=== PATIENT | female | born 1945 | race Caucasian/White ===

== ENCOUNTER 2025-01-31 08:46 | Outpatient (AMB) | payer MEDICARE, BC, SELFPAY ==
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
--- OUTSIDE RECORDS SUMMARY | 2025-01-31 09:07 | XMS_ITS | Clinical Summary ---
Author Organization [address] Address [address] [place] [address] Phone Care Team Providers Care Childhood Teacher Name Role Phone Preeti Brothers MD Primary Care Provider [phone] Allergies Active Allergy Reactions Criticality Noted Date Comments Carbamazepine 08/18/2005 hepatitis Medications cyanocobalamin, vitamin B-12, 1,000 mcg capsule Take 1,000 mcg by mouth. Active levETIRAcetam (KEPPRA) 250 mg tablet Take 1 tablet (250 mg total) by mouth 2 (two) times a day. 025 Active cabergoline (DOSTINEX) 0.5 mg tabletIndications:B enign neoplasm of pituitary gland and craniopharyngeal duct (CMS/HCC V24, CMS/HCC V28) TAKE 1/2 TABLET BY MOUTH EVERY 7 DAYS 6 tablet 1 025 Active pravastatin (PRAVACHOL) 80 mg tablet Take 1 tablet (80 mg total) by mouth at bedtime. 90 tablet 1 025 Active lisinopriL (PRINIVIL,ZESTRIL) 5 mg tablet Take 1 tablet (5 mg total) by mouth at bedtime. 90 tablet 1 025 Active amLODIPine (NORVASC) 10 mg tablet Take 1 tablet (10 mg total) by mouth at bedtime. 90 tablet 1 06/26/2 025 Active alendronate (FOSAMAX) 70 mg tablet Take 1 tablet (70 mg total) by mouth every 7 (seven) days. Take in the morning with a full glass of water, on an empty stomach, and do not take anything else by mouth or lie down for the next 30 min. 13 each 3 025 2025 Active zoledronic acid (RECLAST) 5 mg/100 mL piggybackIndication s:Osteoporosis without current pathological fracture, unspecified osteoporosis type Infuse 100 mL (5 mg total) into a venous catheter 1 (one) time for 1 dose. 100 mL 024 2024 Discontinued pravastatin (PRAVACHOL) 80 mg tablet Take 1 tablet (80 mg total) by mouth at bedtime. 90 tablet 1 025 2024 Discontinued(R eorder) lisinopriL (PRINIVIL,ZESTRIL) 5 mg tablet Take 1 tablet (5 mg total) by mouth at bedtime. 90 tablet 025 2024 Discontinued(R eorder) amLODIPine (NORVASC) 10 mg tablet Take 1 tablet (10 mg total) by mouth at bedtime. 30 tablet 025 2024 Discontinued(R eorder) Active Problems Problem Noted Date Diagnosed Date Hypertension 04/22/2022 Assessment & Plan (01/04/2025 9:03 AM EDT): DJD (degenerative joint disease), lumbar 018 Overview (06/22/2024): Severe djd Obesity (BMI 30.0-34.9) 11/24/2017 Osteoporosis 09/25/2009 Overview (06/16/2024): T-3.0 hip -3.2 spine 08/22 T score spine -1.8 hip -1.7 FRAX score 15% 10 year fracture risk 09/21 T score spine -1.8 hip -2.9 FRAX 06/26 T score spine -1.8 hip -2.9 01/27 T score spine -0.9 hip -3.5 09/03 T score spine -0.7 hip -3.2 Assessment & Plan (01/04/2025 9:03 AM EDT): Hypercholesteremia 11/05/2007 Assessment & Plan (01/04/2025 9:03 AM EDT): Kidney stone 06/02/2006 Convulsions ([facility] V24, [facility] V28) 6 Assessment & Plan (01/04/2025 9:03 AM EDT): Central nervous system viral infection 6 Overview (06/16/2024): age 10 Hepatitis A virus infection 08/18/2005 Overview (12/26/2024): Gout 08/18/2005 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[facility] V24, [facility]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 06 Assessment & Plan (01/04/2025 9:03 AM EDT): Resolved Problems Problem Noted Date Diagnosed Date Resolved Date Current every day smoker 05/17/2023 Encounters Date Type Department Care Team Description 01/04/2025 9:00 AM EDT Office Visit Adult Medicine [address] [address] Preeti Brothers MD Encounter for annual wellness visit (AWV) in Medicare patient (Primary Dx); Primary hypertension; Hypercholesteremia; Convulsions, unspecified convulsion type ([facility] V24, [facility] V28); Osteoporosis without current pathological fracture, unspecified osteoporosis type; 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[facility] V24, [facility] V28) from Last 3 Months Immunizations Name Administration Dates Next Due Influenza trivalent, 0.5mL ( Fluad) 65yo and older 04/22/2022,04/09/2021,03/01/2020 Pneumococcal conjugate 13 va lent (Prevnar 13, PCV13) 2mo and older 05/27/2016 Pneumococcal polysaccharide 23 valent (Pneumovax 23) 2yo and older 08/23/2008 Td Tetanus diptheria (Tdvax) 7yo and older 05/14,05/23/2004 Zoster Live 05/14/2014 Surgical History Surgery Date Site/Laterality Comments OTHER SURGICAL HISTORY 07/22 PROCEDURE: MAMMOGRAM Medical History Medical History Date Comments Gout, unspecified 08/18/2005 Historical Medical DX 08/18/2005 Encephalit is, myelitis, and encephalomyelitis in viral diseases classified elsewhere; COMMENT: age 10 Viral hepatitis A without me ntion of hepatic coma 08/18/2005 Calculus of kidney 06/02/2006 Hypercholesteremia 11/05/2007 Osteoporosis 09/25/2009 Amblyopia, unspecified OS-since childhood DJD (degenerative joint dise ase), lumbar 12/01/2017 : Severe djd Hypertension 04/22/2022 Kidney stone 06/02/2006 Convulsions ([facility] V24, [facility] V28) 6 Central nervous system viral infection 6 age 10 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[facility] V24, [facility] [place]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 Family History Medical History Relation Name Comments CABG Brother Heart attack Father CABG Mother after bypa ss; Valve replacement Glaucoma Sister Hypertension Son 1 hypercholestero lemia Hyperlipidemia Son 2 Breast cancer Neg Hx Relation Name Status Comments Brother Father Mother Sister Son 1 Son 2 Social History Tobacco Use Types Packs/Day Years Used Date Smoking Tobacco: Every Day Cigarettes Smokeless Tobacco: Never Tobacco Cessation:Ready to Q uit: Not Asked; Counseling Given: Not Answered Alcohol Use Standard Drinks/Week Comments No 0 (1 standard drink = 0.6 oz pur e alcohol) Housing Instability Answer Date Recorde d Are you worried that in the next 2 months you may not have stable housing? No 01/04/2025 Food Access & Nutrition Answer Date Rec orded Do you have access to a vari ety of food including fruits and vegetables? Yes 01/04/2025 Access to Healthcare Answer Date Record ed Within the last 3 months, christie up many times did you visit the emergency department for your medical care? 0 01/04/2025 Health Literacy Answer Date Recorded How often do you need to hav e someone help you when you read instructions, pamphlets, or other written material from your doctor or pharmacy? Never 01/04/2025 Caregiver: How often do you need to have someone help you when you read instructions, pamphlets, or other written material from your doctor or pharmacy? Not on file 01/04/2025 Financial Risk Answer Date Recorded How hard is it for you to pa y for the very basics like food, housing, medical care, and air conditioning / heating? Not very hard 01/04/2025 Transportation Answer Date Recorded Has the lack of transportati on kept you from meetings, work, or from getting things needed for daily living? No 01/04/2025 Has the lack of transportati on kept you from medical appointments or from getting medications? Not on file 01/04/2025 Social Isolation Answer Date Recorded How often do you feel lonely or isolated from th ose around you? Never 01/04/2025 Food Risk Answer Date Recorded Within the past 12 months we worried whether our food would run out before we got money to buy more. Never true 01/04/2025 Within the past 12 months th e food we bought just didn't last and we didn't have money to get more. Never true 01/04/2025 Dependent Care Answer Date Recorded Do you need help finding or paying for care for your loved ones. For example, childcare aide or elderly care for an older adult? No 01/04/2025 Education Answer Date Recorded Do you think completing more education or training, like finishing a GED, going to college, or learning a trade, would be helpful for you? No 01/04/2025 Employment and Income Answer Date Recor ded During the last four weeks, have you been actively looking for work? No 01/04/2025 Living Situation Answer Date Recorded What is your living situation? 0 01/04/2025 Comments Unknown Sex and Gender Information Value Date Recorded Sex Assigned at Not on file Legal Sex Female 11:46 AM EST Gender Identity Not on file Sexual Orientation Not on file Obstetrics History Last Filed Vital Signs Vital Sign Reading Time Taken Comments Blood Pressure 132/64 01/04/2025 8:44 AM EDT Pulse 64 01/04/2025 8:44 AM EDT Temperature 36.3 C (97.3 F) 01/04/2025 8:44 AM EDT Respiratory Rate 16 01/04/2025 8:44 AM EDT Oxygen Saturation 95% 01/04/2025 8:44 AM EDT Inhaled Oxygen Concentration - - Weight 78.4 kg (172 lb 14.4 oz) 01/04/2025 8:44 AM EDT Height 152.4 cm (5') 01/04/2025 8:44 AM EDT Body Mass Index 33.77 01/04/2025 8:44 AM EDT Plan of Treatment Upcoming Encounters Date Type Department Care Team (Late st Contact Info) Description 07/09/2025 8:45 AM EST Office Visit Adult Medicine [facility] [address] [place] [address] Preeti Brothers MD [address] [place] [address] Health Maintenance Due Date Last Done Comments Zoster Vaccines (2 of 3) 07/09/2014 05/14/2014 RSV Immunization Adult Patients (1 - 1-dose 75+ series) 2018 COVID-19 Vaccine ( season) 2024 05/17/2023, 04/09/2021, 09/15/2020, Additional history exists DTaP,Tdap,and Td Vaccines (3 - Td or Tdap) 05/14/2024 05/14/2014, 05/23/2004 Influenza Vaccine (#1) 2025 , 04/09/2021, 03/01/2020 Falls Risk Assessment 01/04/2026 01/04/2025 Hypertension/CHF/CAD Annual BMP Blood Test 01/04/2026 01/04/2025 Medicare Annual Wellness Visit 01/04/2026 01/04/2025 Social Influencers of Health Screening 01/04/2026 01/04/2025 Cholesterol Screening (Lipid Panel) 01/04/2030 01/04/2025, 12/16/2023 Osteoporosis Screening (Bone Density Screening) 08/25/2032 08/25/2022, 01/11/2019 Pneumococcal Vaccine: 50+ Years Completed 05/27/2016, 08/23/2008 Depression Screening Completed 01/04/2025 HIB Vaccines Aged Out No longer eligi ble based on patient's age to complete this topic HPV Vaccines Aged Out No longer eligi ble based on patient's age to complete this topic Hepatitis A Vaccines Aged Out No long er eligible based on patient's age to complete this topic Hepatitis B Vaccines Aged Out No long er eligible based on patient's age to complete this topic IPV Vaccines Aged Out No longer eligi ble based on patient's age to complete this topic MMR Vaccines Aged Out No longer eligi ble based on patient's age to complete this topic Meningococcal ACWY Vaccine Aged Out N o longer eligible based on patient's age to complete this topic Meningococcal B Vaccine Aged Out No l onger eligible based on patient's age to complete this topic RSV Immunization Patients Under 20 months Aged Out No longer eligible based on patient's age to complete this topic Varicella Vaccines Aged Out No longer eligible based on patient's age to complete this topic Procedures Procedure Name Priority Date/Time Associated Diagnosis Comments LIPID PANEL WITH REFLEX TO DIRECT LDL Routine 01/04/2025 9:22 AM EDT Hypercholesteremia COMPLETE BLOOD COUNT Routine 01/04/2025 9:22 AM EDT Osteoporosis without current pathological fracture, unspecified osteoporosis type Hypercholesteremia Primary hypertension VITAMIN D 25 HYDROXY Routine 01/04/2025 9:22 AM EDT Osteoporosis without current pathological fracture, unspecified osteoporosis type Hypercholesteremia Primary hypertension BASIC METABOLIC PANEL Routine 01/04/2025 9:22 AM EDT Osteoporosis without current pathological fracture, unspecified osteoporosis type Hypercholesteremia Primary hypertension DXA BONE DENSITY STUDY 1+ SITS AXIAL SKEL Routine 08/25/2022 2:37 PM EST Age-related osteoporosis without current pathological fracture from Last 3 Months or Most Recently Relevant to Health Maintenance Results * Lipid panel with reflex to direct LDL (01/04/2025 9:22 AM EDT) Cholesterol 189 0 - 200 mg/dL LAB CHEMISTRY METHOD 01/04/2025 1:36 PM EDT [facility] Triglycerides 142 0 - 150 mg/dL LAB CHEMISTRY METHOD 01/04/2025 1:36 PM EDT [facility] HDL 67 >=40 mg/dL LAB CHEMISTRY METHOD 01/04/2025 1:36 PM EDT [facility] LDL Calculated 94 0 - 100 mg/dL LAB CHEMISTRY METHOD 01/04/2025 1:36 PM EDT [facility] VLDL Cholesterol Anuj 28.4 mg/dL LAB CHEMISTRY METHOD 01/04/2025 1:36 PM EDT [facility] Non HDL Chol. (LDL+VLDL) 122 <145 mg/dL LAB CHEMISTRY METHOD 01/04/2025 1:36 PM EDT [facility] Chol/HDL Ratio 2.8 0.0 - 4.4 LAB CHEMISTRY METHOD 01/04/2025 1:36 PM EDT [facility] Blood Venous blood specimen / Unknown Venipuncture / Unknown 01/04/2025 9:22 AM EDT 01/04/2025 9:22 AM EDT us Josee GUNN LAB BLOOD ORDERABLES Final Re sult Performing Organization Address [facility]/ZIP Co de Phone Number [facility] [address] [place] [address], [place] [phone] * Vitamin D 25 hydroxy (01/04/2025 9:22 AM EDT) Vit D, 25-Hydroxy 30.0 30.0 - 80.0 ng/mL LAB CHEMISTRY METHOD 01/04/2025 2:06 PM EDT [facility] Blood Venous blood specimen / Unknown Venipuncture / Unknown 01/04/2025 9:22 AM EDT 01/04/2025 9:22 AM EDT us Josee GUNN LAB BLOOD ORDERABLES Final Re sult Performing Organization Address City/[facility]/ZIP Co de Phone Number [facility] [address] [place] [address], [place] [phone] * (ABNORMAL) Complete blood count (01/04/2025 9:22 AM EDT) [facility] WBC 5.1 4.8 - 10.8 K/mcL LAB HEMETOLOGY METHOD 01/04/2025 10:27 AM [facility] RBC 4.80 3.80 - 4.80 M/mcL LAB HEMETOLOGY METHOD 01/04/2025 10:27 AM [facility] Hemoglobin 14.1 11.5 - 16.0 g/dL LAB HEMETOLOGY METHOD 01/04/2025 10:27 AM [facility] Hematocrit 46.0 35.0 - 47.0 % LAB HEMETOLOGY METHOD 01/04/2025 10:27 AM [facility] MCV 95.6 79.0 - 98.0 FL LAB HEMETOLOGY METHOD 01/04/2025 10:27 AM [facility] MCH 29.3 27.0 - 32.0 pcg LAB HEMETOLOGY METHOD 01/04/2025 10:27 AM [facility] MCHC 30.7(L) 32.0 - 37.0 g/dL LAB HEMETOLOGY METHOD 01/04/2025 10:27 AM [facility] RDW 13.2 11.0 - 15.0 % LAB HEMETOLOGY METHOD 01/04/2025 10:27 AM [facility] Platelets 243 130 - 400 K/mcL LAB HEMETOLOGY METHOD 01/04/2025 10:27 AM [facility] MPV 9.5 7.0 - 11.0 FL LAB HEMETOLOGY METHOD 01/04/2025 10:27 AM [facility] NRBC 0.0 <1.0 % LAB HEMETOLOGY METHOD 01/04/2025 10:27 AM [facility] NRBC Absolute 0.00 <0.10 K/mcL LAB HEMETOLOGY METHOD 01/04/2025 10:27 AM T [facility] Blood Venous blood specimen / Unknown Venipuncture / Unknown 01/04/2025 9:22 AM EDT 01/04/2025 9:22 AM EDT us Josee GUNN LAB BLOOD ORDERABLES Final Re sult [facility] [address] [place] [address], [place] [phone] * (ABNORMAL) Basic metabolic panel (01/04/2025 9:22 AM EDT) Sodium 136 133 - 145 mmol/L LAB CHEMISTRY METHOD 01/04/2025 1:29 PM [facility] Potassium 5.0 3.5 - 5.5 mmol/L LAB CHEMISTRY METHOD 01/04/2025 1:29 PM [facility] Chloride 103 96 - 110 mmol/L LAB CHEMISTRY METHOD 01/04/2025 1:29 PM [facility] CO2 26 21 - 32 mmol/L LAB CHEMISTRY METHOD 01/04/2025 1:29 PM [facility] Anion Gap 7 3 - 11 LAB CHEMISTRY METHOD 01/04/2025 1:29 PM [facility] Glucose 100 70 - 100 mg/dL LAB CHEMISTRY METHOD 01/04/2025 1:29 PM [facility] BUN 26(H) 5 - 25 mg/dL LAB CHEMISTRY METHOD 01/04/2025 1:29 PM [facility] Creatinine 1.15(H) 0.50 - 1.10 mg/dL LAB CHEMISTRY METHOD 01/04/2025 1:29 PM [facility] eGFR 48(L) >=60 mL/min/1. 73m2 LAB CHEMISTRY METHOD 01/04/2025 1:29 PM [facility] Comment:Calculation based on the Chronic Kidney Disease Epidemiology Collaboration (CKD-EPI) equation refit without adjustment for race. BUN/Creatinine Ratio 22.6 LAB CHEMISTRY METHOD 01/04/2025 1:29 PM EDT [facility] Calcium 9.3 8.5 - 10.5 mg/dL LAB CHEMISTRY METHOD 01/04/2025 1:29 PM EDT [facility] Blood Venous blood specimen / Unknown Venipuncture / Unknown 01/04/2025 9:22 AM EDT 01/04/2025 9:22 AM EDT us Josee GUNN LAB BLOOD ORDERABLES Final Re sult [facility] [address] [place] [address], [place] [phone] * DXA BONE DENSITY STUDY 1+ SITS AXIAL SKEL (08/25/2022 2:37 PM EST) Anatomical Region Laterality Modality Bone Densitometr y 04/22/2022 8:37 AM EDT Narrative 08/25/2022 7:05 PM EST BONE DENSITY SCAN (DEXA): FINDINGS: Lumbar Spine T-score is -0.7. (SD relative to 20-29 y/o adult) Z-score is 1.9. (SD relative to age matched peers) This is considered normal by WHO criteria. Left Hip T-score is -3.2. Z-score is -1.0. This is considered osteoporosis by WHO criteria. Left Forearm T-score is -3.8. Z-score is -0.7. This is considered osteoporosis by WHO criteria. Comparison exam: 01/11/2019. 6.6% loss of left forearm bone mineral density which is statistically significant at the 95% confidence level. No statistically significant change in left hip and lumbar spine bone mineral density. IMPRESSION: IMPRESSION: Osteoporosis by WHO criteria. The [facility] Department of Internal Medicine recommends using National Osteoporosis Foundation (NOF) guidelines in treatment decisions related to osteoporosis. NOF guidelines suggest considering treatment for postmenopausal women and men aged 50 or older presenting with the following: History of hip or vertebral fracture. T-score = -2.5 (DXA) at the femoral neck, total hip, or spine, after appropriate evaluation to exclude secondary causes. Low bone mass (T-score between -1.0 and -2.5 at the femoral neck or spine) AND a 10-year probability of a hip fracture = 3% OR a 10-year probability of a major osteoporosis-related fracture = 20% based on the [place]-adapted WHO algorithm Please note that all treatment decisions require clinical judgment and consideration of individual patient factors, including patient preferences, co-morbidities, previous drug use, risk factors not captured in the FRAX model (e.g., frailty, falls, vitamin D deficiency, increased bone turnover, interval significant decline in bone density) and possible under- or over-estimation of fracture risk by FRAX. Optional alternative screening schedule based on moise Castro., [facility] July 30, 2011 for patients with osteopenia (based on hip BMD T-score) is as follows: * advanced osteopenia (T scores -2.00 to -2.49), BMD testing every year * moderate osteopenia (T scores -1.50 to -1.99), BMD testing every 5 years mild osteopenia or normal BMD (T scores -1.50 and higher), BMD testing every 15 years Procedure Note Sharmila Forte MD - 08/16/2023 BONE DENSITY SCAN (DEXA): FINDINGS: Lumbar Spine T-score is -0.7. (SD relative to 20-29 y/o adult) Z-score is 1.9. (SD relative to age matched peers) This is considered normal by WHO criteria. Left Hip T-score is -3.2. Z-score is -1.0. This is considered osteoporosis by WHO criteria. Left Forearm T-score is -3.8. Z-score is -0.7. This is considered osteoporosis by WHO criteria. Comparison exam: 01/11/2019. 6.6% loss of left forearm bone mineraldensity which is statistically significant at the 95% confidence level. No statisticallysignificant change in left hip and lumbar spine bone mineral density. IMPRESSION: IMPRESSION: Osteoporosis by WHO criteria. The [facility] Department of Internal Medicine recommendsusing National Osteoporosis Foundation (NOF) guidelines in treatment decisions related toosteoporosis. NOF guidelines suggest considering treatment for postmenopausal women and menaged 50 or older presenting with the following: History of hip or vertebral fracture. T-score = -2.5 (DXA) at the femoral neck, total hip, or spine, afterappropriate evaluation to exclude secondary causes. Low bone mass (T-score between -1.0 and -2.5 at the femoral neck or spine)AND a 10-year probability of a hip fracture = 3% OR a 10-year probability of a majorosteoporosis-related fracture = 20% based on the [place]-adapted WHO algorithm Please note that all treatment decisions require clinical judgment andconsideration of individual patient factors, including patient preferences, co- morbidities,previous drug use, risk factors not captured in the FRAX model (e.g., frailty, falls, vitaminD deficiency, increased bone turnover, interval significant decline in bone density) andpossible under- or over-estimation of fracture risk by FRAX. Optional alternative screening schedule based on moise Castro., [facility] for patients with osteopenia (based on hip BMD T-score) is as follows: * advanced osteopenia (T scores -2.00 to -2.49), BMD testing every year * moderate osteopenia (T scores -1.50 to -1.99), BMD testing every 5years mild osteopenia or normal BMD (T scores -1.50 and higher), BMD testingevery 15 years Preeti Brothers MD [facility] DXA PROCEDURES Final Result from Last 3 Months or Most Recently Relevant to Health Maintenance Insurance [facility] MEDICARE Care Teams Childhood Teacher Relationship Specialty Start Date End Date Preeti Brothers MD [address] [place] [address] PCP - General 07/20/1992
== END 2025-01-31 09:22 | disposition home or self-care (01) ==
LOC: HO.HSM 08:47
PROVIDERS: Visit Provider Psychiatry & Neurology Neurology
DX: G40.209 Localization-related (focal) (partial) symptomatic epilepsy and epileptic syndromes with complex partial seizures, not intractable, without status epilepticus (principal)
CPT/HCPCS: 99214

== ENCOUNTER → 2025-01-31 08:46 | Outpatient (BNVA) | payer MEDICARE, BC, SELFPAY | PROVIDERS: Visit Provider Psychiatry & Neurology Neurology | DX: G40.209 Localization-related (focal) (partial) symptomatic epilepsy and epileptic syndromes with complex partial seizures, not intractable, without status epilepticus (principal) | CPT/HCPCS: 99212 ==

== ENCOUNTER 2025-03-07 13:05 | Outpatient (AMB) | payer MEDICARE, BC, SELFPAY ==
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
--- OUTSIDE RECORDS SUMMARY | 2025-03-07 13:35 | XMS_ITS | Clinical Summary ---
Author Organization [address] Address [address] [place] [address] Phone Care Team Providers Care Welfare Worker Name Role Phone Preeti Brothers MD Primary Care Provider [phone] Allergies Active Allergy Reactions Criticality Noted Date Comments Carbamazepine 08/18/2005 hepatitis Medications cyanocobalamin, vitamin B-12, 1,000 mcg capsule Take 1,000 mcg by mouth. Active levETIRAcetam (KEPPRA) 250 mg tablet Take 1 tablet (250 mg total) by mouth 2 (two) times a day. 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 90 tablet 1 5 Active lisinopriL (PRINIVIL,ZESTRIL) 5 mg tablet Take 1 tablet (5 mg total) by mouth at bedtime. 90 tablet 1 5 Active amLODIPine (NORVASC) 10 mg tablet Take 1 tablet (10 mg total) by mouth at bedtime. 90 tablet 1 5 Active alendronate (FOSAMAX) 70 mg tablet Take 1 tablet (70 mg total) by mouth every 7 (seven) days. Take in the morning with a full glass of water, on an empty stomach, and do not take anything else by mouth or lie down for the next 30 min. 13 each 3 5 026 Active Active Problems Problem Noted Date Diagnosed Date [...] 9:03 AM EDT): Kidney stone 06/02/2006 Convulsions ([facility] V24, [facility] V28) 6 Assessment & Plan (01/04/2025 9:03 AM EDT): Central nervous system viral infection 6 Overview (06/16/2024): age 10 Hepatitis A virus infection 08/18/2005 Overview (12/26/2024): Gout 08/18/2005 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[facility] V24, [facility]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 06 Assessment & Plan (01/04/2025 9:03 AM EDT): Resolved Problems Problem Noted Date Diagnosed Date Resolved Date Current every day smoker 05/17/2023 Encounters Date Type Department Care Team Description 01/04/2025 9:00 AM EDT Office Visit Adult Medicine [address] [phone] Preeti Brothers MD Encounter for annual wellness visit (AWV) in Medicare patient (Primary Dx); Primary hypertension; Hypercholesteremia; Convulsions, unspecified convulsion type ([facility] V24, [facility] V28); Osteoporosis without current pathological fracture, unspecified osteoporosis type; 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[facility] V24, [facility] V28) from Last 3 Months Immunizations Name [...] djd Hypertension 04/22/2022 Kidney stone 06/02/2006 Convulsions ([facility] V24, [facility] V28) 6 Central nervous system viral infection 6 age 10 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[facility] V24, C MS/HCC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 Family History Medical History Relation [...] Record ed Within the last 3 months, ho w many times did you visit the emergency [...] care for your loved ones. For example, maternal child nurse or elderly care for an older adult? [...] 8:45 AM EST Office Visit Adult Medicine [facility] [address] [place] [phone] Preeti Brothers MD [address] [place] [address] Health Maintenance Due Date Last Done Comments Zoster Vaccines (2 of 3) 07/09/2014 05/14/2014 RSV Immunization Adult Patients (1 - 1-dose 75+ series) 2018 COVID-19 Vaccine ( - season) 2024 05/17/2023, 04/09/2021, 09/15/2020, Additional history [...] mg/dL LAB CHEMISTRY METHOD 01/04/2025 1:36 PM [facility] Triglycerides 142 0 - 150 mg/dL LAB CHEMISTRY METHOD 01/04/2025 1:36 PM [facility] HDL 67 >=40 mg/dL LAB CHEMISTRY METHOD 01/04/2025 1:36 PM [facility] LDL Calculated 94 0 - 100 mg/dL LAB CHEMISTRY METHOD 01/04/2025 1:36 PM [facility] VLDL Cholesterol Anuj 28.4 mg/dL LAB CHEMISTRY METHOD 01/04/2025 1:36 PM [facility] Non HDL Chol. (LDL+VLDL) 122 <145 mg/dL LAB CHEMISTRY METHOD 01/04/2025 1:36 PM [facility] Chol/HDL Ratio 2.8 0.0 - 4.4 LAB CHEMISTRY METHOD 01/04/2025 1:36 PM [facility] Blood Venous blood specimen / Unknown Venipuncture / Unknown 01/04/2025 9:22 AM EDT 01/04/2025 9:22 AM EDT us Josee GUNN LAB BLOOD ORDERABLES Final Re sult Performing Organization Address [facility]/ZIP Co de Phone Number [facility] [address] [place] [address], [place] [phone] * Vitamin D 25 hydroxy (01/04/2025 9:22 AM EDT) [facility] Vit D, 25-Hydroxy 30.0 30.0 - 80.0 ng/mL LAB CHEMISTRY METHOD 01/04/2025 2:06 PM EDT [facility] Blood Venous blood specimen / Unknown Venipuncture / Unknown 01/04/2025 9:22 AM EDT 01/04/2025 9:22 AM EDT us Josee GUNN LAB BLOOD ORDERABLES Final Re sult Performing Organization Address [facility]/ZIP Co de Phone Number [facility] [address] [place] [address], [place] [phone] * (ABNORMAL) Complete blood count (01/04/2025 9:22 AM EDT) [facility] WBC 5.1 4.8 - 10.8 K/[facility] LAB HEMETOLOGY METHOD 01/04/2025 10:27 AM EDT [facility] RBC 4.80 3.80 - 4.80 M/[facility] LAB HEMETOLOGY METHOD 01/04/2025 10:27 AM EDT [facility] Hemoglobin 14.1 11.5 - 16.0 g/dL LAB HEMETOLOGY METHOD 01/04/2025 10:27 AM EDT [facility] Hematocrit 46.0 35.0 - 47.0 % LAB HEMETOLOGY METHOD 01/04/2025 10:27 AM EDT [facility] MCV 95.6 79.0 - 98.0 FL LAB HEMETOLOGY METHOD 01/04/2025 10:27 AM EDT [facility] MCH 29.3 27.0 - 32.0 pcg LAB HEMETOLOGY METHOD 01/04/2025 10:27 AM EDT [facility] MCHC 30.7(L) 32.0 - 37.0 g/dL LAB HEMETOLOGY METHOD 01/04/2025 10:27 AM EDT [facility] RDW 13.2 11.0 - 15.0 % LAB HEMETOLOGY METHOD 01/04/2025 10:27 AM EDT [facility] Platelets 243 130 - 400 K/mcL LAB HEMETOLOGY [facility] MPV 9.5 7.0 - 11.0 FL LAB HEMETOLOGY METHOD 01/04/2025 10:27 AM EDT [facility] NRBC 0.0 <1.0 % LAB HEMETOLOGY METHOD 01/04/2025 10:27 AM T [facility] NRBC Absolute 0.00 <0.10 K/mcL LAB HEMETOLOGY METHOD 01/04/2025 10:27 AM [facility] Blood Venous blood specimen / Unknown Venipuncture / Unknown 01/04/2025 9:22 AM EDT 01/04/2025 9:22 AM EDT us Josee GUNN LAB BLOOD ORDERABLES Final Re sult [facility] [address] [place] [address], * (ABNORMAL) Basic metabolic panel (01/04/2025 9:22 AM EDT) [facility] Signature Sodium 136 133 - 145 mmol/L LAB CHEMISTRY METHOD 01/04/2025 1:29 PM EDT [facility] Potassium 5.0 3.5 - 5.5 mmol/L LAB CHEMISTRY METHOD 01/04/2025 1:29 PM [facility] Chloride 103 96 - 110 mmol/L LAB CHEMISTRY METHOD 01/04/2025 1:29 PM [facility] CO2 26 21 - 32 mmol/L LAB CHEMISTRY METHOD 01/04/2025 1:29 PM [facility] Anion Gap 7 3 - 11 LAB CHEMISTRY METHOD 01/04/2025 1:29 PM [facility] Glucose 100 70 - 100 mg/dL LAB CHEMISTRY METHOD 01/04/2025 1:29 PM [facility] BUN 26(H) 5 - 25 mg/dL LAB CHEMISTRY METHOD 01/04/2025 1:29 PM [facility] Creatinine 1.15(H) 0.50 - 1.10 mg/dL LAB CHEMISTRY METHOD 01/04/2025 1:29 PM [facility] eGFR 48(L) >=60 mL/min/1. 73m2 LAB CHEMISTRY METHOD 01/04/2025 1:29 PM [facility] Comment:Calculation based on the Chronic Kidney Disease Epidemiology Collaboration (CKD-EPI) equation refit without adjustment for race. BUN/Creatinine Ratio 22.6 LAB CHEMISTRY METHOD 01/04/2025 1:29 PM [facility] Calcium 9.3 8.5 - 10.5 mg/dL LAB CHEMISTRY METHOD 01/04/2025 1:29 PM [facility] Blood Venous blood specimen / Unknown Venipuncture / Unknown 01/04/2025 9:22 AM EDT 01/04/2025 9:22 AM EDT us Josee GUNN LAB BLOOD ORDERABLES Final Re sult [facility] [address] [place] [address], * DXA BONE DENSITY STUDY 1+ SITS [...] IMPRESSION: IMPRESSION: Osteoporosis by WHO criteria. The [facility] Department of Internal Medicine recommends using National [...] alternative screening schedule based on moise Castro., [facility] July 30, 2011 for patients with osteopenia [...] IMPRESSION: IMPRESSION: Osteoporosis by WHO criteria. The [facility] Department of Internal Medicine recommendsusing National Osteoporosis [...] FRAX. Optional alternative screening schedule based on janey Castro al., NEJMJanuary 2011 for patients with osteopenia (based on hip BMD T-score) is as follows: * advanced osteopenia (T scores -2.00 to -2.49), BMD testing every year * moderate osteopenia (T scores -1.50 to -1.99), BMD testing every 5years mild osteopenia or normal BMD (T scores -1.50 and higher), BMD testingevery 15 years Preeti Brothers MD IMG DXA PROCEDURES Final Result from Last 3 Months or Most Recently Relevant to Health Maintenance Insurance [facility] MEDICARE Care Teams Welfare Worker Relationship Specialty Start Date End Date Preeti Brothers MD [address] [place] [address] PCP - General 07/20/1994
== END 2025-03-07 13:55 | disposition home or self-care (01) ==
LOC: HO.HSM 13:06
PROVIDERS: Visit Provider Psychiatry & Neurology Neurology
DX: G40.209 Localization-related (focal) (partial) symptomatic epilepsy and epileptic syndromes with complex partial seizures, not intractable, without status epilepticus (principal); I67.89 Other cerebrovascular disease; D35.2 Benign neoplasm of pituitary gland; R26.9 Unspecified abnormalities of gait and mobility
CPT/HCPCS: 99214

== ENCOUNTER → 2025-03-07 13:05 | Outpatient (BNVA) | payer MEDICARE, BC, SELFPAY | PROVIDERS: Visit Provider Psychiatry & Neurology Neurology | DX: G40.209 Localization-related (focal) (partial) symptomatic epilepsy and epileptic syndromes with complex partial seizures, not intractable, without status epilepticus (principal); D35.2 Benign neoplasm of pituitary gland; R26.9 Unspecified abnormalities of gait and mobility; I67.89 Other cerebrovascular disease | CPT/HCPCS: 99212 ==

== ENCOUNTER 2025-03-08 11:10 | Inpatient (IN) | payer MEDICARE, BC, SELFPAY ==
[2025-03-08] VITALS (11 sets, daily range): BP systolic 142–191; BP diastolic 56–88; PULSE 81–95; RESP 14–20; TEMP 36.5–36.7; O2SAT 88–99; BMI 30.8; BMI 31.7
--- NOTE | ~2025-03-08 | CT_ITS ---
EXAMINATION: CT CERVICAL SPINE WITHOUT CONTRAST CLINICAL INFORMATION: Status post fall. COMPARISON: None available. TECHNIQUE: Contiguous axial images through the cervical spine using 3 mm collimation with bone and soft tissue algorithm. Sagittal and coronal reformatted images. DLP: 505.[address] examination was performed using dose optimization techniques as appropriate, variously including the following: *Automated exposure control *Adjustment of mA and/or kV according to patient size (this includes techniques or standardized protocols for targeted exams where dose is matched to indication/reason for exam; i.e. extremities or head) *Use of iterative reconstruction technique FINDINGS: Patient's motion artifact. Craniocervical junction is intact with normal alignment between the occipital condyles and the lateral masses of C1. Degenerative changes in the periodontal C1 region. Marginal osteophyte formation and endplate sclerosis subchondral cyst formation and decreased intervertebral disc height from C3 to C7 pronounced at C5-6. Osteopenia versus osteoporosis. Bilateral facet joint hypertrophy C3-4 to C6-7 pronounced at C5-6. C1 is intact. C2 is intact. C3 is intact. C4 is intact. C5 is intact. C6 is intact. C7 is intact. No prevertebral compartment hematoma. Calcified plaques in the thoracic aortic arch and its main branches as well as the carotid arteries and the V4 segment right vertebral artery Centrilobular emphysematous changes in the included lungs. Tympanic cavities and mastoid cells are aerated. Calcified plaques in the cavernous supracavernous segments both ICAs. Tortuosity of the right carotid artery resulting in extrinsic compression deformity upon the right lateral wall of the esophagus. CT/CT cervical spine wo IV con IMPRESSION: Multilevel cervical spondylosis without acute fracture or trauma-related listhesis. Atherosclerosis disease. Centrilobular emphysematous type changes. Fleischner guidelines were followed. Electronically signed by: Jonathan Banda MD 03/08/2025 03:04 PM EDT
--- NOTE | ~2025-03-08 | XR_ITS ---
CLINICAL HISTORY: post reduction splint 2 view left wrist Comparison: CR/SR - XR WRIST 3 OR MORE VIEWS LEFT - 03/08/25 13:41 EDT Findings: Interval placement of plaster cast resulting in artifact overlying osseous structures. Intra-articular distal radial fracture again demonstrated with no significant interval change in alignment. No dislocation. IMPRESSION: 1. No significant interval change in alignment distal radial fracture. No dislocation. This document has been electronically signed by: Tennille Greco MD on 03/08/2025 17:43:02
--- NOTE | ~2025-03-08 | XR_ITS ---
EXAMINATION: XR WRIST 3 OR MORE VIEWS LEFT, XR HAND 3 OR MORE VIEWS LEFT HISTORY: pain, injury COMPARISON: There are no prior studies available for comparison. FINDINGS: Seven views of the left hand and wrist, including a scaphoid view are submitted. The bones are osteopenic. There is a comminuted intra-articular fracture of the distal radius with mild dorsal angulation of the distal fracture fragment. No additional fracture is seen. There is no dislocation. There is mild osteoarthritis of the DIP joints. There is diffuse soft tissue swelling. XR/XR hand LT min 3V IMPRESSION: Comminuted intra-articular fracture of the distal radius as described. Electronically signed by: Bryson Moya MD 03/08/2025 01:55 PM EDT
--- NOTE | ~2025-03-08 | CT_ITS ---
EXAMINATION: CT ABDOMEN AND PELVIS WITHOUT CONTRAST CLINICAL INFORMATION: Abdominal distention. COMPARISON: None available. TECHNIQUE: Multidetector volumetric imaging was performed from the superior aspect of the liver through the pubic symphysis. Sagittal and coronal reformatted images were obtained on the technologist's workstation. This CT examination was performed using dose optimization techniques as appropriate, variously including the following: *Automated exposure control *Adjustment of mA and/or kV according to patient size (this includes techniques or standardized protocols for targeted exams where dose is matched to indication/reason for exam; i.e. extremities or head) *Use of iterative reconstruction technique DLP: 962 mGycentimeter. FINDINGS: LUNG BASES: Elevated left hemidiaphragm. Subsegmental atelectasis versus scarring, lung bases lingula right middle lung lobe. LIVER, GALLBLADDER, AND BILIARY TREE: Liver measures 13 cm. No enhancing lesion. Punctate calcification in the periphery of the right hepatic lobe. Main portal veins and hepatic veins and intrahepatic portion of the IVC are grossly patent. Gallbladder is contracted. No pericholecystic fluid collection or gallbladder wall thickening. No intrahepatic or extrahepatic biliary ductal dilatation. PANCREAS: No focal mass. No peripancreatic fluid collection. No main pancreatic ductal dilatation. SPLEEN: 8 cm. No focal mass. ADRENAL GLANDS: No nodular lesions. KIDNEYS AND URETERS: Right kidney: Atrophic. Nonobstructing nephrolithiasis. No hydronephrosis. No focal renal lesion/mass. Left kidney: Multiple cysts. Nonobstructing nephrolithiasis. No hydronephrosis. Renal cortical thinning. No enhancing renal mass. BLADDER: Fluid-filled. GASTROINTESTINAL TRACT: Abundant stool throughout the large intestine. Gas and fluid-filled nondilated small bowel loops. Appendix is normal. No pneumatosis intestinalis. Hiatal hernia, moderate size. No pneumoperitoneum. No ascites. No peripheral enhancing fluid collections in the peritoneal cavity ABDOMINAL WALL: Small fat-containing umbilical hernia. LYMPH NODES: No lymphadenopathy, mesenteric or retroperitoneal. VASCULAR: Irregular shaped calcified plaques resulting in high degree stenosis at the infrarenal and distal abdominal aorta. Calcified plaques in the origin of the main renal arteries mesenteric arteries and the iliac arteries and the coronary arteries and descending thoracic aorta. No aneurysm or dissection abdominal aorta. PELVIC VISCERA: Small uterus. 16 mm cystic lesion, right ovary. OSSEOUS STRUCTURES: A S-shaped curvature of the thoracolumbar spine with a levoconvex rotoscoliosis apex at L3-4 and dextroconvex scoliosis at T12-L1. Osteopenia versus osteoporosis. Incomplete ankylosis of the lower thoracic spine no fully included in the [id number]. Multilevel superior endplate compression deformities likely old. No acute fracture or dislocation in either hip. Degenerative changes in the symphysis pubis and sacroiliac joints. CT/CT abdomen pelvis w IV con IMPRESSION: Abundant stool without intestinal obstruction pattern. Atrophic right kidney. Likely vascular etiology. High degree stenosis secondary to calcified plaques, infrarenal and distal abdominal aorta. Bilateral nonobstructing nephrolithiasis. Cystic lesions, left kidney. Fleischner guidelines were followed. Electronically signed by: Jonathan Banda MD 03/08/2025 03:40 PM EDT
--- NOTE | ~2025-03-08 | CT_ITS ---
EXAMINATION: CT ANGIOGRAM CHEST CLINICAL INFORMATION: Near syncope, dyspnea COMPARISON: No prior chest CT. CT abdomen and pelvis performed concurrently with this examination. TECHNIQUE: Multiple axial images were obtained through the chest after the administration of 85 mL of Omnipaque 350 intravenous contrast. Extensive vascular post-processing including two-dimensional and three-dimensional reformatted images were created and reviewed on an independent workstation. This CT examination was performed using dose optimization techniques as appropriate, variously including the following: *Automated exposure control *Adjustment of mA and/or kV according to patient size (this includes techniques or standardized protocols for targeted exams where dose is matched to indication/reason for exam; i.e. extremities or head) *Use of iterative reconstruction technique FINDINGS: VASCULAR: Enhancement of the pulmonary arterial system is diagnostic. There is no evidence of pulmonary embolus. There is prominence of the main pulmonary artery suggesting pulmonary arterial hypertension. The aorta is atheromatous and somewhat uncoiled although there is no aneurysm. Great vessels branch normally. They are heavily calcified at their origins. There is mild to moderate cardiac enlargement. There is no pericardial effusion. There are moderate to heavy coronary calcifications. There is calcification of the aortic annulus. No right heart strain. No reflux of contrast into the hepatic IVC. LUNGS: Elevated left hemidiaphragm. There is moderate centrilobular emphysema with upper lobe predominance. There is linear type atelectasis in the lingula. There is small airway thickening in the lower lungs associated bronchiectasis. There are foci of mucus plugging in the left lower lobe. There are no effusions. There is no pneumothorax. There is dependent atelectasis in the lower lobes bilaterally. There is no suspicious pulmonary nodule. MEDIASTINUM: Partially imaged thyroid is unremarkable. No adenopathy or mass within the mediastinum. There is dilatation of the esophagus diffusely, a large paraesophageal hiatus hernia present. This contains the majority of the fundus of the stomach. Central airways are patent. AXILLA/CHEST WALL: No mass or abnormal lymph nodes. UPPER ABDOMEN: Refer to the dedicated CT abdomen and pelvis performed concurrently. OSSEOUS STRUCTURES: No suspicious lytic or blastic bone lesion. Moderate to advanced degenerative changes of the spine. Mild scoliosis. There is a minimal compression deformity of T4, chronic appearance. There are healed left rib fractures. Old fracture deformity right proximal humerus. CT/CT angio chest PE protocol IMPRESSION: 1. There is no evidence of pulmonary embolus or acute aortic syndrome. There is no aortic aneurysm. 2. There is moderate centrilobular emphysema with upper lobe predominance. 3. There is moderate cardiomegaly. There is dilatation of the main pulmonary artery suggesting pulmonary arterial hypertension. 4. There is bilateral lower lobe small airway thickening with foci of endobronchial mucous plugging in the left lower lobe. There is bibasilar atelectatic change. 5. There is a moderate to large sized paraesophageal hiatus hernia. There is diffuse dilatation of the esophagus. 6. There are additional ancillary findings as discussed in the body of the report Electronically signed by: Gilbert Snyder MD 03/08/2025 03:15 PM EDT
--- NOTE | ~2025-03-08 | US_ITS ---
CLINICAL HISTORY: lower leg edema, pain, concern for DVT Venous duplex ultrasound bilateral lower extremity Comparison: None provided Findings: The visualized deep veins are fully compressible with normal Doppler color flow and spectral tracings. No popliteal cyst. IMPRESSION: 1. Negative for bilateral lower extremity deep vein thrombosis. This document has been electronically signed by: Tennille Greco MD on 03/08/2025 18:32:46
--- NOTE | ~2025-03-08 | XR_ITS ---
EXAMINATION: XR WRIST 3 OR MORE VIEWS LEFT, XR HAND 3 OR MORE VIEWS LEFT HISTORY: pain, injury COMPARISON: There are no prior studies available for comparison. FINDINGS: Seven views of the left hand and wrist, including a scaphoid view are submitted. The bones are osteopenic. There is a comminuted intra-articular fracture of the distal radius with mild dorsal angulation of the distal fracture fragment. No additional fracture is seen. There is no dislocation. There is mild osteoarthritis of the DIP joints. There is diffuse soft tissue swelling. XR/XR wrist LT min 3V IMPRESSION: Comminuted intra-articular fracture of the distal radius as described. Electronically signed by: Bryson Moya MD 03/08/2025 01:55 PM EDT
--- NOTE | ~2025-03-08 | CT_ITS ---
EXAMINATION: CT HEAD WITHOUT IV CONTRAST HISTORY: fall headstrike. TECHNIQUE: Unenhanced helical CT of the head was performed per standard departmental protocol. Coronal and sagittal reformats of the head were also evaluated. One or more of the following techniques was used for dose reduction: Automated exposure control, adjustment of the mA and/or kV according to patient size, use of iterative reconstruction technique. DLP: 694 mGy-cm COMPARISON: There are no prior studies available for comparison. FINDINGS: BRAIN: There is diffuse prominence of the ventricular system and cortical sulci, consistent with atrophy. Periventricular and subcortical white matter hypodensities are noted which are nonspecific, but often seen in the setting of small vessel ischemic disease. There is no mass effect or midline shift. No intra- or extra-axial fluid collections are identified. SINUSES: The visualized paranasal sinuses are clear. The mastoid air cells and middle ear cavities are well pneumatized. ORBITS: The visualized orbits are unremarkable. BONES/SOFT TISSUES: The extracranial soft tissues are unremarkable. The calvarium is intact. No suspicious lytic or sclerotic lesions. CT/CT head/brain wo IV con IMPRESSION: No acute intracranial abnormality. Electronically signed by: Bryson Moya MD 03/08/2025 03:04 PM EDT
--- NOTE | 2025-03-08 11:40 | ED_ITS ---
HPI - SOB/Dyspnea General Chief Complaint: Dyspnea Stated Complaint: SOB 1 week, off balance Time Seen by Provider: 03/08/25 13:14 Source: patient and family (patient's niece) Mode of arrival: ambulatory Limitations: no limitations History of Present Illness HPI Narrative: Patient is an 80 year-old assigned at female with a history of cerebral microvascular disease, pituitary adenoma, tobacco use, and epilepsy presenting to the emergency department with concerns of progressively worsening shortness of breath with decreased activity tolerance, lightheadedness, and multiple mechanical falls with left forearm/wrist pain and left rib pain. She reports that she has fallen multiple times in the past 2 weeks after tripping, but did not lose consciousness, and did not strike her head. She reports the worst fall was on 02/27/2025 where she landed on her left wrist/forearm and struck her ribs. She also reports chronic cough and shortness of breath that has been worsening over the past few months, but her niece reports that she has noticed the patient's shortness of breath has gotten worse in the past few week around the time the patient began falling frequently. The patient reports she has been unable to walk short distances of 5 to 10 feet in her home without shortness of breath and lightheadedness. She reports that she has been unable to lie down flat due to feeling like she cannot breath and has noticed that she feels like she is gasping for air at times. She has a significant smoking history and reports that she has smoked an average of a half of a pack per day daily since she was 7 years old. She denies chest pain, headache, vision changes, abdominal pain, nausea, or vomiting. Onset (ago): week(s) (2) Exacerbating factors: lying flat and movement Related Data Home Medications ?Medication ?Instructions ?Recorded ?Confirmed alendronate 70 mg tablet 70 mg PO TU 01/29/25 5 amlodipine 10 mg tablet 10 mg PO BEDTIME 01/29/25 cabergoline 0.5 mg tablet 0.25 mg PO WE 01/29/2503/08 lisinopril 5 mg tablet 5 mg PO BEDTIME 01/29/25 pravastatin 80 mg tablet 80 mg PO BEDTIME 01/29/25 lamotrigine 25 mg tablet 50 mg PO BID 03/08/25 Allergies Allergy/AdvReac Type Severity Reaction Status Date / Time carbamazepine (From Tegretol) Allergy Unknown Verified 03/08/25 11:43 Review of Systems 2 Constitutional: Constitutional: Reports as per HPI, Denies chills, Denies fever(s) and Denies weight loss Eyes: Eyes: Reports as per HPI and Denies change in vision ENT: Reports as per HPI Cardiovascular: Cardiovascular: Reports as per HPI, Denies chest pain, Reports lightheadedness, Reports dyspnea and Reports orthopnea Respiratory: Respiratory: Reports as per HPI, Reports cough and Reports dyspnea Gastrointestinal: Gastrointestinal: Reports as per HPI, Denies abdominal pain, Denies nausea and Denies vomiting Genitourinary: Genitourinary: Reports as per HPI Musculoskeletal: Musculoskeletal: Reports as per HPI Integumentary/Breasts: Skin/Breast: Reports as per HPI Neurologic: Reports as per HPI Psychiatric: Psychiatric: Reports as per HPI Endocrine: Endocrine: Reports as per HPI Hematologic/Lymphatic: Hematologic/Lymphatic: Reports as per HPI Allergic/Immunologic: Allergic/Immunologic: Reports as per HPI [facility] Past Medical History Attestation statement: The following information was validated with the patient. (all information validated with the patient's niece) Source: old records reviewed, obtained from family (patient's niece provided additional history and confirmed the history provided by the patient. ) and nursing notes reviewed Medical History High cholesterol Epilepsy Seizure disorder Pituitary adenoma Social History Social History Household Members: Children Housing: House Do you presently have visiting nurse or other home services: No Alcohol intake: current Patient Tobacco Use Status: Current everyday Tobacco user Tobacco use type: Cigarette Cigarette Packs Per Day: 0.5 Cigarettes Per Day: 10.0 e-Cigarette/Vaping Use: Never Used Second Hand Smoke Exposure: No service: No Physical Exam 2 Vital Signs: Vital Signs: Last Vital Signs Temp 98 F 03/11/25 06:49 Pulse 77 03/11/25 06:49 Resp 17 03/11/25 06:49 BP 170/81 H 03/11/25 07:29 Pulse Ox 90 L 03/11/25 06:49 O2 Del Method Room Air 03/11/25 06:49 O2 Flow Rate 1 03/09/25 12:09 BMI result Body Mass Index 30.8 Const: Other: unable to lie flat due to concerns of difficulty breathing General: cooperative, no acute distress, alert and awake Nutritional Appearance: well nourished Orientation/consciousness: patient oriented x3 HEENT: Head: Yes normal to inspection and Yes atraumatic Ears: hearing grossly normal bilaterally and external ears normal General nose exam: Normal external nose present, no nasal discharge noted and no epistaxis Face and sinus: Yes normal facial exam, No abrasion and No laceration Mouth: Normal oral and palatal mucosa present, no drooling and no muffled voice Eyes: General: appearance normal, both eyes and all related structures P eriorbital: periorbital findings normal Eyelids: Yes eyelids normal C onjunctivae: conjunctivae normal Pupils: Equal, round and reactive pupils present EOM: EOMs intact bilaterally Neck: Neck: Yes normal visual inspection and Yes full ROM Resp: Other: significant orthopnea Effort & Inspection: able to speak in complete sentences, Actively coughing and labored Auscultation: diminished lung sounds diffuse Cardio: Rate: regular rate Rhythm: regular rhythm GI: Inspection: Yes distended Palpation (GI): Soft to palpation, not firm, nontender and no guarding Neuro: General: patient oriented x3, moves all extremities and CN's II-XI intact bilaterally Cranial nerves: Yes Equal, round and reactive pupils present Cognition (Neuro): normal cognition Extrem: Other: bruising present to the left forearm pain with palpation of the left dorsal wrist General: Yes full ROM and Yes capillary refill normal Psych: Appearance: grossly normal Mental Status: mental status grossly normal Affect: normal affect Attitude: cooperative Thought process: N ormal thought process present Thought content: Normal thought content present Insight: Good insight present (Psych) Course Course Course Narrative: 80 yo female with PMH of amlodipine, seizures, HTN, HLD, not on blood thinners, has had several mini strokes she notes she has been having balance issues for a week and then falls - no head strike or LOC but she has pain in the ribs. No fevers, no vomiting, no confusion. She feels short of breath she is a smoker since age 7. She is very congested. No chest pain. Will obtain basic labs, CT head, Cspine, CT chest. this is a RAPID medical screening exam the rest of the history and physical exam is to be done by the main provider. GILBERTO 03/08/25 1141am. Medications Administered Generic Name Dose Route Start Last Admin Trade Name Evy PRN Reason Stop Dose Admin Amlodipine Besylate 10 mg 03/08/25 21:00 03/10/25 20:42 Amlodipine Besylate 10 Mg Tablet PO 10 mg BEDTIME BARON Administration Protocol Aspirin 81 mg 03/09/25 09:00 03/11/25 07:30 Aspirin Enteric Coated 81 Mg Tablet.Dr PO 81 mg DAILY BARON Administration Azithromycin 500 mg 03/09/25 09:00 03/11/25 07:29 Azithromycin 500 Mg Tablet PO 500 mg Q24H BARON Administration Enoxaparin Sodium 40 mg 03/09/25 09:30 03/10/25 08:57 Enoxaparin Sodium 40 Mg/0.4 Ml Syringe SUBCUT 40 mg Q24H BARON Administration Isosorbide Mononitrate 30 mg 03/10/25 09:00 03/11/25 07:29 Isosorbide Mononitrate 30 Mg Tab.Er.24h PO 30 mg DAILY BARON Administration Protocol Lamotrigine 50 mg 03/08/25 21:00 03/11/25 07:30 Lamotrigine 25 Mg Tablet PO 50 mg BID BARON Administration Lisinopril 5 mg 03/08/25 21:00 03/10/25 20:41 Lisinopril 5 Mg Tablet PO 5 mg BEDTIME BARON Administration Protocol Melatonin 6 mg 03/08/25 17:22 03/10/25 20:42 Melatonin 3 Mg Tablet PO 6 mg BEDTIME PRN Administration Insomnia Pravastatin Sodium 80 mg 03/08/25 21:00 03/10/25 20:42 Pravastatin Sodium 80 Mg Tablet PO 80 mg BEDTIME BARON Administration Prednisone 40 mg 03/09/25 09:00 03/11/25 07:29 Prednisone 20 Mg Tablet PO 40 mg DAILY BARON Administration Sodium Chloride 3 ml 03/09/25 00:00 03/11/25 07:30 0.9 % Sodium Chloride Flush 3 Ml Syringe IVFLUSH 3 ml QSHIFT BARON Administration Discontinued Medications Generic Name Dose Route Start Last Admin Trade Name Evy PRN Reason Stop Dose Admin Azithromycin 500 mg 03/08/25 16:04 03/08/25 16:36 Azithromycin 500 Mg Tablet PO 08/28/25 16:05 500 mg ONCE ONE Administration Ceftriaxone Sodium 1 gm 03/08/25 16:04 03/08/25 16:36 Ceftriaxone Sodium 1 Gm Vial IVPUSH 03/08/25 16:05 1 gm ONCE ONE Administration Diazepam 2.5 mg 03/08/25 13:41 03/08/25 14:03 Diazepam 10 Mg/2 Ml Cartridge IVPUSH 03/08/25 13:42 2.5 mg STAT STA Administration Furosemide 40 mg 03/08/25 17:22 03/08/25 18:04 Furosemide 40 Mg/4 Ml Vial IVPUSH 03/08/25 17:23 40 mg ONCE ONE Administration Protocol Furosemide 40 mg 03/10/25 08:45 03/10/25 08:57 Furosemide 40 Mg/4 Ml Vial IVPUSH 03/10/25 08:46 40 mg ONCE ONE Administration Protocol Lisinopril 5 mg 03/11/25 04:08 03/11/25 04:41 Lisinopril 5 Mg Tablet PO 03/11/25 04:09 5 mg ONCE ONE Administration Protocol Methylprednisolone Sodium Succinate 60 mg 03/08/25 16:04 03/08/25 16:36 Methylprednisolone Sod Succ 125 Mg/2 Ml Vial IVPUSH 03/08/25 16:05 60 mg ONCE ONE Administration Medical Decision Making Medical Decision Making MDM Narrative: Patient is an 80 year-old assigned at female with a history of cerebral microvascular disease, pituitary adenoma, tobacco use, and epilepsy presenting to the emergency department with concerns of progressively worsening shortness of breath with decreased activity tolerance, lightheadedness, and multiple mechanical falls with left forearm/wrist pain and left rib pain. Patient's physical exam was as noted in the physical exam portion of this note. Patient was hypoxic while in the department, as low as 88% on room air. Patient was placed on 2 liters of oxygen via nasal cannula. Patient's blood work was unremarkable. Patient's EKG was unremarkable. Patient's left hand/wrist x-ray showed: A comminuted intra-articular fracture of the distal radius. Patient's CT abd/pelvis showed: Stool without obstruction, atrophi right kidney - probable secondary to vascular etiology, high degree stenosis secondary to calcified plaques (infrarenal and distal abdominal aorta), and left kidney cystic lesions. Patient's CT c-spine showed: Centrilobular emphysematous type changes. Patient's CTA of the chest showed: Moderate centrilobular emphysema with upper lobe predominance, moderate cardiomegaly with dilation of the main pulmonary artery suggesting pulmonary arterial hypertension, bilateral lower lobe small airway thickening with foci of the endobronchial mucous plugging in the left lower lobe, moderate to large sized paraesophageal hiatus hernia with diffuse dilation of the esophagus. Patient's head CT and bilateral venous US were negative. Patient's clinical presentation is most consistent with a left wrist fracture and hypoxia secondary to a COPD exacerbation and NOT with sepsis (@1655). Patient was given IV ceftriaxone and PO Azithromycin. Patient's left wrist was placed in a sugar tong splint, without incident. Patient's PMS of the left upper extremity was present and intact prior to and after splint placement. Given the patient's hypoxia and new COPD diagnosis - I spoke with the hospitalist team who agreed to admission. I explained my physical exam findings as well as all test results to the patient and the patient's niece. I answered all questions asked by the patient and the patient's niece. Patient and the patient's niece verbalized agreement and understanding with this treatment plan and [discharge/transfer/admission]. Differential Diagnosis Differential Diagnoses: The differential diagnosis associated with the presentation includes COPD exacerbation Hypoxia PE Wrist fracture Wrist sprain Wrist strain Frequent falls Admission/Observation Consideration of admission/observation: Escalation of care including admission/observation considered Patient admitted as noted in the MDM Rationale portion of this note. Consult Healthcare Provider Management of the patient was discussed with: Hospitalist (agreed to admission as noted in the MDM Rationale portion of this note. ) Lab Data [facility] Lab Attestation statement: I reviewed the patient's lab results. My interpretation of these results are in the MDM Rationale portion of this note. 03/11/25 05:45 03/11/25 05:45 Labs: Lab Results 03/08/25 03/08/25 03/08/25 Range/Units 12:08 14:46 15:59 WBC 7.0 (4.8-10.8) X10*3/uL RBC 4.43 (4.20-5.50) X10*6/uL Hgb 13.2 (12.0-16.0) g/dl Hct 40.8 (37.0-47.0) % MCV 92.1 (80.0-98.0) fL MCH 29.8 (27.0-33.0) pg MCHC 32.4 (31.0-35.0) g/dl RDW 13.2 (11.0-16.0) % Plt Count 278 (160-400) X10*3/uL MPV 8.6 L (9.4-12.3) fL Immature Gran % (Auto) 0.3 (0.0-0.4) % Neut % (Auto) 69.2 (45-73) % Lymph % (Auto) 17.3 L (20-40) % [place] % (Auto) 8.6 (2-11) % Eos % (Auto) 2.9 (0-4) % Baso % (Auto) 1.7 (0-2) % Lymph # (Auto) 1.2 (1.2-4.9) X10*3/uL [place] # (Auto) 0.6 (0.1-1.2) X10*3/uL Eos # (Auto) 0.2 (0.0-0.4) X10*3/uL Baso # (Auto) 0.1 (0.0-0.2) X10*3/uL Abs Immat Gran (auto) 0.02 (0.00-0.03) X10*3/uL Absolute Neuts (auto) 4.8 (2.0-8.3) x10*3/uL Absolute Nucleated RBC 0.000 (0.0-0.012) X10*3/uL Nucleated RBC % (auto) 0.0 (0.0-0.2) /100WBC VBG pH 7.33 (7.32-7.43) VBG pCO2 49 mmHg VBG pO2 71 mmHg VBG HCO3 26 (22-26) mmol/L VBG O2 Saturation 93.0 % VBG Base Excess -0.3 mmol/L Sodium 138 (135-145) mmol/L Potassium 4.5 (3.3-5.1) mmol/L Chloride 106 (96-108) mmol/L Carbon Dioxide 25 (22-29) mmol/L Anion Gap 12 (12-20) BUN 26 H (9-16) mg/dL Creatinine 1.31 (0.5-1.4) mg/dL Estim Creat Clear Calc 32.9 Estimated GFR 39 Random Glucose 89 (60-115) mg/dL Calcium 9.0 (8.4-10.2) mg/dL Magnesium 2.1 (1.6-2.6) mg/dL Total Bilirubin 0.3 (0.0-1.0) mg/dL Direct Bilirubin 0.1 (0.0-0.5) mg/dL AST 20 (5-31) U/L ALT 13 (0-31) U/L Alkaline Phosphatase 80 (39-117) U/L Total Creatine Kinase 50 (26-140) U/L Troponin I High Sens 8.0 6.4 (<3.5-17.0) ng/L B-Natriuretic Peptide 62 (<100) pg/mL Total Protein 6.6 (6.5-8.0) g/dL Albumin 3.8 (3.5-5.0) g/dL Lipase 36 (8-78) U/L COVID-19 (NURYS) (Negative) COVID-19 Clin Com Influenza Type A (PUNEET) (Negative) Influenza Type B (PUNEET) (Negative) Influenza A & B Note 03/08/25 Range/Units 16:00 WBC (4.8-10.8) X10*3/uL RBC (4.20-5.50) X10*6/uL Hgb (12.0-16.0) g/dl Hct (37.0-47.0) % MCV (80.0-98.0) fL MCH (27.0-33.0) pg MCHC (31.0-35.0) g/dl RDW (11.0-16.0) % Plt Count (160-400) X10*3/uL MPV (9.4-12.3) fL Immature Gran % (Auto) (0.0-0.4) % Neut % (Auto) (45-73) % Lymph % (Auto) (20-40) % [place] % (Auto) (2-11) % Eos % (Auto) (0-4) % Baso % (Auto) (0-2) % Lymph # (Auto) (1.2-4.9) X10*3/uL [place] # (Auto) (0.1-1.2) X10*3/uL Eos # (Auto) (0.0-0.4) X10*3/uL Baso # (Auto) (0.0-0.2) X10*3/uL Abs Immat Gran (auto) (0.00-0.03) X10*3/uL Absolute Neuts (auto) (2.0-8.3) x10*3/uL Absolute Nucleated RBC (0.0-0.012) X10*3/uL Nucleated RBC % (auto) (0.0-0.2) /100WBC VBG pH (7.32-7.43) VBG pCO2 mmHg VBG pO2 mmHg VBG HCO3 (22-26) mmol/L VBG O2 Saturation % VBG Base Excess mmol/L Sodium (135-145) mmol/L Potassium (3.3-5.1) mmol/L Chloride (96-108) mmol/L Carbon Dioxide (22-29) mmol/L Anion Gap (12-20) BUN (9-16) mg/dL Creatinine (0.5-1.4) mg/dL Estim Creat Clear Calc Estimated GFR Random Glucose (60-115) mg/dL Calcium (8.4-10.2) mg/dL Magnesium (1.6-2.6) mg/dL Total Bilirubin (0.0-1.0) mg/dL Direct Bilirubin (0.0-0.5) mg/dL AST (5-31) U/L ALT (0-31) U/L Alkaline Phosphatase (39-117) U/L Total Creatine Kinase (26-140) U/L Troponin I High Sens (<3.5-17.0) ng/L B-Natriuretic Peptide (<100) pg/mL Total Protein (6.5-8.0) g/dL Albumin (3.5-5.0) g/dL Lipase (8-78) U/L COVID-19 (NURYS) Negative (Negative) COVID-19 Clin Com See Note Influenza Type A (PUNEET) Negative (Negative) Influenza Type B (PUNEET) Negative (Negative) Influenza A & B Note See Note Independent Interpretation I performed an independent interpretation of an: EKG, Plain X-Ray, Ultrasound and CT Scan Interpretation: My interpretation is in agreement with the radiologist's impression of these imaging studies. L Report Number: [id number]: Total DLP = 962.00 mGy-cm EXAMINATION: CT ABDOMEN AND PELVIS WITHOUT CONTRAST CLINICAL INFORMATION: Abdominal distention. COMPARISON: None available. TECHNIQUE: Multidetector volumetric imaging was performed from the superior aspect of the liver through the pubic symphysis. Sagittal and coronal reformatted images were obtained on the technologist's workstation. This CT examination was performed using dose optimization techniques as appropriate, variously including the following: *Automated exposure control *Adjustment of mA and/or kV according to patient size (this includes techniques or standardized protocols for targeted exams where dose is matched to indication/reason for exam; i.e. extremities or head) *Use of iterative reconstruction technique DLP: 962 mGycentimeter. FINDINGS: LUNG BASES: Elevated left hemidiaphragm. Subsegmental atelectasis versus scarring, lung bases lingula right middle lung lobe. LIVER, GALLBLADDER, AND BILIARY TREE: Liver measures 13 cm. No enhancing lesion. Punctate calcification in the periphery of the right hepatic lobe. Main portal veins and hepatic veins and intrahepatic portion of the IVC are grossly patent. Gallbladder is contracted. No pericholecystic fluid collection or gallbladder wall thickening. No intrahepatic or extrahepatic biliary ductal dilatation. PANCREAS: No focal mass. No peripancreatic fluid collection. No main pancreatic ductal dilatation. SPLEEN: 8 cm. No focal mass. ADRENAL GLANDS: No nodular lesions. KIDNEYS AND URETERS: Right kidney: Atrophic. Nonobstructing nephrolithiasis. No hydronephrosis. No focal renal lesion/mass. Left kidney: Multiple cysts. Nonobstructing nephrolithiasis. No hydronephrosis. Renal cortical thinning. No enhancing renal mass. BLADDER: Fluid-filled. GASTROINTESTINAL TRACT: Abundant stool throughout the large intestine. Gas and fluid-filled nondilated small bowel loops. Appendix is normal. No pneumatosis intestinalis. Hiatal hernia, moderate size. No pneumoperitoneum. No ascites. No peripheral enhancing fluid collections in the peritoneal cavity ABDOMINAL WALL: Small fat-containing umbilical hernia. LYMPH NODES: No lymphadenopathy, mesenteric or retroperitoneal. VASCULAR: Irregular shaped calcified plaques resulting in high degree stenosis at the infrarenal and distal abdominal aorta. Calcified plaques in the origin of the main renal arteries mesenteric arteries and the iliac arteries and the coronary arteries and descending thoracic aorta. No aneurysm or dissection abdominal aorta. PELVIC VISCERA: Small uterus. 16 mm cystic lesion, right ovary. OSSEOUS STRUCTURES: A S-shaped curvature of the thoracolumbar spine with a levoconvex rotoscoliosis apex at L3-4 and dextroconvex scoliosis at T12-L1. Osteopenia versus osteoporosis. Incomplete ankylosis of the lower thoracic spine no fully included in the [id number]. Multilevel superior endplate compression deformities likely old. No acute fracture or dislocation in either hip. Degenerative changes in the symphysis pubis and sacroiliac joints. CT/CT abdomen pelvis w IV con IMPRESSION: Abundant stool without intestinal obstruction pattern. Atrophic right kidney. Likely vascular etiology. High degree stenosis secondary to calcified plaques, infrarenal and distal abdominal aorta. Bilateral nonobstructing nephrolithiasis. Cystic lesions, left kidney. Fleischner guidelines were followed. Electronically signed by: Jonathan Banda MD 03/08/2025 03:40 PM EDT RP Dictated By: Jonathan Reardon MD Signed By: Electronically signed by Jonathan Shannon MD 03/08/25 1540 Report Number: [id number]: Total DLP = 413.00 mGy-cm EXAMINATION: CT CERVICAL SPINE WITHOUT CONTRAST CLINICAL INFORMATION: Status post fall. COMPARISON: None available. TECHNIQUE: Contiguous axial images through the cervical spine using 3 mm collimation with bone and soft tissue algorithm. Sagittal and coronal reformatted images. DLP: 505.[address] examination was performed using dose optimization techniques as appropriate, variously including the following: *Automated exposure control *Adjustment of mA and/or kV according to patient size (this includes techniques or standardized protocols for targeted exams where dose is matched to indication/reason for exam; i.e. extremities or head) *Use of iterative reconstruction technique FINDINGS: Patient's motion artifact. Craniocervical junction is intact with normal alignment between the occipital condyles and the lateral masses of C1. Degenerative changes in the periodontal C1 region. Marginal osteophyte formation and endplate sclerosis subchondral cyst formation and decreased intervertebral disc height from C3 to C7 pronounced at C5-6. Osteopenia versus osteoporosis. Bilateral facet joint hypertrophy C3-4 to C6-7 pronounced at C5-6. C1 is intact. C2 is intact. C3 is intact. C4 is intact. C5 is intact. C6 is intact. C7 is intact. No prevertebral compartment hematoma. Calcified plaques in the thoracic aortic arch and its main branches as well as the carotid arteries and the V4 segment right vertebral artery Centrilobular emphysematous changes in the included lungs. Tympanic cavities and mastoid cells are aerated. Calcified plaques in the cavernous supracavernous segments both ICAs. Tortuosity of the right carotid artery resulting in extrinsic compression deformity upon the right lateral wall of the esophagus. CT/CT cervical spine wo IV con IMPRESSION: Multilevel cervical spondylosis without acute fracture or trauma-related listhesis. Atherosclerosis disease. Centrilobular emphysematous type changes. Fleischner guidelines were followed. Electronically signed by: Jonathan Banda MD 03/08/2025 03:04 PM EDT RP Dictated By: Jonathan Reardon MD Signed By: Electronically signed by Jonathan Shannon MD 03/08/25 1504 Report Number: [id number]: Total DLP = 365.00 mGy-cm EXAMINATION: CT ANGIOGRAM CHEST CLINICAL INFORMATION: Near syncope, dyspnea COMPARISON: No prior chest CT. CT abdomen and pelvis performed concurrently with this examination. TECHNIQUE: Multiple axial images were obtained through the chest after the administration of 85 mL of Omnipaque 350 intravenous contrast. Extensive vascular post-processing including two-dimensional and three- dimensional reformatted images were created and reviewed on an independent workstation. This CT examination was performed using dose optimization techniques as appropriate, variously including the following: *Automated exposure control *Adjustment of mA and/or kV according to patient size (this includes techniques or standardized protocols for targeted exams where dose is matched to indication/reason for exam; i.e. extremities or head) *Use of iterative reconstruction technique FINDINGS: VASCULAR: Enhancement of the pulmonary arterial system is diagnostic. There is no evidence of pulmonary embolus. There is prominence of the main pulmonary artery suggesting pulmonary arterial hypertension. The aorta is atheromatous and somewhat uncoiled although there is no aneurysm. Great vessels branch normally. They are heavily calcified at their origins. There is mild to moderate cardiac enlargement. There is no pericardial effusion. There are moderate to heavy coronary calcifications. There is calcification of the aortic annulus. No right heart strain. No reflux of contrast into the hepatic IVC. LUNGS: Elevated left hemidiaphragm. There is moderate centrilobular emphysema with upper lobe predominance. There is linear type atelectasis in the lingula. There is small airway thickening in the lower lungs associated bronchiectasis. There are foci of mucus plugging in the left lower lobe. There are no effusions. There is no pneumothorax. There is dependent atelectasis in the lower lobes bilaterally. There is no suspicious pulmonary nodule. MEDIASTINUM: Partially imaged thyroid is unremarkable. No adenopathy or mass within the mediastinum. There is dilatation of the esophagus diffusely, a large paraesophageal hiatus hernia present. This contains the majority of the fundus of the stomach. Central airways are patent. AXILLA/CHEST WALL: No mass or abnormal lymph nodes. UPPER ABDOMEN: Refer to the dedicated CT abdomen and pelvis performed concurrently. OSSEOUS STRUCTURES: No suspicious lytic or blastic bone lesion. Moderate to advanced degenerative changes of the spine. Mild scoliosis. There is a minimal compression deformity of T4, chronic appearance. There are healed left rib fractures. Old fracture deformity right proximal humerus. CT/CT angio chest PE protocol IMPRESSION: 1. There is no evidence of pulmonary embolus or acute aortic syndrome. There is no aortic aneurysm. 2. There is moderate centrilobular emphysema with upper lobe predominance. 3. There is moderate cardiomegaly. There is dilatation of the main pulmonary artery suggesting pulmonary arterial hypertension. 4. There is bilateral lower lobe small airway thickening with foci of endobronchial mucous plugging in the left lower lobe. There is bibasilar atelectatic change. 5. There is a moderate to large sized paraesophageal hiatus hernia. There is diffuse dilatation of the esophagus. 6. There are additional ancillary findings as discussed in the body of the report Electronically signed by: Gilbert Snyder MD 03/08/2025 03:15 PM EDT Dictated By: Gilbert Snyder MD Signed By: Electronically signed by Gilbert Snyder MD 03/08/25 1515 Report Number: [id number]: Total DLP = 694.00 mGy-cm EXAMINATION: CT HEAD WITHOUT IV CONTRAST HISTORY: fall headstrike. TECHNIQUE: Unenhanced helical CT of the head was performed per standard departmental protocol. Coronal and sagittal reformats of the head were also evaluated. One or more of the following techniques was used for dose reduction: Automated exposure control, adjustment of the mA and/or kV according to patient size, use of iterative reconstruction technique. DLP: 694 mGy-cm COMPARISON: There are no prior studies available for comparison. FINDINGS: BRAIN: There is diffuse prominence of the ventricular system and cortical sulci, consistent with atrophy. Periventricular and subcortical white matter hypodensities are noted which are nonspecific, but often seen in the setting of small vessel ischemic disease. There is no mass effect or midline shift. No intra- or extra-axial fluid collections are identified. SINUSES: The visualized paranasal sinuses are clear. The mastoid air cells and middle ear cavities are well pneumatized. ORBITS: The visualized orbits are unremarkable. BONES/SOFT TISSUES: The extracranial soft tissues are unremarkable. The calvarium is intact. No suspicious lytic or sclerotic lesions. CT/CT head/brain wo IV con IMPRESSION: No acute intracranial abnormality. Electronically signed by: Bryson Moya MD 03/08/2025 03:04 PM EDT RP Dictated By: Bryson Moya MD Signed By: Electronically signed by Bryson Moya MD 03/08/25 1504 CLINICAL HISTORY: post reduction splint 2 view left wrist Comparison: CR/SR - XR WRIST 3 OR MORE VIEWS LEFT - 03/08/25 13:41 EDT Findings: Interval placement of plaster cast resulting in artifact overlying osseous structures. Intra-articular distal radial fracture again demonstrated with no significant interval change in alignment. No dislocation. IMPRESSION: 1. No significant interval change in alignment distal radial fracture. No dislocation. This document has been electronically signed by: Tennille Greco MD on 03/08/2025 17:43:02 Dictated By: Tennille Greco MD Signed By: Electronically signed by Tennille Greco MD 03/08/25 1743 CLINICAL HISTORY: lower leg edema, pain, concern for DVT Venous duplex ultrasound bilateral lower extremity Comparison: None provided Findings: The visualized deep veins are fully compressible with normal Doppler color flow and spectral tracings. No popliteal cyst. IMPRESSION: 1. Negative for bilateral lower extremity deep vein thrombosis. This document has been electronically signed by: Tennille Greco MD on 03/08/2025 18:32:46 Dictated By: Tennille Greco MD Signed By: Electronically signed by Tennille Greco MD 03/08/25 1833 I independently interpreted this EKG and am in agreement with the below findings: Vent. Rate: 83 BPM Atrial Rate: 83 BPM P-R Int: 152 ms QRS Dur: 88 ms QT Int: 356 ms P-R-T Axes: 41 -39 16 degrees QTcB Int: 418 ms Normal sinus rhythm Left axis deviation Anterior infarct, age undetermined No previous ECGs available Referred By: Ashley Thurman Electronically Signed By: TEDDY ROBB Dictated By: Teddy Robb MD Signed By: Electronically signed by Teddy Robb MD 03/08/25 7110 Radiology Impression Discussion of test interpretation with radiology: I have reviewed the radiologist's reading. Independent Historian Clinical information obtained from an independent historian. History obtained from or confirmed by: Other (Patient's niece provided additional history and confirmed the history provided by the patient. ) Procedures Orthopedic Splinting/Casting Injury #1: Side: right Upper Extremity Injury Location: wrist Upper Extremity Immobilizer: sugar tong splint Critical Care Time Critical Care Time Critical Care Time: Yes Total Critical Care Time: 49 Attestation: I spent 49 minutes of Critical Care Time with this patient. This does not include time spent on separately reported billable procedures. Discharge Plan Discharge Clinical Impression: Abnormal gait Patient Disposition: Admitted As Inpatient Interventions: Admission Worksheet (ED) Last Done: 03/08/25 19:42 Discharge Date/Time: 03/08/25 20:41
--- NOTE | 2025-03-08 11:43 | ECG_ITS ---
Test Reason : SOB Blood Pressure : */* mmHG Vent. Rate : 83 BPM Atrial Rate : 83 BPM P-R Int : 152 ms QRS Dur : 88 ms QT Int : 356 ms P-R-T Axes : 41 -39 16 degrees QTcB Int : 418 ms Normal sinus rhythm Left axis deviation Anterior infarct , age undetermined Abnormal ECG No previous ECGs available Referred By: Ashley Thurman Electronically Signed By: QUINN ROBB
[2025-03-08 12:15] LABS: MANUAL DIFF FLAG NO
[2025-03-08 12:22] LABS: Hematocrit 40.8 % (37.0-47.0); Hemoglobin 13.2 g/dl (12.0-16.0); Imm Gran Abs Auto 0.02 X10*3/uL (0.00-0.03); Imm Gran Pct Auto 0.3 % (0.0-0.4); Lymphocytes Absolute Auto 1.2 X10*3/uL (1.2-4.9); Mean Corpuscular HGB Conc 32.4 g/dl (31.0-35.0); Mean Corpuscular Hemoglobin 29.8 pg (27.0-33.0); Mean Corpuscular Volume 92.1 fL (80.0-98.0); NRBC Abs Auto 0.000 X10*3/uL (0.0-0.012); NRBC Pct Auto 0.0 /100WBC (0.0-0.2); Platelet Count 278 X10*3/uL (160-400); Red Blood Count 4.43 X10*6/uL (4.20-5.50); White Blood Count 7.0 X10*3/uL (4.8-10.8)
[2025-03-08 12:31] LABS: Alanine Aminotransferase 13 U/L (0-31); Albumin Level 3.8 g/dL (3.5-5.0); Alkaline Phosphatase 80 U/L (39-117); Anion Gap 12 (12-20); Aspartate Amino Transferase 20 U/L (5-31); Blood Urea Nitrogen 26 mg/dL (9-16); Calcium 9.0 mg/dL (8.4-10.2); Carbon Dioxide 25 mmol/L (22-29); Chloride 106 mmol/L (96-108); Creatinine Clr Calc Pharmacy 32.9; Estimated Glomerular Filt Rate 39; Lipase 36 U/L (8-78); Magnesium 2.1 mg/dL (1.6-2.6); Potassium 4.5 mmol/L (3.3-5.1); Sodium 138 mmol/L (135-145); Total Protein 6.6 g/dL (6.5-8.0)
[2025-03-08 12:36] LABS: B Type Natriuretic Peptide 62 pg/mL (<100)
[2025-03-08 12:38] LABS: Troponin-I High Sensitivity 8.0 ng/L (<3.5-17.0)
[2025-03-08] MEDS: diazePAM 10 MG/2 ML CARTRIDGE 2.5 MG IVPUSH (14:03)
--- NOTE | 2025-03-08 14:33 | PC.NURSE ---
80 F presents to ED with SOB, L wrist injury from fall, multiple falls recently. Pt sts she doesn't use a cane or walker. A+Ox4. Calm, cooperative. Pt noted to have an unproductive cough RR even and unlabored after 2L NC, pt sat did drop to 88% on RA so was placed on 2L NC. Some crackles in Left lung noted.
[2025-03-08 14:49] LABS: Venous Blood Gas Refer to POC result
[2025-03-08 14:51] LABS: VBG HCO3 26 mmol/L (22-26); VBG O2 % Saturation 93.0 %
--- OUTSIDE RECORDS SUMMARY | 2025-03-08 15:09 | XMS_ITS | Clinical Summary ---
Author Organization [address] Address [address] [place] [address] Phone Care Team Providers Care Winder Helper Name Role Phone Preeti Brothers MD Primary Care Provider Allergies Active Allergy Reactions Criticality Noted Date [...] 9:03 AM EDT): Kidney stone 06/02/2006 Convulsions ([facility] V24, [facility] V28) 6 Assessment & Plan (01/04/2025 9:03 AM EDT): Central nervous system viral infection 6 Overview (06/16/2024): age 10 Hepatitis A virus infection 08/18/2005 Overview (12/26/2024): Gout 08/18/2005 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, [facility]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 06 Assessment & Plan (01/04/2025 9:03 AM EDT): Resolved Problems Problem Noted Date Diagnosed Date Resolved Date Current every day smoker 05/17/2023 Encounters Date Type Department Care Team Description 03/08/2025 Telephone Adult Medicine [address] [phone] Preeti Brothers MD 01/04/2025 9:00 AM EDT Office Visit Adult [address] [phone] Preeti Brothers MD Encounter for annual wellness visit (AWV) in Medicare patient (Primary Dx); Primary hypertension; Hypercholesteremia; Convulsions, unspecified convulsion type ([facility] V24, [facility] V28); Osteoporosis without current pathological fracture, unspecified osteoporosis type; 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 For example, exceptional children teacher or elderly care for an older adult? [...] 8:45 AM EST Office Visit Adult Medicine [facility] [address] [place] [address] Preeti Brothers MD [address] [place] [address] Health Maintenance Due Date Last Done Comments Zoster Vaccines (2 of 3) 07/09/2014 05/14/2014 RSV Immunization Adult Patients (1 - 1-dose 75+ series) 2018 COVID-19 Vaccine (5 - season) 2024 05/17/2023, 04/09/2021, 09/15/2020, Additional [...] LAB CHEMISTRY METHOD 01/04/2025 1:36 PM EDT [facility] Triglycerides 142 0 - 150 mg/dL LAB CHEMISTRY METHOD 01/04/2025 1:36 PM EDT [facility] HDL 67 >=40 mg/dL LAB CHEMISTRY METHOD 01/04/2025 1:36 PM EDT [facility] LDL Calculated 94 0 - 100 mg/dL LAB CHEMISTRY METHOD 01/04/2025 1:36 PM EDT [facility] VLDL Cholesterol Anuj 28.4 mg/dL LAB CHEMISTRY METHOD 01/04/2025 1:36 PM EDT [facility] Non HDL Chol. (LDL+VLDL) 122 <145 mg/dL LAB CHEMISTRY METHOD 01/04/2025 1:36 PM EDT [facility] Chol/HDL Ratio 2.8 0.0 - 4.4 LAB CHEMISTRY METHOD 01/04/2025 1:36 PM EDT [facility] Blood Venous blood specimen / Unknown Venipuncture / Unknown 01/04/2025 9:22 AM EDT 01/04/2025 9:22 AM EDT us Josee GUNN LAB BLOOD ORDERABLES Final Re sult Performing Organization Address City/[facility]/ZIP Co de Phone Number [facility] [address] [place] [address], [place] [phone] * Vitamin D 25 hydroxy (01/04/2025 9:22 AM EDT) [facility] Vit D, 25-Hydroxy 30.0 30.0 - 80.0 ng/mL LAB CHEMISTRY METHOD 01/04/2025 2:06 PM EDT [facility] Blood Venous blood specimen / Unknown Venipuncture / Unknown 01/04/2025 9:22 AM EDT 01/04/2025 9:22 AM EDT us Josee GUNN LAB BLOOD ORDERABLES Final Re sult Performing Organization Address City/[facility]/ZIP Co de Phone Number [facility] [address] [place] [address], [place] [phone] * (ABNORMAL) Complete blood count (01/04/2025 9:22 AM EDT) [facility] WBC 5.1 4.8 - 10.8 K/mcL LAB HEMETOLOGY METHOD 01/04/2025 10:27 AM EDT [facility] RBC 4.80 3.80 - 4.80 M/[facility] LAB HEMETOLOGY METHOD 01/04/2025 10:27 AM EDT [facility] Hemoglobin 14.1 11.5 - 16.0 g/dL LAB HEMETOLOGY METHOD 01/04/2025 10:27 AM EDT [facility] Hematocrit 46.0 35.0 - 47.0 % LAB HEMETOLOGY METHOD 01/04/2025 10:27 AM [facility] MCV 95.6 79.0 - 98.0 FL LAB HEMETOLOGY METHOD 01/04/2025 10:27 AM [facility] MCH 29.3 27.0 - 32.0 pcg LAB HEMETOLOGY METHOD 01/04/2025 10:27 AM [facility] MCHC 30.7(L) 32.0 - 37.0 g/dL LAB HEMETOLOGY METHOD 01/04/2025 10:27 AM [facility] RDW 13.2 11.0 - 15.0 % LAB HEMETOLOGY METHOD 01/04/2025 10:27 AM [facility] Platelets 243 130 - 400 K/mcL LAB HEMETOLOGY METHOD 01/04/2025 10:27 AM [facility] MPV 9.5 7.0 - 11.0 FL LAB HEMETOLOGY METHOD 01/04/2025 10:27 AM [facility] NRBC 0.0 <1.0 % LAB HEMETOLOGY METHOD 01/04/2025 10:27 AM [facility] NRBC Absolute 0.00 <0.10 K/mcL LAB HEMETOLOGY METHOD 01/04/2025 10:27 AM [facility] Blood Venous blood specimen / Unknown Venipuncture / Unknown 01/04/2025 9:22 AM EDT 01/04/2025 9:22 AM EDT us Josee GUNN LAB BLOOD ORDERABLES Final Re sult [facility] [address] [place] [address], * (ABNORMAL) Basic metabolic panel (01/04/2025 9:22 AM EDT) Sodium 136 133 - 145 mmol/L LAB CHEMISTRY METHOD 01/04/2025 1:29 PM [facility] Potassium 5.0 3.5 - 5.5 mmol/L LAB CHEMISTRY METHOD 01/04/2025 1:29 PM [facility] Chloride 103 96 - 110 mmol/L LAB CHEMISTRY METHOD 01/04/2025 1:29 PM [facility] CO2 26 21 - 32 mmol/L LAB CHEMISTRY METHOD 01/04/2025 1:29 PM [facility] Anion Gap 7 3 - 11 LAB CHEMISTRY METHOD 01/04/2025 1:29 PM [facility] Glucose 100 70 - 100 mg/dL LAB CHEMISTRY METHOD 01/04/2025 1:29 PM [facility] BUN 26(H) 5 - 25 mg/dL LAB CHEMISTRY METHOD 01/04/2025 1:29 PM [facility] Creatinine 1.15(H) 0.50 - 1.10 mg/dL LAB CHEMISTRY METHOD 01/04/2025 1:29 PM [facility] eGFR 48(L) >=60 mL/min/1. 73m2 LAB CHEMISTRY METHOD 01/04/2025 1:29 PM [facility] Comment:Calculation based on the Chronic Kidney Disease Epidemiology Collaboration (CKD-EPI) equation refit without adjustment for race. BUN/Creatinine Ratio 22.6 LAB CHEMISTRY METHOD 01/04/2025 1:29 PM [facility] Calcium 9.3 8.5 - 10.5 mg/dL LAB CHEMISTRY METHOD 01/04/2025 1:29 PM [facility] Blood Venous blood specimen / Unknown Venipuncture / Unknown 01/04/2025 9:22 AM EDT 01/04/2025 9:22 AM EDT us Josee GUNN LAB BLOOD ORDERABLES Final Re sult [facility] [address] [place] [address], * DXA BONE DENSITY STUDY 1+ SITS [...] IMPRESSION: IMPRESSION: Osteoporosis by WHO criteria. [facility] Department of Internal Medicine recommends using National [...] alternative screening schedule based on moise Castro., [facility] July 30, 2011 for patients with osteopenia [...] IMPRESSION: IMPRESSION: Osteoporosis by WHO criteria. [facility] Department of Internal Medicine recommendsusing National Osteoporosis [...] alternative screening schedule based on moise Castro., NEJMJanuary 2011 for patients with osteopenia (based [...] Most Recently Relevant to Health Maintenance Insurance [facility] MEDICARE Care Teams Winder Helper Relationship Specialty Start Date End Date Preeti Brothers MD [address] [place] [address] [facility] - General 07/20/1992
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
[2025-03-08 16:21] LABS: COVID-19 Test Negative (Negative); IDNOW Serial# 55D5AD1C; IDNOW Serial# 58CA691E; Influenza B2 Negative (Negative)
[2025-03-08 16:28] LABS: Troponin-I High Sensitivity 6.4 ng/L (<3.5-17.0)
--- NOTE | 2025-03-08 17:24 | PM.IMHP ---
History of Present Illness Date of Service: 03/08/25 Chief Complaint: falls, sob 80F PMH COPD, pituitary adenoma, petite mal seizures, CKD 3, hypertension, atherosclerotic vascular disease, osteoporosis, nicotine dependence presented with falls and shortness of breath. Patient reports the last 2 weeks has been having increased imbalance and falls, noted to have left wrist pain after 1 of the falls but did not seek medical care at that time. Denies any head trauma, loss of consciousness, focal weakness or pain. Also complaining of worsening shortness of breath, orthopnea, worse on exertion. In ED, noted to be hypoxic to high 80s on room air, x-ray of left wrist revealed distal radial fracture. CT abdomen with significant atherosclerotic disease. Review of Systems Review of Systems: Yes all other systems are reviewed and are negative [facility] Medical History High cholesterol Epilepsy Seizure disorder Pituitary adenoma Social History Alcohol intake: current Smoked in Last 30 Days: No Use of substances other than those prescribed or required for medical reasons: No Advance Directives: No Advance Directives Information Provided: No Meds Allergies Allergy/AdvReac Type Severity Reaction Status Date / Time carbamazepine (From Tegretol) Allergy Unknown Verified 03/08/25 11:43 Home Medications ?Medication ?Instructions ?Recorded ?Confirmed ?Last Taken ?Type alendronate 70 mg tablet 70 mg PO QWEEK 01/29/25 01/31/25 Unknown History amlodipine 10 mg tablet 10 mg PO BEDTIME 01/29/25 01/31/25 Unknown History cabergoline 0.5 mg tablet 0.25 mg PO QWEEK 01/29/25 01/31/25 Unknown History levetiracetam 250 mg tablet 250 mg PO BID 01/29/25 01/31/25 Unknown History lisinopril 5 mg tablet 5 mg PO BEDTIME 01/29/25 01/31/25 Unknown History pravastatin 80 mg tablet 80 mg PO BEDTIME 01/29/25 01/31/25 Unknown History lamotrigine 25 mg tablet 25 mg PO BID 03/08/25 Unknown History Physical Exam Vital Signs and Narrative: Vital Signs: Last Vital Signs Temp 97.8 F 03/08/25 11:41 Pulse 81 03/08/25 15:38 Resp 16 03/08/25 15:38 BP 159/78 H 03/08/25 15:38 Pulse Ox 95 03/08/25 15:38 O2 Del Method Nasal Cannula 03/08/25 15:38 O2 Flow Rate 2 03/08/25 15:38 BMI result Body Mass Index 30.8 General: AO X 3, no acute distress Resp: dimisnished bilateral, no accessory muscles used CVS: S1,S2,RRR, murmur, trace edema GI: soft, non tender, non distended Neuro: motor grossly intact, alert Psych: appropriate affect, appropriate insight Results Labs 03/08/25 12:08 03/08/25 12:08 Labs: Laboratory Results - last 24 hr 03/08/25 03/08/25 03/08/25 12:08 14:46 16:00 MCV 92.1 MCH 29.8 MCHC 32.4 RDW 13.2 Plt Count 278 MPV 8.6 L Immature Gran % (Auto) 0.3 Neut % (Auto) 69.2 Lymph % (Auto) 17.3 L Stephenson % (Auto) 8.6 Eos % (Auto) 2.9 Baso % (Auto) 1.7 Lymph # (Auto) 1.2 Stephenson # (Auto) 0.6 Eos # (Auto) 0.2 Baso # (Auto) 0.1 Abs Immat Gran (auto) 0.02 Absolute Neuts (auto) 4.8 Absolute Nucleated RBC 0.000 Nucleated RBC % (auto) 0.0 VBG pH 7.33 VBG pCO2 49 VBG pO2 71 VBG HCO3 26 VBG O2 Saturation 93.0 VBG Base Excess -0.3 Anion Gap 12 Estim Creat Clear Calc 32.9 Estimated GFR 39 Random Glucose 89 Calcium 9.0 Magnesium 2.1 Total Bilirubin 0.3 Direct Bilirubin 0.1 AST 20 ALT 13 Alkaline Phosphatase 80 Total Creatine Kinase 50 B-Natriuretic Peptide 62 Total Protein 6.6 Albumin 3.8 Lipase 36 COVID-19 (NURYS) Negative COVID-19 Clin Com See Note Influenza Type A (PUNEET) Negative Influenza Type B (PUNEET) Negative Influenza A & B Note See Note Imaging Radiologist's Impressions: Impressions Hand X-Ray 03/08/25 12:39 IMPRESSION: Comminuted intra-articular fracture of the distal radius as described. Electronically signed by: Bryson Moya MD 03/08/2025 01:55 PM EDT RP Wrist X-Ray 03/08/25 12:41 IMPRESSION: Comminuted intra-articular fracture of the distal radius as described. Electronically signed by: Bryson Moya MD 03/08/2025 01:55 PM EDT RP Abdomen/Pelvis CT 03/08/25 14:13 IMPRESSION: Abundant stool without intestinal obstruction pattern. Atrophic right kidney. Likely vascular etiology. High degree stenosis secondary to calcified plaques, infrarenal and distal abdominal aorta. Bilateral nonobstructing nephrolithiasis. Cystic lesions, left kidney. Fleischner guidelines were followed. Electronically signed by: Jonathan Banda MD 03/08/2025 03:40 PM EDT RP Cervical Spine CT 03/08/25 14:13 IMPRESSION: Multilevel cervical spondylosis without acute fracture or trauma-related listhesis. Atherosclerosis disease. Centrilobular emphysematous type changes. Fleischner guidelines were followed. Electronically signed by: Jonathan Banda MD 03/08/2025 03:04 PM EDT RP Chest CTA 03/08/25 14:13 IMPRESSION: 1. There is no evidence of pulmonary embolus or acute aortic syndrome. There is no aortic aneurysm. 2. There is moderate centrilobular emphysema with upper lobe predominance. 3. There is moderate cardiomegaly. There is dilatation of the main pulmonary artery suggesting pulmonary arterial hypertension. 4. There is bilateral lower lobe small airway thickening with foci of endobronchial mucous plugging in the left lower lobe. There is bibasilar atelectatic change. 5. There is a moderate to large sized paraesophageal hiatus hernia. There is diffuse dilatation of the esophagus. 6. There are additional ancillary findings as discussed in the body of the report Electronically signed by: Gilbert Snyder MD 03/08/2025 03:15 PM EDT RP Head CT 03/08/25 14:13 IMPRESSION: No acute intracranial abnormality. Electronically signed by: Bryson Moya MD 03/08/2025 03:04 PM EDT RP Assessment and Plan (1) Cerebral microvascular disease: Status: Acute Plan 80F PMH COPD, pituitary adenoma, petite mal seizures, hypertension, CKD 3, atherosclerotic vascular disease, osteoporosis, nicotine dependence presented with falls and shortness of breath Acute hypoxic respiratory failure Multifactorial - COPD with acute decompensation Steroids, nebs, azithromycin Acute unspecified CHF will give 1 dose of IV Lasix and follow up echo Frequent falls Likely related to cerebral microvascular disease PT Left radial fracture Placed in splint in the ED, OT eval Atherosclerotic vascular disease Aspirin, statin Smoking cessation Osteoporosis Bisphosphonate weekly on hold while inpatient Petite mal seizures Continue Lamictal Hypertension Amlodipine, lisinopril CKD 3 Stable DVT prophylaxis with Lovenox DNR/DNI Quality Stroke Does the patient have a stroke diagnosis?: No VTE Prior VTE?: No VTE Risk Level:: Medical - moderate - high VTE Device Contraindication: Treatment Not Indicated VTE Drug Contraindication: N/A - Med Ordered
[2025-03-08] MEDS: Furosemide 40 MG/4 ML VIAL IVPUSH (18:04)
--- NOTE | 2025-03-08 18:07 | PHA.MEDREC ---
Addendum entered by Sunny Gregg PharmD 03/08/25 18:12: reviewed Original Note: Pharmacy Consult ? Medication Reconciliation Pharmacy has completed the medication reconciliation. Spoke with pt and pt daughter at bedside, who had pt Rx bottles on hand. PT confirmed her Cabergoline is taken on Wednesdays and Alendronate is taken on Tuesdays and they were both taken this past week and pt states she is no longer taking Levetiracetam and is now taking Lamotrigine 25mg tabs; pt confirmed she was taking the Lamotrigine 1 tab (25mg) daily for one week then (pt was suppose to increase to 25mg BID) pt states she increased to 2 tabs (50mg) BID and took 2 tabs this morning.
[2025-03-08] MEDS: 0.9 % Sodium Chloride Flush 3 ML SYRINGE IVFLUSH (21:06)
[2025-03-09] VITALS (10 sets, daily range): BP systolic 143–184; BP diastolic 63–91; PULSE 70–87; RESP 16–20; TEMP 36.3–37.2; O2SAT 88–97
[2025-03-09 06:53] LABS: Anion Gap 12 (12-20); Blood Urea Nitrogen 28 mg/dL (9-16); Calcium 8.5 mg/dL (8.4-10.2); Carbon Dioxide 26 mmol/L (22-29); Chloride 107 mmol/L (96-108); Creatinine Clr Calc Pharmacy 31.7; Estimated Glomerular Filt Rate 37; Magnesium 2.1 mg/dL (1.6-2.6); Potassium 4.6 mmol/L (3.3-5.1); Sodium 140 mmol/L (135-145)
--- NOTE | 2025-03-09 07:00 | CA_ITS ---
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 The calculated ejection fraction is 64% by biplane method. - No obvious valvular pathology seen on this study. Findings Left Ventricle Normal left ventricular cavity size. There is moderately increased left ventricular wall thickness. The left ventricular systolic function is normal. The calculated ejection fraction is 64% by biplane method. Evidence suggests grade I (mild) diastolic dysfunction. Right Ventricle Normal right ventricular cavity size and systolic function. Atria The left atrium is mildly dilated. The right atrium is normal in size. Aortic Valve The aortic valve was not well visualized. There is no aortic valve stenosis. There is no aortic valve regurgitation. Mitral Valve The mitral valve appears normal. There is no mitral valve regurgitation. There is no mitral valve stenosis. Pulmonic Valve The pulmonic valve is likely normal. Tricuspid Valve There is trace tricuspid valve regurgitation. There is no evidence of pulmonary hypertension. Great Vessels The asc aorta is normal in size. Venous The inferior vena cava is normal in size and collapses greater than 50% with inspiration. Pericardium/Pleural There is no evidence of pericardial effusion. Prior Study Comparison No prior study available for comparison. Recommendations, Care & Conclusions No obvious valvular pathology seen on this study. Measurements 2D Linear Measurements IVSd: 1.34 0.6-0.9/0.6-1.0 cm LVIDd: 4.48 3.9-5.3/4.2-5.9 cm LVIDd Index: 2.43 2.4-3.2/2.2-3.1 cm/m2 LVIDs: 2.58 2.0-3.6 cm LVPWd: 1.31 0.7-1.1 cm LA Diam: 3.80 2.7-3.8/3.0-4.0 cm LAIDs Index: 2.07 1.5-2.3 cm/m2 LV Mass: 283.45 67-162/88-224 g LV Mass Index: 154.05 43-95/49-115 g/m2 LVOT Diam: 2.10 3.0+(-)1.3 cm 2D Systolic Function EF 4C: 71.60 >55% EF 2C: 50.30 >55% EF BiP: 63.50 >55% Mitral Valve MV Pk E: 1.02 MV PK A: 1.25 MV Decel Time: 183.00 E/A: 0.80 E'Lateral: 5.55 E'Medial: 5.87 E/E' Med: 17.40 E/E' Lat: 18.40 PHT: 54.00 MVA PHT: 4.07 Decel Price: 5.57 Aortic Valve AoV Pk Pratik: 1.94 AoV Mn Pratik: 1.27 AoV VTI: 0.44 AoV Pk Grad: 15.00 Aov Mn Grad: 8.00 SOFI Cont.VTI: 2.21 LVOT LVOT Pk Pratik: 1.20 LVOT Mn Pratik: 0.74 LVOT VTI: 0.28 LVOT Pk Grad: 6.00 LVOT Mn Grad: 2.00 LVOT Diam: 2.10 LVOT Area: 3.46 Diastolic Function MV Pk E: 1.02 MV Pk A: 1.25 E/A: 0.80 E'Medial: 5.87 E/E' Med: 17.40 E' Laterial: 5.55 E/E' Lat: 18.40 Right Ventricle TAPSE (mm): 29.50 TVS' Pratik: 15.60 Tricuspid Valve TR Pk Pratik: 2.32 TR Pk Grad: 22.00 Great Vessels Aorta Sinus of Valsalva: 2.40 2.0-3.5 cm Ao Asc: 2.90 2.1-3.4 cm Pulmonary Valve PV Pk Pratik: 1.05 Peak PV Grad: 4.00 Updated in Other Vendor System with Status of Final Teddy Boyd MD electronically signed on 03/09/2025 3:41:22 PM with status of Final
[2025-03-09 07:04] LABS: Hematocrit 38.3 % (37.0-47.0); Hemoglobin 12.3 g/dl (12.0-16.0); Mean Corpuscular HGB Conc 32.1 g/dl (31.0-35.0); Mean Corpuscular Hemoglobin 29.9 pg (27.0-33.0); Mean Corpuscular Volume 93.2 fL (80.0-98.0); NRBC Abs Auto 0.000 X10*3/uL (0.0-0.012); NRBC Pct Auto 0.0 /100WBC (0.0-0.2); Platelet Count 282 X10*3/uL (160-400); Red Blood Count 4.11 X10*6/uL (4.20-5.50); White Blood Count 6.2 X10*3/uL (4.8-10.8)
--- NOTE | 2025-03-09 08:28 | HO.PM.IMPN ---
Subjective Subjective Date of Service: 03/09/25 Interval History: sob improving Physical Exam Exam: Exam: General: AO X 3, no acute distress Resp: diminished bilateral, no accessory muscles used CVS: S1,S2,RRR, edema resolved GI: soft, non tender, non distended Neuro: motor grossly intact, alert Psych: appropriate affect, appropriate insight left wrist in splint Vital Signs: Vital Signs: Last Vital Signs Temp 98.3 F 03/09/25 07:37 Pulse 83 03/09/25 07:37 Resp 20 03/09/25 07:37 BP 144/91 H 03/09/25 07:37 Pulse Ox 92 03/09/25 07:37 O2 Del Method Nasal Cannula 03/09/25 07:37 O2 Flow Rate 2 03/09/25 07:37 BMI result Body Mass Index 31.7 Objective Data Active Medications Acetaminophen (Acetaminophen 325 Mg Tablet) 650 mg PO Q6H PRN PRN Reason: Pain, Mild 1-3,fever,headache Albuterol/Ipratropium (Albuterol/Iprat 2.5/0.5mg 3 Ml Ampul.Neb) 3 ml INHALE RQ4H WHILE AWAKE PRN PRN Reason: sob Amlodipine Besylate (Amlodipine Besylate 10 Mg Tablet) 10 mg PO BEDTIME [facility]; Protocol Last Admin: 03/08/25 21:01 Dose: 10 mg Documented By: MICHELLE Aspirin (Aspirin Enteric Coated 81 Mg Tablet.Dr) 81 mg PO DAILY [facility] Azithromycin (Azithromycin 500 Mg Tablet) 500 mg PO Q24H [facility] Calcium Carbonate (Calcium Carbonate 750 Mg Tab.Chew) 750 mg PO Q4H PRN PRN Reason: Heartburn Enoxaparin Sodium (Enoxaparin Sodium 40 Mg/0.4 Ml Syringe) 40 mg SUBCUT Q24H [facility] Lamotrigine (Lamotrigine 25 Mg Tablet) 50 mg PO BID [facility] Last Admin: 03/08/25 21:01 Dose: 50 mg Documented By: MICHELLE Lisinopril (Lisinopril 5 Mg Tablet) 5 mg PO BEDTIME [facility]; Protocol Last Admin: 03/08/25 21:02 Dose: 5 mg Documented By: MICHELLE Magnesium Hydroxide (Milk Of Magnesia 30 Ml Oral.Susp) 30 ml PO DAILY PRN PRN Reason: Constipation Melatonin (Melatonin 3 Mg Tablet) 6 mg PO BEDTIME PRN PRN Reason: Insomnia Pravastatin Sodium (Pravastatin Sodium 80 Mg Tablet) 80 mg PO BEDTIME [facility] Last Admin: 03/08/25 21:02 Dose: 80 mg Documented By: MICHELLE Prednisone (Prednisone 20 Mg Tablet) 40 mg PO DAILY [facility] Sodium Chloride (0.9 % Sodium Chloride Flush 3 Ml Syringe) 3 ml IVFLUSH QSHIFT [facility] Last Admin: 03/08/25 21:06 Dose: 3 ml Documented By: MICHELLE Labs 03/09/25 06:02 03/09/25 06:02 Labs: Laboratory Results - last 24 hr 03/08/25 03/08/25 03/08/25 12:08 14:46 16:00 MCV 92.1 MCH 29.8 MCHC 32.4 RDW 13.2 Plt Count 278 MPV 8.6 L Immature Gran % (Auto) 0.3 Neut % (Auto) 69.2 Lymph % (Auto) 17.3 L [place] % (Auto) 8.6 Eos % (Auto) 2.9 Baso % (Auto) 1.7 Lymph # (Auto) 1.2 [place] # (Auto) 0.6 Eos # (Auto) 0.2 Baso # (Auto) 0.1 Abs Immat Gran (auto) 0.02 Absolute Neuts (auto) 4.8 Absolute Nucleated RBC 0.000 Nucleated RBC % (auto) 0.0 VBG pH 7.33 VBG pCO2 49 VBG pO2 71 VBG HCO3 26 VBG O2 Saturation 93.0 VBG Base Excess -0.3 Anion Gap 12 Estim Creat Clear Calc 32.9 Estimated GFR 39 Random Glucose 89 Calcium 9.0 Magnesium 2.1 Total Bilirubin 0.3 Direct Bilirubin 0.1 AST 20 ALT 13 Alkaline Phosphatase 80 Total Creatine Kinase 50 B-Natriuretic Peptide 62 Total Protein 6.6 Albumin 3.8 Lipase 36 COVID-19 (NURYS) Negative COVID-19 Clin Com See Note Influenza Type A (PUNEET) Negative Influenza Type B (PUNEET) Negative Influenza A & B Note See Note 03/09/25 06:02 MCV 93.2 MCH 29.9 MCHC 32.1 RDW 13.2 Plt Count 282 MPV 8.8 L Immature Gran % (Auto) Neut % (Auto) Lymph % (Auto) [place] % (Auto) Eos % (Auto) Baso % (Auto) Lymph # (Auto) [place] # (Auto) Eos # (Auto) Baso # (Auto) Abs Immat Gran (auto) Absolute Neuts (auto) Absolute Nucleated RBC 0.000 Nucleated RBC % (auto) 0.0 VBG pH VBG pCO2 VBG pO2 VBG HCO3 VBG O2 Saturation VBG Base Excess Anion Gap 12 Estim Creat Clear Calc 31.7 Estimated GFR 37 Random Glucose 178 H Calcium 8.5 Magnesium 2.1 Total Bilirubin Direct Bilirubin AST ALT Alkaline Phosphatase Total Creatine Kinase B-Natriuretic Peptide Total Protein Albumin Lipase COVID-19 (NURYS) COVID-19 Clin Com Influenza Type A (PUNEET) Influenza Type B (PUNEET) Influenza A & B Note Assessment and Plan (1) Pituitary adenoma: Status: Acute Plan 80F PMH COPD, pituitary adenoma, petite mal seizures, hypertension, CKD 3, atherosclerotic vascular disease, osteoporosis, nicotine dependence presented with falls and shortness of breath Acute hypoxic respiratory failure Multifactorial - COPD with acute decompensation Steroids, nebs, azithromycin Acute unspecified CHF given 1 dose of IV Lasix with improvement in sob and edema, follow up echo wean o2 Frequent falls Likely related to cerebral microvascular disease PT Left radial fracture Placed in splint in the ED, OT eval ortho eval NWB LUE Atherosclerotic vascular disease Aspirin, statin Smoking cessation Osteoporosis Bisphosphonate weekly on hold while inpatient Petite mal seizures Continue Lamictal Hypertension Amlodipine, lisinopril CKD 3 Stable DVT prophylaxis with Lovenox DNR/DNI reason for continued hospitalization:hypoxia Quality Stroke Does the patient have a stroke diagnosis?: No VTE Prior VTE?: No VTE Risk Level:: Medical - moderate - high VTE Device Contraindication: Treatment Not Indicated VTE Drug Contraindication: N/A - Med Ordered
--- NOTE | 2025-03-09 08:41 | PM.EVENT ---
Event Note Date of Service: 03/09/25 Event Note: 80-year-old female admitted to the hospital after a fall X-rays taken in the ED reveal distal radius fracture of the left wrist No acute orthopedic intervention indicated for this injury Patient should remain in splint at all times, keep splint clean, dry, intact Nonweightbearing on left upper extremity Follow-up outpatient for a further treatment upon discharge Time Spent With Patient Time: Total time managing care of this patient today ____ minutes.
[2025-03-09] MEDS: Aspirin Enteric Coated 81 MG TABLET.DR PO (09:17)
[2025-03-09] MEDS: 0.9 % Sodium Chloride Flush 3 ML SYRINGE IVFLUSH ×3 (09:18→21:11)
--- NOTE | 2025-03-09 14:19 | MHC.CM.PN ---
IMM 03/09/25 DX L wrist FX S/P fall She lives with her son and x spouse. She was independent with all functional mobility but has has many recent falls A new HCP has been documented PT+ OT recommend Home with services. A referral was sent to patients preference [facility] DP home with [facility] and family transport.
[2025-03-10] VITALS (7 sets, daily range): BP systolic 140–169; BP diastolic 65–83; PULSE 73–89; RESP 16–18; TEMP 36.2–36.9; O2SAT 89–92
[2025-03-10 07:08] LABS: Hematocrit 42.0 % (37.0-47.0); Hemoglobin 13.3 g/dl (12.0-16.0); Mean Corpuscular HGB Conc 31.7 g/dl (31.0-35.0); Mean Corpuscular Hemoglobin 29.2 pg (27.0-33.0); Mean Corpuscular Volume 92.1 fL (80.0-98.0); NRBC Abs Auto 0.000 X10*3/uL (0.0-0.012); NRBC Pct Auto 0.0 /100WBC (0.0-0.2); Platelet Count 291 X10*3/uL (160-400); Red Blood Count 4.56 X10*6/uL (4.20-5.50); White Blood Count 10.4 X10*3/uL (4.8-10.8)
[2025-03-10 07:24] LABS: Anion Gap 14 (12-20); Blood Urea Nitrogen 33 mg/dL (9-16); Calcium 8.7 mg/dL (8.4-10.2); Carbon Dioxide 25 mmol/L (22-29); Chloride 105 mmol/L (96-108); Creatinine Clr Calc Pharmacy 33.9; Estimated Glomerular Filt Rate 40; Potassium 4.3 mmol/L (3.3-5.1); Sodium 140 mmol/L (135-145)
--- NOTE | 2025-03-10 08:56 | HO.PM.IMPN ---
Subjective Subjective Date of Service: 03/10/25 Interval History: sob improving Physical Exam Exam: Exam: General: AO X 3, no acute distress Resp: diminished bilateral, no accessory muscles used CVS: S1,S2,RRR, edema resolved GI: soft, non tender, non distended Neuro: motor grossly intact, alert Psych: appropriate affect, appropriate insight left wrist in splint Vital Signs: Vital Signs: Last Vital Signs Temp 97.5 F 03/10/25 07:46 Pulse 77 03/10/25 07:46 Resp 18 03/10/25 07:46 BP 168/73 H 03/10/25 07:46 Pulse Ox 89 L 03/10/25 07:46 O2 Del Method Room Air 03/10/25 07:46 O2 Flow Rate 1 03/09/25 12:09 BMI result Body Mass Index 31.7 Objective Data Active Medications Acetaminophen (Acetaminophen 325 Mg Tablet) 650 mg PO Q6H PRN PRN Reason: Pain, Mild 1-3,fever,headache Albuterol/Ipratropium (Albuterol/Iprat 2.5/0.5mg 3 Ml Ampul.Neb) 3 ml INHALE RQ4H WHILE AWAKE PRN PRN Reason: sob Amlodipine Besylate (Amlodipine Besylate 10 Mg Tablet) 10 mg PO BEDTIME ON [facility] OF [facility]; Protocol Last Admin: 03/09/25 21:08 Dose: 10 mg Documented By: JUDY Aspirin (Aspirin Enteric Coated 81 Mg Tablet.Dr) 81 mg PO DAILY [facility] OF [facility] Last Admin: 03/09/25 09:17 Dose: 81 mg Documented By: ALEX Azithromycin (Azithromycin 500 Mg Tablet) 500 mg PO Q24H [facility] OF [facility] Last Admin: 03/09/25 09:18 Dose: 500 mg Documented By: ALEX Calcium Carbonate (Calcium Carbonate 750 Mg Tab.Chew) 750 mg PO Q4H PRN PRN Reason: Heartburn Enoxaparin Sodium (Enoxaparin Sodium 40 Mg/0.4 Ml Syringe) 40 mg SUBCUT Q24H ON [facility] OF [facility] Last Admin: 03/09/25 09:17 Dose: 40 mg Documented By: ALEX Isosorbide Mononitrate (Isosorbide Mononitrate 30 Mg Tab.Er.24h) 30 mg PO DAILY [facility] OF [facility]; Protocol Lamotrigine (Lamotrigine 25 Mg Tablet) 50 mg PO BID [facility] OF [facility] Last Admin: 03/09/25 21:08 Dose: 50 mg Documented By: JUDY Lisinopril (Lisinopril 5 Mg Tablet) 5 mg PO BEDTIME [facility]; Protocol Last Admin: 03/09/25 21:09 Dose: 5 mg Documented By: JUDY Magnesium Hydroxide (Milk Of Magnesia 30 Ml Oral.Susp) 30 ml PO DAILY PRN PRN Reason: Constipation Melatonin (Melatonin 3 Mg Tablet) 6 mg PO BEDTIME PRN PRN Reason: Insomnia Last Admin: 03/09/25 21:09 Dose: 6 mg Documented By: JUDY Pravastatin Sodium (Pravastatin Sodium 80 Mg Tablet) 80 mg PO BEDTIME [facility] Last Admin: 03/09/25 21:09 Dose: 80 mg Documented By: JUDY Prednisone (Prednisone 20 Mg Tablet) 40 mg PO DAILY [facility] Last Admin: 03/09/25 09:17 Dose: 40 mg Documented By: BURSujatha Sodium Chloride (0.9 % Sodium Chloride Flush 3 Ml Syringe) 3 ml IVFLUSH QSHIFT ON [facility] OF [facility] Last Admin: 03/09/25 21:11 Dose: 3 ml Documented By: JUDY Labs 03/10/25 06:40 03/10/25 06:40 Labs: Laboratory Results - last 24 hr 03/09/25 03/10/25 06:02 06:40 MCV 92.1 MCH 29.2 MCHC 31.7 RDW 13.1 Plt Count 291 MPV 8.6 L Absolute Nucleated RBC 0.000 Nucleated RBC % (auto) 0.0 Anion Gap 14 Estim Creat Clear Calc 33.9 Estimated GFR 40 Random Glucose 89 Calcium 8.7 Carcinoembryonic Ag Cancelled Assessment and Plan (1) Pituitary adenoma: Status: Acute Plan 80F PMH COPD, pituitary adenoma, petite mal seizures, hypertension, CKD 3, atherosclerotic vascular disease, osteoporosis, nicotine dependence presented with falls and shortness of breath Acute hypoxic respiratory failure Multifactorial - COPD with acute decompensation Steroids, nebs, azithromycin Acute on chronic diastolic CHF will give another dose of lasix wean o2 Frequent falls Likely related to cerebral microvascular disease PT - rec home with services Left radial fracture Placed in splint in the ED ortho appreciated - outpatient follow up NWB LUE Atherosclerotic vascular disease Aspirin, statin Smoking cessation Osteoporosis Bisphosphonate weekly on hold while inpatient Petite mal seizures Continue Lamictal Hypertension uncontrolled Amlodipine, lisinopril, add imdur CKD 3 Stable DVT prophylaxis with Lovenox DNR/DNI reason for continued hospitalization:hypoxia Quality Stroke Does the patient have a stroke diagnosis?: No VTE Prior VTE?: No VTE Risk Level:: Medical - moderate - high VTE Device Contraindication: Treatment Not Indicated VTE Drug Contraindication: N/A - Med Ordered
[2025-03-10] MEDS: Furosemide 40 MG/4 ML VIAL IVPUSH (08:57)
[2025-03-10] MEDS: 0.9 % Sodium Chloride Flush 3 ML SYRINGE IVFLUSH ×3 (08:57→20:45)
[2025-03-10] MEDS: Aspirin Enteric Coated 81 MG TABLET.DR PO (08:58)
[2025-03-11] VITALS (8 sets, daily range): BP systolic 140–180; BP diastolic 60–81; PULSE 68–83; RESP 16–18; TEMP 36.1–36.9; O2SAT 89–97
--- NOTE | 2025-03-11 04:09 | PC.NURSE ---
Patient remains asymptomatic. Blood pressure 180/72. notified at 04:07; awaiting further orders. Will continue to monitor.
[2025-03-11 07:03] LABS: Hematocrit 38.1 % (37.0-47.0); Hemoglobin 12.1 g/dl (12.0-16.0); Mean Corpuscular HGB Conc 31.8 g/dl (31.0-35.0); Mean Corpuscular Hemoglobin 29.4 pg (27.0-33.0); Mean Corpuscular Volume 92.5 fL (80.0-98.0); NRBC Abs Auto 0.000 X10*3/uL (0.0-0.012); NRBC Pct Auto 0.0 /100WBC (0.0-0.2); Platelet Count 301 X10*3/uL (160-400); Red Blood Count 4.12 X10*6/uL (4.20-5.50); White Blood Count 10.2 X10*3/uL (4.8-10.8)
[2025-03-11 07:13] LABS: Anion Gap 15 (12-20); Blood Urea Nitrogen 47 mg/dL (9-16); Calcium 8.3 mg/dL (8.4-10.2); Carbon Dioxide 25 mmol/L (22-29); Chloride 104 mmol/L (96-108); Creatinine Clr Calc Pharmacy 26.6; Estimated Glomerular Filt Rate 30; Magnesium 2.3 mg/dL (1.6-2.6); Potassium 4.8 mmol/L (3.3-5.1); Sodium 139 mmol/L (135-145)
[2025-03-11] MEDS: Aspirin Enteric Coated 81 MG TABLET.DR PO (07:30)
[2025-03-11] MEDS: 0.9 % Sodium Chloride Flush 3 ML SYRINGE IVFLUSH (07:30)
--- NOTE | 2025-03-11 08:12 | HO.PM.IMPN ---
Subjective Subjective Date of Service: 03/11/25 Interval History: sob improving Physical Exam Exam: Exam: General: AO X 3, no acute distress Resp: diminished bilateral, no accessory muscles used CVS: S1,S2,RRR, edema resolved GI: soft, non tender, non distended Neuro: motor grossly intact, alert Psych: appropriate affect, appropriate insight left wrist in splint Vital Signs: Vital Signs: Last Vital Signs Temp 98 F 03/11/25 06:49 Pulse 77 03/11/25 06:49 Resp 17 03/11/25 06:49 BP 170/81 H 03/11/25 07:29 Pulse Ox 90 L 03/11/25 06:49 O2 Del Method Room Air 03/11/25 06:49 O2 Flow Rate 1 03/09/25 12:09 BMI result Body Mass Index 31.7 Objective Data Active Medications Acetaminophen (Acetaminophen 325 Mg Tablet) 650 mg PO Q6H PRN PRN Reason: Pain, Mild 1-3,fever,headache Albuterol/Ipratropium (Albuterol/Iprat 2.5/0.5mg 3 Ml Ampul.Neb) 3 ml INHALE RQ4H WHILE AWAKE PRN PRN Reason: sob Amlodipine Besylate (Amlodipine Besylate 10 Mg Tablet) 10 mg PO BEDTIME [facility]; Protocol Last Admin: 03/10/25 20:42 Dose: 10 mg Documented By: JUDY Aspirin (Aspirin Enteric Coated 81 Mg Tablet.Dr) 81 mg PO DAILY [facility] Last Admin: 03/11/25 07:30 Dose: 81 mg Documented By: RAVINDER Azithromycin (Azithromycin 500 Mg Tablet) 500 mg PO Q24H [facility] Last Admin: 03/11/25 07:29 Dose: 500 mg Documented By: RAVINDER Calcium Carbonate (Calcium Carbonate 750 Mg Tab.Chew) 750 mg PO Q4H PRN PRN Reason: Heartburn Enoxaparin Sodium (Enoxaparin Sodium 40 Mg/0.4 Ml Syringe) 40 mg SUBCUT Q24H [facility] Last Admin: 03/10/25 08:57 Dose: 40 mg Documented By: RAVINDER Sodium Chloride (Ns) 1,000 mls @ 75 mls/hr IVCONT .[id number] [facility] Stop: 03/11/25 21:34 Isosorbide Mononitrate (Isosorbide Mononitrate 30 Mg Tab.Er.24h) 30 mg PO DAILY [facility]; Protocol Last Admin: 03/11/25 07:29 Dose: 30 mg Documented By: RAVINDER Lamotrigine (Lamotrigine 25 Mg Tablet) 50 mg PO BID [facility] Last Admin: 03/11/25 07:30 Dose: 50 mg Documented By: RAVINDER Lisinopril (Lisinopril 5 Mg Tablet) 5 mg PO BEDTIME [facility]; Protocol Last Admin: 03/10/25 20:41 Dose: 5 mg Documented By: JUDY Magnesium Hydroxide (Milk Of Magnesia 30 Ml Oral.Susp) 30 ml PO DAILY PRN PRN Reason: Constipation Melatonin (Melatonin 3 Mg Tablet) 6 mg PO BEDTIME PRN PRN Reason: Insomnia Last Admin: 03/10/25 20:42 Dose: 6 mg Documented By: JUDY Pravastatin Sodium (Pravastatin Sodium 80 Mg Tablet) 80 mg PO BEDTIME [facility] Last Admin: 03/10/25 20:42 Dose: 80 mg Documented By: JUDY Prednisone (Prednisone 20 Mg Tablet) 40 mg PO DAILY [facility] Last Admin: 03/11/25 07:29 Dose: 40 mg Documented By: RAVINDER Sodium Chloride (0.9 % Sodium Chloride Flush 3 Ml Syringe) 3 ml IVFLUSH QSHIFT [facility] Last Admin: 03/11/25 07:30 Dose: 3 ml Documented By: RAVINDER Labs 03/11/25 05:45 03/11/25 05:45 Labs: Laboratory Results - last 24 hr 03/11/25 05:45 MCV 92.5 MCH 29.4 MCHC 31.8 RDW 13.3 Plt Count 301 MPV 9.1 L Absolute Nucleated RBC 0.000 Nucleated RBC % (auto) 0.0 Anion Gap 15 Estim Creat Clear Calc 26.6 Estimated GFR 30 Random Glucose 88 Calcium 8.3 L Magnesium 2.3 Assessment and Plan (1) Pituitary adenoma: Status: Acute Plan 80F PMH COPD, pituitary adenoma, petite mal seizures, hypertension, CKD 3, atherosclerotic vascular disease, osteoporosis, nicotine dependence presented with falls and shortness of breath Acute hypoxic respiratory failure Multifactorial - COPD with acute decompensation Steroids, nebs, azithromycin Acute on chronic diastolic CHF diuresed with iv lasix, now with some MANJULA on CKD III, will hold lasix, give 1L NS and repeat bmp now on room air Frequent falls Likely related to cerebral microvascular disease PT - rec home with services Left radial fracture Placed in splint in the ED ortho appreciated - outpatient follow up [facility]B BREE Atherosclerotic vascular disease Aspirin, statin Smoking cessation Osteoporosis Bisphosphonate weekly on hold while inpatient Petite mal seizures Continue Lamictal Hypertension uncontrolled Amlodipine, lisinopril, added imdur MANJULA on CKD 3 1L NS, monitor DVT prophylaxis with Lovenox DNR/DNI reason for continued hospitalization:MANJULA Quality Stroke Does the patient have a stroke diagnosis?: No VTE Prior VTE?: No VTE Risk Level:: Medical - moderate - high VTE Device Contraindication: Treatment Not Indicated VTE Drug Contraindication: N/A - Med Ordered
[2025-03-12 03:59] VITALS: BP 144/43; PULSE 73; RESP 18; TEMP 36.1; O2SAT 93
[2025-03-12 06:51] VITALS: BP 119/58; PULSE 68; RESP 16; TEMP 36.6; O2SAT 92
[2025-03-12 07:08] LABS: Hematocrit 36.3 % (37.0-47.0); Hemoglobin 11.8 g/dl (12.0-16.0); Mean Corpuscular HGB Conc 32.5 g/dl (31.0-35.0); Mean Corpuscular Hemoglobin 29.9 pg (27.0-33.0); Mean Corpuscular Volume 92.1 fL (80.0-98.0); NRBC Abs Auto 0.000 X10*3/uL (0.0-0.012); NRBC Pct Auto 0.0 /100WBC (0.0-0.2); Platelet Count 272 X10*3/uL (160-400); Red Blood Count 3.94 X10*6/uL (4.20-5.50); White Blood Count 9.6 X10*3/uL (4.8-10.8)
[2025-03-12 07:35] LABS: Anion Gap 13 (12-20); Blood Urea Nitrogen 57 mg/dL (9-16); Calcium 7.7 mg/dL (8.4-10.2); Carbon Dioxide 22 mmol/L (22-29); Chloride 107 mmol/L (96-108); Creatinine Clr Calc Pharmacy 29.3; Estimated Glomerular Filt Rate 34; Potassium 4.3 mmol/L (3.3-5.1); Sodium 138 mmol/L (135-145)
--- NOTE | 2025-03-12 08:30 | PM.DS ---
DS: Providers Provider Date of Service: 03/12/25 Date of admission: 03/08/25 17:03 Date of discharge: 03/12/25 Primary care physician: Preeti Brothers MD Consults: 03/09/25 08:32 Consult to Orthopedics Routine Consulting Provider: [facility] [place] [facility] Reason for consultation: left wrist fracture DS: Diagnosis Discharge Diagnosis (1) Pituitary adenoma: Status: Acute DS: Summary Hospital Course Hospital Course: from initial hpi: 80F PMH COPD, pituitary adenoma, petite mal seizures, CKD 3, hypertension, atherosclerotic vascular disease, osteoporosis, nicotine dependence presented with falls and shortness of breath. Patient reports the last 2 weeks has been having increased imbalance and falls, noted to have left wrist pain after 1 of the falls but did not seek medical care at that time. Denies any head trauma, loss of consciousness, focal weakness or pain. Also complaining of worsening shortness of breath, orthopnea, worse on exertion. In ED, noted to be hypoxic to high 80s on room air, x-ray of left wrist revealed distal radial fracture. CT abdomen with significant atherosclerotic disease. hospital course: She was admitted for acute hypoxic respiratory failure secondary to COPD with acute decompensation and acute on chronic diastolic CHF. Was treated with steroids, DuoNebs, azithromycin as well as IV Lasix. Shortness breath improved and patient was weaned off oxygen. Course was complicated by acute kidney injury on CKD 3. Lasix was held and was given back a little bit of fluid and creatinine improved. On discharge we will continue 3 more days of prednisone azithromycin and maintenance Lasix 20 mg every other day. For frequent falls likely related to cerebral microvascular disease was seen by physical therapy who recommended home with services. For left radial fracture splint was placed in the ER. Was seen by orthopedics recommended nonweightbearing of left upper extremity and outpatient follow up. For atherosclerotic vascular disease was started on aspirin and continued on statin. Smoking cessation is strongly encouraged. For osteoporosis bisphosphonate we will be held this week can restart next week. For history of petite mal seizures was continued on Lamictal. For uncontrolled hypertension was continued on amlodipine and lisinopril and Imdur was added with better control. Patient is feeling better will be discharged home. Time Attestation Discharge Coordination Time (in mins): 37 Quality: Safe Use of Opioids Does Pt have an Active Cancer Diagnosis on the Problem List?: No Quality: Stroke Does the patient have a stroke diagnosis?: No Physical Exam Exam: Exam: General: AO X 3, no acute distress Resp: CTA bilateral, no accessory muscles used CVS: S1,S2,RRR GI: soft, non tender, non distended Neuro: motor grossly intact, alert Psych: appropriate affect, appropriate insight Vital Signs: Vital Signs: Last Vital Signs Temp 98 F 03/12/25 06:51 Pulse 68 03/12/25 06:51 Resp 16 03/12/25 06:51 BP 119/58 L 03/12/25 06:51 Pulse Ox 92 03/12/25 06:51 O2 Del Method Room Air 03/12/25 06:51 O2 Flow Rate 1 03/09/25 12:09 BMI result Body Mass Index 31.7 DS: Data Data Completed and Pending Labs on day of discharge: Laboratory Results - last 24 hr 03/12/25 06:50 WBC 9.6 RBC 3.94 L Hgb 11.8 L Hct 36.3 L MCV 92.1 MCH 29.9 MCHC 32.5 RDW 13.3 Plt Count 272 MPV 8.7 L Absolute Nucleated RBC 0.000 Nucleated RBC % (auto) 0.0 Sodium 138 Potassium 4.3 Chloride 107 Carbon Dioxide 22 Anion Gap 13 BUN 57 H Creatinine 1.49 H Estim Creat Clear Calc 29.3 Estimated GFR 34 Random Glucose 84 Calcium 7.7 L D Discharge Plan Discharge Anticipated Discharge Date/Time: 03/12/25 08:25 Patient Disposition: Home Health Service Discharge Diagnosis: chd, copd, hayes Referrals: Ysabel Elena PA-C [Physician Associate Professor Of English, Orthopedics] - 1 Week Preeti Brothers MD [Primary Care Provider, Internal Medicine] - 1 Week Discharge Medications: New prednisone 20 mg Tablet 40 mg PO DAILY Qty: 6 0RF isosorbide mononitrate 30 mg Tablet Extended Release 24 Hr 30 mg PO DAILY Qty: 90 0RF Protocol: Hold for SBP< HOLD for SBP < : 90 aspirin 81 mg Tablet,Delayed Release (Dr/Ec) 81 mg PO DAILY Qty: 90 0RF azithromycin 500 mg Tablet 500 mg PO Q24H Qty: 6 0RF furosemide [Lasix] 20 mg tablet 20 mg PO Q OTHER DAY Qty: 45 0RF Continued lamotrigine 25 mg tablet 50 mg PO BID Rx Instructions: 25 mg orally one a day for a week, then twice a day; pravastatin 80 mg tablet 80 mg PO BEDTIME amlodipine 10 mg tablet 10 mg PO BEDTIME cabergoline 0.5 mg tablet 0.25 mg PO WE lisinopril 5 mg tablet 5 mg PO BEDTIME Hel[facility] alendronate 70 mg tablet 70 mg PO TU Hold Instructions: Resume on 03/20/25. Discharge Orders: Discharge Order (Routine); Ordered 03/12/25 Ordered By: Kendall Vargas Diet: Advance to usual diet Activity on Discharge: steve GIRON Stand Alone Forms: Patient Portal Discharge page Print Language: [place] Care Plan Goals: recovery Health Concerns: copd, chf, hayes Plan of Treatment: lasix 20mg every other day 3 more days prednsione and danisha added imdur for blood pressure follow up with ortho Assessment: see above
--- NOTE | 2025-03-12 08:32 | P.F2F_ITS ---
Service Date Service Date: 03/12/25 Encounter Date of encounter: 03/12/25 Reasons for Services Signs and symptoms assessed: lue pain from wrist fracture Reason for physical therapy: home safety and mobility and therapeutic exercises Reason for occupational therapy: home safety and mobility, therapeutic exercises and restore joint function Homebound: Leaving the home is medically contraindicated at this time without the asist of a device and/or another person due th the listed conditions above and below. Reason homebound: unsteady gait / fall risk Certification: Based on the above findings, I certify that this patient is confined to the home and needs intermittent retirement care, physical therapy and/or speech therapy, or continues to need occupational therapy. The patient is under my care, and I have initiated the establishment of the plan of care. The patient will be followed by a physician who will periodically review the plan of care. Time Spent With Patient Time: Total time managing care of this patient today ____ minutes.
[2025-03-12] MEDS: Aspirin Enteric Coated 81 MG TABLET.DR PO (09:14)
[2025-03-12 09:17] VITALS: BP 151/66
[2025-03-12] MEDS: 0.9 % Sodium Chloride Flush 3 ML SYRINGE IVFLUSH (09:19)
--- NOTE | 2025-03-12 09:30 | MHC.CM.PN ---
Patient cleared for dc home w/ [facility]. ACP referral to assess for service needs. [facility] will assist at home as well. [facility] to provide transport at 11am. RN aware. IMM delivered.
[2025-03-12 11:16] VITALS: BP 154/69; PULSE 73; RESP 16; TEMP 36.4
== END 2025-03-12 12:54 | disposition home health service (06) | DRG 190 ==
LOC: HO.ED 14:26 → HO.EDOVER 17:10 → HO.S3 19:19
PROVIDERS: Emergency Medicine; Physician Assistant Medical; Admitting Provider Internal Medicine; Emergency Provider Emergency Medicine; PCP Internal Medicine; Visit Provider Internal Medicine
DX: J44.1 Chronic obstructive pulmonary disease with (acute) exacerbation (principal); I50.33 Acute on chronic diastolic (congestive) heart failure; J96.01 Acute respiratory failure with hypoxia; S52.572A Other intraarticular fracture of lower end of left radius, initial encounter for closed fracture; I13.0 Hypertensive heart and chronic kidney disease with heart failure and stage 1 through stage 4 chronic kidney disease, or unspecified chronic kidney disease; F17.210 Nicotine dependence, cigarettes, uncomplicated; W19.XXXA Unspecified fall, initial encounter; M81.0 Age-related osteoporosis without current pathological fracture; Z66 Do not resuscitate; G40.909 Epilepsy, unspecified, not intractable, without status epilepticus; I67.9 Cerebrovascular disease, unspecified; N18.30 Chronic kidney disease, stage 3 unspecified; Z71.6 Tobacco abuse counseling; R29.6 Repeated falls; Z91.81 History of falling; Z20.822 Contact with and (suspected) exposure to COVID-19; Z79.82 Long term (current) use of aspirin; Z79.83 Long term (current) use of bisphosphonates; Z79.899 Other long term (current) drug therapy
CPT/HCPCS: 36415; 70450; 71275; 72125; 73100; 73110; 73130; 74176; 74177; 80048; 80076; 82550; 82803; 83690; 83735; 83880; 84484; 85025; 85027; 87502; 87635; 93005; 93306; 93970; 97110; 97161; 97166; 99285; J0696; J1650; J1938; J2919; J3360; Q9957

== ENCOUNTER → 2025-03-08 11:43 | Outpatient (BNV) | payer MEDICARE, BC, SELFPAY | PROVIDERS: PCP Internal Medicine; Visit Provider Internal Medicine | DX: R94.31 Abnormal electrocardiogram [ECG] [EKG] (principal); R06.02 Shortness of breath | CPT/HCPCS: 93010 ==

== ENCOUNTER → 2025-03-08 13:16 | Outpatient (BNV) | payer MEDICARE, BC, SELFPAY | PROVIDERS: PCP Internal Medicine; Visit Provider Radiology Diagnostic Radiology | DX: N20.0 Calculus of kidney (principal); N28.1 Cyst of kidney, acquired; I71.43 Infrarenal abdominal aortic aneurysm, without rupture; N26.1 Atrophy of kidney (terminal); J43.2 Centrilobular emphysema; I51.7 Cardiomegaly; J98.8 Other specified respiratory disorders; M47.812 Spondylosis without myelopathy or radiculopathy, cervical region; S09.90XA Unspecified injury of head, initial encounter; W19.XXXA Unspecified fall, initial encounter; M79.661 Pain in right lower leg; M79.662 Pain in left lower leg; R60.0 Localized edema; S52.572A Other intraarticular fracture of lower end of left radius, initial encounter for closed fracture | CPT/HCPCS: 70450; 71275; 73110; 73130 ==

== ENCOUNTER 2025-03-08 17:03 | Outpatient (BNV) | payer MEDICARE, BC, SELFPAY | END 2025-03-09 07:00 | PROVIDERS: Admitting Provider Internal Medicine; Emergency Provider Emergency Medicine; PCP Internal Medicine; Visit Provider Internal Medicine | DX: I50.9 Heart failure, unspecified (principal) | CPT/HCPCS: 93306 ==

== ENCOUNTER → 2025-03-08 17:03 | Outpatient (BNV) | payer MEDICARE, BC, SELFPAY | PROVIDERS: Admitting Provider Internal Medicine; PCP Internal Medicine; Visit Provider Internal Medicine | DX: D35.2 Benign neoplasm of pituitary gland (principal) | CPT/HCPCS: 99223; 99233; 99239; G0180 ==

== ENCOUNTER 2025-03-13 13:41 | Emergency (ER) | payer MEDICARE, BC, SELFPAY ==
[2025-03-13] VITALS (7 sets, daily range): BP systolic 163–198; BP diastolic 43–56; PULSE 77–86; RESP 16–18; TEMP 36.6–36.7; O2SAT 90–93; BMI 32.8
--- NOTE | 2025-03-13 13:55 | ECG_ITS ---
Test Reason : HTN Blood Pressure : */* mmHG Vent. Rate : 78 BPM Atrial Rate : 78 BPM P-R Int : 142 ms QRS Dur : 92 ms QT Int : 356 ms P-R-T Axes : 66 -32 36 degrees QTcB Int : 405 ms Normal sinus rhythm Left axis deviation Abnormal ECG When compared with ECG of 08-Mar-2025 12:03, Criteria for Anterior infarct are no longer Present Referred By: Ashley Thurman Electronically Signed By: Garry Aguayo
--- NOTE | 2025-03-13 14:24 | PC.NURSE ---
Pt to ED 12, BIBA from home after [facility] noted pt to be hypertensive with systolic in 200's. Pt is A/O x 3 and asymptomatic. Reports being d/c yesterday after falling and fracturing LUE. Pt states she was unable to take anti-htn medications since being d/c. EKG and labs pending. Meds admin per SEP.
--- NOTE | 2025-03-13 14:27 | ED.GENADULT ---
HPI - General Adult General Chief complaint: General Medical Stated complaint: HYPERTENSION PER EMS Time Seen by Provider: 03/13/25 13:45 Source: patient, EMS and old records reviewed Mode of arrival: EMS Limitations: no limitations History of Present Illness ED Provider: GILBERTO DELUCA narrative: 80 yo female with PMH of seizures, HTN, HLD who has been having issues with falling and was admitted. Her BP has run high. She had [facility] come to the house today and then she was told her BP was 220 over 210. She denies CP/headaches, numbness or weakness. She states she didn't take her night medications last night as she got home too late. complaint: HTN Onset (ago): week(s) Radiation: non-radiation Severity: mild Relieving factors: none Exacerbating factors: none Associated symptoms: denies other symptoms Treatments prior to arrival: none Related Data Home Medications ?Medication ?Instructions ?Recorded ?Confirmed alendronate 70 mg tablet 70 mg PO TU 01/29/25 03/08/25 Held on 03/12/25. Instructions: Resume on 03/20/25. amlodipine 10 mg tablet 10 mg PO BEDTIME 01/29/25 03/08/25 cabergoline 0.5 mg tablet 0.25 mg PO WE 01/29/25 03/08/25 lisinopril 5 mg tablet 5 mg PO BEDTIME 01/29/25 03/08/25 pravastatin 80 mg tablet 80 mg PO BEDTIME 01/29/25 03/08/25 lamotrigine 25 mg tablet 50 mg PO BID 03/08/25 03/08/25 Previous Rx's ?Medication ?Instructions ?Recorded aspirin 81 mg tablet,delayed 81 mg PO DAILY #90 tabs 03/12/25 release azithromycin 500 mg tablet 500 mg PO Q24H #6 tabs 03/12/25 furosemide 20 mg tablet (Lasix) 20 mg PO Q OTHER DAY #45 tabs 03/12/25 isosorbide mononitrate 30 mg 30 mg PO DAILY #90 tabs 03/12/25 tablet,extended release 24 hr prednisone 20 mg tablet 40 mg (2 x 20 mg) PO DAILY #6 tabs 03/12/25 albuterol sulfate 90 mcg/actuation 1 inh inhalation Q4-6H PRN 03/13/25 breath activated powder inhaler shortness of breath #1 ea Allergies Allergy/AdvReac Type Severity Reaction Status Date / Time carbamazepine (From Tegretol) Allergy Unknown Verified 03/13/25 13:53 Review of Systems Review of Systems: Constitutional : No Fever, No Chills, No Fatigue ENT/Mouth : No sore throat, No Rhinorrhea Eyes: No Eye Pain, No Swelling, No Redness Cardiovascular : No Chest Pain, No SOB, No Dyspnea on Exertion Respiratory : No Cough, No Sputum Gastrointestinal : No Nausea, No Vomiting, No Diarrhea, No abdominal Pain Genitourinary : No Dysuria, No Urinary Frequency, No Hematuria, Musculoskeletal : No joint pain, No Myalgias, No Joint Swelling Skin : No Skin Lesions, No rash Neuro : No Weakness, No Numbness, No Dizziness, positive Headache All other systems reviewed and are negative [facility] Past Medical History Attestation statement: The following information was validated with the patient. Source: old records reviewed Medical History High cholesterol Epilepsy Seizure disorder Pituitary adenoma Social History Social History Household Members: Children Housing: House Do you presently have visiting nurse or other home services: No Alcohol intake: current Patient Tobacco Use Status: Current everyday Tobacco user Tobacco use type: Cigarette Cigarette Packs Per Day: 0.5 Cigarettes Per Day: 10.0 e-Cigarette/Vaping Use: Never Used Second Hand Smoke Exposure: No Advance Directives: Yes Advance Directives Information Provided: Yes Advance Directives on File: No service: No Physical Exam ED Vital Signs: Vital Signs - 24 hr 03/13/25 13:51 03/13/25 13:54 03/13/25 14:06 Temperature 98.0 F Pulse Rate 77 78 Respiratory Rate 16 Blood Pressure 198/56 H 198/56 H 198/56 H Pulse Oximetry 90 L Oxygen Delivery Method Room Air 03/13/25 14:06 03/13/25 14:58 03/13/25 15:43 Temperature 97.8 F Pulse Rate 86 83 Respiratory Rate 16 18 Blood Pressure 198/56 H 178/52 H Pulse Oximetry 91 L Oxygen Delivery Method Room Air BMI result Body Mass Index 32.8 Appearance: Alert. Oriented X3. No acute distress. Eyes: Pupils equal, round and reactive to light. ENT: Pharynx normal. Neck: Normal inspection. Neck supple. CVS: Normal heart rate and rhythm. Pulses normal. Respiratory: No respiratory distress. Breath sounds normal. Abdomen: Soft and nontender. Skin: Skin warm and dry. Normal skin color. Extremities: No lower extremity edema. L arm in splint NV intact Neuro: Oriented X 3. No motor deficit. No sensory deficit. CN2-12 intact Course Course Course Narrative: will give rescue inhaler has chronic low O2 sat from recent admit Medications Administered Discontinued Medications Generic Name Dose Route Start Last Admin Trade Name Evy PRN Reason Stop Dose Admin Albuterol/Ipratropium 3 ml 03/13/25 15:03 03/13/25 15:41 Albuterol/Iprat 2.5/0.5mg 3 Ml Ampul.Neb INHALE 03/13/25 15:04 3 ml ONCE ONE Administration Amlodipine Besylate 5 mg 03/13/25 13:58 03/13/25 14:06 Amlodipine Besylate 5 Mg Tablet PO 03/13/25 13:59 5 mg ONCE ONE Administration Protocol Lisinopril 5 mg 03/13/25 13:58 03/13/25 14:06 Lisinopril 5 Mg Tablet PO 03/13/25 13:59 5 mg ONCE ONE Administration Protocol Medical Decision Making Medical Decision Making [facility] Narrative: 80 yo female with PMH of seizures, HTN, HLD here with c/o elevated HTN but no symptoms and no signs of end organ damage I am going to give her half her night dose of amlodipine and her lisinopril. Will obtain EKG and kidney function. Suspect non compliance x 1 as issue. Anticipate negative work up will DC home Differential Diagnosis Differential Diagnoses: The differential diagnosis associated with the presentation includes uncontrolled HTN, MANJULA, anxiety Admission/Observation Consideration of admission/observation: Escalation of care including admission/observation considered good response to her BP meds stable for DC her O2 has been 91% but she has no CP/SOB will give duoneb at she has COPD on admission and visit she has had lower O2 sats this is not new she didn't start her inhaler yet Lab Data [facility] Lab Attestation statement: I reviewed the patient's lab results. 03/13/25 14:29 03/13/25 14:29 Labs: Lab Results 03/13/25 Range/Units 14:29 WBC 11.8 H (4.8-10.8) X10*3/uL RBC 3.82 L (4.20-5.50) X10*6/uL Hgb 11.4 L (12.0-16.0) g/dl Hct 35.6 L (37.0-47.0) % MCV 93.2 (80.0-98.0) fL MCH 29.8 (27.0-33.0) pg MCHC 32.0 (31.0-35.0) g/dl RDW 13.5 (11.0-16.0) % Plt Count 339 (160-400) X10*3/uL MPV 8.6 L (9.4-12.3) fL Immature Gran % (Auto) 0.7 H (0.0-0.4) % Neut % (Auto) 85.4 H (45-73) % Lymph % (Auto) 9.1 L (20-40) % Sierra % (Auto) 3.7 (2-11) % Eos % (Auto) 0.8 (0-4) % Baso % (Auto) 0.3 (0-2) % Lymph # (Auto) 1.1 L (1.2-4.9) X10*3/uL Sierra # (Auto) 0.4 (0.1-1.2) X10*3/uL Eos # (Auto) 0.1 (0.0-0.4) X10*3/uL Baso # (Auto) 0.0 (0.0-0.2) X10*3/uL Abs Immat Gran (auto) 0.08 H (0.00-0.03) X10*3/uL Absolute Neuts (auto) 10.1 H (2.0-8.3) x10*3/uL Absolute Nucleated RBC 0.000 (0.0-0.012) X10*3/uL Nucleated RBC % (auto) 0.0 (0.0-0.2) /100WBC Sodium 139 (135-145) mmol/L Potassium 4.9 (3.3-5.1) mmol/L Chloride 108 (96-108) mmol/L Carbon Dioxide 24 (22-29) mmol/L Anion Gap 12 (12-20) BUN 51 H (9-16) mg/dL Creatinine 1.35 (0.5-1.4) mg/dL Estim Creat Clear Calc 33.0 Estimated GFR 38 Random Glucose 105 (60-115) mg/dL Calcium 8.8 D (8.4-10.2) mg/dL Troponin I High Sens 8.7 (<3.5-17.0) ng/L Independent Interpretation I performed an independent interpretation of an: EKG Interpretation: Rate: 78 Rhythm: NSR [place]: left Normal P waves. Normal UMAIR. Normal QRS complex. ST T wave : normal no SANJIV qTC: 405 prior studies: no acute ischemia The study has been interpreted contemporaneously by me. . External Record Review External record reviewed: Outpatient record Prescription Management I considered prescription management with: Other Discharge Plan Discharge Clinical Impression: Chronic hypertension Patient Disposition: Home, Self-Care Instructions: Chronic Hypertension (ED) Additional Instructions: OKAY TO TAKE YOUR AMLODIPINE 5MG TONIGHT WE GAVE YOU HALF A DOSE OF IT WHILE IN ED DO NOT TAKE YOUR LISINOPRIL TONIGHT WE DOSED YOU IN THE ED RETURN FOR ANY WORSENING SYMPTOMS OR CONCERNS FOLLOW UP WITH YOUR DOCTOR Prescriptions: New albuterol sulfate 90 mcg/actuation aerosol powdr breath activated 1 inh inhalation Q4-6H PRN (Reason: shortness of breath) Qty: 1 0RF No Action lamotrigine 25 mg tablet 50 mg PO BID Rx Instructions: 25 mg orally one a day for a week, then twice a day; prednisone 20 mg Tablet 40 mg PO DAILY Qty: 6 0RF isosorbide mononitrate 30 mg Tablet Extended Release 24 Hr 30 mg PO DAILY Qty: 90 0RF Protocol: Hold for SBP< HOLD for SBP < : 90 aspirin 81 mg Tablet,Delayed Release (Dr/Ec) 81 mg PO DAILY Qty: 90 0RF azithromycin 500 mg Tablet 500 mg PO Q24H Qty: 6 0RF furosemide [Lasix] 20 mg tablet 20 mg PO Q OTHER DAY Qty: 45 0RF alendronate 70 mg tablet 70 mg PO TU pravastatin 80 mg tablet 80 mg PO BEDTIME amlodipine 10 mg tablet 10 mg PO BEDTIME cabergoline 0.5 mg tablet 0.25 mg PO WE lisinopril 5 mg tablet 5 mg PO BEDTIME Print Language: Divehi
[2025-03-13 14:34] LABS: MANUAL DIFF FLAG NO
[2025-03-13 14:36] LABS: Hematocrit 35.6 % (37.0-47.0); Hemoglobin 11.4 g/dl (12.0-16.0); Imm Gran Abs Auto 0.08 X10*3/uL (0.00-0.03); Imm Gran Pct Auto 0.7 % (0.0-0.4); Lymphocytes Absolute Auto 1.1 X10*3/uL (1.2-4.9); Mean Corpuscular HGB Conc 32.0 g/dl (31.0-35.0); Mean Corpuscular Hemoglobin 29.8 pg (27.0-33.0); Mean Corpuscular Volume 93.2 fL (80.0-98.0); NRBC Abs Auto 0.000 X10*3/uL (0.0-0.012); NRBC Pct Auto 0.0 /100WBC (0.0-0.2); Platelet Count 339 X10*3/uL (160-400); Red Blood Count 3.82 X10*6/uL (4.20-5.50); White Blood Count 11.8 X10*3/uL (4.8-10.8)
[2025-03-13 14:53] LABS: Anion Gap 12 (12-20); Blood Urea Nitrogen 51 mg/dL (9-16); Calcium 8.8 mg/dL (8.4-10.2); Carbon Dioxide 24 mmol/L (22-29); Chloride 108 mmol/L (96-108); Creatinine Clr Calc Pharmacy 33.0; Estimated Glomerular Filt Rate 38; Potassium 4.9 mmol/L (3.3-5.1); Sodium 139 mmol/L (135-145)
[2025-03-13 14:55] LABS: Troponin-I High Sensitivity 8.7 ng/L (<3.5-17.0)
[2025-03-13] MEDS: Albuterol/Iprat 2.5/0.5MG 3 ML AMPUL.NEB INHALE (15:41)
--- OUTSIDE RECORDS SUMMARY | 2025-03-13 15:51 | XMS_ITS | Clinical Summary ---
Author Organization [address] Address [address] [place] [address] Phone Care Team Providers Care Hotel Director Name Role Phone Preeti Brothers MD Primary Care Provider [phone] Allergies Active Allergy Reactions Criticality Noted Date [...] 9:03 AM EDT): Kidney stone 06/02/2006 Convulsions ([facility] V24, [facility] V28) 6 Assessment & Plan (01/04/2025 9:03 AM EDT): Central nervous system viral infection 6 Overview (06/16/2024): age 10 Hepatitis A virus infection 08/18/2005 Overview (12/26/2024): Gout 08/18/2005 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, [facility]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 06 Assessment & Plan (01/04/2025 9:03 AM EDT): Resolved Problems Problem Noted Date Diagnosed Date Resolved Date Current every day smoker 05/17/2023 Encounters Date Type Department Care Team Description 03/08/2025 Telephone Adult Medicine [address] [phone] Preeti Brothers MD 01/04/2025 9:00 AM EDT Office Visit Adult [address] [phone] Preeti Brothers MD Encounter for annual wellness visit (AWV) in Medicare patient (Primary Dx); Primary hypertension; Hypercholesteremia; Convulsions, unspecified convulsion type ([facility] V24, [facility] V28); Osteoporosis without current pathological fracture, unspecified osteoporosis type; 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 For example, children teacher or elderly care for an [...] Medicine [facility] [address] [place], [place] [phone] Preeti Brothers MD [address] [place], [place] Health Maintenance Due Date Last Done Comments [...] LAB CHEMISTRY METHOD 01/04/2025 1:36 PM EDT [facility] Triglycerides 142 0 - 150 mg/dL LAB CHEMISTRY METHOD 01/04/2025 1:36 PM EDT [facility] HDL 67 >=40 mg/dL LAB CHEMISTRY METHOD 01/04/2025 1:36 PM EDT [facility] LDL Calculated 94 0 - 100 mg/dL LAB CHEMISTRY METHOD 01/04/2025 1:36 PM EDT [facility] VLDL Cholesterol Anuj 28.4 mg/dL LAB CHEMISTRY METHOD 01/04/2025 1:36 PM EDT [facility] Non HDL Chol. (LDL+VLDL) 122 <145 mg/dL LAB CHEMISTRY METHOD 01/04/2025 1:36 PM EDT [facility] Chol/HDL Ratio 2.8 0.0 - 4.4 LAB CHEMISTRY METHOD 01/04/2025 1:36 PM EDT [facility] Blood Venous blood specimen / Unknown Venipuncture / Unknown 01/04/2025 9:22 AM EDT 01/04/2025 9:22 AM EDT us Josee GUNN LAB BLOOD ORDERABLES Final Re sult Performing Organization Address City/[facility]/ZIP Co de Phone Number [facility] [address] [place] [address], [place] [phone] * Vitamin D 25 hydroxy (01/04/2025 9:22 AM EDT) [facility] Vit D, 25-Hydroxy 30.0 30.0 - 80.0 ng/mL LAB CHEMISTRY METHOD 01/04/2025 2:06 PM EDT [facility] Blood Venous blood specimen / Unknown Venipuncture / Unknown 01/04/2025 9:22 AM EDT 01/04/2025 9:22 AM EDT us Josee GUNN LAB BLOOD ORDERABLES Final Re sult Performing Organization Address [facility] de Phone Number [facility] [address] [place] [address], [place] [phone] * (ABNORMAL) Complete blood count (01/04/2025 9:22 AM EDT) [facility] WBC 5.1 4.8 - 10.8 K/[facility] LAB HEMETOLOGY METHOD 01/04/2025 10:27 AM EDT [facility] RBC 4.80 3.80 - 4.80 M/[facility] LAB HEMETOLOGY METHOD 01/04/2025 10:27 AM EDT [facility] Hemoglobin 14.1 11.5 - 16.0 g/dL LAB HEMETOLOGY METHOD 01/04/2025 10:27 AM EDT [facility] Hematocrit 46.0 35.0 - 47.0 % LAB HEMETOLOGY METHOD 01/04/2025 10:27 AM [facility] MCV 95.6 79.0 - 98.0 FL LAB HEMETOLOGY METHOD 01/04/2025 10:27 AM [facility] MCH 29.3 27.0 - 32.0 pcg LAB HEMETOLOGY METHOD 01/04/2025 10:27 AM [facility] MCHC 30.7(L) 32.0 - 37.0 g/dL LAB HEMETOLOGY METHOD 01/04/2025 10:27 AM [facility] RDW 13.2 11.0 - 15.0 % LAB HEMETOLOGY METHOD 01/04/2025 10:27 AM [facility] Platelets 243 130 - 400 K/mcL LAB HEMETOLOGY METHOD 01/04/2025 10:27 AM [facility] MPV 9.5 7.0 - 11.0 FL LAB HEMETOLOGY METHOD 01/04/2025 10:27 AM [facility] NRBC 0.0 <1.0 % LAB HEMETOLOGY METHOD 01/04/2025 10:27 AM [facility] NRBC Absolute 0.00 <0.10 K/mcL LAB HEMETOLOGY METHOD 01/04/2025 10:27 AM [facility] Blood Venous blood specimen / Unknown Venipuncture / Unknown 01/04/2025 9:22 AM EDT 01/04/2025 9:22 AM EDT us Josee GUNN LAB BLOOD ORDERABLES Final Re sult [facility] [address] [place] [address], * (ABNORMAL) Basic metabolic panel (01/04/2025 9:22 AM EDT) Sodium 136 133 - 145 mmol/L LAB CHEMISTRY METHOD 01/04/2025 1:29 PM [facility] Potassium 5.0 3.5 - 5.5 mmol/L LAB CHEMISTRY METHOD 01/04/2025 1:29 PM [facility] Chloride 103 96 - 110 mmol/L LAB CHEMISTRY METHOD 01/04/2025 1:29 PM [facility] CO2 26 21 - 32 mmol/L LAB CHEMISTRY METHOD 01/04/2025 1:29 PM [facility] Anion Gap 7 3 - 11 LAB CHEMISTRY METHOD 01/04/2025 1:29 PM [facility] Glucose 100 70 - 100 mg/dL LAB CHEMISTRY METHOD 01/04/2025 1:29 PM [facility] BUN 26(H) 5 - 25 mg/dL LAB CHEMISTRY METHOD 01/04/2025 1:29 PM [facility] Creatinine 1.15(H) 0.50 - 1.10 mg/dL LAB CHEMISTRY METHOD 01/04/2025 1:29 PM [facility] eGFR 48(L) >=60 mL/min/1. 73m2 LAB CHEMISTRY METHOD 01/04/2025 1:29 PM [facility] Comment:Calculation based on the Chronic Kidney Disease Epidemiology Collaboration (CKD-EPI) equation refit without adjustment for race. BUN/Creatinine Ratio 22.6 LAB CHEMISTRY METHOD 01/04/2025 1:29 PM [facility] Calcium 9.3 8.5 - 10.5 mg/dL LAB CHEMISTRY METHOD 01/04/2025 1:29 PM [facility] Blood Venous blood specimen / Unknown Venipuncture / Unknown 01/04/2025 9:22 AM EDT 01/04/2025 9:22 AM EDT Josee GUNN LAB BLOOD ORDERABLES Final Re sult [facility] [address] [place] [address], * DXA BONE DENSITY STUDY 1+ SITS [...] IMPRESSION: IMPRESSION: Osteoporosis by WHO criteria. [facility] Department of Internal Medicine recommends using National [...] alternative screening schedule based on moise Castro., [facility] July 30, 2011 for patients [...] IMPRESSION: IMPRESSION: Osteoporosis by WHO criteria. [facility] Department of Internal Medicine recommendsusing National Osteoporosis [...] Most Recently Relevant to Health Maintenance Insurance [facility] MEDICARE Care Teams Hotel Director Relationship Specialty Start Date End Date Preeti Brothers MD [address] [place] [phone] PCP - General 07/20/1992
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
== END 2025-03-13 16:30 | disposition home or self-care (01) ==
PROVIDERS: Emergency Provider Emergency Medicine; PCP Internal Medicine
DX: I10 Essential (primary) hypertension (principal); E78.5 Hyperlipidemia, unspecified; G40.909 Epilepsy, unspecified, not intractable, without status epilepticus; Z79.899 Other long term (current) drug therapy
CPT/HCPCS: 36415; 80048; 84484; 85025; 93005; 99284; 99285

== ENCOUNTER → 2025-03-13 13:55 | Outpatient (BNV) | payer MEDICARE, BC, SELFPAY | PROVIDERS: Emergency Provider Emergency Medicine; PCP Internal Medicine; Visit Provider Internal Medicine Cardiovascular Disease | DX: R94.31 Abnormal electrocardiogram [ECG] [EKG] (principal); I10 Essential (primary) hypertension | CPT/HCPCS: 93010 ==

== ENCOUNTER 2025-03-16 07:22 | Outpatient (REF) | payer MEDICARE, BC, SELFPAY ==
--- NOTE | ~2025-03-16 | XR_ITS ---
EXAMINATION: XR WRIST 3 OR MORE VIEWS LEFT HISTORY: M25.532 - Pain in left wrist COMPARISON: Comparison is made with the prior examination dated 02/28/2025. FINDINGS: Three casted views of the left wrist are submitted. A fiberglass cast obscures fine bony detail. Again seen is a comminuted intra-articular fracture of the distal radius. Position and alignment of the fracture fragments is similar to the prior study given differences in technique and patient positioning. Again seen is a fracture of the ulnar styloid. There is diffuse soft tissue swelling. XR/XR wrist LT min 3V IMPRESSION: Linear intra-articular fracture of the distal radius with an associated ulnar styloid fracture without change. Electronically signed by: Bryson Moya MD 03/16/2025 09:06 AM EDT
--- OUTSIDE RECORDS SUMMARY | 2025-03-16 07:26 | XMS_ITS | Clinical Summary ---
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, [facility]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 06 Assessment & Plan (01/04/2025 9:03 AM EDT): Resolved Problems Problem Noted Date Diagnosed Date Resolved Date Current every day smoker 05/17/2023 Encounters Date Type Department Care Team Description 03/15/2025 Telephone Adult Medicine [address] [phone] Preeti Brothers MD 03/08/2025 Telephone Adult Medicine [address] [phone] Preeti Brothers MD 01/04/2025 9:00 AM EDT Office Visit Adult Medicine [address] [phone] Preeti Brothers MD Encounter for annual wellness visit (AWV) in Medicare patient (Primary Dx); Primary hypertension; Hypercholesteremia; Convulsions, unspecified convulsion type ([facility] V24, [facility] V28); Osteoporosis without current pathological fracture, unspecified osteoporosis type; 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 For example, childcare worker or elderly care for an older [...] Care Team (Late st Contact Info) Description 03/19/2025 10:30 AM EDT Office Visit Adult Medicine [address] [phone] Preeti Brothers MD [address] [place] [address] 07/09/2025 8:45 AM EST Office Visit Adult Medicine [id number] [place] [address] Preeti Brothers MD [address] [place] [address] Health Maintenance Due Date Last Done Comments Zoster Vaccines (2 of 3) 07/09/2014 05/14/2014 RSV Immunization Adult Patients (1 - 1-dose 75+ series) 2018 DTaP,Tdap,and Td Vaccines (3 - Td or Tdap) 05/14/2024 05/14/2014, 05/23/2004 COVID-19 Vaccine ( season) 2025 05/17/2023, 04/09/2021, 09/15/2020, Additional history exists Influenza Vaccine (#1) 2025 , 04/09/2021, 03/01/2020 [...] LAB CHEMISTRY METHOD 01/04/2025 1:36 PM EDT [facility] Triglycerides 142 0 - 150 mg/dL LAB CHEMISTRY METHOD 01/04/2025 1:36 PM EDT [facility] HDL 67 >=40 mg/dL LAB CHEMISTRY METHOD 01/04/2025 1:36 PM EDT [facility] LDL Calculated 94 0 - 100 mg/dL LAB CHEMISTRY METHOD 01/04/2025 1:36 PM EDT [facility] VLDL Cholesterol Anuj 28.4 mg/dL LAB CHEMISTRY METHOD 01/04/2025 1:36 PM EDT [facility] Non HDL Chol. (LDL+VLDL) 122 <145 mg/dL LAB CHEMISTRY METHOD 01/04/2025 1:36 PM EDT [facility] Chol/HDL Ratio 2.8 0.0 - 4.4 LAB CHEMISTRY METHOD 01/04/2025 1:36 PM EDT [facility] Blood Venous blood specimen / Unknown Venipuncture / Unknown 01/04/2025 9:22 AM EDT 01/04/2025 9:22 AM EDT us Josee GUNN LAB BLOOD ORDERABLES Final Re sult Performing Organization Address City/[facility]/ZIP Co de Phone Number [facility] [address] [place] [address], [place] [phone] * Vitamin D 25 hydroxy (01/04/2025 9:22 AM EDT) Pathologist [facility] Vit D, 25-Hydroxy 30.0 30.0 - 80.0 ng/mL LAB CHEMISTRY METHOD 01/04/2025 2:06 PM EDT [facility] Blood Venous blood specimen / Unknown Venipuncture / Unknown 01/04/2025 9:22 AM EDT 01/04/2025 9:22 AM EDT us Josee GUNN LAB BLOOD ORDERABLES Final Re sult [facility] [address] [place] [address], [place] [phone] * (ABNORMAL) Complete blood count (01/04/2025 9:22 AM EDT) [facility] WBC 5.1 4.8 - 10.8 K/mcL LAB HEMETOLOGY METHOD 01/04/2025 10:[address] [facility] RBC 4.80 3.80 - 4.80 M/mcL LAB HEMETOLOGY METHOD 01/04/2025 10:[address] [facility] Hemoglobin 14.1 11.5 - 16.0 g/dL LAB HEMETOLOGY METHOD 01/04/2025 10:[address] [facility] Hematocrit 46.0 35.0 - 47.0 % LAB HEMETOLOGY METHOD 01/04/2025 10:[address] [facility] MCV 95.6 79.0 - 98.0 FL LAB HEMETOLOGY METHOD 01/04/2025 10:[address] [facility] MCH 29.3 27.0 - 32.0 pcg LAB HEMETOLOGY METHOD 01/04/2025 10:[address] [facility] MCHC 30.7(L) 32.0 - 37.0 g/dL LAB HEMETOLOGY METHOD 01/04/2025 10:[address] [facility] RDW 13.2 11.0 - 15.0 % LAB HEMETOLOGY METHOD 01/04/2025 10:[address] [facility] Platelets 243 130 - 400 K/mcL LAB HEMETOLOGY METHOD 01/04/2025 10:[address] [facility] MPV 9.5 7.0 - 11.0 FL LAB HEMETOLOGY METHOD 01/04/2025 10:[address] [facility] NRBC 0.0 <1.0 % LAB HEMETOLOGY METHOD 01/04/2025 10:[address] [facility] NRBC Absolute 0.00 <0.10 K/mcL LAB HEMETOLOGY METHOD 01/04/2025 10:[address] [facility] Blood Venous blood specimen / Unknown Venipuncture / Unknown 01/04/2025 9:22 AM EDT 01/04/2025 9:22 AM EDT us Josee GUNN LAB BLOOD ORDERABLES Final Re sult [facility] [address] [place] [address], * (ABNORMAL) Basic metabolic panel (01/04/2025 9:22 AM EDT) Sodium 136 133 - 145 mmol/L LAB CHEMISTRY METHOD 01/04/2025 1:[address] [facility] Potassium 5.0 3.5 - 5.5 mmol/L LAB CHEMISTRY METHOD 01/04/2025 1:[address] [facility] Chloride 103 96 - 110 mmol/L LAB CHEMISTRY METHOD 01/04/2025 1:[address] [facility] CO2 26 21 - 32 mmol/L LAB CHEMISTRY METHOD 01/04/2025 1:[address] [facility] Anion Gap 7 3 - 11 LAB CHEMISTRY METHOD 01/04/2025 1:[address] [facility] Glucose 100 70 - 100 mg/dL LAB CHEMISTRY METHOD 01/04/2025 1:[address] [facility] BUN 26(H) 5 - 25 mg/dL LAB CHEMISTRY METHOD 01/04/2025 1:[address] [facility] Creatinine 1.15(H) 0.50 - 1.10 mg/dL LAB CHEMISTRY METHOD 01/04/2025 1:[address] [facility] eGFR 48(L) >=60 mL/min/1. 73m2 LAB CHEMISTRY METHOD 01/04/2025 1:[address] [facility] Comment:Calculation based on the Chronic Kidney Disease Epidemiology Collaboration (CKD-EPI) equation refit without adjustment for race. BUN/Creatinine Ratio 22.6 LAB CHEMISTRY METHOD 01/04/2025 1:29 PM EDT [facility] Calcium 9.3 8.5 - 10.5 mg/dL LAB CHEMISTRY METHOD 01/04/2025 1:29 PM EDT [facility] Blood Venous blood specimen / Unknown Venipuncture / Unknown 01/04/2025 9:22 AM EDT 01/04/2025 9:22 AM EDT us Josee GUNN LAB BLOOD ORDERABLES Final Re sult [facility] [address] [place] [address], * DXA BONE DENSITY STUDY 1+ SITS [...] Osteoporosis by WHO criteria. The [facility] Department of Internal Medicine recommends using National [...] alternative screening schedule based on moise Castro., [facility] July 30, 2011 for patients with [...] Osteoporosis by WHO criteria. The [facility] Department of Internal Medicine recommendsusing National Osteoporosis [...] Most Recently Relevant to Health Maintenance Insurance [facility] MEDICARE Care Teams Outbound Sales Advisor Relationship Specialty Start Date End Date Preeti Brothers MD [address] [place] [address] PCP - General 07/20/1994
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
--- OUTSIDE RECORDS SUMMARY | 2025-03-16 07:26 | XMS_ITS | Encounter Summary ---
Author Organization [facility] Address [address] [place] [address] Care Team Providers Care Social Group Worker Name Role Phone Preeti Brothers MD Primary Care Provider [phone] Reason for Visit * Reason Onset Date Comments Hospital Follow-up 03/15/2025 Encounter Details Date Type Department Care Team (Late st Contact Info) Description 03/15/2025 Telephone Adult Medicine [facility] [address] [place], [place] [phone] Preeti Brothers MD [address] [place] [phone] Social History Tobacco Use Types Packs/Day Years [...] for your loved ones. For example, child study team director or elderly care for an older adult? [...] as of this encounter Progress Notes * Monika Pierce RN - 03/15/2025 1:44 PM EDT Called kathy chapman for 03/19 soon with pcp * Tabitha Cervantes - 03/15/2025 1:27 PM EDT Hospital/ER follow up appointment needed Kathy patient's niece, health care proxy states patient was at the hospital 2x this week. She was admitted last week and discharged 03/12 and then back to [facility] on 03/13 for just ER visit and told to follow up in 3 days Hospital patient was treated at: [facility] Was this only an ER visit or was the patient admitted to the hospital? Admitted to the hospital/kept overnight Date of visit if ER visit only: 03/13 - this was an ER visit only If patient was admitted what was the date of discharge? 03/12 discharged from [facility] Reason/diagnosis for visit or stay: sob, disoriented, loss of balance When was the patient told to follow up? 3 days Was visit or stay related to an injury? If yes, what was the date of injury (DOI)? No If yes, was the injury due to: Not 3rd libertarian related documented in this encounter Plan of Treatment Upcoming Encounters Date Type Department Care Team (Late st Contact Info) Description 03/19/2025 10:30 AM EDT Office Visit [address] [phone] Preeti Brothers MD [address] [place] [address] 07/09/2025 8:45 AM EST Office Visit [address] [phone] Preeti Brothers MD [address] [place] [address] documented as of this encounter Visit Diagnoses Not on filedocumented in this encounter Additional Health Concerns Assessment Noted Time PHQ-9 Depression Total Score: 0 01/05/20 8:53 AM EDT A fall risk assessment has been complete d for the patient 01/04/2025 8:50 AM EDT documented as of this encounter Care Teams Social Group Worker Relationship Specialty Start Date End Date Preeti Brothers MD [address] [place] [phone] PCP - General 07/20/1994 documented as of this encounter
== END 2025-03-16 07:23 | disposition home or self-care (01) ==
LOC: HO.HOSX 07:22
DX: S52.502A Unspecified fracture of the lower end of left radius, initial encounter for closed fracture (principal); W19.XXXA Unspecified fall, initial encounter; Y93.01 Activity, walking, marching and hiking; Y92.512 Supermarket, store or market as the place of occurrence of the external cause
CPT/HCPCS: 25600; 73110; 99202

== ENCOUNTER 2025-03-16 08:48 | Outpatient (AMB) | payer MEDICARE, BC, SELFPAY ==
--- NOTE | 2025-03-16 09:09 | A.OFFVIS_ITS ---
Vital Signs 03/16/25 09:10 Height 5 ft 3 in Weight 185 lb BMI 32.8 Intake Visit Reasons: FC- LT Wrist Distal Radius FX, DOI: ~02/27/25 Intake Note: Yahir is an 80 year old right hand dominant female, new patient, who presents today for a Fracture Care visit status post Left Wrist Distal Radius Fracture, DOI: 02/27/25. Patient states she has had multiple falls, worst one on 02/27/25 that occurred while she was walking into a store, falling on to her left arm. She was seen at [facility] on 03/08/25 where she was reduced and placed on a dorsal splint. Patient denies any pain, numbness, tingling, today. Denies previous surgeries to the left hand/wrist. Accompanied by: Niece Allergies carbamazepine (From Tegretol) Allergy (Verified 03/16/25 09:17) Unknown HPI HPI FC- LT Wrist Distal Radius FX, DOI: ~02/27/25: Details: Yahir is an 80 year old right hand dominant female, new patient, who presents today for a Fracture Care visit status post Left Wrist Distal Radius Fracture, DOI: 02/27/25. Patient states she has had multiple falls, worst one on 02/27/25 that occurred while she was walking into a store, falling on to her left arm. She was seen at [facility] on 03/08/25 where she was reduced and placed In a sugar-tong splint. Patient denies any pain, numbness, tingling, today. Denies previous surgeries to the left hand/wrist. [facility] Medical History High cholesterol Epilepsy Seizure disorder Pituitary adenoma Social History (Updated 03/16/25 @ 09:17 by BARBARA Ewing) Household Members: Children Housing: House Do you presently have visiting nurse or other home services: No Alcohol intake: current Patient Tobacco Use Status: Former Tobacco user Tobacco use type: Cigarette Cigarette Packs Per Day: 0.5 Cigarettes Per Day: 10.0 e-Cigarette/Vaping Use: Never Used Second Hand Smoke Exposure: No service: No Review of Systems Const All systems reviewed & are unremarkable except as noted in HPI and below Physical Exam Vital Signs: BMI result Body Mass Index 32.8 Extrem Other: Patient is alert, oriented, and in no acute distress. Neuro: Normal sensation of the tips of all digits of the left hand at this time Vascular: Cap refill brisk Pain: Mild tenderness to palpation about left distal radius Some discomfort with range of motion of the left hand ROM: Patient is able to make a closed fist with encouragement, can extend all digits of the left hand fully and without difficulty Skin: No lacerations or abrasions. General: There is a noted deformity of the left wrist consistent with the apex volar angulation of the patient's fracture No ecchymosis, erythema, or evidence of infection. Psych: Appears grossly normal Affect normal Attitude cooperative Office Procedures AMB Fracture Care Fracture Billing Code: Fracture Billing Code Casting/Splints 78716-Kvqm/Wrist Cast Application Procedure code (CPT) selection complete Results Reviewed Results Reviewed: X-rays obtained in the office today and independently reviewed by me, Denys Hines PA-C, demonstrate displaced left distal radius fracture with approximately 20-25 degrees of apex volar angulation. Assessment & Plan Assessment & Plan (1) Fracture of left distal radius: Code(s): S52.502A - Unspecified fracture of the lower end of left radius, initial encounter for closed fracture Category: Medical Plan 1. Left distal radius fracture With approximately 20-25 degrees of apex volar angulation Date of injury approximately 02/27/2025 Patient is educated about this injury Patient is educated about the typical treatment course At this time, patient is informed that the preferred treatment plan for fractures with this degree of angulation is surgical intervention However, patient declines, stating ?I am 80 years old, I do not need anymore surgeries? Therefore, patient is placed into a short-arm cast Patient is educated on proper cast care and precautions Patient will follow-up in 2 weeks with repeat x-rays for reassessment, sooner with any acute concerns Orders: Orders XR wrist LT min 3V 03/16/25 M25.532 - Pain in left wrist Coding Level of Care Code New Pt Level 3 (34105) Diagnoses Fracture of left distal radius S52.502A CPT Codes Fracture Care - Fracture Billing Code: Fracture Billing Code ([id number]) Casting - CPT: 45587-Xgen/Wrist Cast Application ([id number])
[2025-03-16 09:10] VITALS: BMI 32.8
== END 2025-03-16 10:14 | disposition home or self-care (01) ==
LOC: HO.HOS 08:49
PROVIDERS: PCP Internal Medicine
DX: S52.502A Unspecified fracture of the lower end of left radius, initial encounter for closed fracture (principal)
CPT/HCPCS: 25600; 99203

== ENCOUNTER → 2025-03-16 08:52 | Outpatient (BNV) | payer MEDICARE, BC, SELFPAY | PROVIDERS: Visit Provider Radiology Diagnostic Radiology | DX: S52.572G Other intraarticular fracture of lower end of left radius, subsequent encounter for closed fracture with delayed healing (principal) | CPT/HCPCS: 73110 ==

== ENCOUNTER 2025-03-30 09:14 | Outpatient (AMB) | payer MEDICARE, BC, SELFPAY ==
--- OUTSIDE RECORDS SUMMARY | 2025-03-26 14:45 | XMS_ITS | Encounter Summary ---
Author Organization [facility] Address [address] [place] [address] Care Team Providers Care Professional Fee Coder Name Role Phone Preeti Brothers MD Primary Care Provider [phone] Reason for Visit * Reason Comments Hypertension Gout redness Bilateral leg Encounter Details Date Type Department Care Team (Late st Contact Info) Description 03/26/2025 2:45 PM EDT Office Visit Adult Medicine [facility] [address] [place] [address] Preeti Brothers MD [address] [place], [place] Primary hypertension (Primary Dx); Hypercholesteremia; Bilateral lower leg cellulitis Social History Tobacco Use Types Packs/Day Years [...] care for your loved ones. For example, rn child or elderly care for an older adult? [...] on file documented as of this encounter Last Filed Vital Signs Vital Sign Reading Time Taken Comments Blood Pressure 168/69 03/26/2025 3:06 PM EDT Pulse 85 03/26/2025 2:41 PM EDT Temperature 36.3 C (97.3 F) 03/26/2025 2:41 PM EDT Respiratory Rate 16 03/26/2025 2:41 PM EDT Oxygen Saturation 98% 03/26/2025 2:41 PM EDT Inhaled Oxygen Concentration - - Weight 83.4 kg (183 lb 14.4 oz) 03/26/2025 2:41 PM EDT Height 152.4 cm (5') 03/26/2025 2:41 PM EDT Body Mass Index 35.92 03/26/2025 2:41 PM EDT documented in this encounter Ordered Prescriptions Prescription Sig Dispense Quantity Refills Last Filled Start Date End Date lisinopriL (PRINIVIL,ZESTRIL) 20 mg tablet Take 1 tablet (20 mg total) by mouth 1 (one) time each day. 90 each 1 03/26/2025 hydrALAZINE (APRESOLINE) 25 mg tablet Take half tab bid times 3 days then increase to a full tablet bid 180 each 1 03/26/2025 doxycycline (VIBRAMYCIN) 100 mg capsule Take 1 capsule (100 mg total) by mouth 2 (two) times a day for 10 days. Take with at least 8 ounces (large glass) of water, do not lie down for 30 minutes after. Administer 2 hours before or after multivitamins, antacids, or other products containing polyvalent cations (i.e., calcium, iron, magnesium, selenium, zinc). 20 each 03/26/2025 documented in this encounter Progress Notes * Preeti Brothers MD - 03/26/2025 2:45 PM EDT w * Preeti Brothers MD - 03/26/2025 2:45 PM EDT Chief Complaint: Chief Complaint Patient presents with Hypertension Gout redness Bilateral leg IDENTIFIER: Yahir Astorga is a 80 y.o. old female HPI She comes for evaluation accompanied by her niece. She had been seen recently after being hospitalized for hypertensive urgency, was started on Imdur for blood pressure control. She had edema in the hospital, was diuresed and then developed acute kidney injury and was given IV fluids. Since her last visit she had been on Lasix every other day but now every day, did increase her dose of lisinoprilat the last visit now taking 10 mg a day along with chronic amlodipine, pravastatin, Lamictal and B12. She notes in the last 3 days her legs have started turning red. She had tried using compression stockings but stopped after several days, is consistently elevating her legs when sitting. She does n ot note any difference in the edema after increasing the Lasix. Her blood pressure is elevated today even with repeat testing. ROS: General: No malaise, significant weight loss or fever Respiratory: No cough, wheezing Cardiovascular: No chest pain, palpitations, no orthopnea Past Medical History: Patient Active Problem List Diagnosis Date Noted Chronic obstructive pulmonary disease ([facility] V24, [facility] V28) 03/19/2025 Hypertension 04/22/2022 DJD (degenerative joint disease), lumbar 12/01/2017 Obesity (BMI 30.0-34.9) 11/24/2017 Osteoporosis 09/25/2009 Hypercholesteremia 11/05/2007 Kidney stone 06/02/2006 Convulsions ([facility] V24, [facility]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 Central nervous system viral infection 08/18/2005 Hepatitis A virus infection 08/18/2005 Gout 08/18/2005 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, [facility]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 Surgical History: Past Surgical History: Procedure Laterality Date OTHER SURGICAL HISTORY 07/22 PROCEDURE: MAMMOGRAM Family History: Family History Problem Relation Name Age of Onset CABG Mother after bypass; Valve replacement Heart attack Father Glaucoma Sister CABG Brother Hypertension Son hypercholesterolemia Hyperlipidemia Son Breast cancer Neg Hx Social History: Social History Tobacco Use Smoking status: Every Day Current packs/day: 1.00 Types: Cigarettes Smokeless tobacco: Never Substance Use Topics Alcohol use: No Allergies: Carbamazepine Medications: Outpatient Medications Marked as Taking for the 03/26/25 encounter (Office Visit) with Preeti Brothers MD Medication Sig Dispense Refill alendronate (FOSAMAX) 70 mg tablet Take 1 tablet (70 mg total) by mouth every 7 (seven) days. Take in the morning with a full glass of water, on an empty stomach, and do not take anything else by mouth or lie down for the next 30 min. 13 each 3 amLODIPine (NORVASC) 10 mg tablet Take 1 tablet (10 mg total) by mouth at bedtime. 90 tablet 1 aspirin 81 mg EC tablet Take 1 tablet (81 mg total) by mouth 1 (one) time each day. cabergoline (DOSTINEX) 0.5 mg tablet TAKE 1/2 TABLET BY MOUTH EVERY 7 DAYS 6 tablet 1 cyanocobalamin, vitamin B-12, 1,000 mcg capsule Take 1,000 mcg by mouth. furosemide (LASIX) 20 mg tablet Take 1 tablet (20 mg total) by mouth 1 (one) time each day. isosorbide mononitrate (IMDUR) 30 mg 24 hr tablet Take 1 tablet (30 mg total) by mouth 1 (one) timeeach day. Do not crush or chew. 90 tablet 1 lamoTRIgine (LaMICtal) 25 mg chewable tablet Take 2 tablets (50 mg total) by mouth 2 (two) times a day. pravastatin (PRAVACHOL) 80 mg tablet Take 1 tablet (80 mg total) by mouth at bedtime. 90 tablet 1 [DISCONTINUED] lisinopriL (PRINIVIL,ZESTRIL) 5 mg tablet Take 2 tablets (10 mg total) by mouth at bedtime. Medication Discontinued/Reordered: Medications Discontinued During This Encounter Medication Reason lisinopriL (PRINIVIL,ZESTRIL) 5 mg tablet Vitals: Blood pressure (!) 168/69, pulse 85, temperature 36.3 ??C (97.3 ??F), temperature source Temporal, resp. rate 16, height 1.524 m (60 ), weight 83.4 kg (183 lb 14.4 oz), SpO2 98%. Body mass index is 35.92 kg/m??.Plan is deferred because the patient is aged 65 or older and a weight gain/reduction plan would complicate other health conditions Physical Exam: General: patient is in no acute distress. Neck supple without adenopathy, no thyromegaly. Lungs clear with auscultation. Heart: regular S1S2 without murmur, rub or gallop. Extremities without cyanosis, clubbing, bilateral 2+ edema with some anterior erythema. Labs: Lab Results Component Value Date GLUCOSE 100 01/04/2025 CALCIUM 9.3 01/04/2025 NA 136 01/04/2025 K 5.0 01/04/2025 CO2 26 01/04/2025 CL 103 01/04/2025 BUN 26 (H) 01/04/2025 CREATININE 1.15 (H) 01/04/2025 Impression: 1. Primary hypertension 2. Hypercholesteremia 3. Bilateral lower leg cellulitis Assessment and Plan: She appears to have bilateral leg cellulitis and will start on doxycycline. Her blood pressure is still elevated even with repeat testing. She will try increasing the lisinopril to 20 mg daily and also started on hydralazine 25 mg twice daily, to take only half dosage for the first 3 days. She states she has not previously had this edema, there was no change with the increased dose of Lasix, the only real change in her medications is the Imdur and we discussed stopping the Imdur however that could significantly raise her blood pressure and we need to get her pressure better controlled before stopping that medication. She will return in a week, to check her blood pressures at home on a dailybasis and bring her readings with her to her next visit. If the pressure is better controlled we could either stop or reduce the Imdur and see if this helps with her edema. She will be returning to have the cellulitis rechecked as well. Myself and my colleagues have maintained a long-term, longitudinal relationship with this patient, overseeing care of chronic conditions including hypertension, elevated cholesterol. This care relationship has significantly influenced my decision making and treatment plans during today's encounter. documented in this encounter Plan of Treatment Upcoming Encounters Date Type Department Care Team (Late st Contact Info) Description 04/02/2025 2:45 PM EDT Office Visit Adult Medicine [facility] [address] [place], [place] [phone] Josee Santos PA [address], [place] 07/09/2025 8:45 AM EST Office Visit Adult Medicine [facility] [address] [place], [place] [phone] Preeti Brothers MD [address], [place] documented as of this encounter Visit Diagnoses Diagnosis Primary hypertension- Primary Unspecified essential hypertension Hypercholesteremia Pure hypercholesterolemia Bilateral lower leg cellulitis documented in this encounter Discontinued Medications Medication Sig Discontinue Reason Start Date End Da te lisinopriL (PRINIVIL,ZESTRIL) 5 mg tablet Take 2 tablets (10 mg total) by mouth at bedtime. 03/19/2025 03/26/2025 documented as of this encounter Additional Health Concerns Assessment Noted Time PHQ-9 Depression Total Score: 0 03/16/20 25 8:29 PM EDT A fall risk assessment has been complete d for the patient 01/04/2025 8:50 AM EDT documented as of this encounter Care Teams Professional Fee Coder Relationship Specialty Start Date End Date Preeti Brothers MD [address] [place] [address] PCP - General 07/20/1992 documented as of this encounter
--- NOTE | 2025-03-30 09:45 | A.OFFVIS_ITS ---
Vital Signs 03/30/25 09:46 Height 5 ft 3 in Weight 185 lb BMI 32.8 Intake Visit Reasons: OV-LT Wrist Distal Radius FX, DOI:02/27/25-w/xray? Intake Note: Yahir is an 80 year old right hand dominant woman who presents today for a follow up visit for her fracture of left distal radius, DOI: 02/27/25 status post multiple falls. At her last visit patient was placed into a short-arm cast. Today casy was removed, xrays updated in office. Patient reports no pain, just very little discomfort since removal of cast. Allergies carbamazepine (From Tegretol) Allergy (Verified 03/30/25 09:47) Unknown HPI HPI OV-LT Wrist Distal Radius FX, DOI:02/27/25-w/xray?: Details: Yahir is an 80 year old right hand dominant woman who presents today for a follow up visit for her fracture of left distal radius, DOI: 02/27/25 status post multiple falls. At her last visit patient was placed into a short-arm cast. Today cast was removed, xrays updated in office. Patient reports no pain, just very little discomfort since removal of cast. [facility] Medical History High cholesterol Epilepsy Seizure disorder Pituitary adenoma Social History Household Members: Children Housing: House Do you presently have visiting nurse or other home services: No Alcohol intake: current Patient Tobacco Use Status: Former Tobacco user Tobacco use type: Cigarette Cigarette Packs Per Day: 0.5 Cigarettes Per Day: 10.0 e-Cigarette/Vaping Use: Never Used Second Hand Smoke Exposure: No service: No Review of Systems Const All systems reviewed & are unremarkable except as noted in HPI and below Physical Exam Vital Signs: BMI result Body Mass Index 32.8 Extrem Other: Patient is alert, oriented, and in no acute distress. Neuro: Normal sensation of the tips of all digits of the left hand at this time Vascular: Cap refill brisk Pain: Mild tenderness to palpation about left distal radius Some discomfort with range of motion of the left hand ROM: Patient is able to make a closed fist with encouragement, can extend all digits of the left hand fully and without difficulty Skin: No lacerations or abrasions. General: There is a noted deformity of the left wrist consistent with the apex volar angulation of the patient's fracture No ecchymosis, erythema, or evidence of infection. Psych: Appears grossly normal Affect normal Attitude cooperative Office Procedures Casting/Splints 48401-Svey[employer] Cast Application Procedure code (CPT) selection complete Results Reviewed Results Reviewed: X-rays obtained in the office today and independently reviewed by me, Denys Hines PA-C, demonstrate displaced left distal radius fracture with approximately 20-25 degrees of apex volar angulation, largely unchanged from previous x-rays. Assessment & Plan Assessment & Plan (1) Fracture of left distal radius: Code(s): S52.502A - Unspecified fracture of the lower end of left radius, initial encounter for closed fracture Category: Medical Plan 1. Left distal radius fracture With approximately 20-25 degrees of apex volar angulation Date of injury approximately 02/27/2025 Patient is educated about this injury Patient is educated about the typical treatment course There is minimal evidence of healing on x-rays, and the patient is disulfurizer tender around the fracture site Therefore, patient is placed into a short-arm cast Patient is educated on proper cast care and precautions Patient will follow-up in 2 weeks with repeat x-rays for reassessment, sooner with any acute concerns Orders: Orders XR wrist LT min 3V Today M25.532 - Pain in left wrist Coding Level of Care Code Global (95186) Diagnoses Fracture of left distal radius S52.502A CPT Codes Casting - CPT: 86330-Javjdsb Cast Application ([id number])
[2025-03-30 09:46] VITALS: BMI 32.8
--- OUTSIDE RECORDS SUMMARY | 2025-03-30 09:50 | XMS_ITS | Encounter Summary ---
Author Organization [facility] Address [address] [place] [address] Care Team Providers Care Gm Video Name Role Phone Preeti Brothers MD Primary Care Provider [phone] Reason for Visit * Reason Onset Date Comments faxed order 03/20/2025 Jared norton orde r [id number] Encounter Details Date Type Department Care Team (Late st Contact Info) Description 03/20/2025 Telephone Adult Medicine [facility] [address], [place] [phone] Preeti Brothers MD [address] [place] [phone] Social History Tobacco Use Types Packs/Day Years [...] care for your loved ones. For example, children's counselor or elderly care for an older adult? [...] as of this encounter Progress Notes * Kiya Lamas - 03/20/2025 9:26 AM EDT Jared mary ann order [id number] received please sign and fax to [phone] documented in this encounter Plan of Treatment Upcoming Encounters Date Type Department Care Team (Late st Contact Info) Description 04/02/2025 2:45 PM EDT Office Visit [address] [phone] Josee Santos PA [address] [place] [address] 07/09/2025 8:45 AM EST Office Visit [address] [phone] Preeti Brothers MD [address] [place] [address] documented as of this encounter Visit Diagnoses Not on filedocumented in this encounter Additional Health Concerns Assessment Noted Time PHQ-9 Depression Total Score: 0 03/16/20 25 8:29 PM EDT A fall risk assessment has been complete d for the patient 01/04/2025 8:50 AM EDT documented as of this encounter Care Teams Gm Video Relationship Specialty Start Date End Date Preeti Brothers MD [address] [place] [address] PCP - General 07/20/1992 documented as of this encounter
--- OUTSIDE RECORDS SUMMARY | 2025-03-30 09:50 | XMS_ITS | Encounter Summary ---
Author Organization [facility] Address [address] [place] [address] Care Team Providers Care Cherry Picker Operator Name Role Phone Preeti Brotehrs MD Primary Care Provider [phone] Reason for Visit * Reason Onset Date Comments faxed order 03/19/2025 Jared norton orde r [id number] Encounter Details Date Type Department Care Team (Late st Contact Info) Description 03/19/2025 Telephone Adult Medicine [facility] [address] [place], [place] [phone] Preeti Brothers MD [address] [place] [phone] Social History Tobacco Use Types Packs/Day Years [...] your loved ones. For example, child care director or elderly care for an older [...] encounter Progress Notes * Kiya Lamas - 03/19/2025 3:49 PM EDT Jared norton order [id number] Received please sign and fax to [phone] documented in this encounter Plan of Treatment Upcoming Encounters Date Type Department Care Team (Late st Contact Info) Description 04/02/2025 2:45 PM EDT Office Visit [address] [phone] Josee Santos PA [address] [place] [address] 07/09/2025 8:45 AM EST Office Visit [address] [phone] Preeti Brotehrs MD [address] [place] [address] documented as of this encounter Visit Diagnoses Not on filedocumented in this encounter Additional Health Concerns Assessment Noted Time PHQ-9 Depression Total Score: 0 03/16/20 25 8:29 PM EDT A fall risk assessment has been complete d for the patient 01/04/2025 8:50 AM EDT documented as of this encounter Care Teams Cherry Picker Operator Relationship Specialty Start Date End Date Preeti Brothers MD [address] [place] [address] PCP - General 07/20/1992 documented as of this encounter
--- OUTSIDE RECORDS SUMMARY | 2025-03-30 09:50 | XMS_ITS | Encounter Summary ---
Author Organization [facility] Address [address] [place] [address] Care Team Providers Care Foreign Car Mechanic Name Role Phone Preeti Brothers MD Primary Care Provider Reason for Visit * Reason Onset Date Comments faxed order 03/22/2025 Jared norton orde r [id number] Encounter Details Date Type Department Care Team (Late st Contact Info) Description 03/22/2025 Telephone Adult Medicine [facility] [address] [place], [place] [phone] Preeti Brothers MD [address] [place] [phone] Social History Tobacco Use Types Packs/Day Years [...] your loved ones. For example, child care provider or elderly care for an older adult? [...] encounter Progress Notes * Kiya Lamas - 03/22/2025 2:53 PM EDT Jared norton order [id number] received please sign and fax to [phone] documented in this encounter Plan of Treatment Upcoming Encounters Date Type Department Care Team (Late st Contact Info) Description 04/02/2025 2:45 PM EDT Office Visit [address] [phone] Josee Santos PA [address] [place] [address] 07/09/2025 8:45 AM EST Office Visit [address] [phone] Preeti Brothers MD [address] [place] [address] documented as of this encounter Visit Diagnoses Not on filedocumented in this encounter Additional Health Concerns Assessment Noted Time PHQ-9 Depression Total Score: 0 03/16/20 25 8:29 PM EDT A fall risk assessment has been complete d for the patient 01/04/2025 8:50 AM EDT documented as of this encounter Care Teams Foreign Car Mechanic Relationship Specialty Start Date End Date Preeti Brothers MD [address] [place] [address] PCP - General 07/20/1992 documented as of this encounter
--- OUTSIDE RECORDS SUMMARY | 2025-03-30 09:50 | XMS_ITS | Clinical Summary ---
Author Organization [address] Address [address] [place] [address] Phone Care Team Providers Care Environmental Field Office Manager Name Role Phone Preeti Brothers MD Primary Care Provider [phone] Allergies Active Allergy Reactions Criticality Noted Date Comments Carbamazepine 08/18/2005 hepatitis Medications cyanocobalamin, vitamin B-12, 1,000 mcg capsule Take 1,000 mcg by mouth. Active cabergoline (DOSTINEX) 0.5 mg tabletIndications:B enign [...] at bedtime. 90 tablet 1 025 Active alendronate (FOSAMAX) 70 mg tablet Take 1 tablet (70 mg total) by mouth every 7 (seven) days. Take in the morning with a full glass of water, on an empty stomach, and do not take anything else by mouth or lie down for the next 30 min. 13 each 3 025 2025 Active aspirin 81 mg EC tablet Take 1 tablet (81 mg total) by mouth 1 (one) time each day. Active lamoTRIgine (LaMICtal) 25 mg chewable tablet Take 2 tablets (50 mg total) by mouth 2 (two) times a day. Active isosorbide mononitrate (IMDUR) 30 mg 24 hr tablet Take 1 tablet (30 mg total) by mouth 1 (one) time each day. Do not crush or chew. 90 tablet 1 Active furosemide (LASIX) 20 mg tablet Take 1 tablet (20 mg total) by mouth 1 (one) time each day. Active doxycycline (VIBRAMYCIN) 100 mg capsule Take 1 capsule (100 mg total) by mouth 2 (two) times a day for 10 days. Take with at least 8 ounces (large glass) of water, do not lie down for 30 minutes after. Administer 2 hours before or after multivitamins , antacids, or other products containing polyvalent cations (i.e., calcium, iron, magnesium, selenium, zinc). 20 each 025 2024 Active hydrALAZINE (APRESOLINE) 25 mg tablet Take half tab bid times 3 days then increase to a full tablet bid 180 each 1 Active lisinopriL (PRINIVIL,ZESTRIL) 20 mg tablet Take 1 tablet (20 mg total) by mouth 1 (one) time each day. 90 each 1 025 2025 Active levETIRAcetam (KEPPRA) 250 mg tablet Take 1 tablet (250 mg total) by mouth 2 (two) times a day. 025 2024 Discontinued lisinopriL (PRINIVIL,ZESTRIL) 5 mg tablet Take 1 tablet (5 mg total) by mouth at bedtime. 90 tablet 1 025 2024 Discontinued isosorbide mononitrate (IMDUR) 30 mg 24 hr tablet Take 1 tablet (30 mg total) by mouth 1 (one) time each day. Do not crush or chew. 2024 Discontinued(R eorder) furosemide (LASIX) 20 mg tablet Take 1 tablet (20 mg total) by mouth every other day. 2024 Discontinued lisinopriL (PRINIVIL,ZESTRIL) 5 mg tablet Take 2 tablets (10 mg total) by mouth at bedtime. 025 2024 Discontinued Active Problems Problem Noted Date Diagnosed Date Chronic obstructive pulmonar y disease ([facility] V24, [facility] V28) 03/19/2025 Hypertension 04/22/2022 Assessment & Plan (01/04/2025 9:03 [...] 9:03 AM EDT): Kidney stone 06/02/2006 Convulsions ([facility] V24, [facility] V28) 6 Assessment & Plan (01/04/2025 9:03 AM EDT): Central nervous system viral infection 6 Overview (06/16/2024): age 10 Hepatitis A virus infection 08/18/2005 Overview (12/26/2024): Gout 08/18/2005 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, [facility]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 Assessment & Plan (01/04/2025 9:03 AM EDT): Resolved Problems Problem Noted Date Diagnosed Date Resolved Date Current every day smoker 05/17/2023 Encounters Date Type Department Care Team Description 03/26/2025 2:45 PM EDT Office Visit [address] [phone] Preeti Brothers MD Primary hypertension (Primary Dx); Hypercholesteremia; Bilateral lower leg cellulitis 03/22/[address] [phone] Preeti Brothers MD 03/20/[address] [phone] Preeti Brothers MD 03/19/2025 10:30 AM EDT Office Visit [address] [phone] Preeti Brothers MD Primary hypertension (Primary Dx); 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, CMS/HCC V28); Hypercholesteremia; Convulsions, unspecified convulsion type ([facility]/HCC V24, CMS/HCC V28); Chronic obstructive pulmonary disease, unspecified COPD type ([facility]/HCC V24, CMS/HCC V28); Edema, unspecified type 03/19/[address] [phone] Preeti Brothers MD 03/15/[address] [phone] Preeti Brothers MD 03/08/[address] [phone] Preeti Brothers MD 01/04/2025 9:00 AM EDT Office Visit Adult Medicine [address] [phone] Preeti Brothers MD Encounter for annual wellness visit (AWV) in Medicare patient (Primary Dx); Primary hypertension; Hypercholesteremia; Convulsions, unspecified convulsion type ([facility] V24, [facility] V28); Osteoporosis without current pathological fracture, unspecified osteoporosis type; 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, [facility] V28) from Last 3 Months Immunizations Name [...] djd Hypertension 04/22/2022 Kidney stone 06/02/2006 Convulsions ([facility] V24, [facility] V28) 6 Central nervous system viral infection 6 age 10 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, [facility]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 Family History Medical History [...] Mass Index 35.92 03/26/2025 2:41 PM EDT Plan of Treatment Upcoming Encounters Date Type Department Care Team (Late st Contact Info) Description 04/02/2025 2:45 PM EDT Office Visit Adult Medicine [address] [phone] Josee Santos PA [address] [place] [address] 07/09/2025 8:45 AM EST Office Visit Adult Medicine [address] [phone] Preeti Brothers MD [address] [place] [address] Health Maintenance Due Date Last Done Comments Zoster Vaccines (2 of 3) 07/09/2014 05/14/2014 RSV Immunization Adult Patients (1 - 1-dose 75+ series) 2018 DTaP,Tdap,and Td Vaccines (3 - Td or Tdap) 05/14/2024 05/14/2014, 05/23/2004 COVID-19 Vaccine ( season) 2025 03/19/2025, 05/17/2023, 04/09/2021, Additional history exists Falls Risk Assessment 01/04/2026 01/04/2025 Hypertension/CHF/CAD Annual BMP Blood Test 01/04/2026 01/04/2025 Medicare Annual Wellness Visit 01/04/2026 01/04/2025 Social Influencers of Health Screening 01/04/2026 01/04/2025 Cholesterol Screening (Lipid Panel) 01/04/2030 01/04/2025, 12/16/2023 Osteoporosis Screening (Bone Density Screening) 08/25/2032 08/25/2022, 01/11/2019 Pneumococcal Vaccine: 50+ Years Completed 05/27/2016, 08/23/2008 Depression Screening Completed 03/16/2025 Influenza Vaccine Completed 03/19/2025, , 04/09/2021, Additional history exists HIB Vaccines Aged Out No longer eligi [...] mg/dL LAB CHEMISTRY METHOD [facility]/04[facility] Triglycerides 142 0 - 150 mg/dL LAB CHEMISTRY METHOD 01/04/2025 1:36 PM [facility] HDL 67 >=40 mg/dL LAB CHEMISTRY METHOD 01/04/2025 1:36 PM [facility] LDL Calculated 94 0 - 100 mg/dL LAB CHEMISTRY METHOD 01/04/2025 1:36 PM [facility] VLDL Cholesterol Anuj 28.4 mg/dL LAB CHEMISTRY METHOD 01/04/2025 1:36 PM [facility] Non HDL Chol. (LDL+VLDL) 122 <145 mg/dL LAB CHEMISTRY METHOD 01/04/2025 1:36 PM [facility] Chol/HDL Ratio 2.8 0.0 - 4.4 LAB CHEMISTRY METHOD 01/04/2025 1:36 PM [facility] Blood Venous blood specimen / Unknown Venipuncture / Unknown 01/04/2025 9:22 AM EDT 01/04/2025 9:22 AM EDT us Josee GUNN LAB BLOOD ORDERABLES Final Re sult Performing Organization Address [facility]/ZIP Co de Phone Number [facility] [address] [place] [address], [place] [phone] * Vitamin D 25 hydroxy (01/04/2025 9:22 AM EDT) [facility] Vit D, 25-Hydroxy 30.0 30.0 - 80.0 ng/mL LAB CHEMISTRY METHOD 01/04/2025 2:06 PM EDT [facility] Blood Venous blood specimen / Unknown Venipuncture / Unknown 01/04/2025 9:22 AM EDT 01/04/2025 9:22 AM EDT us Josee GUNN LAB BLOOD ORDERABLES Final Re sult Performing Organization Address City/[facility]/ZIP Co de Phone Number [facility] [address] [place] [address], [place] [phone] * (ABNORMAL) Complete blood count (01/04/2025 9:22 AM EDT) [facility] WBC 5.1 4.8 - 10.8 K/mcL LAB HEMETOLOGY METHOD 01/04/2025 10:27 AM EDT [facility] RBC 4.80 3.80 - 4.80 M/[facility] LAB HEMETOLOGY METHOD 01/04/2025 10:27 AM [...] AM T [facility] Platelets 243 130 - 400 K/mcL LAB HEMETOLOGY METHOD 01/04/2025 10:27 AM [facility] MPV 9.5 7.0 - 11.0 FL LAB HEMETOLOGY METHOD 01/04/2025 10:27 AM [facility] NRBC 0.0 <1.0 % LAB HEMETOLOGY METHOD 01/04/2025 10:27 AM [facility] NRBC Absolute 0.00 <0.10 K/mcL LAB HEMETOLOGY METHOD 01/04/2025 10:27 AM [facility] Blood Venous blood specimen / Unknown Venipuncture / Unknown 01/04/2025 9:22 AM EDT 01/04/2025 9:22 AM EDT us Josee GUNN LAB BLOOD ORDERABLES Final Re sult [facility] [address] [place] [address], * (ABNORMAL) Basic metabolic panel (01/04/2025 9:22 AM EDT) [facility] Signature Sodium 136 133 - 145 mmol/L LAB CHEMISTRY METHOD 01/04/2025 1:29 PM EDT [facility] Potassium 5.0 3.5 - 5.5 mmol/L LAB CHEMISTRY METHOD 01/04/2025 1:29 PM [facility] Chloride 103 96 - 110 mmol/L LAB CHEMISTRY METHOD 01/04/2025 1:29 PM [facility] CO2 26 21 - 32 mmol/L LAB CHEMISTRY METHOD 01/04/2025 1:29 PM [facility] Anion Gap 7 3 - 11 LAB CHEMISTRY METHOD 01/04/2025 1:29 PM [facility] Glucose 100 70 - 100 mg/dL LAB CHEMISTRY METHOD 01/04/2025 1:29 PM [facility] BUN 26(H) 5 - 25 mg/dL LAB CHEMISTRY METHOD 01/04/2025 1:29 PM [facility] Creatinine 1.15(H) 0.50 - 1.10 mg/dL LAB CHEMISTRY METHOD 01/04/2025 1:29 PM [facility] eGFR 48(L) >=60 mL/min/1. 73m2 LAB CHEMISTRY METHOD 01/04/2025 1:29 PM [facility] Comment:Calculation based on the Chronic Kidney Disease Epidemiology Collaboration (CKD-EPI) equation refit without adjustment for race. BUN/Creatinine Ratio 22.6 LAB CHEMISTRY METHOD 01/04/2025 1:29 PM [facility] Calcium 9.3 8.5 - 10.5 mg/dL LAB CHEMISTRY METHOD 01/04/2025 1:29 PM [facility] Blood Venous blood specimen / Unknown Venipuncture / Unknown 01/04/2025 9:22 AM EDT 01/04/2025 9:22 AM EDT us Josee GUNN LAB BLOOD ORDERABLES Final Re sult [facility] [address] [place] [address], * DXA BONE DENSITY STUDY 1+ MARILU HERNANDEZ (08/25/2022 2:37 PM EST) Anatomical Region Laterality [...] alternative screening schedule based on moise Castro., [facility] July 30, 2011 for patients [...] Most Recently Relevant to Health Maintenance Insurance [facility] MEDICARE Care Teams Environmental Field Office Manager Relationship Specialty Start Date End Date Preeti Brothers MD [address] [place] [phone] PCP - General 07/20/1992
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
== END 2025-03-30 10:26 | disposition home or self-care (01) ==
LOC: HO.HOS 09:14
DX: S52.502A Unspecified fracture of the lower end of left radius, initial encounter for closed fracture (principal)
CPT/HCPCS: 29075; 99024

== ENCOUNTER 2025-03-30 09:14 | Outpatient (REF) | payer MEDICARE, BC, SELFPAY ==
--- NOTE | ~2025-03-30 | XR_ITS ---
EXAMINATION: XR WRIST 3 OR MORE VIEWS LEFT HISTORY: M25.532 - Pain in left wrist COMPARISON: Comparison is made with the prior examination dated 03/16/2025. FINDINGS: Three views of the left wrist are submitted. The bones are osteopenic. Again seen is a comminuted intra-articular fracture of the distal radius. The fracture lines remain visible. The joint spaces are preserved. The soft tissues are unremarkable. XR/XR wrist LT min 3V IMPRESSION: Comminuted intra-articular fracture of the distal radius without significant change. Electronically signed by: Bryson Moya MD 03/30/2025 09:59 AM EDT
== END 2025-03-30 09:15 | disposition home or self-care (01) ==
LOC: HO.HOSX 09:14
DX: S52.502D Unspecified fracture of the lower end of left radius, subsequent encounter for closed fracture with routine healing (principal); W19.XXXD Unspecified fall, subsequent encounter
CPT/HCPCS: 29075; 73110; 99212

== ENCOUNTER → 2025-03-30 09:31 | Outpatient (BNV) | payer MEDICARE, BC, SELFPAY | PROVIDERS: Visit Provider Radiology Diagnostic Radiology | DX: S52.572A Other intraarticular fracture of lower end of left radius, initial encounter for closed fracture (principal) | CPT/HCPCS: 73110 ==

== ENCOUNTER 2025-04-03 16:32 | Emergency (ER) | payer MEDICARE, BC, SELFPAY ==
--- OUTSIDE RECORDS SUMMARY | 2025-04-02 14:45 | XMS_ITS | Encounter Summary ---
Author Organization [facility] Address [address] [place] [address] Care Team Providers Care Group Worker Name Role Phone Preeti Brothers MD Primary Care Provider [phone] Reason for Referral * Consultation (Routine) - Authorized Specialty Diagnoses / Procedures Referred By Koby mazariegos Referred To Contact Nutrition / Internal Medicine Diagnoses Primary hypertension Josee Santos PA [address] [place] [address] Phone: tel: fax: Clarisse Khoury, RD [address] [place] [address] Phone: tel: fax: Referral ID Status Reason Start Date Expiration Date Visits Requested Visits Authorized [id number] Authorized Specialty Services Required 04/02/2025 04/02/2026 1 1 Reason for Visit * Reason Comments Hypertension Follow-up Encounter Details Date Type Department Care Team (Late st Contact Info) Description 04/02/2025 2:45 PM EDT Office Visit Adult Medicine [address] [phone] Josee Santos PA [address] [place] [address] Primary hypertension (Primary Dx) Social History Tobacco Use Types Packs/Day Years [...] care for your loved ones. For example, special needs child caregiver or elderly care for an older adult? [...] Sign Reading Time Taken Comments Blood Pressure 191/67 04/02/2025 2:[address] rage Pulse 84 04/02/2025 2:46 PM EDT Temperature 35.9 C (96.6 F) 04/02/2025 2:46 PM EDT Respiratory Rate 16 04/02/2025 2:46 PM EDT Oxygen Saturation - - Inhaled Oxygen Concentration - - Weight 83 kg (183 lb) 04/02/2025 2:46 PM EDT Height 152.4 cm (5') 04/02/2025 2:46 PM EDT Body Mass Index 35.74 04/02/2025 2:46 PM EDT documented in this encounter Progress Notes * LUIS A Carrera - 04/02/2025 2:45 PM EDT CHIEF COMPLAINT: Hypertension and Follow-up IDENTIFIER: Yahir Astorga is a 80 y.o. old female. HPI: 80-year-old female presenting to office (with female appeals analyst) for evaluation. Patient was evaluated by PCP on 03/26/25 for hospital follow-up. At that time, blood pressure was noted to be elevated at 168/69 and patient was started on hydralazine 25 mg twice daily and lisinopril was increased from5 to 20 mg daily and she was instructed to continue with amlodipine 10 mg daily and furosemide 20 mg daily. Apparently, while in the hospital, she was started on isosorbide mononitrate 30 mg for blood pressure control. This information is verified on [facility] discharge summary dated 03/08/25. Today, patient brings home blood pressure readings measured multiple times per day which are above goal. Blood pressure in office today is notably elevated at 201/66 with 5-minute average of 191/67. Her female appeals analyst places call to patient's home and it is verified that patient has only been putting hydralazine in her pillbox once daily, not twice daily. Patient states she has been almost exclusively eating out and rarely cooks for herself at baseline. Her female appeals analyst is asking about nutrition referral. She continues to have lower extremity edema with mild redness, not suggestive of cellulitis but rather venous stasis. Reschedule appointment to 04/06/25; advised to bring blood pressure cuff and to check blood pressures once daily, at the same time daily with goal being less than 130/80. Strongly encouraged low-sodium diet with goal being less than 2000 mg daily). ROS: GENERAL: No fever, shaking chills RESPIRATORY: No shortness of breath CARDIOVASCULAR: No chest pain: +leg swelling PAST MEDICAL HISTORY: Patient Active Problem List Diagnosis Date Noted Chronic obstructive pulmonary disease [place] [place] [facility] [place] 03/19/2025 Hypertension 04/22/2022 DJD (degenerative joint disease), lumbar 12/01/2017 Obesity (BMI 30.0-34.9) 11/24/2017 Osteoporosis 09/25/2009 Hypercholesteremia 11/05/2007 Kidney stone 06/02/2006 Convulsions [place] [place] 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 Central nervous system viral infection 08/18/2005 Hepatitis A virus infection 08/18/2005 Gout 08/18/2005 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 Past Surgical History: Procedure Laterality Date OTHER SURGICAL HISTORY 07/22 PROCEDURE: MAMMOGRAM SOCIAL HISTORY: Social History Tobacco Use Smoking status: Every Day Current packs/day: 1.00 Types: Cigarettes Smokeless tobacco: Never Substance Use Topics Alcohol use: No FAMILY HISTORY: Family History Problem Relation Name Age of Onset CABG Mother after bypass; Valve replacement Heart attack Father Glaucoma Sister CABG Brother Hypertension Son hypercholesterolemia Hyperlipidemia Son Breast cancer Neg Hx Family Status Relation Name Status Mother (Not Specified) Father (Not Specified) Sister (Not Specified) Brother (Not Specified) Son (Not Specified) Son (Not Specified) Neg Hx (Not Specified) No partnership data on file MEDICATIONS DISCONTINUED/REORDERED: There are no discontinued medications. ACTIVE MEDICATIONS: Outpatient Medications Marked as Taking for the 04/02/25 encounter (Office Visit) with LUIS A Carrera Medication Sig Dispense Refill alendronate (FOSAMAX) 70 [...] mcg capsule Take 1,000 mcg by mouth. doxycycline (VIBRAMYCIN) 100 mg capsule Take 1 capsule (100 mg total) by mouth 2 (two) times a day for 10 days. Take with at least 8 ounces (large glass) of water, do not lie down for 30 minutes after. Administer 2 hours before or after multivitamins, antacids, or other products containing polyvalent cations (i.e., calcium, iron, magnesium, selenium, zinc). 20 each 0 furosemide (LASIX) 20 mg tablet Take 1 tablet (20 mg total) by mouth 1 (one) time each day. hydrALAZINE (APRESOLINE) 25 mg tablet Take half tab bid times 3 days then increase to a full tabletbid 180 each 1 isosorbide mononitrate (IMDUR) 30 mg 24 hr tablet Take 1 tablet (30 mg total) by mouth 1 (one) timeeach day. Do not crush or chew. 90 tablet 1 lamoTRIgine (LaMICtal) 25 mg chewable tablet Take 2 tablets (50 mg total) by mouth 2 (two) times a day. lisinopriL (PRINIVIL,ZESTRIL) 20 mg tablet Take 1 tablet (20 mg total) by mouth 1 (one) time each day. 90 each 1 pravastatin (PRAVACHOL) 80 mg tablet Take 1 tablet (80 mg total) by mouth at bedtime. 90 tablet 1 ALLERGIES: Allergies Allergen Reactions Carbamazepine hepatitis PHYSICAL EXAM: Visit Vitals BP (!) 191/67 Comment: Average Pulse 84 Temp 35.9 ??C (96.6 ??F) (Temporal) Resp 16 Ht 1.524 m (60 ) Wt 83 kg (183 lb) BMI 35.74 kg/m?? Smoking Status Every Day BSA 1.8 m?? Wt Readings from Last 5 Encounters: 04/02/25 83 kg (183 lb) 03/26/25 83.4 kg (183 lb 14.4 oz) 03/19/25 86.8 kg (191 lb 4.8 oz) 01/04/25 78.4 kg (172 lb 14.4 oz) 06/26/24 74.4 kg (164 lb) BMI is greater than 25.0 (above the normal range) - see Plan APPEARANCE: Alert and in no acute distress EXTREMITIES: Moving bilateral lower extremities independently; no obvious lower extremity deformity; bilateral lower extremities warm with 2+ pitting edema with chronic appearing mild erythema LABS: No orders of the defined types were placed in this encounter. IMAGING: None IMPRESSION: 1. Primary hypertension PLAN: Blood pressure is not at goal; as noted above, patient has only been taking hydralazine QD, not BIDand has been following high sodium diet. We discussed low-sodium diet (goal <2000 mg daily) and she will return to office on 04/09/25 with blood pressure cuff and blood pressure log measured once daily, at the same time daily. She is referred to nutrition to assist with low-sodium diet goals. Medication and lab orders: No orders of the defined types were placed in this encounter. Other orders: None LUIS A Carrera on 04/02/2025 at 5:45 PM EDT G2211 is applicable to this visit as the primary care provider (PCP) office dealing with list the conditions noted/billed above are complex requiring extensive management/work up associated with longitudinal care of this patient. This patient???s serious/complex conditions may also require several consultants needing management/coordination through PCP office. This chart was generated by the [employer] system and [employer]) speech recognition software and may contain inherent errors or omissions not intended by the user. Grammatical errors, random word insertions, deletions, pronoun errors and incomplete sentences are occasional consequences of this technologydue to software limitations. Not all errors are caught or corrected. If there are questions or concerns about the content of this note or information contained within the body of this dictation they should be addressed directly with the author for clarification. documented in this encounter Plan of Treatment Upcoming Encounters Date Type Department Care Team (Late st Contact Info) Description 04/06/2025 11:15 AM EDT Office Visit [address] [phone] Josee Santos PA [address] [place] [address] 07/09/2025 8:45 AM EST Office Visit [address] [phone] Preeti Brothers MD [address] [place] [address] Scheduled Referrals Name Type Priority Associated Diagnoses Orde r Schedule Ambulatory referral to Nutrition Services Outpatient Referral Routine Primary hypertension 1 Occurrences starting 04/02/2025 until 04/02/2026 documented as of this encounter Visit Diagnoses Diagnosis Primary hypertension- Primary Unspecified essential hypertension documented in this encounter Additional Health Concerns Assessment Noted Time PHQ-9 Depression Total Score: 0 03/16/20 25 8:29 PM EDT A fall risk assessment has been complete d for the patient 01/04/2025 8:50 AM EDT documented as of this encounter Care Teams Group Worker Relationship Specialty Start Date End Date Preeti Brothers MD [address] [place] [address] PCP - General 07/20/1992 documented as of this encounter
[2025-04-03 16:44] VITALS: BP 200/100; PULSE 95; O2SAT 96
[2025-04-03 16:46] VITALS: BP 165/66; PULSE 85; RESP 16; TEMP 36.6; O2SAT 95; BMI 35.7
--- NOTE | 2025-04-03 17:40 | ED.GENADULT ---
HPI - General Adult General Chief complaint: General Medical Stated complaint: HTN Time Seen by Provider: 04/03/25 17:20 History of Present Illness ED Provider: Bernard Jaeger MD HPI narrative: [age] female with hypertension. VNA at home took pressure while the patient was asymptomatic 227/100. The patient took lisinopril and came in. She has never and still does not have any symptoms including but not limited to headache double vision numbness tingling weakness vomiting chest pain difficulty breathing Related Data Home Medications ?Medication ?Instructions ?Recorded ?Confirmed alendronate 70 mg tablet 70 mg PO TU 01/29/25 03/08/25 Held on 03/12/25. Instructions: Resume on 03/20/25. amlodipine 10 mg tablet 10 mg PO BEDTIME 01/29/25 03/08/25 cabergoline 0.5 mg tablet 0.25 mg PO WE 01/29/25 03/08/25 lisinopril 5 mg tablet 5 mg PO BEDTIME 01/29/25 03/08/25 pravastatin 80 mg tablet 80 mg PO BEDTIME 01/29/25 03/08/25 Previous Rx's ?Medication ?Instructions ?Recorded aspirin 81 mg tablet,delayed 81 mg PO DAILY #90 tabs 03/12/25 release azithromycin 500 mg tablet 500 mg PO Q24H #6 tabs 03/12/25 furosemide 20 mg tablet (Lasix) 20 mg PO Q OTHER DAY #45 tabs 03/12/25 isosorbide mononitrate 30 mg 30 mg PO DAILY #90 tabs 03/12/25 tablet,extended release 24 hr prednisone 20 mg tablet 40 mg (2 x 20 mg) PO DAILY #6 tabs 03/12/25 albuterol sulfate 90 mcg/actuation 1 inh inhalation Q4-6H PRN 03/13/25 breath activated powder inhaler shortness of breath #1 ea lamotrigine 25 mg tablet 50 mg (2 x 25 mg) PO BID #120 tabs 03/14/25 Allergies Allergy/AdvReac Type Severity Reaction Status Date / Time carbamazepine (From Tegretol) Allergy Unknown Verified 04/03/25 16:57 PMF Past Medical History Medical History High cholesterol Epilepsy Seizure disorder Pituitary adenoma Social History Social History (Reviewed 03/30/25 @ 09:48 by PREM Keyes Household Members: Children Housing: House Do you presently have visiting nurse or other home services: No Alcohol intake: current Patient Tobacco Use Status: Former Tobacco user Tobacco use type: Cigarette Cigarette Packs Per Day: 0.5 Cigarettes Per Day: 10.0 e-Cigarette/Vaping Use: Never Used Second Hand Smoke Exposure: No Advance Directives: No Advance Directives Information Provided: Yes service: No Physical Exam ED Exam Exam: EXAM: Gen: Alert, awake, well appearing, well hydrated. Head: Atraumatic Eyes: Anicteric, Normal conjunctiva. ENT: Moist mucosa, no pallor. ? Neck: Supple. Skin: ?No observable rash or bruising on exposed or examined skin Respiratory: Breathing comfortably, No distress.Clear to auscultation bilaterally, symmetric chest expansion, No wheeze, rales, ronchi. Cardiovascular: Regular rate and rhythm. No murmurs or rub. Well perfused periphery, warm extremities. No edema. ? Abdominal: No focal tenderness. Soft, no objective distension. No palpable masses or obvious organomegaly. ?No guarding, no rebound tenderness or other peritoneal findings. : No flank tenderness. Neuro: Alert. Gross movement of all extremities intact. ? Psych: Calm. Cooperative. MSK: No grossly visible deformity. Vital signs: See flowsheet Vital Signs: Vital Signs - 24 hr 04/03/25 16:46 04/03/25 18:11 Temperature 98 F 98 F Pulse Rate 85 85 Respiratory Rate 16 16 Blood Pressure 165/66 H 165/66 H Pulse Oximetry 95 95 Oxygen Delivery Method Room Air Room Air BMI result Body Mass Index 35.7 Medical Decision Making Medical Decision Making MDM Narrative: Medical Decision Makin-year-old female with hypertension asymptomatic. Improved after home lisinopril. No indication for any additional workup the patient is pleasant comfortable as a normal and reassuring cardiovascular neuro exam Preliminary Favored Differential Diagnosis: asymptomatic hypertension, medical screening exam, chronic hypertension among additional considered etiologies Testing Interpreted Independently: ?See below for details Radiology or Lab testing Results Reviewed: ?See below for details Consults: ?See below for details Independent Historians/External Chart Reviews: ?See below for details Social Determinants of Health Impacting MDM/Planning: ?See below for details Discharge Plan Discharge Clinical Impression: Asymptomatic hypertension Patient Disposition: Home, Self-Care Instructions: Chronic Hypertension (ED) Additional Instructions: You had asymptomatic elevated blood pressure here in the emergency department no additional studies were done as your blood pressure remained only mildly elevated and without symptoms. We had a discussion about this and you were agreeable. Call your primary doctor for follow up to see if any medication changes will be made Prescriptions: No Action lamotrigine 25 mg tablet 50 mg PO BID Qty: 120 0RF Rx Instructions: 25 mg orally one a day for a week, then twice a day; prednisone 20 mg Tablet 40 mg PO DAILY Qty: 6 0RF isosorbide mononitrate 30 mg Tablet Extended Release 24 Hr 30 mg PO DAILY Qty: 90 0RF Protocol: Hold for SBP< HOLD for SBP < : 90 aspirin 81 mg Tablet,Delayed Release (Dr/Ec) 81 mg PO DAILY Qty: 90 0RF azithromycin 500 mg Tablet 500 mg PO Q24H Qty: 6 0RF furosemide [Lasix] 20 mg tablet 20 mg PO Q OTHER DAY Qty: 45 0RF albuterol sulfate 90 mcg/actuation aerosol powdr breath activated 1 inh inhalation Q4-6H PRN (Reason: shortness of breath) Qty: 1 0RF alendronate 70 mg tablet 70 mg PO TU pravastatin 80 mg tablet 80 mg PO BEDTIME amlodipine 10 mg tablet 10 mg PO BEDTIME cabergoline 0.5 mg tablet 0.25 mg PO WE lisinopril 5 mg tablet 5 mg PO BEDTIME Interventions: ED Discharge Assessment Last Done: 04/03/25 18:11 Discharge Date/Time: 04/03/25 18:21 Print Language: Latvian
[2025-04-03 18:11] VITALS: BP 165/66; PULSE 85; RESP 16; TEMP 36.6; O2SAT 95
--- OUTSIDE RECORDS SUMMARY | 2025-04-03 18:51 | XMS_ITS | Encounter Summary ---
Author Organization [facility] Address [address] [place] [address] Care Team Providers Care Lead Developer Name Role Phone Preeti Brothers MD Primary Care Provider [phone] Reason for Visit * Reason Onset Date Comments faxed order 03/22/2025 Jared norton orde r [id number] Encounter Details Date Type Department Care Team (Late st Contact Info) Description 03/22/2025 Telephone Adult Medicine [facility] [address] [place], [place] [phone] Preeti Brothers MD [address] [place] [phone] Social History Tobacco Use Types Packs/Day Years [...] care for your loved ones. For example, director day care center or elderly care for an older adult? [...] 03/22/2025 2:53 PM EDT Jared norton order [id number] received please sign and fax to [phone] documented in this encounter Plan of Treatment Upcoming Encounters Date Type Department Care Team (Late st Contact Info) Description 04/06/2025 11:15 AM EDT Office Visit [address] [phone] Josee Santos PA [address] [place] [address] 07/09/2025 8:45 AM EST Office Visit [address] [phone] Preeti Brothers MD [address] [place] [address] documented as of this encounter Visit Diagnoses Not on filedocumented in this encounter Additional Health Concerns Assessment Noted Time PHQ-9 Depression Total Score: 0 03/16/20 25 8:29 PM EDT A fall risk assessment has been complete d for the patient 01/04/2025 8:50 AM EDT documented as of this encounter Care Teams Lead Developer Relationship Specialty Start Date End Date Preeti Brothers MD [address] [place] [address] PCP - General 07/20/1992 documented as of this encounter
--- OUTSIDE RECORDS SUMMARY | 2025-04-03 18:51 | XMS_ITS | Encounter Summary ---
Author Organization [facility] Address [address] [place] [address] Care Team Providers Care Floor Framer Name Role Phone Preeti Brothers MD Primary Care Provider [phone] Reason for Visit * Reason Onset Date Comments faxed order 03/20/2025 Jared norton orde r [id number] Encounter Details Date Type Department Care Team (Late st Contact Info) Description 03/20/2025 Telephone Adult Medicine [facility] [address] [place], [place] [phone] Preeti Brothers MD [address] [place] [phone] Social History Tobacco Use Types Packs/Day Years [...] care for your loved ones. For example, attendant child activity or elderly care for an older adult? [...] 9:26 AM EDT Jared mary ann order [id number] received please sign and fax to [phone] documented in this encounter Plan of Treatment Upcoming Encounters Date Type Department Care Team (Late st Contact Info) Description 04/06/2025 11:15 AM EDT Office Visit [address] [phone] Josee Santos PA [address] [place] [address] 07/09/2025 8:45 AM EST Office Visit [address] [phone] Preeti Brothers MD [address] [place] [address] documented as of this encounter Visit Diagnoses Not on filedocumented in this encounter Additional Health Concerns Assessment Noted Time PHQ-9 Depression Total Score: 0 03/16/20 25 8:29 PM EDT A fall risk assessment has been complete d for the patient 01/04/2025 8:50 AM EDT documented as of this encounter Care Teams Floor Framer Relationship Specialty Start Date End Date Preeti Brothers MD [address] [place] [address] PCP - General 07/20/1992 documented as of this encounter
--- OUTSIDE RECORDS SUMMARY | 2025-04-03 18:51 | XMS_ITS | Encounter Summary ---
[facility] Address [address] [place] [address] Care Team Providers Care Over Hauler Helper Name Role Phone Preeti Brothers MD Primary Care Provider [phone] Reason for Visit * Reason Onset Date Comments MyChart Booking 03/08/2025 Patient booked t his appointment at 5:00am Encounter Details Date Type Department Care Team (Late st Contact Info) Description 03/08/2025 Telephone Adult Medicine [facility] [address] [place], [place] [phone] Preeti Brothers MD [address] [place] [phone] Social History Tobacco Use Types Packs/Day Years [...] triage for appropriateness: [facility] Please triage for appropriateness. Patient booking [...] Description 04/06/2025 11:15 AM EDT Office Visit Adult Medicine [facility] [address] [place], [place] [phone] Josee Santos PA [address] [place], [place] 07/09/2025 8:45 AM EST Office Visit Adult Medicine [facility] [address] [place], [place] [phone] Preeti Brothers MD [address] [place], [place] documented as of this encounter Visit Diagnoses Not on filedocumented in this encounter Additional Health Concerns Assessment Noted Time PHQ-9 Depression Total Score: 0 01/05/20 8:53 AM EDT A fall risk assessment has been complete d for the patient 01/04/2025 8:50 AM EDT documented as of this encounter Care Teams Over Hauler Helper Relationship Specialty Start Date End Date Preeti Brothers MD [address] [place] [address] PCP - General 07/20/1992 documented as of this encounter
--- OUTSIDE RECORDS SUMMARY | 2025-04-03 18:51 | XMS_ITS | Encounter Summary ---
Author Organization [facility] Address [address] [place] [address] Care Team Providers Care Paper Coater Name Role Phone Preeti Brothers MD Primary Care Provider [phone] Reason for Visit * Reason Onset Date Comments faxed order 03/19/2025 Jared norton orde r [id number] Encounter Details Date Type Department Care Team (Late st Contact Info) Description 03/19/2025 Telephone Adult Medicine [facility] [address] [place], [place] [phone] Preeti Brothers MD [address] [place] [phone] Social History Tobacco Use Types Packs/Day Years [...] for your loved ones. For example, child life assistant or elderly care for an older [...] 03/19/2025 3:49 PM EDT Jared norton order [id number] Received please sign and fax to [phone] documented in this encounter Plan of Treatment Upcoming Encounters Date Type Department Care Team (Late st Contact Info) Description 04/06/2025 11:15 AM EDT Office Visit [address] [phone] Josee Santos PA [address] [place] [address] 07/09/2025 8:45 AM EST Office Visit [address] [phone] Preeti Brothers MD [address] [place] [address] documented as of this encounter Visit Diagnoses Not on filedocumented in this encounter Additional Health Concerns Assessment Noted Time PHQ-9 Depression Total Score: 0 03/16/20 25 8:29 PM EDT A fall risk assessment has been complete d for the patient 01/04/2025 8:50 AM EDT documented as of this encounter Care Teams Paper Coater Relationship Specialty Start Date End Date Preeti Brothers MD [address] [place] [address] PCP - General 07/20/1992 documented as of this encounter
--- OUTSIDE RECORDS SUMMARY | 2025-04-03 18:51 | XMS_ITS | Clinical Summary ---
Author Organization [address] Address [address] [place] [address] Phone Care Team Providers Care Mortgage Loan Processor Name Role Phone Preeti Brothers MD Primary Care Provider [phone] Allergies Active Allergy Reactions Criticality Noted Date [...] Diagnosed Date Chronic obstructive pulmonar y disease ([facility] V24, [facility] V28) 03/19/2025 Hypertension 04/22/2022 Assessment & Plan [...] 9:03 AM EDT): Kidney stone 06/02/2006 Convulsions ([facility] V24, [facility] V28) 6 Assessment & Plan (01/04/2025 9:03 AM EDT): Central nervous system viral infection 6 Overview (06/16/2024): age 10 Hepatitis A virus infection 08/18/2005 Overview (12/26/2024): Gout 08/18/2005 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CMS/HCC V24, 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 Assessment & Plan (01/04/2025 9:03 AM EDT): Resolved Problems Problem Noted Date Diagnosed Date Resolved Date Current every day smoker 05/17/2023 Encounters Date Type Department Care Team Description 04/02/2025 2:45 PM EDT Office Visit Adult [address] [phone] Josee Santos PA Primary hypertension (Primary Dx) 03/26/2025 2:45 PM EDT Office Visit [address] [phone] Preeti Brothers MD Primary hypertension (Primary Dx); Hypercholesteremia; Bilateral lower leg cellulitis 03/22/2025 Telephone Adult [address] [phone] Preeti Brothers MD 03/20/[address] [phone] Preeti Brothers MD 03/19/2025 10:30 AM EDT Office Visit [address] [phone] Preeti Brothers MD Primary hypertension (Primary Dx); 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[facility]/HCC V24, CMS/HCC V28); Hypercholesteremia; Convulsions, unspecified convulsion type (CMS/HCC V24, CMS/HCC V28); Chronic obstructive pulmonary disease, unspecified COPD type (CMS/HCC V24, CMS/HCC V28); Edema, unspecified type 03/19/2025 Telephone Adult [address] [phone] Preeti Brothers MD 03/15/[address] [phone] Preeti Brothers MD 03/08/2025 Telephone Adult Medicine [address] [phone] Preeti Brothers MD 01/04/2025 9:00 AM EDT Office Visit Adult Medicine [address] [phone] Preeti Brothers MD Encounter for annual wellness visit (AWV) in Medicare patient (Primary Dx); Primary hypertension; Hypercholesteremia; Convulsions, unspecified convulsion type ([facility]/HCC V24, [facility]/HCC V28); Osteoporosis without current pathological fracture, unspecified osteoporosis type; 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[facility] V24, [facility] V28) from Last 3 Months Immunizations Name Administration Dates Next Due Influenza trivalent, 0.5mL ( Fluad) 65yo and older 03/19/2025,04/22/2022,04/09/2021,03/01 Pneumococcal conjugate 13 va lent (Prevnar 13, PCV13) 2mo and older 05/27/2016 Pneumococcal polysaccharide 23 valent (Pneumovax 23) 2yo and older 08/23/2008 Td Tetanus diptheria (Tdvax) 7yo and older 05/14/2014,05/23/2004 Zoster Live 05/14/2014 Surgical History Surgery Date [...] djd Hypertension 04/22/2022 Kidney stone 06/02/2006 Convulsions (CMS/HCC V24, CMS/HCC V28) 6 Central nervous system viral infection 6 age 10 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CMS/HCC V24, C [facility]/HCC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 Family History [...] for your loved ones. For example, children's program coordinator or elderly care for an older adult? [...] 16 04/02/2025 2:46 PM EDT Oxygen Saturation 98% 03/26/2025 2:41 PM EDT Inhaled Oxygen Concentration - - Weight 83 kg (183 lb) 04/02/2025 2:46 PM EDT Height 152.4 cm (5') 04/02/2025 2:46 PM EDT Body Mass Index 35.74 04/02/2025 2:46 PM EDT Plan of Treatment Upcoming Encounters Date Type Department Care Team (Late st Contact Info) Description 04/06/2025 11:15 AM EDT Office Visit Adult Medicine [address] [phone] Josee Santos PA [address] [place], [place] 07/09/2025 8:45 AM EST Office Visit Adult [address] [phone] Preeti Brothers MD [address] [place], [place] Health Maintenance Due Date Last Done Comments Zoster Vaccines (2 of 3) 07/09/2014 05/14/2014 RSV Immunization Adult Patients (1 - 1-dose 75+ series) 2018 DTaP,Tdap,and Td Vaccines (3 - Td or Tdap) 05/14/2024 05/14/2014, 05/23/2004 Osteoporosis Screening (Bone Density Screening) 08/25/2024 08/25/2022, 01/11/2019 COVID-19 Vaccine ( season) 2025 03/19/2025, 05/17/2023, 04/09/2021, Additional history exists Falls Risk Assessment 01/04/2026 01/04/2025 Hypertension/CHF/CAD Annual BMP Blood Test 01/04/2026 01/04/2025 Medicare Annual Wellness Visit 01/04/2026 01/04/2025 Social Influencers of Health Screening 01/04/2026 01/04/2025 Cholesterol Screening (Lipid Panel) 01/04/2030 01/04/2025, 12/16/2023 Pneumococcal Vaccine: 50+ Years Completed 05/27/2016, 08/23/2008 [...] mg/dL LAB CHEMISTRY METHOD 01/04/2025 1:36 PM T [facility] Triglycerides 142 0 - 150 mg/dL LAB CHEMISTRY METHOD 01/04/2025 1:36 PM EDT [facility] HDL 67 >=40 mg/dL LAB CHEMISTRY METHOD 01/04/2025 1:36 PM EDT [facility] LDL Calculated 94 0 - 100 mg/dL LAB CHEMISTRY METHOD 01/04/2025 1:36 PM EDT [facility] VLDL Cholesterol Anuj 28.4 mg/dL LAB CHEMISTRY METHOD 01/04/2025 1:36 PM T [facility] Non HDL Chol. (LDL+VLDL) 122 <145 mg/dL LAB CHEMISTRY METHOD 01/04/2025 1:36 PM EDT [facility] Chol/HDL Ratio 2.8 0.0 - 4.4 LAB CHEMISTRY METHOD 01/04/2025 1:36 PM EDT [facility] Blood Venous blood specimen / Unknown Venipuncture / Unknown 01/04/2025 9:22 AM EDT 01/04/2025 9:22 AM EDT us Josee GUNN LAB BLOOD ORDERABLES Final Re sult Performing Organization Address [facility]/ZIP Co de Phone Number [facility] [address] [place] [address], [place] [phone] * Vitamin D 25 hydroxy (01/04/2025 9:22 AM EDT) [facility] Vit D, 25-Hydroxy 30.0 30.0 - 80.0 ng/mL LAB CHEMISTRY METHOD 01/04/2025 2:06 PM EDT [facility] Blood Venous blood specimen / Unknown Venipuncture / Unknown 01/04/2025 9:22 AM EDT 01/04/2025 9:22 AM EDT us Josee GUNN LAB BLOOD ORDERABLES Final Re sult Performing Organization Address [facility] de Phone Number [facility] [address] [place] [address], [place] [phone] * (ABNORMAL) Complete blood count (01/04/2025 9:22 AM EDT) [facility] WBC 5.1 4.8 - 10.8 K/mcL LAB HEMETOLOGY METHOD 01/04/2025 10:27 AM EDT [facility] RBC 4.80 3.80 - 4.80 M/mcL LAB HEMETOLOGY METHOD 01/04/2025 10:27 AM EDT [facility] Hemoglobin 14.1 11.5 - 16.0 g/dL LAB HEMETOLOGY METHOD 01/04/2025 10:27 AM EDT [facility] Hematocrit 46.0 35.0 - 47.0 % LAB HEMETOLOGY METHOD 01/04/2025 10:27 AM T [facility] MCV 95.6 79.0 - 98.0 FL LAB HEMETOLOGY METHOD 01/04/2025 10:27 AM [facility] MCH 29.3 27.0 - 32.0 pcg LAB HEMETOLOGY METHOD 01/04/2025 10:27 AM [facility] MCHC 30.7(L) 32.0 - 37.0 g/dL LAB HEMETOLOGY METHOD 01/04/2025 10:27 AM T [facility] RDW 13.2 11.0 - 15.0 % LAB HEMETOLOGY METHOD 01/04/2025 10:27 AM [facility] Platelets 243 130 - 400 K/mcL LAB HEMETOLOGY METHOD 01/04/2025 10:27 AM T [facility] MPV 9.5 7.0 - 11.0 FL LAB HEMETOLOGY METHOD 01/04/2025 10:27 AM [facility] NRBC 0.0 <1.0 % LAB HEMETOLOGY METHOD 01/04/2025 10:27 AM [facility] NRBC Absolute 0.00 <0.10 K/mcL LAB HEMETOLOGY METHOD 01/04/2025 10:27 AM [facility] Blood Venous blood specimen / Unknown Venipuncture / Unknown 01/04/2025 9:22 AM EDT 01/04/2025 9:22 AM EDT us Josee GUNN LAB BLOOD ORDERABLES Final Re sult [facility] [address] [place] [address], * (ABNORMAL) Basic metabolic panel (01/04/2025 9:22 AM EDT) Sodium 136 133 - 145 mmol/L LAB CHEMISTRY METHOD 01/04/2025 1:29 PM [facility] Potassium 5.0 3.5 - 5.5 mmol/L LAB CHEMISTRY METHOD 01/04/2025 1:29 PM [facility] Chloride 103 96 - 110 mmol/L LAB CHEMISTRY METHOD 01/04/2025 1:29 PM [facility] CO2 26 21 - 32 mmol/L LAB CHEMISTRY METHOD 01/04/2025 1:29 PM [facility] Anion Gap 7 3 - 11 LAB CHEMISTRY METHOD 01/04/2025 1:29 PM [facility] Glucose 100 70 - 100 mg/dL LAB CHEMISTRY METHOD 01/04/2025 1:29 PM [facility] BUN 26(H) 5 - 25 mg/dL LAB CHEMISTRY METHOD 01/04/2025 1:29 PM [facility] Creatinine 1.15(H) 0.50 - 1.10 mg/dL LAB CHEMISTRY METHOD 01/04/2025 1:29 PM [facility] eGFR 48(L) >=60 mL/min/1. 73m2 LAB CHEMISTRY METHOD 01/04/2025 1:29 PM [facility] Comment:Calculation based on the Chronic Kidney Disease Epidemiology Collaboration (CKD-EPI) equation refit without adjustment for race. BUN/Creatinine Ratio 22.6 LAB CHEMISTRY METHOD 01/04/2025 1:29 PM [facility] Calcium 9.3 8.5 - 10.5 mg/dL LAB CHEMISTRY METHOD 01/04/2025 1:29 PM [facility] Blood Venous blood specimen / Unknown Venipuncture / Unknown 01/04/2025 9:22 AM EDT 01/04/2025 9:22 AM EDT us Josee GUNN LAB BLOOD ORDERABLES Final Re sult [facility] [address] [place] [address], * DXA BONE DENSITY STUDY 1+ SITS [...] IMPRESSION: IMPRESSION: Osteoporosis by WHO criteria. [facility] Department of Internal Medicine recommends using National [...] IMPRESSION: IMPRESSION: Osteoporosis by WHO criteria. [facility] Department of Internal Medicine recommendsusing National Osteoporosis [...] BMD testingevery 15 years Preeti Brothers MD IM DXA PROCEDURES Final Result from Last 3 Months or Most Recently Relevant to Health Maintenance Insurance [facility] MEDICARE Care Teams Mortgage Loan Processor Relationship Specialty Start Date End Date Preeti Brothers MD [address] [place] [address] PCP - General 07/20/1994
== END 2025-04-03 18:21 | disposition home or self-care (01) ==
PROVIDERS: Emergency Provider Emergency Medicine; PCP Physician Assistant
DX: I16.9 Hypertensive crisis, unspecified (principal); I10 Essential (primary) hypertension; E78.00 Pure hypercholesterolemia, unspecified; G40.909 Epilepsy, unspecified, not intractable, without status epilepticus; D35.2 Benign neoplasm of pituitary gland; Z87.891 Personal history of nicotine dependence
CPT/HCPCS: 99282

== ENCOUNTER 2025-04-13 09:33 | Outpatient (AMB) | payer MEDICARE, BC, SELFPAY ==
[2025-04-13 09:51] VITALS: BMI 35.7
--- NOTE | 2025-04-13 09:51 | A.OFFVIS_ITS ---
Vital Signs 04/13/25 09:51 Height 5 ft Weight 183 lb BMI 35.7 Intake Visit Reasons: OV-LT Wrist Distal Radius FX, DOI:02/27/25-w/xray? Intake Note: Yahir is an 80 year old right hand dominant woman who presents today for follow up status post Left Distal Radius Fracture, DOI: 02/27/25. She was last seen on 03/30/25 where she was found to have minimal evidence of healing on x- rays with tenderness around the fracture site. She was placed in a short-arm cast. Cast removed in office. Xrays updated in office, states she has no pain just a little discomfort. Allergies carbamazepine (From Tegretol) Allergy (Verified 04/13/25 09:54) Unknown HPI HPI OV-LT Wrist Distal Radius FX, DOI:02/27/25-w/xray?: Details: Yahir is an 80 year old right hand dominant woman who presents today for follow up status post Left Distal Radius Fracture, DOI: 02/27/25. She was last seen on 03/30/25 where she was found to have minimal evidence of healing on x- rays with tenderness around the fracture site. She was placed in a short-arm cast. Cast removed in office. Xrays updated in office, states she has no pain just a little discomfort with range of motion the left wrist since from cast. [facility] Medical History High cholesterol Epilepsy Seizure disorder Pituitary adenoma Social History Household Members: Children Housing: House Do you presently have visiting nurse or other home services: No Alcohol intake: current Patient Tobacco Use Status: Former Tobacco user Tobacco use type: Cigarette Cigarette Packs Per Day: 0.5 Cigarettes Per Day: 10.0 e-Cigarette/Vaping Use: Never Used Second Hand Smoke Exposure: No service: No Review of Systems Const All systems reviewed & are unremarkable except as noted in HPI and below Physical Exam Vital Signs: BMI result Body Mass Index 35.7 Extrem Other: Patient is alert, oriented, and in no acute distress. Neuro: Normal sensation of the tips of all digits of the left hand at this time Vascular: Cap refill brisk Pain: No tenderness to palpation about left distal radius Some discomfort with range of motion of the left hand ROM: Patient is able to make a closed fist with encouragement, can extend all digits of the left hand fully and without difficulty Skin: No lacerations or abrasions. General: There is a noted deformity of the left wrist consistent with the apex volar angulation of the patient's fracture No ecchymosis, erythema, or evidence of infection. Psych: Appears grossly normal Affect normal Attitude cooperative Results Reviewed Results Reviewed: X-rays obtained in the office today and independently reviewed by me, Denys Hines PA-C, demonstrate displaced left distal radius fracture with approximately 20-25 degrees of apex volar angulation, with evidence interval bony healing Assessment & Plan Assessment & Plan (1) Fracture of left distal radius: Code(s): S52.502A - Unspecified fracture of the lower end of left radius, initial encou nter for closed fracture Category: Medical Plan 1. Left distal radius fracture With approximately 20-25 degrees of apex volar angulation Date of injury approximately 02/27/2025 Patient is educated about this injury Patient is educated about the typical treatment course With no further tenderness around the fracture site, and evidence of interval bony healing on x-ray, I feel it is most prudent to place the patient into a Velcro wrist splint to be worn with daytime activities Patient will remove while at rest noted on range of motion of the left wrist OT referral placed for gentle range of motion of the left wrist 2 lb weight limit reinforced Patient will follow-up in 4 weeks with repeat x-rays for reassessment, sooner with any acute concerns Orders: Orders XR wrist LT min 3V Today M25.532 - Pain in left wrist OT Evaluation and Treatment Today S52.502A - Unspecified fracture of the lower end of left radius, initial encounter for closed fracture Coding Level of Care Code Global (92808) Diagnoses Fracture of left distal radius S52.502A
--- OUTSIDE RECORDS SUMMARY | 2025-04-13 10:11 | XMS_ITS | Encounter Summary ---
Author Organization [facility] Address [address] [place] [address] Care Team Providers Care Information Technology Director Name Role Phone Preeti Brothers MD Primary Care Provider [phone] Reason for Visit * Reason Onset Date Comments faxed order 03/20/2025 Jared norton orde r [id number] Encounter Details Date Type Department Care Team (Late st Contact Info) Description 03/20/2025 Telephone Adult Medicine [facility] [address] [place], [place] [phone] Preeti Brothers MD [address] [place] [phone] Social History Tobacco Use Types Packs/Day Years [...] your loved ones. For example, child welfare manager or elderly care for an older adult? [...] Date Recorded What is your living situation? Unrecognized valu e 01/04/2025 Comments Unknown Sex and Gender Information Value Date Recorded Sex Assigned at Not on file Legal Sex Female 11:46 AM EST Gender Identity Not on file Sexual Orientation Not on file documented as of this encounter Progress Notes * Kiya Lamas - 03/20/2025 9:26 AM EDT Jared norton order [id number] received please sign and fax to [phone] documented in this encounter Plan of Treatment Upcoming Encounters Date Type Department Care Team (Late st Contact Info) Description 04/13/2025 2:00 PM EDT Office Visit Adult [address] [phone] Figueroa Chris MD [address] [place] [address] 04/17/2025 10:30 AM EDT Consult Pulmonology - [address] [place] [phone] Leana Jimenez MD [address] [place] [address] 04/24/2025 3:15 PM EDT Office Visit [address] [phone] Josee Santos PA [address] [place] [address] 07/09/2025 8:45 AM EST Office Visit [address] [phone] Preeti Brothers MD [address] [place] [address] documented as of this encounter Visit Diagnoses Not on filedocumented in this encounter Additional Health Concerns Assessment Noted Time PHQ-9 Depression Total Score: 0 03/16/20 8:29 PM EDT A fall risk assessment has been complete d for the patient 01/04/2025 8:50 AM EDT documented as of this encounter Care Teams Information Technology Director Relationship Specialty Start Date End Date Preeti Brothers MD [address] [place] [address] PCP - General 07/20/1994 documented as of this encounter
--- OUTSIDE RECORDS SUMMARY | 2025-04-13 10:11 | XMS_ITS | Clinical Summary ---
Author Organization [address] Address [address] [place] [address] Phone Care Team Providers Care Steel Detailer Name Role Phone Preeti Brothers MD Primary Care Provider [phone] Allergies Active Allergy Reactions Criticality Noted Date [...] crush or chew. 90 tablet 1 Active hydrALAZINE (APRESOLINE) 25 mg tablet Take half tab bid times 3 days then increase to a full tablet bid 180 each 1 Active lisinopriL (PRINIVIL,ZESTRIL) 20 mg tablet Take 1 tablet (20 mg total) by mouth 1 (one) time each day. 90 each 1 025 2025 Active furosemide (Lasix) 20 mg tablet Take 1 tablet (20 mg total) by mouth 1 (one) time each day. 90 each 1 Active levETIRAcetam (KEPPRA) 250 mg tablet Take 1 tablet (250 mg total) by mouth 2 (two) times a day. 2024 Discontinued lisinopriL (PRINIVIL,ZESTRIL) 5 mg tablet Take 1 tablet (5 mg total) by mouth at bedtime. 90 tablet 1 2024 Discontinued isosorbide mononitrate (IMDUR) 30 mg [...] by mouth at bedtime. 025 2024 Discontinued furosemide (LASIX) 20 mg tablet Take 1 tablet (20 mg total) by mouth 1 (one) time each day. 025 2024 Discontinued doxycycline (VIBRAMYCIN) 100 mg capsule Take 1 [...] selenium, zinc). 20 each 025 2024 Active Problems Problem Noted Date Diagnosed Date Stage 3b chronic kidney disease ([facility] [place], [facility] V28) 04/07/2025 Chronic obstructive pulmonar y disease ([facility] [place], [facility] V28) 03/19/2025 Hypertension 04/22/2022 Assessment & Plan [...] 9:03 AM EDT): Kidney stone 06/02/2006 Convulsions ([facility] [place], [facility] V[facility]) 6 Assessment & Plan (01/04/2025 9:03 AM EDT): Central nervous system viral infection 6 Overview (06/16/2024): age 10 Hepatitis A virus infection 08/18/2005 Overview (12/26/2024): Gout 08/18/2005 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[place], [facility]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 06 Assessment & Plan (01/04/2025 9:03 AM EDT): Resolved Problems Problem Noted Date Diagnosed Date Resolved Date Current every day smoker 05/17/2023 Encounters Date Type Department Care Team Description 04/12/2025 Nurse Triage [address] [phone] Preeti Brothers MD 04/06/2025 11:15 AM EDT Office Visit [address] [phone] Josee Santos PA Primary hypertension (Primary Dx); Blood glucose elevated; Stage 3b chronic kidney disease ([facility] V24, [facility] V28) 04/02/2025 2:45 PM EDT Office Visit [address] [phone] Josee Santos PA Primary hypertension (Primary Dx) 03/26/2025 2:45 PM EDT Office Visit [address] [phone] Preeti Brothers MD Primary hypertension (Primary Dx); Hypercholesteremia; Bilateral lower leg cellulitis 03/22/[address] [phone] Preeti Brothers MD 03/20/[address] [phone] Preeti Brothers MD 03/19/2025 10:30 AM EDT Office Visit Adult Medicine [address] [phone] Preeti Brothers MD Primary hypertension (Primary Dx); 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, [facility] V28); Hypercholesteremia; Convulsions, unspecified convulsion type ([facility] V24, [facility] V28); Chronic obstructive pulmonary disease, unspecified COPD type ([facility] V24, [facility] V28); Edema, unspecified type 03/19/2025 Telephone Adult Medicine [address] [phone] Preeti Brothers MD 03/15/2025 Telephone Adult Medicine [address] [phone] Preeti Brothers MD 03/08/2025 Telephone Adult Medicine [address] [phone] Preeti Brothers MD from Last 3 Months Immunizations Immunization Administration Dates Next Due Influenza trivalent, 0.5mL [...] djd Hypertension 04/22/2022 Kidney stone 06/02/2006 Convulsions ([facility] V24, [facility] V28) 6 Central nervous system viral infection 6 age 10 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, [facility]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 Family History Medical [...] Sign Reading Time Taken Comments Blood Pressure 128/48 04/06/2025 11:25 AM EDT Pulse 82 04/06/2025 11:11 AM EDT Temperature 36.2 C (97.1 F) 04/06/2025 11:04 AM EDT Respiratory Rate 20 04/06/2025 11:04 AM EDT Oxygen Saturation 98% 03/26/2025 2:41 PM EDT Inhaled Oxygen Concentration - - Weight 84.4 kg (186 lb) 04/06/2025 11:04 AM EDT Height 152.4 cm (5') 04/06/2025 11:04 AM EDT Body Mass Index 36.33 04/06/2025 11:04 AM EDT Plan of Treatment Upcoming Encounters Date Type Department Care Team (Late st Contact Info) Description 04/13/2025 2:00 PM EDT Office Visit Adult Medicine [address] [phone] Figueroa Chris MD [address] [place] [address] [phone] (Work) 04/17/2025 10:30 AM EDT Consult Pulmonology - [address] [place] [address] Leana Jimenez MD [address] [place] [phone] 04/24/2025 3:15 PM EDT Office Visit Adult Medicine [address] [phone] Josee Santos PA [address] [place] [address] 07/09/2025 8:45 AM EST Office Visit [address] [phone] Preeti Brothers MD [address] [place] [address] Health Maintenance Due Date Last Done Comments Zoster Vaccines (2 of 3) 07/09/2014 05/14/2014 RSV Immunization Adult Patients (1 - 1-dose 75+ series) 2018 DTaP,Tdap,and Td Vaccines (3 - Td or Tdap) 05/14/2024 05/14/2014, 05/23/2004 Osteoporosis Screening (Bone Density Screening) 08/25/2024 08/25/2022, 01/11/2019 COVID-19 Vaccine ( season) 2025 03/19/2025, 05/17/2023, 04/09/2021, Additional history exists Falls Risk Assessment 01/04/2026 01/04/2025 Medicare Annual Wellness Visit 01/04/2026 01/04/2025 Social Influencers of Health Screening 01/04/2026 01/04/2025 Hypertension/CHF/CAD Annual BMP Blood Test 04/06/2026 04/06/2025, 01/04/2025 Cholesterol Screening (Lipid Panel) 01/04/2030 01/04/2025, [...] Procedure Name Priority Date/Time Associated Diagnosis Comments BASIC METABOLIC PANEL Routine 04/06/2025 11:44 AM EDT Primary hypertension HEMOGLOBIN A1C Routine 04/06/2025 11:44 AM EDT Blood glucose elevated LIPID PANEL WITH REFLEX TO DIRECT LDL Routine 01/04/2025 9:22 AM EDT Hypercholesteremia DXA BONE DENSITY STUDY 1+ SITS AXIAL SKEL Routine 08/25/2022 2:37 PM EST Age-related osteoporosis without current pathological fracture from Last 3 Months or Most Recently Relevant to Health Maintenance Results * Hemoglobin A1c (04/06/2025 11:44 AM EDT) Hemoglobin A1C 5.6 <6.5 % LAB CHEMISTRY METHOD 04/06/2025 5:38 PM EDT [facility] Mean Bld Glu Estim. 114 mg/dL LAB CHEMISTRY METHOD 04/06/2025 5:38 PM [facility] Blood Venous blood specimen / Unknown Venipuncture / Unknown 04/06/2025 11:44 AM EDT 04/06/2025 11:44 AM EDT us Josee GUNN LAB BLOOD ORDERABLES Final Re sult [facility] [address] [place] [address], [place] [phone] * (ABNORMAL) Basic metabolic panel (04/06/2025 11:44 AM EDT) Sodium 140 133 - 145 mmol/L LAB CHEMISTRY METHOD 04/06/2025 4:44 PM [facility] Potassium 4.3 3.5 - 5.5 mmol/L LAB CHEMISTRY METHOD 04/06/2025 4:44 PM [facility] Chloride 109 96 - 110 mmol/L LAB CHEMISTRY METHOD 04/06/2025 4:44 PM [facility] CO2 25 21 - 32 mmol/L LAB CHEMISTRY METHOD 04/06/2025 4:44 PM [facility] Anion Gap 6 3 - 11 LAB CHEMISTRY METHOD 04/06/2025 4:44 PM [facility] Glucose 100 70 - 100 mg/dL LAB CHEMISTRY METHOD 04/06/2025 4:44 PM [facility] BUN 39(H) 5 - 25 mg/dL LAB CHEMISTRY METHOD 04/06/2025 4:44 PM [facility] Creatinine 1.59(H) 0.50 - 1.10 mg/dL LAB CHEMISTRY METHOD 04/06/2025 4:44 PM [facility] eGFR 32(L) >=60 mL/min/1. 73m2 LAB CHEMISTRY METHOD 04/06/2025 4:44 PM EDT [facility] Comment:Calculation based on the Chronic Kidney Disease Epidemiology Collaboration (CKD-EPI) equation refit without adjustment for race. BUN/Creatinine Ratio 24.5 LAB CHEMISTRY METHOD 04/06/2025 4:44 PM EDT [facility] Calcium 9.1 8.5 - 10.5 mg/dL LAB CHEMISTRY METHOD 04/06/2025 4:44 PM EDT [facility] Blood Venous blood specimen / Unknown Venipuncture / Unknown 04/06/2025 11:44 AM EDT 04/06/2025 11:44 AM EDT us Josee GUNN LAB BLOOD ORDERABLES Final Re sult [facility] [address] [place] [address], [place] [phone] * Lipid panel with reflex to direct LDL (01/04/2025 9:22 AM EDT) Cholesterol 189 0 - 200 mg/dL LAB CHEMISTRY METHOD 01/04/2025 1:36 PM EDT [facility] Triglycerides 142 0 - 150 mg/dL LAB CHEMISTRY METHOD 01/04/2025 1:36 PM T [facility] HDL 67 >=40 mg/dL LAB CHEMISTRY METHOD 01/04/2025 1:36 PM EDT [facility] LDL Calculated 94 0 - 100 mg/dL LAB CHEMISTRY METHOD 01/04/2025 1:36 PM EDT [facility] VLDL Cholesterol Anuj 28.4 mg/dL LAB CHEMISTRY METHOD 01/04/2025 1:36 PM EDT [facility] Non HDL Chol. (LDL+VLDL) 122 <145 mg/dL LAB CHEMISTRY METHOD 01/04/2025 1:36 PM T [facility] Chol/HDL Ratio 2.8 0.0 - 4.4 LAB CHEMISTRY METHOD 01/04/2025 1:36 PM EDT [facility] Blood Venous blood specimen / Unknown Venipuncture / Unknown 01/04/2025 9:22 AM EDT 01/04/2025 9:22 AM EDT us Josee GUNN LAB BLOOD ORDERABLES Final Re sult [facility] [address] [place] [address], * DXA BONE DENSITY STUDY 1+ SITS [...] IMPRESSION: IMPRESSION: Osteoporosis by WHO criteria. [facility] Department of Internal Medicine recommends using National [...] alternative screening schedule based on moise Castro., [facility] July 30, 2011 for patients with osteopenia [...] IMPRESSION: IMPRESSION: Osteoporosis by WHO criteria. [facility] Department of Internal Medicine recommendsusing National Osteoporosis [...] Most Recently Relevant to Health Maintenance Insurance [facility] MEDIC[facility] Care Teams Steel Detailer Relationship Specialty Start Date End Date Preeti Brothers MD [address] [place] [address] PCP - General 07/20/1992
--- OUTSIDE RECORDS SUMMARY | 2025-04-13 10:11 | XMS_ITS | Encounter Summary ---
Author Organization [facility] Address [address] [place] [address] Care Team Providers Care Development Advisor Name Role Phone Preeti Brothers MD Primary Care Provider [phone] Reason for Visit * Reason Onset Date Comments faxed order 03/22/2025 Jared norton orde r [id number] Encounter Details Date Type Department Care Team (Late st Contact Info) Description 03/22/2025 Telephone Adult Medicine [facility] [address] [place], [place] [phone] Preeti Brothers MD [address] [place] [phone] Social History Tobacco Use Types Packs/Day Years [...] for your loved ones. For example, children's choir director or elderly care for an older [...] Lamas - 03/22/2025 2:53 PM EDT Jared mary ann order [id number] received please sign and fax to [phone] documented in this encounter Plan of Treatment Upcoming Encounters Date Type Department Care Team (Late st Contact Info) Description 04/13/2025 2:00 PM EDT Office Visit [address] [phone] Figueroa Chris MD [address] [place] [address] 04/17/2025 10:30 AM EDT Consult Pulmonology - [address] [place] [phone] Leana Jimenez MD [address] [place] [address] 04/24/2025 3:15 PM EDT Office Visit [address] [phone] Josee Santos PA [address] [place] [address] 07/09/2025 8:45 AM EST Office Visit [address] [phone] Preeti Brothers MD [address] [place] [address] documented as of this encounter Visit Diagnoses Not on filedocumented in this encounter Additional Health Concerns Assessment Noted Time PHQ-9 Depression Total Score: 0 03/16/20 8:29 PM EDT A fall risk assessment has been complete d for the patient 01/04/2025 8:50 AM EDT documented as of this encounter Care Teams Development Advisor Relationship Specialty Start Date End Date Preeti Brothers MD [address] [place] [address] PCP - General 07/20/1992 documented as of this encounter
--- OUTSIDE RECORDS SUMMARY | 2025-04-13 10:11 | XMS_ITS | Encounter Summary ---
Author Organization [employer] Address [address] [place] [address] Care Team Providers Care Nuclear Waste Process Operator Name Role Phone Preeti Brothers MD Primary Care Provider [phone] Reason for Visit * Reason Onset Date Comments vna 04/12/2025 Encounter Details Date Type Department Care Team (Late st Contact Info) Description 04/12/2025 Nurse Triage Adult Medicine [facility] [address] [place] [address] Preeti Brothers MD [address] [place], [place] Social History Tobacco Use Types Packs/Day Years [...] do you feel lonely or isolated from ose around you? Never 01/04/2025 Food Risk [...] for your loved ones. For example, children's librarian or elderly care for an older adult? [...] as of this encounter Progress Notes * Figueroa Chris MD - 04/12/2025 11:34 AM EDT sure * Addie Heck RN - 04/12/2025 11:09 AM EDT Reason for Disposition Systolic BP >= 180 OR Diastolic >= 110 Answer Assessment - Initial Assessment Questions 1. BLOOD PRESSURE: What is your blood pressure? Did you take at least two measurements 5 minutesapart? 178/64 before medications 162/60 after medication. She states she takes her BP 1 hour after taking her Amlodipine in the evening 187, 208/73, 196/73, 178/62, 164/68, 187/70, 208/73, 196/73 2. ONSET: When did you take your blood pressure? Today 3. HOW: How did you take your blood pressure? (e.g., automatic home BP monitor, visiting nurse) Automatic cuff at home at night. By a visiting nurse during the day. 4. HISTORY: Do you have a history of high blood pressure? Yes 5. MEDICINES: Are you taking any medicines for blood pressure? Have you missed any doses recently? No 6. OTHER SYMPTOMS: Do you have any symptoms? (e.g., blurred vision, chest pain, difficulty breathing, headache, weakness) No symptoms 7. : Is there any chance you are ? When was your last menstrual period? No. Pt is 80. Protocols used: Blood Pressure - High-A-AH * Addie Heck RN - 04/12/2025 11:06 AM EDT An appointment was made for her to be seen in the office tomorrow at 2:[address] Chris and she is in agreement with this plan. She was instructed to bring her BP log with her to the appointment. * Ashley Hopper - 04/12/2025 10:53 AM EDT Patient retuning your call please advise. * Addie Heck RN - 04/12/2025 10:30 AM EDT Called and spoke to Savannah. She states pt's BP today prior to taking her medication was 178/64 and after taking her medication it was 162/60. She states at night pt is getting systolic readings in the 200's at night one hour after she takes medication. Pt is asymptomatic. I left pt a message to call the office at . * Zahraa Guadarrama - 04/12/2025 10:13 AM EDT [facility] CALL Which [facility] office is calling? [facility] / Full name of caller: Savannah The caller is A nurse Is the caller at the patients home?: yes Reason for call: BP readings, patient is getting systolic readings up to 208 at night. Taking 4 BP medications. Does caller need an urgent call back? yes Was CONTACT Telephone # obtained above?: yes Fax #: documented in this encounter Plan of Treatment Upcoming Encounters Date Type Department Care Team (Late st Contact Info) Description 04/13/2025 2:00 PM EDT Office Visit Adult Medicine [address] [phone] Figueroa Chris MD [address] [place] [address] 04/17/2025 10:30 AM EDT Consult Pulmonology - [address] [place] [address] Leana Jimenez MD [address] [place] [address] 04/24/2025 3:15 PM EDT Office Visit Adult Medicine [address], [place] [phone] Josee Santos PA [address] [place] [address] 07/09/2025 8:45 AM EST Office Visit Adult Medicine [address] [phone] Preeti Brothers MD [address] [place] [address] documented as of this encounter Visit Diagnoses Not on filedocumented in this encounter Additional Health Concerns Assessment Noted Time PHQ-9 Depression Total Score: 0 03/16/20 25 8:29 PM EDT A fall risk assessment has been complete d for the patient 01/04/2025 8:50 AM EDT documented as of this encounter Care Teams Nuclear Waste Process Operator Relationship Specialty Start Date End Date Preeti Brothers MD [address] [place] [address] PCP - General 07/20/1992 documented as of this encounter
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
--- OUTSIDE RECORDS SUMMARY | 2025-04-13 10:11 | XMS_ITS | Encounter Summary ---
Author Organization [facility] Address [address] [place] [address] Care Team Providers Care Spot Welder Body Assembly Name Role Phone Preeti Brothers MD Primary Care Provider [phone] Reason for Visit * Reason Onset Date Comments faxed order 03/19/2025 Jared norton orde r [id number] Encounter Details Date Type Department Care Team (Late st Contact Info) Description 03/19/2025 Telephone Adult Medicine [facility] [address] [place], [place] [phone] Preeti Brothers MD [address] [place] [phone] Social History Tobacco Use Types Packs/Day Years [...] for your loved ones. For example, child development instructor or elderly care for an older adult? [...] 03/19/2025 3:49 PM EDT Jared norton order [id number] Received please sign and fax to [phone] documented in this encounter Plan of Treatment Upcoming Encounters Date Type Department Care Team (Late st Contact Info) Description 04/13/2025 2:00 PM EDT Office Visit [address] [phone] Figueroa Chris MD [address] [place] [address] 04/17/2025 10:30 AM EDT Consult Pulmonology - [address] [place] [phone] Leana Jimenez MD [address] [place] [address] 04/24/2025 3:15 PM EDT Office Visit [address] [phone] Josee Santos PA [address] [place] [address] 07/09/2025 8:45 AM EST Office Visit [address] [phone] Preeti Brothers MD [address] [place] [address] documented as of this encounter Visit Diagnoses Not on filedocumented in this encounter Additional Health Concerns Assessment Noted Time PHQ-9 Depression Total Score: 0 03/16/20 8:29 PM EDT A fall risk assessment has been complete d for the patient 01/04/2025 8:50 AM EDT documented as of this encounter Care Teams Spot Welder Body Assembly Relationship Specialty Start Date End Date Preeti Brothers MD [address] [place] [address] PCP - General 07/20/1992 documented as of this encounter
== END 2025-04-13 10:18 | disposition home or self-care (01) ==
LOC: HO.HOS 09:34
DX: S52.502A Unspecified fracture of the lower end of left radius, initial encounter for closed fracture (principal)
CPT/HCPCS: 99024

== ENCOUNTER 2025-04-13 09:33 | Outpatient (REF) | payer MEDICARE, BC, SELFPAY ==
--- NOTE | ~2025-04-13 | XR_ITS ---
EXAMINATION: XR WRIST, LEFT CLINICAL INFORMATION: M25.532 - Pain in left wrist COMPARISON: March 30, 2025. TECHNIQUE: PA, lateral, and oblique views of the left wrist. FINDINGS: Poor collimation. Dorsally angulated comminuted likely impacted and possibly intra-articular fracture of the distal epiphysis and metaphysis of the left radius without gross callus formation. Osteopenia versus osteoporosis. No subcutaneous emphysema. Soft tissue calcification adjacent to the styloid process of the ulna. XR/XR wrist LT min 3V IMPRESSION: No gross healing/nonunion dorsally angulated fracture distal radius. Electronically signed by: Jonathan Banda MD 04/13/2025 10:25 AM EDT
== END 2025-04-13 09:34 | disposition home or self-care (01) ==
LOC: HO.HOSX 09:33
DX: S52.502D Unspecified fracture of the lower end of left radius, subsequent encounter for closed fracture with routine healing (principal); X58.XXXD Exposure to other specified factors, subsequent encounter
CPT/HCPCS: 73110; 99212

== ENCOUNTER → 2025-04-13 09:39 | Outpatient (BNV) | payer MEDICARE, BC, SELFPAY | PROVIDERS: Visit Provider Radiology Diagnostic Radiology | DX: M25.532 Pain in left wrist (principal) | CPT/HCPCS: 73110 ==

== ENCOUNTER 2025-04-24 11:15 | Inpatient (IN) | payer MEDICARE, BC, SELFPAY ==
[2025-04-24] VITALS (10 sets, daily range): BP systolic 102–150; BP diastolic 38–83; PULSE 81–95; RESP 15–22; TEMP 36.6–38; O2SAT 74–95; BMI 34.0
--- NOTE | ~2025-04-24 | XR_ITS ---
EXAMINATION: XR CHEST CLINICAL INFORMATION: hypoxia COMPARISON: Correlation made with CTPA 03/08/2025 TECHNIQUE: 2 views of the chest were obtained. FINDINGS: The cardiac, hilar, and mediastinal contours are normal. Aortic mural calcifications. Esophagus appears mildly dilated. Lungs are diffusely hyperaerated with increased fine interstitial markings, suggestive of COPD. Elevated left hemidiaphragm with linear scarring or atelectasis in the left base. Minimal linear scarring in the right base. Lungs otherwise clear. There is no pneumothorax or pleural effusion. There is no focal osseous or soft tissue abnormality. Old fracture deformity of the right proximal humerus. Osteopenia, degenerative changes and kyphoscoliosis of the thoracolumbar spine. XR/XR chest 2V IMPRESSION: COPD with chronic changes as discussed. No definite active disease. Electronically signed by: Gilbert Snyder MD 04/24/2025 12:55 PM EDT
--- NOTE | 2025-04-24 11:21 | ED.GENADULT ---
HPI - General Adult General Chief complaint: General Medical Stated complaint: Swelling both legs 1 month, rash Time Seen by Provider: 04/24/25 11:45 History of Present Illness ED Provider: Allyn DELUCA narrative: The patient is an 80-year-old woman with a history of COPD. She was hospitalized about 6 weeks ago for a COPD exacerbation. There was also concern about possible angina and congestive heart failure. New medications at that time included furosemide and isosorbide mononitrate. She has been maintained on these medications. She had also been discharged on a short course of prednisone and also azithromycin. A week or 2 later she followed up with her PCP for a possible cellulitis in her legs and she was given a course of doxycycline. Her legs improved. A week or 2 after that she followed up again with the regular doctor. She was complaining of leg swelling. Her amlodipine was stopped and she was prescribed hydralazine as a new medication about 12 days ago. The patient says that she has continued to have swelling of her legs. Over the last 24 hours however she has developed a rash on much of her body, primarily on the legs. She says the rash is very itchy. She called her doctor's office and was advised to come to the emergency department because of this rash. She also feels mildly more short of breath than usual. She has mild cough. No fever. Related Data Home Medications ?Medication ?Instructions ?Recorded ?Confirmed alendronate 70 mg tablet 70 mg PO WE 01/29/25 04/24/25 Held on 03/12/25. Instructions: Resume on 03/20/25. cabergoline 0.5 mg tablet 0.25 mg PO WE 01/29/25 04/24/25 pravastatin 80 mg tablet 80 mg PO BEDTIME 01/29/25 04/24/25 furosemide 20 mg tablet (Lasix) 20 mg PO Q48H 04/24/25 04/24/25 hydralazine 25 mg tablet 25 mg PO BID 04/24/25 04/24/25 lisinopril 40 mg tablet 40 mg PO DAILY 04/24/25 04/24/25 Previous Rx's ?Medication ?Instructions ?Recorded aspirin 81 mg tablet,delayed 81 mg PO DAILY #90 tabs 03/12/25 release isosorbide mononitrate 30 mg 30 mg PO DAILY #90 tabs 03/12/25 tablet,extended release 24 hr albuterol sulfate 90 mcg/actuation 1 inh inhalation Q4-6H PRN 03/13/25 breath activated powder inhaler shortness of breath #1 ea lamotrigine 25 mg tablet 50 mg (2 x 25 mg) PO BID #180 tabs 04/13/25 Allergies Allergy/AdvReac Type Severity Reaction Status Date / Time carbamazepine (From Tegretol) Allergy Unknown Verified 04/24/25 11:27 Review of Systems Review of Systems: Yes all other systems are reviewed and are negative [facility] Past Medical History Medical History High cholesterol Epilepsy Seizure disorder Pituitary adenoma Social History Social History Household Members: Children Housing: House Do you presently have visiting nurse or other home services: No Alcohol intake: never Patient Tobacco Use Status: Former Tobacco user Tobacco use type: Cigarette Cigarette Packs Per Day: 0.5 Cigarettes Per Day: 10.0 Smoked in Last 30 Days: No e-Cigarette/Vaping Use: Never Used Second Hand Smoke Exposure: No Use of substances other than those prescribed or required for medical reasons: Yes Advance Directives: No Advance Directives Information Provided: Yes Do you have a plan to hurt others: No Plan service: No Physical Exam ED Vital Signs: Vital Signs - 24 hr 04/24/25 11:20 04/24/25 11:29 04/24/25 11:50 Temperature 98 F 100.4 F Pulse Rate 90 86 Respiratory Rate 20 18 Blood Pressure 150/64 H 104/49 L Pulse Oximetry 78 L 90 L 93 Oxygen Delivery Method Room Air Nasal Cannula Nasal Cannula Oxygen Flow Rate 3 3 04/24/25 12:46 04/24/25 12:46 04/24/25 13:07 Temperature Pulse Rate 81 Respiratory Rate 16 Blood Pressure Pulse Oximetry 74 L 92 Oxygen Delivery Method Room Air Nasal Cannula Oxygen Flow Rate 2 BMI result Body Mass Index 34.0 Const Other: The patient is a chronically ill-appearing 80-year-old woman who was awake and alert with a normal mental status. She does not appear in distress. Orientation/consciousness: patient oriented x3 HENMT Other: The appearance of the face is unremarkable. Mucous membranes are moist. No enanthem. No intraoral swelling Eyes Other: Pupils are round equal, conjunctivae are clear, extraocular movements intact General: appearance normal, both eyes and all related structures Neck Neck: Yes normal visual inspection, Yes full ROM and Yes no JVD Resp Other: The patient has a wheezes bilaterally. No definite crackles. No increased work of breathing. Cardio Rate: regular rate Rhythm: regular rhythm Heart sounds: S1 normal heart sound present and S2 normal heart sound present GI Other: The abdomen is soft and nontender Skin Other: The patient has an impressive rash on much of her body. It is most impressive on the lower portion of the lower legs. It is a hive-like rash which blanches with a pressure. It is a confluent on the lower legs. It is scattered on the trunk and especially on the back. The face is relatively spared. Neuro General: patient oriented x3, tone normal, moves all extremities, no focal motor deficits and CN's II-XI intact bilaterally Extrem Other: The patient has confluence rash on the lower legs. The rash is blanching. She has a mildly edematous lower legs but the edema is not pitting. The feet seem well-perfused. Course Course Course Narrative: This is a rapid medical exam performed by Adrián Mcelroy NP: Additional HPI, ROS, PE not included below will be deferred to primary provider. 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 Recently treated for cellulitis which somewhat improved the erythema, but it returned after completing the abx. Diffuse body rash started last night. Noted to be 87-80% O2 on room air, placed on 2lpm via NC in triage, passenger service representative notified. Plan: EKG, labs Medications Administered Generic Name Dose Route Start Last Admin Trade Name Freq PRN Reason Stop Dose Admin Albuterol/Ipratropium 3 ml 04/24/25 16:00 04/24/25 15:33 Albuterol/Iprat 2.5/0.5mg 3 Ml Ampul.Neb INHALE Not Given RQ4H WHILE AWAKE BARON Heparin Sodium (Porcine) 5,000 unit 04/24/25 14:00 04/24/25 16:20 Heparin Sodium,Porcine 5,000 Unit/Ml Vial SUBCUT 5,000 unit Q12H BARON Administration Hydrocortisone 1 appl 04/24/25 15:10 04/24/25 16:17 Hydrocortisone 1 % Cream 28.35 Gm Tube TOPICAL 1 appl BID BARON Administration Protocol Sodium Chloride 1,000 mls @ 80 mls/hr 04/24/25 15:30 04/24/25 16:31 Ns IVCONT 80 mls/hr .[id number] BARON Administration Sodium Chloride 3 ml 04/24/25 16:00 04/24/25 16:32 0.9 % Sodium Chloride Flush 3 Ml Syringe IVFLUSH 3 ml QSHIFT BARON Administration Discontinued Medications Generic Name Dose Route Start Last Admin Trade Name Freq PRN Reason Stop Dose Admin Albuterol Sulfate 2.5 mg/ 0 mg 04/24/25 13:03 04/24/25 13:07 Albuterol/Ipratropium 3 ml INHALE 04/24/25 13:04 5 dose ONCE ONE Administration Diphenhydramine HCl 12.5 mg 04/24/25 15:07 04/24/25 16:18 Diphenhydramine Hcl 50 Mg/Ml Vial IVPUSH 04/24/25 15:08 12.5 mg ONCE ONE Administration Loratadine 10 mg 04/24/25 13:16 04/24/25 13:23 Loratadine 10 Mg Tablet PO 04/24/25 13:17 10 mg ONCE ONE Administration Methylprednisolone Sodium Succinate 80 mg 04/24/25 12:52 04/24/25 13:23 Methylprednisolone Sod Succ 125 Mg/2 Ml Vial IVPUSH 04/24/25 12:53 80 mg ONCE ONE Administration Medical Decision Making Medical Decision Making [facility] Narrative: The patient is an 80-year-old woman who presents with a significant rash. She also presents with wheezes and low oxygen saturations. My overall impression is that the rashes an allergic rash and that she may have some asthma associated with this. I think an infectious process is unlikely. She had a rectal temperature of 100.4 degrees but she does not seem ill otherwise. Her white blood count is 7.3. She has 76.7 % neutrophils. She has a mildly elevated eosinophil count. The patient was given IV steroids both for what I think is a COPD exacerbation and also for her rash. She was given bronchodilator treatment. She has a clear chest x-ray. She has an oxygen requirement today. When she is not on supplemental oxygen her oxygen saturations were in the low 80s. I therefore think that she needs to be hospitalized. Again I do not think she is septic and have not started antibiotics because she does not seem septic. She does not have an elevated white count or an elevated lactate. Lab Data 04/24/25 11:55 04/24/25 11:55 Labs: Lab Results 04/24/25 04/24/25 04/24/25 Range/Units 11:55 12:13 12:18 WBC 7.3 (4.8-10.8) X10*3/uL RBC 3.68 L (4.20-5.50) X10*6/uL Hgb 10.7 L (12.0-16.0) g/dl Hct 36.7 L (37.0-47.0) % MCV 99.7 H (80.0-98.0) fL MCH 29.1 (27.0-33.0) pg MCHC 29.2 L (31.0-35.0) g/dl RDW 13.8 (11.0-16.0) % Plt Count 243 D (160-400) X10*3/uL MPV 9.0 L (9.4-12.3) fL Immature Gran % (Auto) 0.4 (0.0-0.4) % Neut % (Auto) 76.7 H (45-73) % Lymph % (Auto) 10.5 L (20-40) % [place] % (Auto) 7.0 (2-11) % Eos % (Auto) 4.7 H (0-4) % Baso % (Auto) 0.7 (0-2) % Lymph # (Auto) 0.8 L (1.2-4.9) X10*3/uL [place] # (Auto) 0.5 (0.1-1.2) X10*3/uL Eos # (Auto) 0.3 (0.0-0.4) X10*3/uL Baso # (Auto) 0.1 (0.0-0.2) X10*3/uL Abs Immat Gran (auto) 0.03 (0.00-0.03) X10*3/uL Absolute Neuts (auto) 5.6 (2.0-8.3) x10*3/uL Absolute Nucleated RBC 0.000 (0.0-0.012) X10*3/uL Nucleated RBC % (auto) 0.0 (0.0-0.2) /100WBC PT 11.3 (10.9-12.4) SEC INR 1.0 (0.9-1.1) VBG pH 7.38 (7.32-7.43) VBG pCO2 42 mmHg VBG pO2 49 mmHg VBG HCO3 25 (22-26) mmol/L VBG O2 Saturation 78.0 % VBG Base Excess 0.7 mmol/L Sodium 142 (135-145) mmol/L Potassium 4.8 (3.3-5.1) mmol/L Chloride 108 (96-108) mmol/L Carbon Dioxide 28 (22-29) mmol/L Anion Gap 11 L (12-20) BUN 27 H (9-16) mg/dL Creatinine 1.76 H (0.5-1.4) mg/dL Estim Creat Clear Calc 22.9 Estimated GFR 28 Random Glucose 105 (60-115) mg/dL Lactic Acid (0.5-2.0) mmol/L Calcium 8.5 (8.4-10.2) mg/dL Magnesium 2.1 (1.6-2.6) mg/dL Total Bilirubin 0.4 (0.0-1.0) mg/dL AST 17 (5-31) U/L ALT 16 (0-31) U/L Alkaline Phosphatase 69 (39-117) U/L Troponin I High Sens 26.1 H D (<3.5-17.0) ng/L NT-Pro-B Natriuret Pep 2806.9 H (<300) pg/mL Total Protein 6.3 L (6.5-8.0) g/dL Albumin 3.7 (3.5-5.0) g/dL COVID-19 (NURYS) Negative (Negative) COVID-19 Clin Com See Note Influenza Type A (PUNEET) Negative (Negative) Influenza Type B (PUNEET) Negative (Negative) Influenza A & B Note See Note 04/24/25 Range/Units 13:38 WBC (4.8-10.8) X10*3/uL RBC (4.20-5.50) X10*6/uL Hgb (12.0-16.0) g/dl Hct (37.0-47.0) % MCV (80.0-98.0) fL MCH (27.0-33.0) pg MCHC (31.0-35.0) g/dl RDW (11.0-16.0) % Plt Count (160-400) X10*3/uL MPV (9.4-12.3) fL Immature Gran % (Auto) (0.0-0.4) % Neut % (Auto) (45-73) % Lymph % (Auto) (20-40) % [place] % (Auto) (2-11) % Eos % (Auto) (0-4) % Baso % (Auto) (0-2) % Lymph # (Auto) (1.2-4.9) X10*3/uL [place] # (Auto) (0.1-1.2) X10*3/uL Eos # (Auto) (0.0-0.4) X10*3/uL Baso # (Auto) (0.0-0.2) X10*3/uL Abs Immat Gran (auto) (0.00-0.03) X10*3/uL Absolute Neuts (auto) (2.0-8.3) x10*3/uL Absolute Nucleated RBC (0.0-0.012) X10*3/uL Nucleated RBC % (auto) (0.0-0.2) /100WBC PT (10.9-12.4) SEC INR (0.9-1.1) VBG pH (7.32-7.43) VBG pCO2 mmHg VBG pO2 mmHg VBG HCO3 (22-26) mmol/L VBG O2 Saturation % VBG Base Excess mmol/L Sodium (135-145) mmol/L Potassium (3.3-5.1) mmol/L Chloride (96-108) mmol/L Carbon Dioxide (22-29) mmol/L Anion Gap (12-20) BUN (9-16) mg/dL Creatinine (0.5-1.4) mg/dL Estim Creat Clear Calc Estimated GFR Random Glucose (60-115) mg/dL Lactic Acid 1.0 (0.5-2.0) mmol/L Calcium (8.4-10.2) mg/dL Magnesium (1.6-2.6) mg/dL Total Bilirubin (0.0-1.0) mg/dL AST (5-31) U/L ALT (0-31) U/L Alkaline Phosphatase (39-117) U/L Troponin I High Sens (<3.5-17.0) ng/L NT-Pro-B Natriuret Pep (<300) pg/mL Total Protein (6.5-8.0) g/dL Albumin (3.5-5.0) g/dL COVID-19 (NURYS) (Negative) COVID-19 Clin Com Influenza Type A (PUNEET) (Negative) Influenza Type B (PUNEET) (Negative) Influenza A & B Note Independent Interpretation I performed an independent interpretation of an: EKG Interpretation: EKG at 1149 shows normal sinus rhythm at 86 beats per minute. No definite acute ischemic changes. There is left axis deviation with a pulmonary disease pattern. Overall the EKG is similar to the previous EKG. Discharge Plan Discharge Clinical Impression: Rash due to allergy, Acute exacerbation of chronic obstructive pulmonary disease Patient Disposition: Admitted As Inpatient
--- NOTE | 2025-04-24 11:27 | ECG_ITS ---
Test Reason : builat leg swelling Blood Pressure : */* mmHG Vent. Rate : 86 BPM Atrial Rate : 86 BPM P-R Int : 136 ms QRS Dur : 86 ms QT Int : 358 ms P-R-T Axes : 54 -43 30 degrees QTcB Int : 428 ms Normal sinus rhythm Left axis deviation Pulmonary disease pattern Abnormal ECG When compared with ECG of 13-Mar-2025 14:15, No significant change was found Referred By: Jonna Mcelroy Electronically Signed By: Garry Aguayo
[2025-04-24 12:01] LABS: MANUAL DIFF FLAG NO
[2025-04-24 12:15] LABS: Hematocrit 36.7 % (37.0-47.0); Hemoglobin 10.7 g/dl (12.0-16.0); Imm Gran Abs Auto 0.03 X10*3/uL (0.00-0.03); Imm Gran Pct Auto 0.4 % (0.0-0.4); Lymphocytes Absolute Auto 0.8 X10*3/uL (1.2-4.9); Mean Corpuscular HGB Conc 29.2 g/dl (31.0-35.0); Mean Corpuscular Hemoglobin 29.1 pg (27.0-33.0); Mean Corpuscular Volume 99.7 fL (80.0-98.0); NRBC Abs Auto 0.000 X10*3/uL (0.0-0.012); NRBC Pct Auto 0.0 /100WBC (0.0-0.2); Platelet Count 243 X10*3/uL (160-400); Red Blood Count 3.68 X10*6/uL (4.20-5.50); White Blood Count 7.3 X10*3/uL (4.8-10.8)
[2025-04-24 12:22] LABS: Venous Blood Gas Refer to POC result
[2025-04-24 12:23] LABS: VBG HCO3 25 mmol/L (22-26); VBG O2 % Saturation 78.0 %
[2025-04-24 12:30] LABS: Alanine Aminotransferase 16 U/L (0-31); Albumin Level 3.7 g/dL (3.5-5.0); Alkaline Phosphatase 69 U/L (39-117); Anion Gap 11 (12-20); Aspartate Amino Transferase 17 U/L (5-31); Blood Urea Nitrogen 27 mg/dL (9-16); Calcium 8.5 mg/dL (8.4-10.2); Carbon Dioxide 28 mmol/L (22-29); Chloride 108 mmol/L (96-108); Creatinine Clr Calc Pharmacy 22.9; Estimated Glomerular Filt Rate 28; Magnesium 2.1 mg/dL (1.6-2.6); Potassium 4.8 mmol/L (3.3-5.1); Sodium 142 mmol/L (135-145); Total Protein 6.3 g/dL (6.5-8.0)
[2025-04-24 12:35] LABS: INTERNATIONAL NORM RATIO 1.0 (0.9-1.1); Prothrombin Time 11.3 SEC (10.9-12.4)
[2025-04-24 12:45] LABS: COVID-19 Test Negative (Negative); IDNOW Serial# 55D5AD1C; IDNOW Serial# 58CA691E; Influenza B2 Negative (Negative)
--- NOTE | 2025-04-24 12:47 | PC.NURSE ---
Pt returned from Xray on RA, O2 74%, no distress noted at this time, pt placed on NC 2L and recovered well to mid 90s on O2, MD Bal Solares aware.
--- NOTE | 2025-04-24 12:47 | PC.NURSE ---
Pt uses room air at home, currently on 3L to keep sats >90. Pt was in the 70's on room air after imaging.
[2025-04-24 12:48] LABS: NT Pro B Type Natriuretic Pept 2806.9 pg/mL (<300); Troponin-I High Sensitivity 26.1 ng/L (<3.5-17.0)
[2025-04-24] MEDS: Albuterol Sulfate 2.5 MG, Albuterol/Iprat 2.5/0.5MG 3 ML 3 ML INHALE (13:07)
--- NOTE | 2025-04-24 13:47 | PM.IMHP ---
History of Present Illness Date of Service: 04/24/25 Chief Complaint: rash 80-year-old woman presented to the ER with complaints of diffuse erythematous rash to the body and shortness breath and wheezing. Patient reported that she started to have a diffuse body rash that started last night. She reported pruritus to her lower extremities. She reported hydralazine as a new medication. She denied any fever, chills, nausea, vomiting, diarrhea. She did have some shortness of breath and was noted to be in COPD exacerbation, she was noted to be hypoxic on presentation oxygen saturation in the 80s. She was placed on 2 L of nasal cannula with good effect. Chest x-ray in the ER showed COPD with chronic changes with no definitive consolidation. She was not noted to have leukocytosis or fever. Creatinine noted to be elevated from previous at 1.76. BNP elevated with no acute CHF exacerbation. Patient received a dose of IV Solu-Medrol, albuterol, Claritin, Benadryl. She will be admitted for further management and treatment of acute drug rash and acute hypoxic respiratory failure secondary to COPD exacerbation. Review of Systems Review of Systems: Denies any recent fever chills or decrease in appetite respiratory reported some shortness of breath and wheezing cardiovascular denied chest pain gastrointestinal denies any dysphagia abdominal pain nausea vomiting or diarrhea genitourinary denies any dysuria frequency or hematuria musculoskeletal denies any joint pain or swelling neuropsych denies any weakness or seizures all other systems reviewed are negative Reported skin rash started yesterday [facility] Medical History High cholesterol Epilepsy Seizure disorder Pituitary adenoma Social History Household Members: Children Housing: House Do you presently have visiting nurse or other home services: No Alcohol intake: never Patient Tobacco Use Status: Former Tobacco user Tobacco use type: Cigarette Cigarette Packs Per Day: 0.5 Cigarettes Per Day: 10.0 Smoked in Last 30 Days: No e-Cigarette/Vaping Use: Never Used Second Hand Smoke Exposure: No Use of substances other than those prescribed or required for medical reasons: Yes Advance Directives: No Advance Directives Information Provided: Yes Do you have a plan to hurt others: No Plan service: No Meds Allergies Allergy/AdvReac Type Severity Reaction Status Date / Time carbamazepine (From Tegretol) Allergy Unknown Verified 04/24/25 11:27 Home Medications ?Medication ?Instructions ?Recorded ?Confirmed ?Last Taken ?Type alendronate 70 mg tablet 70 mg PO WE 01/29/25 04/24/25 04/11/25 History Held on 03/12/25. Instructions: Resume on 03/20/25. cabergoline 0.5 mg tablet 0.25 mg PO WE 01/29/25 04/24/25 04/18/25 History pravastatin 80 mg tablet 80 mg PO BEDTIME 01/29/25 04/24/25 04/24/25 History furosemide 20 mg tablet (Lasix) 20 mg PO Q48H 04/24/25 04/24/25 04/19/25 History hydralazine 25 mg tablet 25 mg PO BID 04/24/25 04/24/25 04/24/25 History lisinopril 40 mg tablet 40 mg PO DAILY 04/24/25 04/24/25 04/24/25 History Physical Exam Vital Signs and Narrative: Vital Signs: Last Vital Signs Temp 100.4 F 04/24/25 11:50 Pulse 81 04/24/25 13:07 Resp 16 04/24/25 13:07 BP 104/49 L 04/24/25 11:50 Pulse Ox 92 04/24/25 12:46 O2 Del Method Nasal Cannula 04/24/25 12:46 O2 Flow Rate 2 04/24/25 12:46 BMI result Body Mass Index 34.0 Appearing in no acute distress head is normocephalic atraumatic eyes pupils are PERRLA sclera is anicteric mouth throat mucous membranes are intact and moist neck is supple no lymphadenopathy, no JVD noted lung sounds mild exp wheezing heart regular rate rhythm, clear S1, S2 positive bowel sounds, abdomen is soft, nontender neuro patient is alert x3, no focal deficits Diffuse pruritic erythematous patchy rash from neck, trunk, lower extremity Results Labs 04/24/25 11:55 04/24/25 11:55 Labs: Laboratory Results - last 24 hr 04/24/25 04/24/25 04/24/25 11:55 12:13 12:18 MCV 99.7 H MCH 29.1 MCHC 29.2 L RDW 13.8 Plt Count 243 D MPV 9.0 L Immature Gran % (Auto) 0.4 Neut % (Auto) 76.7 H Lymph % (Auto) 10.5 L [place] % (Auto) 7.0 Eos % (Auto) 4.7 H Baso % (Auto) 0.7 Lymph # (Auto) 0.8 L [place] # (Auto) 0.5 Eos # (Auto) 0.3 Baso # (Auto) 0.1 Abs Immat Gran (auto) 0.03 Absolute Neuts (auto) 5.6 Absolute Nucleated RBC 0.000 Nucleated RBC % (auto) 0.0 PT 11.3 INR 1.0 VBG pH 7.38 VBG pCO2 42 VBG pO2 49 VBG HCO3 25 VBG O2 Saturation 78.0 VBG Base Excess 0.7 Anion Gap 11 L Estim Creat Clear Calc 22.9 Estimated GFR 28 Random Glucose 105 Calcium 8.5 Magnesium 2.1 Total Bilirubin 0.4 AST 17 ALT 16 Alkaline Phosphatase 69 Troponin I High Sens 26.1 H D NT-Pro-B Natriuret Pep 2806.9 H Total Protein 6.3 L Albumin 3.7 COVID-19 (NURYS) Negative COVID-19 Clin Com See Note Influenza Type A (PUNEET) Negative Influenza Type B (PUNEET) Negative Influenza A & B Note See Note Imaging Radiologist's Impressions: Impressions Chest X-Ray 04/24/25 12:35 IMPRESSION: COPD with chronic changes as discussed. No definite active disease. Electronically signed by: Gilbert Snyder MD 04/24/2025 12:55 PM EDT RP Assessment and Plan (1) Rash due to allergy: Status: Acute Plan 80-year-old woman presented to the ER with complaints of shortness breath and wheezing his has diffuse body rash. Drug/allergic rash Suddenly started on hydralazine which could cause this type of pruritic erythematous rash On IV steroids IV Benadryl as needed Topical hydrocortisone for pruritus May use cold compresses to lower extremities to avoid itching Punch biopsy ordered MANJULA Possibly secondary to dehydration, also on lisinopril, we will hold Gentle IV fluid hydration Recheck BMP tomorrow If no improvement consider Nephrology consultation Acute hypoxic respiratory failure secondary to Acute COPD exacerbation IV Solu-Medrol Scheduled DuoNebs Continue supplemental oxygen to keep oxygen saturation greater than 90% Normocytic anemia No signs of acute bleeding Elevated BNP No acute exacerbation noted Continue home dose of Lasix History of seizure disorder Continue lamotrigine Hyperlipidemia Continue statin Obesity class 1. BMI 34.0 Discussed importance of weight management as this may be contributing to worsening of other comorbidities DVT prophylaxis with heparin Full code Patient will require at least 2 day hospitalization for treatment of acute drug rash requiring IV steroids and management of skin to avoid breakdown from scratching. She also has an acute COPD exacerbation requiring IV steroids, scheduled DuoNebs and oxygen supplementation. If the rash is not improved she may require specialty consultation. Quality Stroke Does the patient have a stroke diagnosis?: No VTE Prior VTE?: No VTE Risk Level:: Medical - moderate - high VTE Device Contraindication: Treatment Not Indicated VTE Drug Contraindication: N/A - Med Ordered
--- NOTE | 2025-04-24 14:50 | PHA.MEDREC ---
Pharmacy Consult ? Medication Reconciliation Pharmacy has completed the medication reconciliation. Spoke with pt to confirm medications. Pt had all RX bottles on hand to confirm medications. She takes Alendronate and cabergoline on Wednesday.
[2025-04-24] MEDS: Hydrocortisone 1 % Cream 28.35 GM TUBE 1 APPL TOPICAL ×2 (16:17→22:12)
--- NOTE | 2025-04-24 16:29 | PC.NURSE ---
Hydrocortisone cream to lower legs, as this area itches the most. Taking benedryl at this time.
[2025-04-24] MEDS: 0.9 % Sodium Chloride Flush 3 ML SYRINGE IVFLUSH (16:32)
[2025-04-24 16:52] LABS: Eos%MD 0.4 %; WBCANC 7.0 X10*3/uL
[2025-04-25] VITALS (9 sets, daily range): BP systolic 110–180; BP diastolic 52–80; PULSE 79–90; RESP 14–18; TEMP 36.5–36.7; O2SAT 92–95; BMI 36.5
[2025-04-25 05:27] LABS: Hematocrit 33.9 % (37.0-47.0); Hemoglobin 9.9 g/dl (12.0-16.0); Mean Corpuscular HGB Conc 29.2 g/dl (31.0-35.0); Mean Corpuscular Hemoglobin 29.4 pg (27.0-33.0); Mean Corpuscular Volume 100.6 fL (80.0-98.0); NRBC Abs Auto 0.000 X10*3/uL (0.0-0.012); NRBC Pct Auto 0.0 /100WBC (0.0-0.2); Platelet Count 220 X10*3/uL (160-400); Red Blood Count 3.37 X10*6/uL (4.20-5.50); White Blood Count 5.9 X10*3/uL (4.8-10.8)
[2025-04-25 05:44] LABS: Anion Gap 12 (12-20); Blood Urea Nitrogen 27 mg/dL (9-16); Calcium 8.0 mg/dL (8.4-10.2); Carbon Dioxide 26 mmol/L (22-29); Chloride 110 mmol/L (96-108); Creatinine Clr Calc Pharmacy 24.6; Estimated Glomerular Filt Rate 30; Potassium 5.2 mmol/L (3.3-5.1); Sodium 143 mmol/L (135-145)
--- NOTE | 2025-04-25 07:18 | P.PNIM_ITS ---
Subjective Subjective Date of Service: 04/25/25 Interval History: pt had punch biopsy - awaiting results Reports itching is better She is very spiritied and talkative. Review of Systems Review of Systems: Yes all other systems are reviewed and are negative Physical Exam 2 Exam: Exam: General: AOx3, no acute distress, very talkative and high spirited Resp: CTA bilaterally CVS: S1, S2, RRR GI: +BS, NT, no distention Skin: vasculitic appearing rash, s/p punch biopsy site c/d/i Vital Signs: Vital Signs: Last Vital Signs Temp 98.8 F 04/24/25 23:09 Pulse 79 04/25/25 05:06 Resp 15 04/25/25 05:06 BP 117/67 04/25/25 05:06 Pulse Ox 94 04/25/25 05:06 O2 Del Method Nasal Cannula 04/25/25 05:06 O2 Flow Rate 2 04/25/25 05:06 BMI result Body Mass Index 34.0 Objective Data Active Medications Acetaminophen (Acetaminophen 325 Mg Tablet) 650 mg PO Q6H PRN PRN Reason: Pain, Mild 1-3,fever,headache Albuterol/Ipratropium (Albuterol/Iprat 2.5/0.5mg 3 Ml Ampul.Neb) 3 ml INHALE RQ4H WHILE AWAKE [facility] Last Admin: 04/24/25 21:40 Dose: Not Given Documented By: JEB Non-Admin Reason: See Note Aspirin (Aspirin Enteric Coated 81 Mg Tablet.Dr) 81 mg PO DAILY [facility] Calcium Carbonate (Calcium Carbonate 750 Mg Tab.Chew) 750 mg PO Q4H PRN PRN Reason: Heartburn Diphenhydramine HCl (Diphenhydramine Hcl 50 Mg/Ml Vial) 12.5 mg IVPUSH Q6H PRN PRN Reason: Itching Furosemide (Furosemide 20 Mg Tablet) 20 mg PO Q48H [facility]; Protocol Last Admin: 04/24/25 17:15 Dose: 20 mg Documented By: AYO Heparin Sodium (Porcine) (Heparin Sodium,Porcine 5,000 Unit/Ml Vial) 5,000 unit SUBCUT Q12H [facility] Last Admin: 04/25/25 02:09 Dose: 5,000 unit Documented By: EBER Hydrocortisone (Hydrocortisone 1 % Cream 28.35 Gm Tube) 1 appl TOPICAL BID [facility]; Protocol Last Admin: 04/24/25 22:12 Dose: 1 appl Documented By: EBER Sodium Chloride (Ns) 1,000 mls @ 80 mls/hr IVCONT .[id number] [facility] Last Admin: 04/24/25 16:31 Dose: 80 mls/hr Documented By: AYO Isosorbide Mononitrate (Isosorbide Mononitrate 30 Mg Tab.Er.24h) 30 mg PO DAILY [facility]; Protocol Lamotrigine (Lamotrigine 25 Mg Tablet) 50 mg PO BID [facility] Last Admin: 04/24/25 22:13 Dose: 50 mg Documented By: EBER Magnesium Hydroxide (Milk Of Magnesia 30 Ml Oral.Susp) 30 ml PO DAILY PRN PRN Reason: Constipation Melatonin (Melatonin 3 Mg Tablet) 6 mg PO BEDTIME PRN PRN Reason: Insomnia Methylprednisolone Sodium Succinate (Methylprednisolone Sod Succ 40 Mg/Ml Vial) 40 mg IVPUSH Q12H [facility] Last Admin: 04/25/25 05:09 Dose: 40 mg Documented By: EBER Ondansetron HCl (Ondansetron Hcl 4 Mg/2 Ml Vial) 4 mg IVPUSH Q8H PRN PRN Reason: Nausea and Vomiting Pravastatin Sodium (Pravastatin Sodium 80 Mg Tablet) 80 mg PO BEDTIME [facility] Last Admin: 04/24/25 22:24 Dose: 80 mg Documented By: EBER Sodium Chloride (0.9 % Sodium Chloride Flush 3 Ml Syringe) 3 ml IVFLUSH QSHIFT [facility] Last Admin: 04/25/25 00:40 Dose: Not Given Documented By: EBER Non-Admin Reason: IV Running Labs 04/25/25 05:16 04/25/25 05:16 Labs: Laboratory Results - last 24 hr 04/24/25 04/24/25 04/24/25 11:55 12:13 12:18 MCV 99.7 H MCH 29.1 MCHC 29.2 L RDW 13.8 Plt Count 243 D MPV 9.0 L Immature Gran % (Auto) 0.4 Neut % (Auto) 76.7 H Lymph % (Auto) 10.5 L Smith % (Auto) 7.0 Eos % (Auto) 4.7 H Baso % (Auto) 0.7 Lymph # (Auto) 0.8 L Smith # (Auto) 0.5 Eos # (Auto) 0.3 Baso # (Auto) 0.1 Abs Immat Gran (auto) 0.03 Absolute Neuts (auto) 5.6 Absolute Nucleated RBC 0.000 Nucleated RBC % (auto) 0.0 ESR Hold Purple Top PT 11.3 INR 1.0 VBG pH 7.38 VBG pCO2 42 VBG pO2 49 VBG HCO3 25 VBG O2 Saturation 78.0 VBG Base Excess 0.7 Anion Gap 11 L Estim Creat Clear Calc 22.9 Estimated GFR 28 Random Glucose 105 Lactic Acid Calcium 8.5 Magnesium 2.1 Total Bilirubin 0.4 AST 17 ALT 16 Alkaline Phosphatase 69 Troponin I High Sens 26.1 H D C-React Prot High Sens NT-Pro-B Natriuret Pep 2806.9 H Total Protein 6.3 L Albumin 3.7 COVID-19 (NURYS) Negative COVID-19 Clin Com See Note Influenza Type A (PUNEET) Negative Influenza Type B (PUNEET) Negative Influenza A & B Note See Note 04/24/25 04/24/25 04/25/25 13:38 16:40 05:16 MCV 100.6 H MCH 29.4 MCHC 29.2 L RDW 13.5 Plt Count 220 MPV 9.1 L Immature Gran % (Auto) Neut % (Auto) Lymph % (Auto) Smith % (Auto) Eos % (Auto) Baso % (Auto) Lymph # (Auto) Smith # (Auto) Eos # (Auto) 0.0 Baso # (Auto) Abs Immat Gran (auto) Absolute Neuts (auto) Absolute Nucleated RBC 0.000 Nucleated RBC % (auto) 0.0 ESR 58 H Hold Purple Top SEE NOTE PT INR VBG pH VBG pCO2 VBG pO2 VBG HCO3 VBG O2 Saturation VBG Base Excess Anion Gap 12 Estim Creat Clear Calc 24.6 Estimated GFR 30 Random Glucose 148 H Lactic Acid 1.0 Calcium 8.0 L Magnesium Total Bilirubin AST ALT Alkaline Phosphatase Troponin I High Sens C-React Prot High Sens >20.0 H NT-Pro-B Natriuret Pep Total Protein Albumin COVID-19 (NURYS) COVID-19 Clin Com Influenza Type A (PUNEET) Influenza Type B (PUNEET) Influenza A & B Note Assessment and Plan (1) Exanthema: Status: Acute Plan Pt is an 80F PMH COPD (not officially diagnosed ,states not on home O2), pituitary adenoma, petite mal seizures, CKD 3, hypertension, atherosclerotic vascular disease, osteoporosis, nicotine dependence presented with an acute diffuse maculopaular rash most likely 2/2 Drug reaction (Hydralazine). She underwent punch biopsy and being rx symptomatically with steroids. Exanthematous drug eruptions?2/2 Hydralazine Steroids po and topical audi , benadryl - optimal response Avoid Hydralazine- added to allergy list IgE and possible OP allergy/immunology workup) s/p skin punch biopsy - will await results If pt responding , will monitor for 1-2 days and DC her AECOPD in a current nicotine smoker with recent exacerbation Nicotine dependence - Nicotine replacement Copd modular - IV steroids, prn and audi inhalers and likely home O2 eval Seizures - cont home lamictal MANJULA on CKD3 - likely prerenal and renal , renally dose meds and avoid nephrotoxins DVT - Heparin Pt needs ongoing IV steroids (for COPD and Skin exanthem) and is at risk of DRESS vs SJS and need 1-2 days of ongoing hosp This note is constructed using voice recognition software. While every effort has been made to ensure accuracy, photography editor errors may have been included. Quality Stroke Does the patient have a stroke diagnosis?: No VTE Prior VTE?: No VTE Risk Level:: Medical - moderate - high VTE Device Contraindication: Treatment Not Indicated VTE Drug Contraindication: N/A - Med Ordered
[2025-04-25] MEDS: Albuterol/Iprat 2.5/0.5MG 3 ML AMPUL.NEB INHALE ×2 (07:50→12:09)
--- NOTE | 2025-04-25 08:01 | HO.NURTONUR ---
PER MD: 80-year-old woman presented to the ER with complaints of diffuse erythematous rash to the body and shortness breath and wheezing. Patient reported that she started to have a diffuse body rash that started last night. She reported pruritus to her lower extremities. She reported hydralazine as a new medication. She denied any fever, chills, nausea, vomiting, diarrhea. She did have some shortness of breath and was noted to be in COPD exacerbation, she was noted to be hypoxic on presentation oxygen saturation in the 80s. She was placed on 2 L of nasal cannula with good effect. Chest x-ray in the ER showed COPD with chronic changes with no definitive consolidation. She was not noted to have leukocytosis or fever. Creatinine noted to be elevated from previous at 1.76. BNP elevated with no acute CHF exacerbation. Patient received a dose of IV Solu-Medrol, albuterol, Claritin, Benadryl. She will be admitted for further management and treatment of acute drug rash and acute hypoxic respiratory failure secondary to COPD exacerbation. PER RN: Alert and oriented, ambulatory with minor assistance NC O2 2L IV 20G in right AC NS 80 mL/hr Regular diet Drug rash over body Becomes hypoxic quick without O2 and on exertion No pain Takes meds no issues
--- NOTE | 2025-04-25 08:25 | PM.CNGS ---
History of Present Illness Consult details Consult date: 04/25/25 Narrative: [age] year old female with known COPD, epilepsy, admitted 2 days ago because of shortness of breath and a skin rash. She has had this rash since about 3 days ago. She this is diffuse, mostly in the torso as well as the lower extremities. She denies any fever or chills She was short of breath on admission and was treated for exacerbation of her COPD We have been consulted for biopsy of the skin. Review of Systems Constitutional: Constitutional: Denies chills and Denies fever(s) Cardiovascular: Cardiovascular: Denies chest pain, Reports dyspnea and Reports dyspnea on exertion Respiratory: Respiratory: Reports dyspnea and Reports dyspnea on exertion Gastrointestinal: Gastrointestinal: Denies abdominal pain Genitourinary: Genitourinary: Denies difficulty voiding Musculoskeletal: Musculoskeletal: Reports muscle weakness PMFSH Past Medical History Medical History High cholesterol Epilepsy Seizure disorder Pituitary adenoma Social History Social History Household Members: Children Housing: House Do you presently have visiting nurse or other home services: No Alcohol intake: never Patient Tobacco Use Status: Current someday Tobacco user Tobacco use type: Cigarette Cigarette Packs Per Day: 0.5 Cigarettes Per Day: 10.0 Smoked in Last 30 Days: No e-Cigarette/Vaping Use: Never Used Second Hand Smoke Exposure: No Use of substances other than those prescribed or required for medical reasons: Yes Advance Directives: No Advance Directives Information Provided: Yes Do you have a plan to hurt others: No Plan Nutrition Risks: No Nutritional Risk service: No Meds Allergies Allergy/AdvReac Type Severity Reaction Status Date / Time carbamazepine (From Tegretol) Allergy Unknown Verified 04/24/25 11:27 Active Medications: Current Medications Acetaminophen (Acetaminophen 325 Mg Tablet) 650 mg PO Q6H PRN PRN Reason: Pain, Mild 1-3,fever,headache Albuterol/Ipratropium (Albuterol/Iprat 2.5/0.5mg 3 Ml Ampul.Neb) 3 ml INHALE RQ4H WHILE AWAKE [facility] Last Admin: 04/25/25 07:50 Dose: 3 ml Aspirin (Aspirin Enteric Coated 81 Mg Tablet.) 81 mg PO DAILY [facility] Calcium Carbonate (Calcium Carbonate 750 Mg Tab.Chew) 750 mg PO Q4H PRN PRN Reason: Heartburn Diphenhydramine HCl (Diphenhydramine Hcl 50 Mg/Ml Vial) 12.5 mg IVPUSH Q6H PRN PRN Reason: Itching Furosemide (Furosemide 20 Mg Tablet) 20 mg PO Q48H [facility]; Protocol Last Admin: 04/24/25 17:15 Dose: 20 mg Heparin Sodium (Porcine) (Heparin Sodium,Porcine 5,000 Unit/Ml Vial) 5,000 unit SUBCUT Q12H [facility] Last Admin: 04/25/25 02:09 Dose: 5,000 unit Hydrocortisone (Hydrocortisone 1 % Cream 28.35 Gm Tube) 1 appl TOPICAL BID [facility]; Protocol Last Admin: 04/24/25 22:12 Dose: 1 appl Sodium Chloride (Ns) 1,000 mls @ 80 mls/hr IVCONT .[id number] [facility] Last Admin: 04/25/25 07:28 Dose: 80 mls/hr Isosorbide Mononitrate (Isosorbide Mononitrate 30 Mg Tab.Er.24h) 30 mg PO DAILY [facility]; Protocol Lamotrigine (Lamotrigine 25 Mg Tablet) 50 mg PO BID [facility] Last Admin: 04/24/25 22:13 Dose: 50 mg Magnesium Hydroxide (Milk Of Magnesia 30 Ml Oral.Susp) 30 ml PO DAILY PRN PRN Reason: Constipation Melatonin (Melatonin 3 Mg Tablet) 6 mg PO BEDTIME PRN PRN Reason: Insomnia Methylprednisolone Sodium Succinate (Methylprednisolone Sod Succ 40 Mg/Ml Vial) 40 mg IVPUSH Q12H [facility] Last Admin: 04/25/25 05:09 Dose: 40 mg Ondansetron HCl (Ondansetron Hcl 4 Mg/2 Ml Vial) 4 mg IVPUSH Q8H PRN PRN Reason: Nausea and Vomiting Pravastatin Sodium (Pravastatin Sodium 80 Mg Tablet) 80 mg PO BEDTIME [facility] Last Admin: 04/24/25 22:24 Dose: 80 mg Sodium Chloride (0.9 % Sodium Chloride Flush 3 Ml Syringe) 3 ml IVFLUSH QSHIFT [facility] Last Admin: 04/25/25 07:28 Dose: Not Given Home Medications ?Medication ?Instructions ?Recorded ?Confirmed ?Last Taken ?Type alendronate 70 mg tablet 70 mg PO WE 01/29/25 04/24/25 04/11/25 History Held on 03/12/25. Instructions: Resume on 03/20/25. cabergoline 0.5 mg tablet 0.25 mg PO WE 01/29/25 04/24/25 04/18/25 History pravastatin 80 mg tablet 80 mg PO BEDTIME 01/29/25 04/24/25 04/24/25 History furosemide 20 mg tablet (Lasix) 20 mg PO Q48H 04/24/25 04/24/25 04/19/25 History hydralazine 25 mg tablet 25 mg PO BID 04/24/25 04/24/25 04/24/25 History lisinopril 40 mg tablet 40 mg PO DAILY 04/24/25 04/24/25 04/24/25 History Physical Exam Vital Signs: Vital Signs: Last Vital Signs Temp 97.7 F 04/25/25 08:13 Pulse 84 04/25/25 08:13 Resp 18 04/25/25 08:13 BP 110/52 L 04/25/25 08:13 Pulse Ox 92 04/25/25 08:13 O2 Del Method Nasal Cannula 04/25/25 08:13 O2 Flow Rate 2 04/25/25 08:13 BMI result Body Mass Index 34.0 Const: General: comfortable and no acute distress Resp: Other: Mildly short of breath Cardio: Rate: regular rate GI: Palpation (GI): Soft to palpation and not firm Skin: Other: Diffuse rash, mostly in the torso, and lower extremities from the thigh distally Results Labs 04/25/25 05:16 04/25/25 05:16 Labs: Abnormal lab results 04/24/25 04/24/25 04/24/25 Range/Units 11:55 12:13 16:40 RBC 3.68 L (4.20-5.50) X10*6/uL Hgb 10.7 L (12.0-16.0) g/dl Hct 36.7 L (37.0-47.0) % MCV 99.7 H (80.0-98.0) fL MCHC 29.2 L (31.0-35.0) g/dl MPV 9.0 L (9.4-12.3) fL Neut % (Auto) 76.7 H (45-73) % Lymph % (Auto) 10.5 L (20-40) % Eos % (Auto) 4.7 H (0-4) % Lymph # (Auto) 0.8 L (1.2-4.9) X10*3/uL ESR 58 H (0-20) MM/HR Potassium (3.3-5.1) mmol/L Chloride (96-108) mmol/L Anion Gap 11 L (12-20) BUN 27 H (9-16) mg/dL Creatinine 1.76 H (0.5-1.4) mg/dL Random Glucose (60-115) mg/dL Calcium (8.4-10.2) mg/dL Troponin I High Sens 26.1 H D (<3.5-17.0) ng/L C-React Prot High Sens >20.0 H mg/L NT-Pro-B Natriuret Pep 2806.9 H (<300) pg/mL Total Protein 6.3 L (6.5-8.0) g/dL 04/25/25 Range/Units 05:16 RBC 3.37 L (4.20-5.50) X10*6/uL Hgb 9.9 L (12.0-16.0) g/dl Hct 33.9 L (37.0-47.0) % MCV 100.6 H (80.0-98.0) fL MCHC 29.2 L (31.0-35.0) g/dl MPV 9.1 L (9.4-12.3) fL Neut % (Auto) (45-73) % Lymph % (Auto) (20-40) % Eos % (Auto) (0-4) % Lymph # (Auto) (1.2-4.9) X10*3/uL ESR (0-20) MM/HR Potassium 5.2 H (3.3-5.1) mmol/L Chloride 110 H (96-108) mmol/L Anion Gap (12-20) BUN 27 H (9-16) mg/dL Creatinine 1.64 H (0.5-1.4) mg/dL Random Glucose 148 H (60-115) mg/dL Calcium 8.0 L (8.4-10.2) mg/dL Troponin I High Sens (<3.5-17.0) ng/L C-React Prot High Sens mg/L NT-Pro-B Natriuret Pep (<300) pg/mL Total Protein (6.5-8.0) g/dL Short CBC 04/24/25 04/25/25 Range/Units 11:55 05:16 WBC 7.3 5.9 (4.8-10.8) X10*3/uL Hgb 10.7 L 9.9 L (12.0-16.0) g/dl Hct 36.7 L 33.9 L (37.0-47.0) % Plt Count 243 D 220 (160-400) X10*3/uL BMP 04/24/25 04/25/25 11:55 05:16 Sodium 142 143 Potassium 4.8 5.2 H Chloride 108 110 H Carbon Dioxide 28 26 BUN 27 H 27 H Creatinine 1.76 H 1.64 H Calcium 8.5 8.0 L Liver Function 04/24/25 Range/Units 11:55 Total Bilirubin 0.4 (0.0-1.0) mg/dL AST 17 (5-31) U/L ALT 16 (0-31) U/L Alkaline Phosphatase 69 (39-117) U/L Albumin 3.7 (3.5-5.0) g/dL All other labs normal. Assessment and Plan (1) Rash due to allergy: Status: Acute She has this diffuse skin rash as described above. A sponge by was recommended I explained to her the technique of the procedure and I reviewed the risks, benefits, and alternatives. She had given verbal consent Punch biopsy of the skin on the right I was done under local anesthesia at bedside. She tolerated procedure well Dry dressings can be done on the site of biopsy starting tomorrow. She can have oral pain meds for this as well. We can follow up on the path report. Procedures Date of Service Date of Service: 04/25/25 Procedure Note Procedure Note: Procedure: Dermal punch biopsy, skin and subcutaneous tissue of the right thigh Preop diagnosis: Diffuse skin rash The area on the right thigh with the rash was prepped and draped. Lidocaine 1% was used for local anesthesia. I used a Danette dermal punch biopsy to excise a piece of skin and subcutaneous fat. This has went for routine pathology. Dry dressings were applied. She tolerated procedure well. There were no immediate complications. There was no bleeding post procedure.
[2025-04-25] MEDS: Aspirin Enteric Coated 81 MG TABLET.DR PO (09:13)
--- NOTE | 2025-04-25 09:18 | MHC.CM.PN ---
S/P Diaphramatic Hernia repair Lives with S.O. + son Independent with all functional mobility A new HCP has been documented PCP Dr Geovanna Hwang DP Home self care he will arrange for transportation home from his S.O.
--- NOTE | 2025-04-25 09:32 | MHC.CM.PN ---
IMM 04/25/25 S/P L Maryellen ORIF Lives with son and x spouse HCP on file PCP Beatriz Lazcano DME Cane +Tub chair. She uses a cane outside prn. [facility] and [employer] in place. DP home resumption of [employer] and [employer]. Patients son or niece will provide transportation home.
[2025-04-25] MEDS: 0.9 % Sodium Chloride Flush 3 ML SYRINGE IVFLUSH (15:51)
[2025-04-25] MEDS: Hydrocortisone 1 % Cream 28.35 GM TUBE 1 APPL TOPICAL (20:28)
[2025-04-26 03:39] VITALS: BP 136/60; PULSE 86; RESP 18; TEMP 36.4; O2SAT 95
--- NOTE | 2025-04-26 07:10 | HO.PM.IMPN ---
Subjective Subjective Date of Service: 04/26/25 Physical Exam Vital Signs: Vital Signs: Last Vital Signs Temp 97.6 F 04/26/25 03:39 Pulse 86 04/26/25 03:39 Resp 18 04/26/25 03:39 BP 136/60 04/26/25 03:39 Pulse Ox 95 04/26/25 03:39 O2 Del Method Room Air 04/26/25 03:39 O2 Flow Rate 2 04/25/25 09:33 BMI result Body Mass Index 36.5 Objective Data Active Medications Acetaminophen (Acetaminophen 325 Mg Tablet) 650 mg PO Q6H PRN PRN Reason: Pain, Mild 1-3,fever,headache Albuterol/Ipratropium (Albuterol/Iprat 2.5/0.5mg 3 Ml Ampul.Neb) 3 ml INHALE RQ4H WHILE AWAKE [facility] Last Admin: 04/25/25 20:10 Dose: Not Given Documented By: LAURA Non-Admin Reason: Patient Refused Aspirin (Aspirin Enteric Coated 81 Mg Tablet.) 81 mg PO DAILY [facility] Last Admin: 04/25/25 09:13 Dose: 81 mg Documented By: MARIBETH Calcium Carbonate (Calcium Carbonate 750 Mg Tab.Chew) 750 mg PO Q4H PRN PRN Reason: Heartburn Diphenhydramine HCl (Diphenhydramine Hcl 50 Mg/Ml Vial) 12.5 mg IVPUSH Q6H PRN PRN Reason: Itching Furosemide (Furosemide 20 Mg Tablet) 20 mg PO Q48H [facility]; Protocol Last Admin: 04/24/25 17:15 Dose: 20 mg Documented By: AYO Heparin Sodium (Porcine) (Heparin Sodium,Porcine 5,000 Unit/Ml Vial) 5,000 unit SUBCUT Q12H [facility] Last Admin: 04/26/25 01:48 Dose: 5,000 unit Documented By: JENNY Hydrocortisone (Hydrocortisone 1 % Cream 28.35 Gm Tube) 1 appl TOPICAL BID [facility]; Protocol Last Admin: 04/25/25 20:28 Dose: 1 appl Documented By: JENNY Sodium Chloride (Ns) 1,000 mls @ 80 mls/hr IVCONT .[id number] [facility] Last Admin: 04/26/25 01:48 Dose: 80 mls/hr Documented By: JENNY Isosorbide Mononitrate (Isosorbide Mononitrate 30 Mg Tab.Er.24h) 30 mg PO DAILY [facility]; Protocol Last Admin: 04/25/25 09:13 Dose: 30 mg Documented By: MARIBETH Lamotrigine (Lamotrigine 25 Mg Tablet) 50 mg PO BID [facility] Last Admin: 04/25/25 20:28 Dose: 50 mg Documented By: JENNY Magnesium Hydroxide (Milk Of Magnesia 30 Ml Oral.Susp) 30 ml PO DAILY PRN PRN Reason: Constipation Melatonin (Melatonin 3 Mg Tablet) 6 mg PO BEDTIME PRN PRN Reason: Insomnia Methylprednisolone Sodium Succinate (Methylprednisolone Sod Succ 40 Mg/Ml Vial) 40 mg IVPUSH DAILY@1600 [facility] Ondansetron HCl (Ondansetron Hcl 4 Mg/2 Ml Vial) 4 mg IVPUSH Q8H PRN PRN Reason: Nausea and Vomiting Oxycodone HCl (Oxycodone Hcl Immed Release 5 Mg Tablet) 5 mg PO Q4H PRN PRN Reason: Pain, Moderate(Pain Scale 4-6) Pravastatin Sodium (Pravastatin Sodium 80 Mg Tablet) 80 mg PO BEDTIME [facility] Last Admin: 04/25/25 20:28 Dose: 80 mg Documented By: JENNY Sodium Chloride (0.9 % Sodium Chloride Flush 3 Ml Syringe) 3 ml IVFLUSH QSHIFT [facility] Last Admin: 04/25/25 20:34 Dose: Not Given Documented By: JENNY Non-Admin Reason: IV Running Labs 04/25/25 05:16 04/25/25 05:16 Microbiology Microbiology Results: Microbiology 04/24/25 12:13 Blood Culture - Preliminary Blood - Venous No growth after 24 hours. 04/24/25 12:13 Blood Culture - Preliminary Blood - Venous No growth after 24 hours. Quality Stroke Does the patient have a stroke diagnosis?: No VTE Prior VTE?: No VTE Risk Level:: Medical - moderate - high VTE Device Contraindication: Treatment Not Indicated VTE Drug Contraindication: N/A - Med Ordered
[2025-04-26 08:00] VITALS: BP 147/71; PULSE 80; RESP 18; TEMP 36.4; O2SAT 92
[2025-04-26] MEDS: Aspirin Enteric Coated 81 MG TABLET.DR PO (08:05)
[2025-04-26] MEDS: 0.9 % Sodium Chloride Flush 3 ML SYRINGE IVFLUSH (08:06)
[2025-04-26] MEDS: Hydrocortisone 1 % Cream 28.35 GM TUBE 1 APPL TOPICAL (08:09)
[2025-04-26] MEDS: Albuterol/Iprat 2.5/0.5MG 3 ML AMPUL.NEB INHALE ×2 (08:13→15:25)
[2025-04-26 08:14] VITALS: PULSE 71; RESP 18; O2SAT 94
[2025-04-26 14:48] VITALS: PULSE 85; O2SAT 92; O2SAT 93
--- NOTE | 2025-04-26 15:18 | P.DS_ITS ---
DS: Providers Provider Date of Service: 04/26/25 Date of admission: 04/24/25 13:45 Date of discharge: 04/26/25 Primary care physician: Preeti Brothers MD Consults: 04/24/25 15:34 Consult to General Surgery Routine Consulting Provider: [facility] General Surgeons Reason for consultation: punch biopsy of erythematous rash DS: Diagnosis Discharge Diagnosis (1) Exanthema: Status: Acute DS: Summary Hospital Course Hospital Course: Exanthematous drug eruptions?2/2 most likely Hydralazine (started 2 weeks ago) Pt is an 80F PMH COPD (not officially diagnosed ,states not on home O2), pituitary adenoma, petite mal seizures, CKD 3, hypertension, atherosclerotic vascular disease, osteoporosis, nicotine dependence presented with an acute diffuse maculopaular rash most likely 2/2 Drug reaction (Hydralazine). She underwent punch biopsy and being rx symptomatically with steroids, Benadryl with optimal response. Patient had a punch biopsy, we will need to be followed by her outpatient for the results which will take time as it is a send out-we will take more than a week. Hydralazine has been added to her allergy list. AECOPD in a current nicotine smoker with recent exacerbation, recently on prednisone taper, patient was not hypoxic on room air at the time of this discharge. Patient advised to continue using her inhalers, followed by her PCP/scheduled with pulmonology outpatient. Patient does not have official PFTs to diagnosed her with COPD. Given exacerbation, I believe she would benefit with at least a 5 day prednisone taper Nicotine dependence - Nicotine replacement, patient denies ongoing nicotine use. Extensive advice has been given to avoid/refrain from nicotine use Seizures - cont home lamictal MANJULA on CKD3 - resolved with fluids POA. Follow with Nephrology outpatient DVT - Heparin while inpatient Patient qualified for VNA services, is not hypoxic on room air does not need oxygen. Patient This note is constructed using voice recognition software. While every effort has been made to ensure accuracy, sales financial analyst errors may have been included. Time spent discussing smoking cessation with patient: more than 10 minutes Time Attestation Discharge Coordination Time (in mins): 35 Quality: Safe Use of Opioids Does Pt have an Active Cancer Diagnosis on the Problem List?: No Quality: Stroke Does the patient have a stroke diagnosis?: No Physical Exam 2 Vital Signs: Vital Signs: Last Vital Signs Temp 97.5 F 04/26/25 08:00 Pulse 71 04/26/25 08:14 Resp 18 04/26/25 08:14 BP 147/71 H 04/26/25 08:00 Pulse Ox 92 04/26/25 08:00 O2 Del Method Nasal Cannula 04/26/25 08:00 O2 Flow Rate 2 04/26/25 08:00 BMI result Body Mass Index 36.5 DS: Data Data Completed and Pending Pending studies at discharge: Pending at discharge 04/25/25 08:14 Surgical Path [Surgical] [PTH] Routine Labs on day of discharge: Preliminary micro results at discharge 04/24/25 12:13 Blood Culture - Preliminary Blood - Venous No growth after 48 hours. 04/24/25 12:13 Blood Culture - Preliminary Blood - Venous No growth after 48 hours. Discharge Plan Discharge Anticipated Discharge Date/Time: 04/26/25 14:53 Patient Disposition: Home Health Service Discharge Diagnosis: Exanthematous drug eruptions 2/2 Hydralazine [facility] [Outside] - 1 Week Jared RAVI [Outside] - 1 Week Mikayla Mary MD [Physician, Pulmonology] - 1 Week Preeti Brothers MD [Primary Care Provider, Internal Medicine] - 1 Week Discharge Medications: New diphenhydramine HCl 25 mg capsule 25 mg PO TID PRN (Reason: allergic reaction) Qty: 20 0RF hydrocortisone [Anti-Itch (HC)] 1 % cream 1 appl topical TID PRN (Reason: allergic reaction) Qty: 453.6 3RF Continued lamotrigine 25 mg tablet 50 mg PO BID Qty: 180 0RF isosorbide mononitrate 30 mg Tablet Extended Release 24 Hr 30 mg PO DAILY Qty: 90 0RF Protocol: Hold for SBP< HOLD for SBP < : 90 aspirin 81 mg Tablet,Delayed Release (Dr/Ec) 81 mg PO DAILY Qty: 90 0RF lisinopril 40 mg tablet 40 mg PO DAILY furosemide [Lasix] 20 mg tablet 20 mg PO Q48H albuterol sulfate 90 mcg/actuation aerosol powdr breath activated 1 inh inhalation Q4-6H PRN (Reason: shortness of breath) Qty: 1 0RF alendronate 70 mg tablet 70 mg PO WE pravastatin 80 mg tablet 80 mg PO BEDTIME cabergoline 0.5 mg tablet 0.25 mg PO WE Discontinued hydralazine 25 mg tablet 25 mg PO BID Discharge Orders: Discharge Order (Routine); Ordered 04/26/25 Ordered By: Jessenia Parisi Diet: Low salt diet Activity on Discharge: As tolerated Stand Alone Forms: Patient Portal Discharge page Print Language: Namibian Activity Restrictions/Additional Instructions: Immediate actions * Discontinue hydralazine:?The offending medication is stopped immediately. In most cases, this is the primary treatment needed for drug-induced lupus. * Monitor for delayed reactions:?Some serious reactions, like drug-induced lupus, can occur after months or years of treatment, and some symptoms may persist for weeks or months after stopping the drug.? Potential drug reactions 1. Drug-induced lupus erythematosus (DILE):?Hydralazine is one of the most common drugs associated with DILE, an autoimmune reaction with symptoms similar to systemic lupus erythematosus (SLE).? * Symptoms:?Joint and muscle pain, fever, fatigue, weight loss, and a skin rash, which can sometimes appear as a butterfly rash on the face. Inflammation of the lining around the heart (pericarditis) or lungs (pleuritis) can also occur. * Action at discharge:?Monitor symptoms. In severe cases, a hospital stay may be needed to start immunosuppressive therapy.? 2. Allergic reactions: * Symptoms:?Rash, hives, itching, fever, or swelling. * Action at discharge:?Discontinue the drug. Symptomatic treatment with antihistamines or topical corticosteroids may be prescribed.? 3. Vasculitis:?In some cases, hydralazine can cause a serious inflammatory condition of the blood vessels.? * Symptoms:?Can range from skin rashes with red or purple spots (petechiae or purpura) to more severe organ damage involving the lungs (diffuse alveolar hemorrhage) or kidneys (glomerulonephritis). * Action at discharge:?Requires close follow-up and may necessitate immunosuppressive medications like corticosteroids.? 4. Nerve problems (Peripheral neuritis): * Symptoms:?Numbness, tingling, or burning sensations, most often in the hands and feet. * Action at discharge:?Discontinue the drug. Vitamin B6 (pyridoxine) supplementation may be prescribed to treat or prevent this condition.? General discharge instructions * Avoid the trigger drug:?Patients should be explicitly told to never take hydralazine again. * New medication plan:?An alternative blood pressure medication will be prescribed, as hydralazine is typically not a first-line treatment. * Symptom monitoring:?Patients should be instructed on what symptoms to watch for at home and when to seek immediate medical attention. This includes signs of worsening lupus, a severe rash (blisters), chest pain, or symptoms of organ damage. * Patient education:?Emphasize that long-term side effects like drug-induced lupus can appear months into treatment and may not resolve immediately after stopping the drug.? Care Plan Goals: Getting rid of hydralazine that you have at home Ensuring adequate follow-up with PCP to adjust her home medications Please follow-up with pulmonology outpatient within a week Please consult Allergy immunology as you likely need to get checked for other type of allergies that you might have for any medications. I have given new Benadryl hydrocortisone cream that you need to take as instructed, however you need to follow up with your PCP for further management and come back to the ED if you notice any further reactions. Health Concerns: See above Plan of Treatment: See above Assessment: See above Patient Instructions: Acute Rash (DC), Allergy Testing (DC)
[2025-04-26 15:25] VITALS: PULSE 80; RESP 18; O2SAT 92
[2025-04-26 15:51] VITALS: BP 138/64; PULSE 86; RESP 16; TEMP 36.5; O2SAT 92
--- NOTE | 2025-04-26 16:01 | MHC.CM.PN ---
Patient medically cleared to discharge today. PT eval was done this afternoon. The patient does not qualify for STR. The recommendation is STR. NA will resume services. A home o2 eval was also done this afternoon. The patient does not qualify for Home oxygen. [facility] has been notified of the discharge today. A face 2 face was requested to add on PT. Patient has arranged for transportation home.
== END 2025-04-26 16:26 | disposition home health service (06) | DRG 606 ==
LOC: HO.ED 13:49 → HO.EDOVER 13:54 → HO.S3 04-25 07:27
PROVIDERS: Registered Nurse Emergency; Admitting Provider Nurse Practitioner Acute Care; Emergency Provider Emergency Medicine; PCP Internal Medicine; Visit Provider Student in an Organized Health Care Education/Training Program
DX: L27.0 Generalized skin eruption due to drugs and medicaments taken internally (principal); J96.01 Acute respiratory failure with hypoxia; J44.1 Chronic obstructive pulmonary disease with (acute) exacerbation; N17.9 Acute kidney failure, unspecified; T46.5X5A Adverse effect of other antihypertensive drugs, initial encounter; E86.0 Dehydration; N18.30 Chronic kidney disease, stage 3 unspecified; D63.1 Anemia in chronic kidney disease; G40.909 Epilepsy, unspecified, not intractable, without status epilepticus; E78.5 Hyperlipidemia, unspecified; E66.811 Obesity, class 1; Z68.34 Body mass index [BMI] 34.0-34.9, adult; Z71.3 Dietary counseling and surveillance; Z20.822 Contact with and (suspected) exposure to COVID-19; Z87.891 Personal history of nicotine dependence; Z79.82 Long term (current) use of aspirin; Z79.899 Other long term (current) drug therapy
CPT/HCPCS: 36415; 71046; 80048; 80053; 82803; 83605; 83735; 83880; 84484; 85025; 85027; 85610; 85652; 86141; 87040; 87502; 87635; 88304; 88305; 88312; 93005; 94640; 97161; 99285; J1200; J1644; J2919

== ENCOUNTER → 2025-04-24 11:27 | Outpatient (BNV) | payer MEDICARE, BC, SELFPAY | PROVIDERS: Admitting Provider Nurse Practitioner Acute Care; Emergency Provider Emergency Medicine; PCP Internal Medicine; Visit Provider Internal Medicine Cardiovascular Disease | DX: R94.31 Abnormal electrocardiogram [ECG] [EKG] (principal); R09.02 Hypoxemia | CPT/HCPCS: 93010 ==

== ENCOUNTER → 2025-04-24 11:27 | Outpatient (BNV) | payer MEDICARE, BC, SELFPAY | PROVIDERS: Emergency Provider Emergency Medicine; PCP Internal Medicine; Visit Provider Radiology Diagnostic Radiology | DX: R09.02 Hypoxemia (principal) | CPT/HCPCS: 71046 ==

== ENCOUNTER → 2025-04-24 13:45 | Outpatient (BNV) | payer MEDICARE, BC, SELFPAY | PROVIDERS: Admitting Provider Nurse Practitioner Acute Care; Emergency Provider Emergency Medicine; PCP Internal Medicine; Visit Provider Nurse Practitioner Acute Care | DX: T78.40XA Allergy, unspecified, initial encounter (principal); R21 Rash and other nonspecific skin eruption | CPT/HCPCS: 99223; 99232 ==

== ENCOUNTER → 2025-04-24 13:45 | Outpatient (BNV) | payer MEDICARE, BC, SELFPAY | PROVIDERS: Admitting Provider Nurse Practitioner Acute Care; Emergency Provider Emergency Medicine; PCP Internal Medicine; Visit Provider Surgery | DX: T78.40XA Allergy, unspecified, initial encounter (principal); R21 Rash and other nonspecific skin eruption | CPT/HCPCS: 11104; 99222 ==

== ENCOUNTER 2025-05-11 08:57 | Outpatient (REF) | payer MEDICARE, BC, SELFPAY ==
--- NOTE | ~2025-05-11 | XR_ITS ---
EXAMINATION: XR WRIST 3 OR MORE VIEWS LEFT HISTORY: M25.532 - Pain in left wrist COMPARISON: Comparison is made with the prior examination dated 04/13/2025. FINDINGS: Three views of the left wrist are submitted. The bones are osteopenic. There is no fracture or dislocation. Again seen is a comminuted intra-articular fracture of the distal radial metaphysis. The fracture line is less well visualized and there is increased sclerosis, consistent with healing. Again seen is an ulnar styloid fracture. The soft tissues are unremarkable. XR/XR wrist LT min 3V IMPRESSION: Osteopenia. Healing comminuted intra-articular fracture of the distal radial metaphysis. Electronically signed by: Bryson Moya MD 05/11/2025 10:24 AM EDT
== END 2025-05-11 08:58 | disposition home or self-care (01) ==
LOC: HO.HOSX 08:57
DX: S52.502D Unspecified fracture of the lower end of left radius, subsequent encounter for closed fracture with routine healing (principal); X58.XXXD Exposure to other specified factors, subsequent encounter
CPT/HCPCS: 73110; 99212

== ENCOUNTER 2025-05-11 09:37 | Outpatient (AMB) | payer MEDICARE, BC, SELFPAY ==
[2025-05-11 09:47] VITALS: BMI 36.3
--- NOTE | 2025-05-11 09:47 | MHC.OFFVIS ---
Vital Signs 05/11/25 09:47 Height 5 ft Weight 186 lb BMI 36.3 Intake Visit Reasons: OV-LT Wrist Distal Radius FX, DOI:02/27/25 Intake Note: Yahir is an 80 year old right hand dominant female who presents today for a ROM check status post Left Distal Radius Fracture, DOI: 02/27/25. At her last visit, she was transitioned to a Velcro wrist brace to be worn with daytime activities. A 2 lb weight limit reinforced and a referral to Occupational Therapy was placed. Today, patient reports she is doing well. She reports occasional ache when she moves her wrist out of the brace, primarily at night. She is not taking any pain medications at this time. Allergies hydralazine Allergy (Intermediate, Verified 05/11/25 09:52) Rash carbamazepine (From Tegretol) Allergy (Verified 05/11/25 09:52) Unknown HPI HPI OV-LT Wrist Distal Radius FX, DOI:02/27/25: Details: Yahir is an 80 year old right hand dominant female who presents today for a ROM check status post Left Distal Radius Fracture, DOI: 02/27/25. At her last visit, she was transitioned to a Velcro wrist brace to be worn with daytime activities. A 2 lb weight limit reinforced and a referral to Occupational Therapy was placed. Today, patient reports she is doing well. She reports occasional ache when she moves her wrist out of the brace, primarily at night. She is not taking any pain medications at this time. [facility] Medical History High cholesterol Epilepsy Seizure disorder Pituitary adenoma Social History Household Members: Family and Children Housing: House Do you presently have visiting nurse or other home services: Yes Alcohol intake: never Patient Tobacco Use Status: Former Tobacco user Tobacco use type: Cigarette Cigarette Packs Per Day: 0.5 Cigarettes Per Day: 4 e-Cigarette/Vaping Use: Never Used Second Hand Smoke Exposure: No service: No Review of Systems Const All systems reviewed & are unremarkable except as noted in HPI and below Physical Exam Vital Signs: BMI result Body Mass Index 36.3 Extrem Other: Patient is alert, oriented, and in no acute distress. Neuro: Normal sensation of the tips of all digits of the left hand at this time Vascular: Cap refill brisk Pain: No tenderness to palpation about left distal radius No foramen discomfort with range of motion of the left hand ROM: Patient is able to make a closed fist, can extend all digits of the left hand fully and without difficulty Skin: No lacerations or abrasions. General: There is a noted deformity of the left wrist consistent with the apex volar angulation of the patient's fracture No ecchymosis, erythema, or evidence of infection. Psych: Appears grossly normal Affect normal Attitude cooperative Assessment & Plan Assessment & Plan (1) Fracture of left distal radius: Code(s): S52.502A - Unspecified fracture of the lower end of left radius, initial encounter for closed fracture Category: Medical Plan 1. Left distal radius fracture With approximately 20-25 degrees of apex volar angulation Date of injury approximately 02/27/2025 Patient is educated about this injury Patient is educated about the typical treatment course With no further tenderness around the fracture site, and evidence of interval bony healing on x-ray, patient may wear the Velcro wrist splint with high-risk daytime activities, otherwise should remove to work on range of motion of the left wrist OT referral placed for gentle range of motion of the left wrist 2 lb weight limit reinforced Patient will follow-up in 4 weeks with repeat x-rays for reassessment, sooner with any acute concerns Orders: Orders XR wrist LT min 3V Today M25.532 - Pain in left wrist Coding Level of Care Code Global (41525) Diagnoses Fracture of left distal radius S52.502A
--- OUTSIDE RECORDS SUMMARY | 2025-05-11 10:46 | XMS_ITS | Encounter Summary ---
Author Organization [facility] Address [address] [place] [address] Care Team Providers Care Frame Carver Spindle Name Role Phone Tavo Harden MD Primary Care Provider [phone] Encounter Details Date Type Department Care Team (Late st Contact Info) Description 04/23/2025 Results Follow-Up Adult Medicine [facility] [address] [place] [address] Figueroa Chris MD [address] [place], [place] Social History Tobacco Use Types Packs/Day Years Used Date Smoking Tobacco: Some Days Cigarettes Smokeless Tobacco: Never Alcohol Use Standard [...] your loved ones. For example, child care cook or elderly care for an older adult? [...] on file documented as of this encounter Plan of Treatment Upcoming Encounters Date Type Department Care Team (Late st Contact Info) Description 05/22/2025 8:30 AM EST Ancillary Procedure Pulmonology - [address] [phone] 05/29/2025 11:00 AM EST Office Visit Pulmonology [address] [phone] Leana Jimenez MD [address] [place] [address] documented as of this encounter Visit Diagnoses Not on filedocumented in this encounter Additional Health Concerns Assessment Noted Time PHQ-9 Depression Total Score: 0 03/16/20 8:29 PM EDT A fall risk assessment has been complete d for the patient 01/04/2025 8:50 AM EDT documented as of this encounter Care Teams Frame Carver Spindle Relationship Specialty Start Date End Date Tavo Harden MD [address] [place] [address] PCP - General Family Medicine 05/03/25 documented as of this encounter
--- OUTSIDE RECORDS SUMMARY | 2025-05-11 10:46 | XMS_ITS | Encounter Summary ---
Author Organization [facility] Address [address] [place] [address] Care Team Providers Care Men'S [employer] Boys' Clothing Salesperson Name Role Phone Tavo Harden MD Primary Care Provider [phone] Encounter Details Date Type Department Care Team (Late st Contact Info) Description 04/13/2025 Billing Patient Not Present Adult Medicine [facility] [address] [place], [place] [phone] Preeti Brothers MD [address] [place], [place] Social History Tobacco Use Types Packs/Day [...] 8:30 AM EST Ancillary Procedure Pulmonology - [place] [facility] [address] [place] [phone] 05/29/2025 11:00 AM EST Office Visit Pulmonology [facility] [address] [place] [phone] Leana Jimenez MD [address] [place] [address] documented as of this encounter Visit Diagnoses Not on filedocumented in this encounter Additional Health Concerns Assessment Noted Time PHQ-9 Depression Total Score: 0 03/16/20 8:29 PM EDT A fall risk assessment has been complete d for the patient 01/04/2025 8:50 AM EDT documented as of this encounter Care Teams Men[employer] Clothing Salesperson Relationship Specialty Start Date End Date Tavo Harden MD [address] [place] [address] PCP - General Family Medicine 05/03/25 documented as of this encounter
--- OUTSIDE RECORDS SUMMARY | 2025-05-11 10:46 | XMS_ITS | Encounter Summary ---
Author Organization [facility] Address [address] [place] [address] Care Team Providers Care Phone Circuit Operator Name Role Phone Tavo Harden MD Primary Care Provider Encounter Details Date Type Department Care Team (Late st Contact Info) Description 04/16/2025 Billing Patient Not Present Adult Medicine [facility] [address] [place], [place] [phone] Preeti Brothers MD [address] [place], [place] Social History Tobacco Use Types Packs/Day [...] for your loved ones. For example, child nutrition assistant or elderly care for an older [...] 8:30 AM EST Ancillary Procedure Pulmonology - [place] [address] [facility] [address] [place] [phone] 05/29/2025 11:00 AM EST Office Visit Pulmonology [facility] [address] [facility] [address] [place] [phone] Leana Jimenez MD [address] [place] [address] documented as of this encounter Visit Diagnoses Not on filedocumented in this encounter Additional Health Concerns Assessment Noted Time PHQ-9 Depression Total Score: 0 03/16/20 8:29 PM EDT A fall risk assessment has been complete d for the patient 01/04/2025 8:50 AM EDT documented as of this encounter Care Teams Phone Circuit Operator Relationship Specialty Start Date End Date Tavo Harden MD [address] [place] [address] PCP - General Family Medicine 05/03/25 documented as of this encounter
--- OUTSIDE RECORDS SUMMARY | 2025-05-11 10:46 | XMS_ITS | Encounter Summary ---
Author Organization [facility] Address [address] [place] [address] Care Team Providers Care Lead Die Molder Name Role Phone Tavo Harden MD Primary Care Provider [phone] Reason for Visit * Reason Onset Date Comments faxed order 05/02/2025 Jared RAVI orde r [id number] Encounter Details Date Type Department Care Team (Late st Contact Info) Description 05/02/2025 Telephone Adult Medicine [facility] [address] [place], [place] [phone] Preeti Brothers MD [address] [place], [place] Social History Tobacco Use Types Packs/Day [...] for your loved ones. For example, rn maternal child or elderly care for an older [...] encounter Progress Notes * Kiya Lamas - 05/02/2025 4:39 PM EDT Jared JOELA order [id number] received please sign and fax to [phone] documented in this encounter Plan of Treatment Upcoming Encounters Date Type Department Care Team (Late st Contact Info) Description 05/22/2025 8:30 AM EST Ancillary Procedure Pulmonology - [place] [address] [phone] 05/29/2025 11:00 AM EST Office Visit Pulmonology - [place] [address] [phone] Leana Jimenez MD [address] [place] [address] documented as of this encounter Visit Diagnoses Not on filedocumented in this encounter Additional Health Concerns Assessment Noted Time PHQ-9 Depression Total Score: 0 03/16/20 8:29 PM EDT A fall risk assessment has been complete d for the patient 01/04/2025 8:50 AM EDT documented as of this encounter Care Teams Lead Die Molder Relationship Specialty [place] [address] [place] [address] PCP - General Family Medicine 05/03/25 documented as of this encounter
--- OUTSIDE RECORDS SUMMARY | 2025-05-11 10:46 | XMS_ITS | Clinical Summary ---
Author Organization [address] Address [address] [place] [phone] Phone Care Team Providers Care Security Advisor Name Role Phone Tavo Harden MD Primary Care Provider [phone] Allergies Active Allergy Reactions Criticality Noted Date [...] full tablet bid 180 each 1 Active lisinopril (PRINIVIL,ZESTRIL) 40 mg tabletIndications:P rimary hypertension Take 1 tablet (40 mg total) by mouth 1 (one) time each day. 90 each 1 025 2025 Active furosemide (Lasix) 20 mg tabletIndications:L eg swelling,Chronic heart failure with preserved ejection fraction (HFpEF) (CMS/HCC V24, CMS/HCC V28) Take 2 tablets (40 mg total) by mouth 1 (one) time each day for 7 days, THEN 1 tablet (20 mg total) 1 (one) time each day. 90 each 1 025 2025 Active nicotine (NICODERM CQ) 7 mg/24 hrIndications:Tobac co use disorder Place 1 patch on the skin 1 (one) time each day at the same time. 30 each 025 2024 Active amLODIPine (NORVASC) 10 mg tablet Take 1 tablet (10 mg total) by mouth at bedtime. 90 tablet 1 025 2024 Discontinued doxycycline (VIBRAMYCIN) 100 mg [...] magnesium, selenium, zinc). 20 each 025 2024 lisinopriL (PRINIVIL,ZESTRIL) 20 mg tablet Take 1 tablet (20 mg total) by mouth 1 (one) time each day. 90 each 1 025 2024 Discontinued furosemide (Lasix) 20 mg tablet Take 1 tablet (20 mg total) by mouth 1 (one) time each day. 90 each 1 025 2024 Discontinued Active Problems Problem Noted Date Diagnosed Date Stage 3b chronic kidney disease ([facility] V24, [facility] V28) 04/07/2025 Assessment & Plan (04/13/2025 3:37 PM EDT): Has repeat BMP scheduled by colleague which she will complete today. Referred to nephrology Orders: Ambulatory referral to Nephrology; Future Chronic obstructive pulmonar y disease ([facility] V24, [facility] V28) 03/19/2025 Assessment & Plan (04/13/2025 3:37 PM EDT): Continue albuterol as needed. Follow-up with pulmonology as scheduled next week Hypertension 04/22/2022 Assessment & Plan (04/13/2025 3:37 PM EDT): Patient's blood pressure readings at home are markedly elevated compared to the readings in the office today. Advised on how to take blood pressure correctly and to do this at the end of the day when she is relaxed. Will increase lisinopril to 40 mg daily. STOP Amlodipine 10 mg which could be contributing to the lower extremity edema Continue hydralazine 25 mg twice daily, Imdur 30 mg daily Orders: lisinopril (PRINIVIL,ZESTRIL) 40 mg tablet; Take 1 tablet (40 mg total) by mouth 1 (one) time each day. 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 06 Assessment & Plan (01/04/2025 9:03 AM EDT): Resolved Problems Problem Noted Date Diagnosed Date Resolved Date Current every day smoker 05/17/2023 Encounters Date Type Department Care Team Description 05/04/2025 Telephone Adult Medicine [address] [phone] Preeti Brothers MD 05/03/2025 Telephone Adult Medicine [address] [phone] Addie Heck, JOHN 05/03/2025 Telephone Adult Medicine [address] [phone] Addie Heck, JOHN 05/02/2025 Telephone Adult Medicine [address] [phone] Preeti Brothers MD 05/01/[address] [phone] Preeti Brothers MD 04/30/[address] [phone] Preeti rBothers MD 04/24/2025 Nurse Triage [address] [phone] Preeti Brothers MD 04/23/2025 9:50 AM EDT - 04/23/2025 11:59 PM EDT Hospital Encounter CT Scan [address] [phone] Dyspnea on exertion; Seizure (CMS/HCC V24, CMS/HCC V28); Localized osteoporosis without current pathological fracture Discharge Disposition: Home or Self Care 04/23/2025 Results Follow-Up [address] [phone] Figueroa Chris MD 04/19/2025 Results Follow-Up [address] [phone] Figueroa Chris MD 04/17/2025 10:30 AM EDT Consult Pulmonology - [address] [place] [phone] Leana Jimenez MD Pulmonary nodule (Primary Dx); Dyspnea on exertion; Seizure (CMS/HCC V24, CMS/HCC V28); Cigarette nicotine dependence with other nicotine-induced disorder; Localized osteoporosis without current pathological fracture 04/16/2025 Billing Patient Not Present [address] [phone] Preeti Brothers MD 04/13/2025 2:00 PM EDT Office Visit [address] [phone] Figueroa Chris MD Primary hypertension (Primary Dx); Stage 3b chronic kidney disease ([facility]/HCC V24, CMS/HCC V28); Leg swelling; Chronic heart failure with preserved ejection fraction (HFpEF) ([facility] V24, [facility]/HCC V28); Chronic obstructive pulmonary disease, unspecified COPD type ([facility] V24, [facility] V28); Tobacco use disorder 04/13/2025 Results Follow-Up [address] [phone] Figueroa Chris MD 04/13/2025 Billing Patient Not Present [address] [phone] Preeti Brothers MD 04/12/2025 Nurse Triage [address] [phone] Preeti Brothers MD 04/06/2025 11:15 AM EDT Office Visit [address] [phone] Josee Santos PA Primary hypertension (Primary Dx); Blood glucose elevated; Stage 3b chronic kidney disease ([facility] V24, [facility] V28) 04/02/2025 2:45 PM EDT Office Visit [address] [phone] Josee Santos PA Primary hypertension (Primary Dx) 03/26/2025 2:45 PM EDT Office Visit [address] [phone] Preeti Brothers MD Primary hypertension (Primary Dx); Hypercholesteremia; Bilateral lower leg cellulitis 03/22/[address] [phone] Preeti Brothers MD 03/20/2025 Telephone Adult [address] [phone] Preeti Brothers MD 03/19/2025 10:30 AM EDT Office Visit [address] [phone] Preeti Brothers MD Primary hypertension (Primary Dx); 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CMS/HCC V24, CMS/HCC V28); Hypercholesteremia; Convulsions, unspecified convulsion type (CMS/HCC V24, CMS/HCC V28); Chronic obstructive pulmonary disease, unspecified COPD type (CMS/HCC V24, CMS/HCC V28); Edema, unspecified type 03/19/2025 Telephone Adult [address] [phone] Preeti Brothers MD 03/15/2025 Telephone Adult [address] [phone] Preeti Brothers MD 03/08/[address] [phone] Preeti Brothers MD from Last 3 Months [...] djd Hypertension 04/22/2022 Kidney stone 06/02/2006 Convulsions ([facility]/HCC V24, [facility] V28) 6 Central nervous system viral infection 6 age 10 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CMS/HCC V24, [facility]/HCC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 Family History Medical History Relation [...] Tobacco: Some Days Cigarettes Smokeless Tobacco: Never Tobacco Cessation:Ready to [...] care for your loved ones. For example, early childhood education instructor or elderly care for an older [...] Sign Reading Time Taken Comments Blood Pressure 134/63 04/17/2025 10:22 AM EDT Pulse 85 04/17/2025 10:22 AM EDT Temperature 36.1 C (97 F) 04/17/2025 10:22 AM EDT Respiratory Rate 20 04/17/2025 10:22 AM EDT Oxygen Saturation 92% 04/17/2025 10:22 AM EDT Inhaled Oxygen Concentration - - Weight 81.6 kg (180 lb) 04/17/2025 10:22 AM EDT Height 152.4 cm (5') 04/17/2025 10:22 AM EDT Body Mass Index 35.15 04/17/2025 10:22 AM EDT Plan of Treatment Upcoming Encounters Date Type Department Care Team (Late st Contact Info) Description 05/22/2025 8:30 AM EST Ancillary Procedure Pulmonology - [place] [address] [facility] [address] [place] [phone] 05/29/2025 11:00 AM EST Office Visit Pulmonology [facility] [address] [phone] Leana Jimenez MD [facility] [place] [phone] Health Maintenance Due Date Last Done Comments [...] 01/04/2026 01/04/2025 Hypertension/CHF/CAD Annual BMP Blood Test 04/23/2026 04/23/2025, 04/19/2025, 04/06/2025, Additional history exists Cholesterol Screening (Lipid Panel) 01/04/2030 01/04/2025, 12/16/2023 [...] Associated Diagnosis Comments BASIC METABOLIC PANEL Routine 04/23/2025 10:08 AM EDT MANJULA (acute kidney injury) ([facility] V24) CT CHEST WO CONTRAST Routine 04/23/2025 9:51 AM EDT Dyspnea on exertion Seizure ([facility] V24, [facility] V28) Localized osteoporosis without current pathological fracture B-TYPE NATRIURETIC PEPTIDE Routine 04/19/2025 8:35 AM EDT Elevated brain natriuretic peptide (BNP) level BASIC METABOLIC PANEL Routine 04/19/2025 8:35 AM EDT Stage 3b chronic kidney disease ([facility] V24, CMS/[facility] V28) B-TYPE NATRIURETIC PEPTIDE Routine 04/13/2025 2:56 PM EDT Leg swelling BASIC METABOLIC PANEL Routine 04/06/2025 11:44 AM [...] Recently Relevant to Health Maintenance Results * (ABNORMAL) Basic metabolic panel (04/23/2025 10:08 AM EDT) Only the most recent of3 resultswithin the time period is included. Sodium 141 133 - 145 mmol/L LAB CHEMISTRY METHOD 04/23/2025 1:56 PM [facility] Potassium 4.5 3.5 - 5.5 mmol/L LAB CHEMISTRY METHOD 04/23/2025 1:56 PM [facility] Chloride 109 96 - 110 mmol/L LAB CHEMISTRY METHOD 04/23/2025 1:56 PM [facility] CO2 24 21 - 32 mmol/L LAB CHEMISTRY METHOD 04/23/2025 1:56 PM [facility] Anion Gap 8 3 - 11 LAB CHEMISTRY METHOD 04/23/2025 1:56 PM [facility] Glucose 118(H) 70 - 100 mg/dL LAB CHEMISTRY METHOD 04/23/2025 1:56 PM [facility] BUN 19 5 - 25 mg/dL LAB CHEMISTRY METHOD 04/23/2025 1:56 PM [facility] Creatinine 1.55(H) 0.50 - 1.10 mg/dL LAB CHEMISTRY METHOD 04/23/2025 1:56 PM [facility] eGFR 33(L) >=60 mL/min/1. 73m2 LAB CHEMISTRY METHOD 04/23/2025 1:56 PM [facility] Comment:Calculation based on the Chronic Kidney Disease Epidemiology Collaboration (CKD-EPI) equation refit without adjustment for race. BUN/Creatinine Ratio 12.3 LAB CHEMISTRY METHOD 04/23/2025 1:56 PM [facility] Calcium 8.8 8.5 - 10.5 mg/dL LAB CHEMISTRY METHOD 04/23/2025 1:56 PM [facility] Blood Venous blood specimen / Unknown Venipuncture / Unknown 04/23/2025 10:08 AM EDT 04/23/2025 10:08 AM EDT Figueroa Chris MD LAB BLOOD ORDERA BLES Final Result [facility] [address] [place] [address], [place] [phone] * CT Chest wo Contrast (04/23/2025 9:51 AM EDT) Anatomical Region Laterality Modality Body Computed Tomogra phy 04/23/2025 5:37 PM EDT Impressions 04/23/2025 6:08 PM EDT 1. Trace bilateral pleural effusions, left greater than right. 2. Severe centrilobular emphysematous changes. 3. Few small reticulonodular opacities within the lateral left upper lobe and faint groundglass attenuation within the posterior left lower lobe. Findings may represent a mild infectious or inflammatory process. CT chest in 6 months to ensure complete resolution in a patient with extensive emphysematous changes. -------- FINAL REPORT -------- Dictated By: Chrissie Reddy Dictated Date: 04/23/2025 17:37 ET Assigned Physician: Chrissie Reddy Reviewed and Electronically Signed By: Chrissie Reddy Signed Date: 04/23/2025 18:08 ET Workstation ID: [id number] Transcribed By: Self Edit Transcribed Date: 04/23/2025 17:37 ET Narrative 04/23/2025 6:[address] CHEST HISTORY: dyspnea. TECHNIQUE: Chest CT was performed utilizing contiguous noncontrasted axial images from the thoracic inlet to below the diaphragm. The images were reformatted in the coronal and sagittal planes. Radiation dosage is mGy COMPARISON: None FINDINGS: Base of neck: The thyroid and base of the neck are within normal limits. Mediastinum: The heart is normal in size, no pericardial effusion. Dense atherosclerosis of the thoracic aorta. Multiple subcentimeter lymph nodes within the mediastinal stations. Moderate atherosclerosis of the coronary arteries. Lungs: Evaluation of the lung parenchyma demonstrates trace bilateral pleural effusions, left greater than right. Apical pleural-parenchymal scarring. Diffuse severe centrilobular emphysematous changes throughout the lung parenchyma. A few small reticulonodular opacities are present within the lateral left upper lobe (series 2, image 209). Nonspecific focal faint groundglass attenuation within the posterior left lower lobe (series 2, image 114). Streaky linear atelectasis at the lung bases. Upper Abdomen: Limited visualization of the extreme upper abdomen demonstrates a moderate hiatal hernia. MSK: Soft tissues are within normal limits. Chronic rib fractures. Moderate degenerative changes of the thoracic spine. Procedure Note Chrissie Reddy MD - 04/23/2025 CT CHEST HISTORY: dyspnea. TECHNIQUE: Chest CT was performed utilizing contiguous noncontrasted axialimages from the thoracic inlet to below the diaphragm. The images werereformatted in the coronal and sagittal planes. Radiation dosage is mGy COMPARISON: None FINDINGS: Base of neck: The thyroid and base of the neck are within normal limits. Mediastinum: The heart is normal in size, no pericardial effusion. Denseatherosclerosis of the thoracic aorta. Multiple subcentimeter lymph nodeswithin the mediastinal stations. Moderate atherosclerosis of the coronaryarteries. Lungs: Evaluation of the lung parenchyma demonstrates trace bilateralpleural effusions, left greater than right. Apical pleural-parenchymalscarring. Diffuse severe centrilobular emphysematous changes throughoutthe lung parenchyma. A few small reticulonodular opacities are presentwithin the lateral left upper lobe (series 2, image 209). Nonspecificfocal faint groundglass attenuation within the posterior left lower lobe(series 2, image 114). Streaky linear atelectasis at the lung bases. Upper Abdomen: Limited visualization of the extreme upper abdomendemonstrates a moderate hiatal hernia. MSK: Soft tissues are within normal limits. Chronic rib fractures.Moderate degenerative changes of the thoracic spine. IMPRESSION: 1. Trace bilateral pleural effusions, left greater than right. 2. Severe centrilobular emphysematous changes. 3. Few small reticulonodular opacities within the lateral left upper lobeand faint groundglass attenuation within the posterior left lower lobe.Findings may represent a mild infectious or inflammatory process. CT chestin 6 months to ensure complete resolution in a patient with extensiveemphysematous changes. -------- FINAL REPORT -------- Dictated By: Chrissie Reddy Dictated Date: 04/23/2025 17:37 ET Assigned Physician: Chrissie Reddy Reviewed and Electronically Signed By: Chrissie Reddy Signed Date: 04/23/2025 18:08 ET Workstation ID: [id number] Transcribed By: Self Edit Transcribed Date: 04/23/2025 17:37 ET us Leana Jimenez MD IMG CT PROCEDURES Final Resu lt * B-type natriuretic peptide (04/19/2025 8:35 AM EDT) Only the most recent of2 resultswithin the time period is included. [facility] BNP 53 <=100 pcg/mL LAB CHEMISTRY METHOD 04/19/2025 11:17 AM EDT [facility] Blood Venous blood specimen / Unknown Venipuncture / Unknown 04/19/2025 8:35 AM EDT 04/19/2025 8:35 AM EDT Figueroa Chris MD LAB BLOOD ORDERA BLES Final Result [facility] [address] [place] [address], [place] [phone] * Hemoglobin A1c (04/06/2025 11:44 AM EDT) [facility] Hemoglobin A1C 5.6 <6.5 % LAB CHEMISTRY METHOD 04/06/2025 5:38 PM EDT [facility] Mean Bld Glu Estim. 114 mg/dL LAB CHEMISTRY METHOD 04/06/2025 5:38 PM EDT [facility] Blood Venous blood specimen / Unknown Venipuncture / Unknown 04/06/2025 11:44 AM EDT 04/06/2025 11:44 AM EDT us Josee GUNN LAB BLOOD ORDERABLES Final Re sult [facility] [address] [place] [address], [place] [phone] * Lipid panel with reflex to direct [...] sult [facility] [address] [place] [address], [place] [phone] * DXA BONE DENSITY STUDY 1+ SITS [...] Osteoporosis by WHO criteria. The [facility] Department of Internal Medicine recommends using National [...] based on moise Castro., [facility] July 30, 2011 for patients with osteopenia [...] Osteoporosis by WHO criteria. The [facility] Department of Internal Medicine recommendsusing National Osteoporosis [...] based on moise Castro., [facility] for patients with osteopenia (based on [...] Most Recently Relevant to Health Maintenance Insurance [facility] MEDICARE Care Teams Security Advisor Relationship Specialty Start Date End Date Tavo Harden MD [address] [place] [phone] PCP - General Family Medicine 05/03/25
== END 2025-05-11 10:13 | disposition home or self-care (01) ==
LOC: HO.HOS 09:38
PROVIDERS: PCP Physician Assistant
DX: S52.502A Unspecified fracture of the lower end of left radius, initial encounter for closed fracture (principal)
CPT/HCPCS: 99024

== ENCOUNTER → 2025-05-11 09:41 | Outpatient (BNV) | payer MEDICARE, BC, SELFPAY | PROVIDERS: Visit Provider Radiology Diagnostic Radiology | DX: M25.532 Pain in left wrist (principal) | CPT/HCPCS: 73110 ==

== ENCOUNTER 2025-05-23 18:41 | Inpatient (IN) | payer MEDICARE, BC, SELFPAY ==
--- OUTSIDE RECORDS SUMMARY | 2025-05-22 08:30 | XMS_ITS | Encounter Summary ---
Author Organization [facility] Address [address] [place] [address] Care Team Providers Care Mural Artist Name Role Phone Tavo Harden MD Primary Care Provider [phone] Reason for Visit * Therapy (Routine) - Authorized Specialty Diagnoses / Procedures Referred By Contac t Referred To Contact Pulmonology Diagnoses Dyspnea on exertion Procedures Pulmonary function testing: Carbon Monoxide Diffusing Capacity, Flow Volume Loop, Helium Dilution Lung Volumes, Nitrogen Wash Out, Spirometry with Bronchodilator, Vital Capacity Test, Spirometry Leana Jimenez MD [address] [place] [phone] Phone: tel: fax: Pulmonology [address] [address] Phone: tel: fax: Referral ID Status Reason Start Date Expiration Date V isits Requested Visits Authorized [id number] Authorized 04/17/2025 04/17/2026 1 1 Encounter Details Date Type Department Care Team (Latest Contact Info) Description 05/22/2025 8:30 AM EST Ancillary Procedure Pulmonology [address] [phone] Dyspnea on exertion Social History Tobacco Use Types Packs/Day Years [...] for your loved ones. For example, children's service supervisor or elderly care for an older adult? [...] as of this encounter Progress Notes * Reginaldomary ann Bear - 05/22/2025 8:30 AM EST PFT performed documented in this encounter Plan of Treatment Upcoming Encounters Date Type Department Care Team (Late st Contact Info) Description 05/29/2025 11:00 AM EST Office Visit Pulmonology - [place] [address] [place] [facility] [address] [place] [address] Leana Jimenez MD [address] [place] [phone] documented as of this encounter Procedures Procedure Name Priority Date/Time Associated Diagnosis Comments PULMONARY FUNCTION TESTING Routine 05/22/2025 9:09 AM EST Dyspnea on exertion documented in this encounter Results * Pulmonary function testing: Carbon Monoxide Diffusing Capacity, Flow Volume Loop, Helium Dilution Lung Volumes, Nitrogen Wash Out, Spirometry with Bronchodilator, Vital Capacity Test, Spirometry (05/22/2025 9:09 AM EST) Impressions Alycia Foster MD - 05/22/2025 9:09 AM EST FEV1/FVC 58%. FEV1 0.84 and 57%. FVC 71%. No bronchodilator response. TLC 79%. RV 92%. DLCO 22% (36%). Moderate obstruction. No restriction. Severe decrease in diffusion. Findings consistent with moderate to severe COPD with emphysematous component. us Leana Jimenez MD PFT ORDERABLES Final Result documented in this encounter Visit Diagnoses Diagnosis Dyspnea on exertion Other dyspnea and respiratory abnormality documented in this encounter Additional Health Concerns Assessment Noted Time PHQ-9 Depression Total Score: 0 03/16/20 25 8:29 PM EDT A fall risk assessment has been complete d for the patient 01/04/2025 8:50 AM EDT documented as of this encounter Care Teams Mural Artist Relationship Specialty Start Date End Date Tavo Harden MD [address] [place] [address] PCP - General Family Medicine 05/03/25 documented as of this encounter
--- NOTE | ~2025-05-23 | US_ITS ---
CLINICAL HISTORY: CKD --- Additional Notes or Special Instructions: look for KUB US kidneys Comparison: None Findings: Right kidney is atrophic with small size and cortical thinning, 8.5 cm length. No hydronephrosis. Scattered shadowing and nonshadowing echogenic foci could represent small nonobstructing calculi. Left kidney normal size and echotexture, 12.1 cm length. No hydronephrosis. Normal color flow. Impression: 1. Atrophic right kidney with possible small nonobstructing calculi. 2. Unremarkable left kidney. This document has been electronically signed by: Cm Dupree MD on 05/25/2025 17:41:49
--- NOTE | ~2025-05-23 | CT_ITS ---
CLINICAL HISTORY: dimer pos, hypoxia CT Angiography Chest with contrast. 3-D postprocessing Comparison: CT angiogram of the chest dated March 08, 2025. Findings: No suspicious thyroid nodules. No lymphadenopathy. Mediastinum and Heart: No cardiomegaly. Moderate calcified atherosclerotic disease of the thoracic aorta. Moderate coronary artery calcifications. Aortic valve calcifications. Pulmonary arteries: No pulmonary embolism to the level of the proximal segmental arteries. The main pulmonary artery is normal in size. Lungs: Moderate centrilobular and paraseptal emphysema. Subsegmental atelectasis of the lung bases. Diffuse peribronchial wall thickening. No consolidation, pleural effusion, or pneumothorax. No suspicious lung nodule. Small volume of fluid in the distal esophagus. Upper abdomen: Partially visualized and unremarkable. Bones and soft tissues: Severe multilevel degenerative changes. No acute fracture. Chronic appearing left lateral rib fractures. Multiple left breast calcifications. Impression: No pulmonary embolism to the level of the proximal segmental pulmonary arteries. Diffuse bronchial wall thickening which can be seen with reactive airway disease. Moderate emphysema in the upper lobes. This document has been electronically signed by: Twila Hightower MD on 05/23/2025 22:03:41
--- NOTE | ~2025-05-23 | XR_ITS ---
CLINICAL HISTORY: dyspnea, hx COPD 2 view chest x-ray Comparison: Prior chest radiographs most recently on 04/24/2025 Findings: Background of COPD. Stable elevation of left hemidiaphragm with associated left lung volume loss. Cardiomegaly along with suggestion of central pulmonary venous congestion. Stable bibasilar subsegmental atelectatic changes. No large pleural effusion. No pneumothorax. Soft tissues and visualized bony structures are unremarkable. Impression: 1. Background of COPD. 2. Constellation of findings as detailed above suggestive of developing CHF/fluid overload state although superimposed infection would be difficult to exclude. 3. Additional findings as above. This document has been electronically signed by: Rosalino Duckworth MD on 05/23/2025 20:14:01
[2025-05-23 18:42] VITALS: BP 164/92; PULSE 95; RESP 18; O2SAT 94; BMI 35.4
--- NOTE | 2025-05-23 18:43 | ECG_ITS ---
Test Reason : sob Blood Pressure : */* mmHG Vent. Rate : 92 BPM Atrial Rate : 92 BPM P-R Int : 154 ms QRS Dur : 90 ms QT Int : 362 ms P-R-T Axes : 64 -61 41 degrees QTcB Int : 447 ms Normal sinus rhythm Left anterior fascicular block Possible Anterior infarct , age undetermined Abnormal ECG When compared with ECG of 24-Apr-2025 11:49, No significant change was found Referred By: Yolis Landry Electronically Signed By: AMADO HOLDER MD
--- NOTE | 2025-05-23 18:46 | ED_ITS ---
HPI - General Adult General Chief complaint: Dyspnea Stated complaint: SOB Time Seen by Provider: 05/23/25 19:18 History of Present Illness ED Provider: FLORINDA DELUCA narrative: PMH: COPD (not officially diagnosed ,states not on home O2), pituitary adenoma, petite mal seizures, CKD 3, hypertension, atherosclerotic vascular disease, osteoporosis Date & Time: 2025-05-24 Patient Name: : MRN: Author / Clinician: Bernard Jaeger MD ? Emergency Medicine Chief Complaint Worsening shortness of breath. History of Present Illness The patient with a history of chronic shortness of breath and hypertension presents to the ED for acutely worsened dyspnea. Earlier today, after walking approximately 25 ft from the bakery department to the car department at a grocery store, she became ?severely short of breath,? felt ?beet red,? and described the sensation as if she were ?having a heart attack,? though she denies any chest pain. There was no diaphoresis. She seated herself, symptoms improved, and she subsequently went out to eat before coming to the ED. She reports baseline chronic cough but is not coughing today and notes no change in the cough. She denies abdominal pain. She was hospitalized recently for low oxygen levels. Oxygen saturation on arrival to triage was 87% (measured after transfer by wheelchair; no exertion just prior). She does not use supplemental oxygen at home. PFTs were performed yesterday at [facility]; results are not yet available. The patient reports her blood pressure has been high all week, with systolic readings in the 160-170s and diastolic readings over 100 at times. Review of Systems - General: Positive for severe shortness of breath today; no diaphoresis reported. - Respiratory: Chronic dyspnea; acute worsening today. Baseline chronic cough, but currently denies cough. - Cardiovascular: Denies chest pain. - Gastrointestinal: Denies abdominal pain. - Skin: Rash on lower legs improving; persistent scaling noted. - Extremities: Reports mild bilateral lower-extremity swelling. Physical Examination Vital Signs: Measure Value Blood Pressure 164/78 mmHg (on arrival) SpO2 87 % (room air, triage) Physical Exam: - General: Alert, conversational, in no acute distress at rest. - Lungs: Breath sounds faint; mild bilateral wheezing appreciated. - Cardiac: Regular rate and rhythm; no murmurs noted. - Abdomen: Soft, nontender. - Extremities: Mild non-pitting bilateral lower-extremity edema. Resolving rash with residual scaling on lower legs. Emergency Department Course Initial SpO2 87 %. EKG obtained in ED and read as normal sinus rhythm. Bedside lung auscultation revealed faint wheezes. Blood work ordered and pending at time of note. Portable chest X-ray ordered (not yet completed at time of dictation). Breathing treatment ordered. Awaiting results of yesterday?s PFTs from [facility] (not yet available). Assessment & Plan Diagnosis: Acute on chronic dyspnea. Plan: - Continue monitoring vital signs and oxygen saturation. - Obtain and review chest X-ray and pending laboratory studies. - Administer breathing treatment (completed) and reassess respiratory status. - Review PFT results when available from outside facility. - If work-up remains unremarkable and symptoms improve, will not admit if no reversible acute process identified. Disposition Pending completion of ED evaluation; likely discharge if stable and improved. Past Medical History - Hypertension. - Prior hospitalization for hypoxemia (recent). Social History - Smoking history since age 7; currently reports ?very little? tobacco use. Medications Blood pressure medications (names/dosages not provided). Allergies Not discussed. Related Data Home Medications ?Medication ?Instructions ?Recorded ?Confirmed alendronate 70 mg tablet 70 mg PO WE 01/29/25 5 cabergoline 0.5 mg tablet 0.25 mg PO WE 01/29/2505/24 pravastatin 80 mg tablet 80 mg PO BEDTIME 01/29/25 furosemide 20 mg tablet (Lasix) 20 mg PO Q48H 04/24/25 05/24/25 lisinopril 40 mg tablet 40 mg PO DAILY 04/24/2505/12 Previous Rx's ?Medication ?Instructions ?Recorded aspirin 81 mg tablet,delayed 81 mg PO DAILY #90 tabs 0 03/12/25 release isosorbide mononitrate 30 mg 30 mg PO DAILY #90 tabs 0 03/12/25 tablet,extended release 24 hr albuterol sulfate 90 mcg/actuation 1 inh inhalation Q4 -6H PRN 03/13/25 breath activated powder inhaler shortness of breath #1 ea lamotrigine 25 mg tablet 50 mg (2 x 25 mg) PO BID #18 0 tabs 04/13/25 Allergies Allergy/AdvReac Type Severity Reaction Status Date / Time hydralazine Allergy Intermediate Rash Verified 05/23/25 18:45 carbamazepine (From Tegretol) Allergy Unknown Verified 05/23/25 18:45 [facility] Past Medical History Medical History High cholesterol Epilepsy Seizure disorder Pituitary adenoma Social History Social History Household Members: Family and Children Household Members Other:: son and ex Housing: House Do you presently have visiting nurse or other home services: No (Did in the past for 2 months.) Alcohol intake: never Patient Tobacco Use Status: Current someday Tobacco user Tobacco use type: Cigarette Cigarette Packs Per Day: 0.5 Cigarettes Per Day: 1 Years Smoked: 60 e-Cigarette/Vaping Use: Never Used Second Hand Smoke Exposure: No Advance Directives Date on File: 05/24/25 service: No Physical Exam ED Vital Signs: Vital Signs - 24 hr 05/23/25 18:42 05/23/25 18:47 05/23/25 19:13 Temperature 97.4 F Pulse Rate 95 89 Respiratory Rate 18 21 H Blood Pressure 164/92 H 166/70 H Pulse Oximetry 94 87 L 95 Oxygen Delivery Method Nasal Cannula Room Air Nasal Cannula Oxygen Flow Rate 2 05/23/25 19:45 Temperature Pulse Rate 89 Respiratory Rate 16 Blood Pressure Pulse Oximetry Oxygen Delivery Method Oxygen Flow Rate BMI result Body Mass Index 35.4 Course Course Course Narrative: This is a Rapid Medical Examination (RME) performed by Jason Landry PA-C in triage. Full HPI, ROS, assessment and treatment plan per primary provider in the Main ED. Hx: 80 yo F hx COPD here for eval of dyspnea on exertion and LE swelling . states it feels like I'm having a heart attack . PE/vitals: satting 87% on RA - placed on O2. Plan: labs, ekg, cxr Medications Administered Generic Name Dose Route Start Last Admin Trade Name Freq PRN Reason Stop Dose Admin Aspirin 81 mg 05/24/25 09:00 05/24/25 10:20 Aspirin Enteric Coated 81 Mg Tablet.Dr PO 81 mg DAILY BARON Administration Furosemide 20 mg 05/24/25 10:30 05/24/25 11:04 Furosemide 20 Mg/2 Ml Vial IV 20 mg DAILY BARON Administration Protocol Heparin Sodium (Porcine) 5,000 unit 05/23/25 23:45 05/24/25 11:04 Heparin Sodium,Porcine 5,000 Unit/Ml Vial SUBCUT 5,000 unit Q12H BARON Administration Isosorbide Mononitrate 30 mg 05/24/25 09:00 05/24/25 10:20 Isosorbide Mononitrate 30 Mg Tab.Er.24h PO 30 mg DAILY BARON Administration Protocol Lamotrigine 50 mg 05/23/25 23:15 05/24/25 08:42 Lamotrigine 25 Mg Tablet PO 50 mg BID BARON Administration Sodium Chloride 3 ml 05/24/25 00:00 05/24/25 08:43 0.9 % Sodium Chloride Flush 3 Ml Syringe IVFLUSH 3 ml QSHIFT BARON Administration Discontinued Medications Generic Name Dose Route Start Last Admin Trade Name Freq PRN Reason Stop Dose Admin Albuterol Sulfate 2.5 mg/ 0 mg 05/23/25 19:37 05/23/25 19:44 Albuterol/Ipratropium 3 ml INHALE 05/23/25 19:38 2 dose ONCE ONE Administration Furosemide 20 mg 05/24/25 00:11 05/24/25 01:23 Furosemide 20 Mg/2 Ml Vial IVPUSH 05/24/25 00:12 20 mg ONCE ONE Administration Protocol Azithromycin 500 mg/ Sodium 250 mls @ 125 mls/hr 05/23/25 22:25 05/24/25 00:27 Chloride IV 05/24/25 00:24 Infused ONCE ONE Infusion Ceftriaxone Sodium 1 gm/ 50 mls @ 100 mls/hr 05/23/25 22:25 05/23/25 23:15 Sodium Chloride IV 05/23/25 22:54 Infused ONCE ONE Infusion Iohexol 65 ml 05/23/25 21:03 05/23/25 21:04 Iohexol 350 Mg/Ml 100 Ml Infus..Btl IV 05/23/25 21:04 65 ml ONCE ONE Administration Iohexol 100 ml 05/23/25 21:04 05/23/25 21:04 Iohexol 350 Mg/Ml 100 Ml Infus..Btl IV 05/23/25 21:05 65 ml ONCE ONE Administration Methylprednisolone Sodium Succinate 80 mg 05/23/25 19:37 05/23/25 20:00 Methylprednisolone Sod Succ 125 Mg/2 Ml Vial IVPUSH 05/23/25 19:38 80 mg ONCE ONE Administration Methylprednisolone Sodium Succinate 60 mg 05/24/25 08:00 05/24/25 08:43 Methylprednisolone Sod Succ 125 Mg/2 Ml Vial IVPUSH 60 mg Q12H BARON Administration Medical Decision Making Medical Decision Making [facility] Narrative: I received sign-out from my colleague Dr. Maki - CTA is needed for pulmonary embolism. Most likely patient has undiagnosed COPD. Patient was empirically started on IV antibiotics. Lactic acid is normal, no episodes of hypotension or fever. Sepsis is not suspected. I discussed the above-mentioned with Dr. Sneed from the Medicine team, patient being admitted. Lab Data [facility] Lab Attestation statement: I reviewed the patient's lab results. 05/24/25 04:11 05/24/25 04:11 Labs: Lab Results 05/23/25 05/23/25 05/23/25 Range/Units 19:01 19:05 19:54 WBC 6.8 (4.8-10.8) X10*3/uL RBC 3.97 L (4.20-5.50) X10*6/uL Hgb 11.4 L (12.0-16.0) g/dl Hct 38.2 (37.0-47.0) % MCV 96.2 (80.0-98.0) fL MCH 28.7 (27.0-33.0) pg MCHC 29.8 L (31.0-35.0) g/dl RDW 14.1 (11.0-16.0) % Plt Count 263 (160-400) X10*3/uL MPV 9.0 L (9.4-12.3) fL Immature Gran % (Auto) 0.3 (0.0-0.4) % Neut % (Auto) 67.3 (45-73) % Lymph % (Auto) 19.3 L (20-40) % [place] % (Auto) 6.9 (2-11) % Eos % (Auto) 5.0 H (0-4) % Baso % (Auto) 1.2 (0-2) % Lymph # (Auto) 1.3 (1.2-4.9) X10*3/uL [place] # (Auto) 0.5 (0.1-1.2) X10*3/uL Eos # (Auto) 0.3 (0.0-0.4) X10*3/uL Baso # (Auto) 0.1 (0.0-0.2) X10*3/uL Abs Immat Gran (auto) 0.02 (0.00-0.03) X10*3/uL Absolute Neuts (auto) 4.6 (2.0-8.3) x10*3/uL Absolute Nucleated RBC 0.000 (0.0-0.012) X10*3/uL Nucleated RBC % (auto) 0.0 (0.0-0.2) /100WBC D-Dimer High Sensitivty 363 NG/ML VBG pH 7.31 L (7.32-7.43) VBG pCO2 55 mmHg VBG pO2 79 mmHg VBG HCO3 28 H (22-26) mmol/L VBG O2 Saturation 96.0 % VBG Base Excess 1.2 mmol/L Sodium 144 (135-145) mmol/L Potassium 4.4 (3.3-5.1) mmol/L Chloride 111 H (96-108) mmol/L Carbon Dioxide 26 (22-29) mmol/L Anion Gap 11 L (12-20) BUN 24 H (9-16) mg/dL Creatinine 1.49 H (0.5-1.4) mg/dL Estim Creat Clear Calc 27.6 Estimated GFR 34 Random Glucose 151 H (60-115) mg/dL Calcium 9.1 D (8.4-10.2) mg/dL Magnesium 2.0 (1.6-2.6) mg/dL Total Bilirubin 0.2 (0.0-1.0) mg/dL AST 17 (5-31) U/L ALT 14 (0-31) U/L Alkaline Phosphatase 92 (39-117) U/L Troponin I High Sens 32.6 H (<3.5-17.0) ng/L NT-Pro-B Natriuret Pep 3772.4 H (<300) pg/mL Total Protein 6.8 (6.5-8.0) g/dL Albumin 3.9 (3.5-5.0) g/dL Procalcitonin 0.04 ng/mL Independent Interpretation I performed an independent interpretation of an: EKG (Sinus rhythm rate 92 QTC 447. No acute ischemic changes. Near identical morphology to 04/24/2025 ) External Record Review Prior echo reviewed with normal EF, grade 1 diastolic dysfunction, no pericardial effusion mild LV wall thickening Critical Care Time Critical Care Time Critical Care Time: Yes Total Critical Care Time: 35 Attestation: I have personally provided critical care time. Time includes review of lab data, radiology results, discussion with consultants, and monitoring for potential decompensation. Intervention performed as documented. Discharge Plan Discharge Clinical Impression: Chronic nonspecific lung disease Patient Disposition: Admitted As Inpatient Discharge Date/Time: 05/24/25 07:41
[2025-05-23 18:47] VITALS: O2SAT 87
[2025-05-23 19:05] LABS: MANUAL DIFF FLAG NO
[2025-05-23 19:07] LABS: Venous Blood Gas Refer to POC result
[2025-05-23 19:08] LABS: VBG HCO3 28 mmol/L (22-26); VBG O2 % Saturation 96.0 %
[2025-05-23 19:12] LABS: Hematocrit 38.2 % (37.0-47.0); Hemoglobin 11.4 g/dl (12.0-16.0); Imm Gran Abs Auto 0.02 X10*3/uL (0.00-0.03); Imm Gran Pct Auto 0.3 % (0.0-0.4); Lymphocytes Absolute Auto 1.3 X10*3/uL (1.2-4.9); Mean Corpuscular HGB Conc 29.8 g/dl (31.0-35.0); Mean Corpuscular Hemoglobin 28.7 pg (27.0-33.0); Mean Corpuscular Volume 96.2 fL (80.0-98.0); NRBC Abs Auto 0.000 X10*3/uL (0.0-0.012); NRBC Pct Auto 0.0 /100WBC (0.0-0.2); Platelet Count 263 X10*3/uL (160-400); Red Blood Count 3.97 X10*6/uL (4.20-5.50); White Blood Count 6.8 X10*3/uL (4.8-10.8)
[2025-05-23 19:13] VITALS: BP 166/70; PULSE 89; RESP 21; TEMP 36.3; O2SAT 95
[2025-05-23 19:22] LABS: Alanine Aminotransferase 14 U/L (0-31); Albumin Level 3.9 g/dL (3.5-5.0); Alkaline Phosphatase 92 U/L (39-117); Anion Gap 11 (12-20); Aspartate Amino Transferase 17 U/L (5-31); Blood Urea Nitrogen 24 mg/dL (9-16); Calcium 9.1 mg/dL (8.4-10.2); Carbon Dioxide 26 mmol/L (22-29); Chloride 111 mmol/L (96-108); Creatinine Clr Calc Pharmacy 27.6; Estimated Glomerular Filt Rate 34; Magnesium 2.0 mg/dL (1.6-2.6); Potassium 4.4 mmol/L (3.3-5.1); Sodium 144 mmol/L (135-145); Total Protein 6.8 g/dL (6.5-8.0)
[2025-05-23 19:27] LABS: Troponin-I High Sensitivity 32.6 ng/L (<3.5-17.0)
--- OUTSIDE RECORDS SUMMARY | 2025-05-23 19:32 | XMS_ITS | Encounter Summary ---
Author Organization [facility] Address [address] [place] [address] Care Team Providers Care Control Operator Flow Coat Name Role Phone Tavo Harden MD Primary Care Provider Encounter Details Date Type Department Care Team (Late st Contact Info) Description 04/23/2025 Results Follow-Up Adult Medicine [facility] [address] [place] [address] Figueroa Chris MD [address] [place], [place] Social History Tobacco Use Types Packs/Day [...] for your loved ones. For example, child caregiver or elderly care for an [...] 11:00 AM EST Office Visit Pulmonology - [place] [address] [facility] [address] [facility] [address] [place] [address] Leana Jimenez MD [address] [place] [address] documented as of this encounter Visit Diagnoses Not on filedocumented in this encounter Additional Health Concerns Assessment Noted Time PHQ-9 Depression Total Score: 0 03/16/20 8:29 PM EDT A fall risk assessment has been complete d for the patient 01/04/2025 8:50 AM EDT documented as of this encounter Care Teams Control Operator Flow Coat Relationship Specialty Start Date End Date Tavo Harden MD [address] [place] [address] PCP - General Family Medicine 05/03/25 documented as of this encounter
--- OUTSIDE RECORDS SUMMARY | 2025-05-23 19:32 | XMS_ITS | Encounter Summary ---
Author Organization [facility] Address [address] [place] [address] Care Team Providers Care Medical Records Technician Name Role Phone Tavo Harden MD Primary Care Provider [phone] Encounter Details Date Type Department Care Team ([facility] st Contact Info) Description 05/16/2025 Telephone Adult Medicine [facility] [address] [place] [id number] Rl Dueñas LPN Social History Tobacco Use Types Packs/Day Years [...] 11:00 AM EST Office Visit Pulmonology - [place] [address] [place] [address] Leana Jimenez MD [address] [place] [phone] documented as of this encounter Visit Diagnoses Not on filedocumented in this encounter Additional Health Concerns Assessment Noted Time PHQ-9 Depression Total Score: 0 03/16/20 25 8:29 PM EDT A fall risk assessment has been complete d for the patient 01/04/2025 8:50 AM EDT documented as of this encounter Care Teams Medical Records Technician Relationship Specialty Start Date End Date Tavo Harden MD [address] [place] [id number] PCP - General Family Medicine 05/03/25 documented as of this encounter
--- OUTSIDE RECORDS SUMMARY | 2025-05-23 19:32 | XMS_ITS | Encounter Summary ---
Author Organization [facility] Address [address] [place] [address] Care Team Providers Care Pharmaceutical Physician Name Role Phone Tavo Harden MD Primary Care Provider [phone] Encounter Details Date Type Department Care Team (Late st Contact Info) Description 04/16/2025 Billing Patient Not Present Adult Medicine [facility] [address] [place], [place] [phone] Preeti Brothers MD [address] [place], [place] Social History Tobacco Use Types Packs/Day [...] for your loved ones. For example, child and adolescent psychologist or elderly care for an older adult? [...] 11:00 AM EST Office Visit Pulmonology - [address] [place] [address] Leana Jimenez MD [address] [place] [phone] documented as of this encounter Visit Diagnoses Not on filedocumented in this encounter Additional Health Concerns Assessment Noted Time PHQ-9 Depression Total Score: 0 03/16/20 8:29 PM EDT A fall risk assessment has been complete d for the patient 01/04/2025 8:50 AM EDT documented as of this encounter Care Teams Pharmaceutical Physician Relationship Specialty Start Date End Date Tavo Harden MD [address] [place] [address] PCP - General Family Medicine 05/03/25 documented as of this encounter
--- OUTSIDE RECORDS SUMMARY | 2025-05-23 19:32 | XMS_ITS | Encounter Summary ---
Author Organization [facility] Address [address] [place] [address] Care Team Providers Care Project Manager Retail Name Role Phone Tavo Harden MD Primary Care Provider [phone] Encounter Details Date Type Department Care Team (Late st Contact Info) Description 04/13/2025 Billing Patient Not Present Adult Medicine [facility] [address] [place], [place] [phone] Preeti Brothers MD [address] [place], [place] Social History Tobacco Use Types Packs/Day [...] 11:00 AM EST Office Visit Pulmonology - [address] [place] [address] Leana Jimenez MD [address] [place] [phone] documented as of this encounter Visit Diagnoses Not on filedocumented in this encounter Additional Health Concerns Assessment Noted Time PHQ-9 Depression Total Score: 0 03/16/20 8:29 PM EDT A fall risk assessment has been complete d for the patient 01/04/2025 8:50 AM EDT documented as of this encounter Care Teams Project Manager Retail Relationship Specialty Start Date End Date Tavo Harden MD [address] [place] [address] PCP - General Family Medicine 05/03/25 documented as of this encounter
--- OUTSIDE RECORDS SUMMARY | 2025-05-23 19:33 | XMS_ITS | Clinical Summary ---
Author Organization [address] Address [address] [place] [phone] Phone Care Team Providers Care Insurance Claims Representative Name Role Phone Tavo Harden MD Primary Care Provider [phone] Allergies Active Allergy Reactions Criticality Noted Date Comments Carbamazepine 08/18/2005 hepatitis Medications cyanocobalamin, vitamin B-12, 1,000 mcg capsule Take 1,000 mcg by mouth. Active cabergoline (DOSTINEX) 0.5 mg tabletIndications:Be nign [...] min. 13 each 3 5 026 Active aspirin 81 mg EC tablet Take [...] not crush or chew. 90 tablet 1 5 Active hydrALAZINE (APRESOLINE) 25 mg tablet Take half tab bid times 3 days then increase to a full tablet bid 180 each 1 5 Active lisinopril (PRINIVIL,ZESTRIL) 40 mg tabletIndications:Pr imary hypertension Take 1 tablet (40 mg total) by mouth 1 (one) time each day. 90 each 1 5 026 Active furosemide (Lasix) 20 mg tabletIndications:Le g swelling,Chronic heart failure with preserved ejection fraction (HFpEF) ([facility] V24, [facility] V28) Take 2 tablets (40 mg total) by mouth 1 (one) time each day for 7 days, THEN 1 tablet (20 mg total) 1 (one) time each day. 90 each 1 5 026 Active nicotine (NICODERM CQ) 7 mg/24 hrIndications:Tobacc o use disorder Place 1 patch on the skin 1 (one) time each day at the same time. 30 each 5 Active Active Problems Problem Noted Date Diagnosed Date Stage 3b chronic kidney disease ([facility] V24, [facility] V28) 04/07/2025 Assessment & Plan (04/13/2025 3:37 PM EDT): Has repeat BMP scheduled by colleague which she will complete today. Referred to nephrology Orders: Ambulatory referral to Nephrology; Future Chronic obstructive pulmonar y disease ([facility] V24, [facility] V28) 03/19/2025 Assessment & Plan (04/13/2025 3:37 [...] Kidney stone 06/02/2006 Convulsions ([facility] V24, [facility]/HCC V28) 6 Assessment & Plan (01/04/2025 9:03 AM EDT): Central nervous system viral infection 6 Overview (06/16/2024): age 10 Hepatitis A virus infection 08/18/2005 Overview (12/26/2024): Gout 08/18/2005 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, [facility]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 06 Assessment & Plan (01/04/2025 9:03 AM EDT): Resolved Problems Problem Noted Date Diagnosed Date Resolved Date Current every day smoker 05/17/2023 Encounters Date Type Department Care Team Description 05/22/2025 8:30 AM EST Ancillary Procedure Pulmonology - [place] [address] [place] [address] Dyspnea on exertion 05/16/2025 Telephone Adult Medicine [address] [phone] Rl Dueñas LPN 05/14/2025 Telephone Adult Medicine [address] [phone] Rl Dueñas LPN 05/04/2025 Telephone Adult Medicine [address] [phone] Preeti Brothers MD 05/03/2025 Telephone Adult Medicine [address] [phone] Addie Heck, JOHN 05/03/2025 Telephone Adult Medicine [address] [phone] Addie Heck, RN 05/02/2025 Telephone Adult Medicine [address] [phone] Preeti Brothers MD 05/01/2025 Telephone Adult Medicine [address] [phone] Preeti Brothers MD 04/30/2025 Telephone Adult Medicine [address] [phone] Preeti Brothers MD 04/24/2025 Nurse Triage [address] [phone] Preeti Brothers MD 04/23/2025 9:50 AM EDT - 04/23/2025 11:59 PM EDT Hospital Encounter CT Scan [address] [phone] Dyspnea on exertion; Seizure (CMS/HCC V24, CMS/HCC V28); Localized osteoporosis without current pathological fracture Discharge Disposition: Home or Self Care 04/23/2025 Results Follow-Up [address] [phone] Figueroa Chris MD 04/19/2025 Results Follow-Up [address] [phone] Figueroa Chris MD 04/17/2025 10:30 AM EDT Consult Pulmonology - [address] [place] [phone] Leana Jimenez MD Pulmonary nodule (Primary Dx); Dyspnea on exertion; Seizure (CMS/HCC V24, CMS/HCC V28); Cigarette nicotine dependence with other nicotine-induced disorder; Localized osteoporosis without current pathological fracture 04/16/2025 Billing Patient Not Present [address] [phone] Preeti Brothers MD 04/13/2025 2:00 PM EDT Office Visit [address] [phone] Figueroa Chris MD Primary hypertension (Primary Dx); Stage 3b chronic kidney disease (CMS/HCC V24, CMS/HCC V28); Leg swelling; Chronic heart failure with preserved ejection fraction (HFpEF) (CMS/HCC V24, CMS/HCC V28); Chronic obstructive pulmonary disease, unspecified COPD type (CMS/HCC V24, CMS/HCC V28); Tobacco use disorder 04/13/2025 Results Follow-Up [address] [phone] Figueroa Chris MD 04/13/2025 Billing Patient Not Present [address] [phone] Preeti Brothers MD 04/12/2025 Nurse Triage [address] [phone] Preeti Brothers MD 04/06/2025 11:15 AM EDT Office Visit [address] [phone] Josee Santos PA Primary hypertension (Primary Dx); Blood glucose elevated; Stage 3b chronic kidney disease (CMS/HCC V24, CMS/HCC V28) 04/02/2025 2:45 PM EDT Office Visit [address] [phone] Josee Santos PA Primary hypertension (Primary Dx) 03/26/2025 2:45 PM EDT Office Visit [address] [phone] Preeti Brothers MD Primary hypertension (Primary Dx); Hypercholesteremia; Bilateral lower leg cellulitis 03/22/[address] [phone] Preeti Brothers MD 03/20/[address] [phone] Preeti Brothers MD 03/19/2025 10:30 AM EDT Office Visit [address] [phone] Preeti Brothers MD Primary hypertension (Primary Dx); 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, [facility] V28); Hypercholesteremia; Convulsions, unspecified convulsion type ([facility] V24, [facility] V28); Chronic obstructive pulmonary disease, unspecified COPD type ([facility] V24, [facility] V28); Edema, unspecified type 03/19/2025 Telephone Adult Medicine [address] [phone] Preeti Brothers MD 03/15/2025 Telephone Adult Medicine [address] [phone] Preeti Brothers MD 03/08/2025 Telephone Adult Medicine [address] [phone] Preeti Brothers MD from Last 3 Months [...] Kidney stone 06/02/2006 Convulsions ([facility] V24, [facility] V28) 6 Central nervous system [...] for your loved ones. For example, child adolescent care or elderly care for an older adult? [...] 11:00 AM EST Office Visit Pulmonology - [address] [place] [address] Leana Jimenez MD [address] [place] [address] Health Maintenance Due Date Last [...] 05/22/2025 9:09 AM EST Dyspnea on exertion BASIC METABOLIC PANEL Routine 04/23/2025 10:08 AM EDT MANJULA (acute kidney injury) ([facility] V24) CT CHEST WO CONTRAST Routine 04/23/2025 9:51 AM EDT Dyspnea on exertion Seizure (CMS/HCC V24, [facility] V28) Localized osteoporosis without current pathological fracture B-TYPE NATRIURETIC PEPTIDE Routine 04/19/2025 8:35 AM EDT Elevated brain natriuretic peptide (BNP) level BASIC METABOLIC PANEL Routine 04/19/2025 8:35 AM EDT Stage 3b chronic kidney disease ([facility] V24, [facility] V28) B-TYPE NATRIURETIC PEPTIDE Routine 04/13/2025 2:56 [...] Recently Relevant to Health Maintenance Results * Pulmonary function testing: Carbon Monoxide [...] Leana Jimenez MD PFT ORDERABLES Final Result * (ABNORMAL) Basic metabolic panel (04/23/2025 10:08 AM EDT) Only the most recent of3 resultswithin the time period is included. Sodium 141 133 - 145 mmol/L LAB CHEMISTRY METHOD 04/23/2025 1:56 PM [facility] Potassium 4.5 3.5 - 5.5 mmol/L LAB CHEMISTRY METHOD 04/23/2025 1:56 PM [facility] Chloride 109 96 - 110 mmol/L LAB CHEMISTRY METHOD 04/23/2025 1:56 PM [facility] CO2 24 21 - 32 mmol/L LAB CHEMISTRY METHOD 04/23/2025 1:56 PM [facility] Anion Gap 8 3 - 11 LAB CHEMISTRY METHOD 04/23/2025 1:56 PM [facility] Glucose 118(H) 70 - 100 mg/dL LAB CHEMISTRY METHOD 04/23/2025 1:56 PM [facility] BUN 19 5 - 25 mg/dL LAB CHEMISTRY METHOD 04/23/2025 1:56 PM [facility] Creatinine 1.55(H) 0.50 - 1.10 mg/dL LAB CHEMISTRY METHOD 04/23/2025 1:56 PM [facility] eGFR 33(L) >=60 mL/min/1. 73m2 LAB CHEMISTRY METHOD 04/23/2025 1:56 PM [facility] Comment:Calculation based on the Chronic Kidney Disease Epidemiology Collaboration (CKD-EPI) equation refit without adjustment for race. BUN/Creatinine Ratio 12.3 LAB CHEMISTRY METHOD 04/23/2025 1:56 PM [facility] Calcium 8.8 8.5 - 10.5 mg/dL LAB CHEMISTRY METHOD 04/23/2025 1:56 PM EDT [facility] Blood Venous blood specimen / Unknown Venipuncture / Unknown 04/23/2025 10:08 AM EDT 04/23/2025 10:08 AM EDT Figueroa Chris MD LAB BLOOD ORDERA BLES Final Result [facility] [address] [place] [address], [place] [phone] * CT Chest wo Contrast (04/23/2025 9:51 [...] Dictated Date: 04/23/2025 17:37 ET Assigned Physician: Chrisise Reddy Reviewed and Electronically Signed By: Chrissie Reddy Signed Date: 04/23/2025 18:08 ET Workstation ID: [id number] Transcribed By: Self Edit Transcribed Date: 04/23/2025 [...] Signed Date: 04/23/2025 18:08 ET Workstation ID: [id number] Transcribed By: Self Edit Transcribed Date: 04/23/2025 17:37 ET us Leana Jimenez MD IMG CT PROCEDURES Final Resu lt * B-type natriuretic peptide (04/19/2025 8:35 AM EDT) Only the most recent of2 resultswithin the time period is included. Pathologist [facility] BNP 53 <=100 pcg/mL LAB CHEMISTRY METHOD 04/19/2025 11:17 AM EDT [facility] Blood Venous blood specimen / Unknown Venipuncture / Unknown 04/19/2025 8:35 AM EDT 04/19/2025 8:35 AM EDT us Figueroa Chris MD LAB BLOOD ORDERA BLES Final Result [facility] [address] [place] [address], [place] [phone] * Hemoglobin A1c (04/06/2025 11:44 AM EDT) Pathologist [facility] Hemoglobin A1C 5.6 <6.5 % LAB CHEMISTRY METHOD 04/06/2025 5:38 PM EDT [facility] Mean Bld Glu Estim. 114 mg/dL LAB CHEMISTRY METHOD 04/06/2025 5:38 PM EDT [facility] Blood Venous blood specimen / Unknown Venipuncture / Unknown 04/06/2025 11:44 AM EDT 04/06/2025 11:44 AM EDT us Josee GUNN LAB BLOOD ORDERABLES Final Re sult Performing Organization Address City/[facility]/ZIP Co de Phone Number [facility] [address] [place] [address], [place] [phone] * Lipid panel with reflex to direct LDL (01/04/2025 9:22 AM EDT) Cholesterol 189 0 - 200 mg/dL LAB CHEMISTRY METHOD 01/04/2025 1:36 PM EDT [facility] Triglycerides 142 0 - 150 mg/dL LAB CHEMISTRY METHOD 01/04/2025 1:36 PM EDT [facility] HDL 67 >=40 mg/dL LAB CHEMISTRY METHOD 01/04/2025 1:36 PM EDT [facility] LDL Calculated 94 0 - 100 mg/dL LAB CHEMISTRY METHOD 01/04/2025 1:36 PM EDT [facility] VLDL Cholesterol Anuj 28.4 mg/dL LAB CHEMISTRY METHOD 01/04/2025 1:36 PM EDT [facility] Non HDL Chol. (LDL+VLDL) 122 <145 mg/dL LAB CHEMISTRY METHOD 01/04/2025 1:36 PM EDT [facility] Chol/HDL Ratio 2.8 0.0 - 4.4 LAB CHEMISTRY METHOD 01/04/2025 1:36 PM EDT [facility] Blood Venous blood specimen / Unknown Venipuncture / Unknown 01/04/2025 9:22 AM EDT 01/04/2025 9:22 AM EDT us Josee GUNN LAB BLOOD ORDERABLES Final Re sult Performing Organization Address City/[facility]/ZIP Co de Phone Number [facility] [address] [place] [address], * DXA BONE DENSITY STUDY 1+ SITS [...] IMPRESSION: IMPRESSION: Osteoporosis by WHO criteria. [facility] Department of Internal Medicine [...] IMPRESSION: IMPRESSION: Osteoporosis by WHO criteria. [facility] Department of Internal Medicine [...] -1.50 and higher), BMD testingevery 15 years us Preeti Brothers MD IMG DXA PROCEDURES Final Result from Last 3 Months or Most Recently Relevant to Health Maintenance Insurance [facility] MEDICARE Care Teams Insurance Claims Representative Relationship Specialty Start Date End Date Tavo Harden MD [facility] [place] [address] PCP - General Family Medicine 05/03/25
--- OUTSIDE RECORDS SUMMARY | 2025-05-23 19:33 | XMS_ITS | Clinical Summary ---
Author Organization [facility] Address [address] [phone] Phone Care Team Providers Care Cash Person Name Role Phone Preeti Brothers MD Primary Care Provider [phone] Social History Tobacco Use Types Packs/Day Years Used Date Smoking Tobacco: Never Assessed Comments Unknown Sex and Gender Information Value Date Recorded Sex Assigned at Not on file Legal Sex Female 4:47 PM EDT Gender Identity Not on file Sexual Orientation Not on file Plan of Treatment Upcoming Encounters Date Type Department Care Team (Late st Contact Info) Description 05/29/2025 2:30 PM EST Office Visit [facility] [address] [phone] Martin Santacruz MD [address] [phone] Health Maintenance Due Date Last Done Comments Hepatitis B Vaccine (1 of 3 - Risk 3-dose series) 2003 Pneumococcal Vaccine: 50+ Years Completed 6, 08/23/2008 Influenza Vaccine Completed 03/19/2025, , 04/09/2021, Additional history exists Insurance [facility] Care Teams Cash Person Relationship Specialty Start Date End Date Preeti Brothers MD [address] [place] [address] PCP - General Internal Medicine 04/24/25
[2025-05-23] MEDS: Albuterol Sulfate 2.5 MG, Albuterol/Iprat 2.5/0.5MG 3 ML 3 ML INHALE (19:44)
[2025-05-23 19:45] VITALS: PULSE 89; RESP 16; O2SAT 96
[2025-05-23 20:32] LABS: D Dimer High Sensitivity 363 NG/ML
[2025-05-23] MEDS: iohexoL 350 MG/ML 100 ML INFUS..BTL IV (21:04)
[2025-05-23] MEDS: iohexoL 350 MG/ML 100 ML INFUS..BTL 65 ML IV (21:04)
[2025-05-23 23:21] VITALS: BP 163/61; PULSE 98; RESP 18; O2SAT 93
[2025-05-23 23:25] VITALS: BP 117/74; PULSE 95; RESP 20; O2SAT 94
[2025-05-23 23:48] LABS: Procalcitonin 0.04 ng/mL
[2025-05-24] VITALS (11 sets, daily range): BP systolic 115–198; BP diastolic 52–88; PULSE 86–100; RESP 14–20; TEMP 36.3–37.2; O2SAT 93–97; BMI 35.7
[2025-05-24 00:01] LABS: Troponin-I High Sensitivity 29.7 ng/L (<3.5-17.0)
--- NOTE | 2025-05-24 00:14 | P.HPHOSP_ITS ---
History of Present Illness Date of Service: 05/24/25 Attending physician on admission: Maral Allison Chief Complaint: SOB Patient is an 80-year-old female with a past medical history significant for grade 1 diastolic congestive heart failure (not taking her Lasix), CKD 3B, history of pituitary adenoma, seizure disorder, hypertension and CAD, who presented to the ED due to shortness of breath starting earlier today. She reports significant shortness of breath when walking short distances. No orthopnea. She denies any cough, chest pain, nausea or vomiting. No fever or chills. No wheezing or chest tightness. No abdominal pain or urinary symptoms including frequency, urgency or dysuria. She does not have a diagnosis of COPD however likely given her smoking history. The patient had pulmonary function testing done yesterday, results not back yet. She just recently quit smoking but reports that she has been having an occasional cigarette. In the ED the patient received a duoneb and Solu-Medrol some improvement. She was also started on azithromycin and ceftriaxone for possible pneumonia on chest x-ray. O2 saturation is 87% on room air without exertion, currently improved with 2 L via NC. Review of Systems 2 Constitutional: Constitutional: Denies body ache(s), Denies chills, Denies fatigue, Denies fever(s) and Denies headache(s) Eyes: Eyes: Denies change in vision ENT: Denies headache(s), Denies nasal congestion and Denies sore throat Cardiovascular: Cardiovascular: Denies chest pain, Denies rapid heart rate, Reports leg edema, Denies lightheadedness and Reports dyspnea Respiratory: Respiratory: Denies chest congestion, Denies cough, Reports dyspnea and Denies wheezing Gastrointestinal: Gastrointestinal: Denies abdominal pain, Denies diarrhea, Denies nausea and Denies vomiting Genitourinary: Genitourinary: Denies difficulty voiding, Denies dysuria and Denies urinary urgency Musculoskeletal: Musculoskeletal: Denies back pain Integumentary/Breasts: Skin/Breast: Denies rash Neurologic: Denies confusion and Denies headache(s) Psychiatric: Psychiatric: Denies confusion Endocrine: Endocrine: Denies fatigue Hematologic/Lymphatic: Hematologic/Lymphatic: Denies easy bleeding Allergic/Immunologic: Allergic/Immunologic: Denies wheezing [facility] Medical History High cholesterol Epilepsy Seizure disorder Pituitary adenoma Functional capacity: independent ambulation Social History Household Members: Family and Children Housing: House Do you presently have visiting nurse or other home services: Yes Alcohol intake: never Patient Tobacco Use Status: Former Tobacco user Tobacco use type: Cigarette Cigarette Packs Per Day: 0.5 Cigarettes Per Day: 4 Smoked in Last 30 Days: Yes e-Cigarette/Vaping Use: Never Used Second Hand Smoke Exposure: No Use of substances other than those prescribed or required for medical reasons: No Advance Directives: Yes Advance Directives Information Provided: No Advance Directives on File: No service: No Meds Allergies Allergy/AdvReac Type Severity Reaction Status Date / Time hydralazine Allergy Intermediate Rash Verified 05/23/25 18:45 carbamazepine (From Tegretol) Allergy Unknown Verified 05/23/25 18:45 Active Medications: Current Medications Acetaminophen (Acetaminophen 325 Mg Tablet) 975 mg PO Q6H PRN PRN Reason: Pain, Mild 1-3,fever,headache Calcium Carbonate (Calcium Carbonate 750 Mg Tab.Chew) 750 mg PO Q4H PRN PRN Reason: Heartburn Furosemide (Furosemide 20 Mg/2 Ml Vial) 20 mg IVPUSH ONCE ONE; Protocol Stop: 05/24/25 00:12 Heparin Sodium (Porcine) (Heparin Sodium,Porcine 5,000 Unit/Ml Vial) 5,000 unit SUBCUT Q12H [facility] Azithromycin 500 mg/ Sodium (Chloride) 250 mls @ 125 mls/hr IV ONCE ONE Stop: 05/24/25 00:24 Last Admin: 05/23/25 22:44 Dose: 125 mls/hr Lamotrigine (Lamotrigine 25 Mg Tablet) 50 mg PO BID [facility] Last Admin: 05/23/25 23:22 Dose: 50 mg Magnesium Hydroxide (Milk Of Magnesia 30 Ml Oral.Susp) 30 ml PO DAILY PRN PRN Reason: Constipation Melatonin (Melatonin 3 Mg Tablet) 6 mg PO BEDTIME PRN PRN Reason: Insomnia Ondansetron HCl (Ondansetron Hcl 4 Mg/2 Ml Vial) 4 mg IVPUSH Q8H PRN PRN Reason: Nausea and Vomiting Oxycodone HCl (Oxycodone Hcl Immed Release 5 Mg Tablet) 5 mg PO Q6H PRN PRN Reason: Pain, Severe (Pain Scale 7-10) Sodium Chloride (0.9 % Sodium Chloride Flush 3 Ml Syringe) 3 ml IVFLUSH QSHIFT [facility] Tramadol HCl (Tramadol Hcl 50 Mg Tablet) 50 mg PO Q6H PRN PRN Reason: Pain, Moderate(Pain Scale 4-6) Home Medications ?Medication ?Instructions ?Recorded ?Confirmed ?Last Taken ?Type alendronate 70 mg tablet 70 mg PO WE 01/29/25 5 04/11/25 History cabergoline 0.5 mg tablet 0.25 mg PO WE 01/29/2504/2404/18/25 History pravastatin 80 mg tablet 80 mg PO BEDTIME 01/29/2504/24/25 History furosemide 20 mg tablet (Lasix) 20 mg PO Q48H 04/24/25 04/24/25 04/19/25 History lisinopril 40 mg tablet 40 mg PO DAILY 04/24/2504/1104/24/25 History Physical Exam 2 Vital Signs and Narrative: Vital Signs: Last Vital Signs Temp 97.4 F 05/23/25 19:13 Pulse 96 05/24/25 00:02 Resp 14 05/24/25 00:02 BP 149/52 H 05/24/25 00:02 Pulse Ox 93 05/24/25 00:02 O2 Del Method Nasal Cannula 05/24/25 00:02 O2 Flow Rate 2 05/24/25 00:02 Oxygen Flow Rate 2 05/23/25 18:42 BMI result Body Mass Index 35.4 General: AOx3, no acute distress Resp: Mild expiratory wheezing, no crackles or rhonchi CVS: S1, S2, RRR GI: +BS, NT, no distention Skin: Warm, dry Neuro: Cranial nerves II-XII grossly intact bilaterally. Motor grossly intact bilaterally Extremities: 1+ pitting edema Psych: Appropriate affect Const: General: No confusion Orientation/consciousness: No confusion Neuro: General: No confusion Results Labs 05/23/25 19:01 05/23/25 19:01 Labs: Laboratory Results - last 24 hr 05/23/25 05/23/25 05/23/25 19:01 19:05 19:54 MCV 96.2 MCH 28.7 MCHC 29.8 L RDW 14.1 Plt Count 263 MPV 9.0 L Immature Gran % (Auto) 0.3 Neut % (Auto) 67.3 Lymph % (Auto) 19.3 L [place] % (Auto) 6.9 Eos % (Auto) 5.0 H Baso % (Auto) 1.2 Lymph # (Auto) 1.3 [place] # (Auto) 0.5 Eos # (Auto) 0.3 Baso # (Auto) 0.1 Abs Immat Gran (auto) 0.02 Absolute Neuts (auto) 4.6 Absolute Nucleated RBC 0.000 Nucleated RBC % (auto) 0.0 D-Dimer High Sensitivty 363 VBG pH 7.31 L VBG pCO2 55 VBG pO2 79 VBG HCO3 28 H VBG O2 Saturation 96.0 VBG Base Excess 1.2 Anion Gap 11 L Estim Creat Clear Calc 27.6 Estimated GFR 34 Random Glucose 151 H Lactic Acid Calcium 9.1 D Magnesium 2.0 Total Bilirubin 0.2 AST 17 ALT 14 Alkaline Phosphatase 92 Troponin I High Sens 32.6 H NT-Pro-B Natriuret Pep 3772.4 H Total Protein 6.8 Albumin 3.9 Procalcitonin 0.04 05/23/25 05/23/25 22:41 23:27 MCV MCH MCHC RDW Plt Count MPV Immature Gran % (Auto) Neut % (Auto) Lymph % (Auto) [place] % (Auto) Eos % (Auto) Baso % (Auto) Lymph # (Auto) [place] # (Auto) Eos # (Auto) Baso # (Auto) Abs Immat Gran (auto) Absolute Neuts (auto) Absolute Nucleated RBC Nucleated RBC % (auto) D-Dimer High Sensitivty VBG pH VBG pCO2 VBG pO2 VBG HCO3 VBG O2 Saturation VBG Base Excess Anion Gap Estim Creat Clear Calc Estimated GFR Random Glucose Lactic Acid 0.7 Calcium Magnesium Total Bilirubin AST ALT Alkaline Phosphatase Troponin I High Sens 29.7 H NT-Pro-B Natriuret Pep Total Protein Albumin Procalcitonin Assessment and Plan (1) Acute on chronic respiratory failure with hypoxia and hypercapnia: Status: Acute (2) Acute exacerbation of chronic obstructive pulmonary disease: Status: Acute (3) Acute exacerbation of CHF (congestive heart failure): Status: Acute (4) Pneumonia: Status: Acute (5) Class 2 obesity due to excess calories with body mass index (BMI) of 35.0 to 35.9 in adult: Status: Acute Plan Patient is an 80-year-old female with a past medical history significant for grade 1 diastolic congestive heart failure (not taking her Lasix), CKD 3B, history of pituitary adenoma, seizure disorder, hypertension and CAD, who presented to the ED due to shortness of breath starting earlier today. Likely combined acute CHF and COPD exacerbation with superimposed pneumonia. Acute on chronic respiratory failure with hypoxia and hypercapnia secondary to acute exacerbation of COPD and CHF with superimposed pneumonia - tachycardia likely due to albuterol - titrate oxygen as appropriate - duo nebs and Solu-Medrol - Lasix 20 mg IV x1, continue 20 mg p.o. daily - ceftriaxone and azithromycin - monitor CBC and BMP CKD 3B - monitor cr - avoid nephrotoxins when possible Seizure disorder - lamotrigine Hypertension - lisinopril CAD - isosorbide, aspirin Class 2 obesity - BMI 35.4 - weight loss encouraged Med rec pending Full code VTE prophylaxis; heparin Patient with acute on chronic respiratory failure with hypoxia and hypercapnia secondary to acute exacerbation of COPD and CHF with superimposed pneumonia, requiring admission for at least 2 midnight stay for IV antibiotics, diuresis and monitoring. Quality Stroke Does the patient have a stroke diagnosis?: No VTE Prior VTE?: No VTE Risk Level:: Medical - moderate - high VTE Device Contraindication: Treatment Not Indicated VTE Drug Contraindication: N/A - Med Ordered
[2025-05-24] MEDS: Furosemide 20 MG/2 ML VIAL IVPUSH (01:23)
[2025-05-24 04:23] LABS: Hematocrit 39.7 % (37.0-47.0); Hemoglobin 11.7 g/dl (12.0-16.0); Imm Gran Abs Auto 0.04 X10*3/uL (0.00-0.03); Imm Gran Pct Auto 0.7 % (0.0-0.4); Lymphocytes Absolute Auto 0.4 X10*3/uL (1.2-4.9); MANUAL DIFF FLAG SCAN; Mean Corpuscular HGB Conc 29.5 g/dl (31.0-35.0); Mean Corpuscular Hemoglobin 28.8 pg (27.0-33.0); Mean Corpuscular Volume 97.8 fL (80.0-98.0); NRBC Abs Auto 0.000 X10*3/uL (0.0-0.012); NRBC Pct Auto 0.0 /100WBC (0.0-0.2); Platelet Count 255 X10*3/uL (160-400); Red Blood Count 4.06 X10*6/uL (4.20-5.50); SCAN SMEAR FLAG 1; White Blood Count 6.0 X10*3/uL (4.8-10.8)
[2025-05-24 04:39] LABS: Anion Gap 15 (12-20); Blood Urea Nitrogen 23 mg/dL (9-16); Calcium 8.8 mg/dL (8.4-10.2); Carbon Dioxide 23 mmol/L (22-29); Chloride 110 mmol/L (96-108); Creatinine Clr Calc Pharmacy 28.1; Estimated Glomerular Filt Rate 34; Potassium 5.5 mmol/L (3.3-5.1); Sodium 142 mmol/L (135-145)
--- NOTE | 2025-05-24 05:23 | HO.NURTONUR ---
Pt from home with complaint of increased SOB throughout the day that began in the morning. Pt states she finds herself more short of breath when trying to ambulate even short distances. On arrival pt was found to be 87% on RA and placed on 2L NC with improvement. Pt states she is not O2 dependent at baseline. Pt denied any sx of cp, n/v/d, fever/chills, abd pain, sick contacts, or any other sx of concern. Pt reports she has a chronic cough but has not been able to produce anything. Pt reports daily cigarette smoker since the age of 7 but recently has tried to stop and has not had a cigarette in the past 3 days. Faint wheezing heard on auscultation and mild swelling to BLE noted. While in the ED pt received breathing treatment and IV solumedrol that pt states she found to be effective. Pt also started on IV abx for possible pneumonia per chest xray. Pt being admitted for acute on chronic respiratory failure with hypoxia and hypercapnia secondary to acute exacerbation of COPD and CHF. Pt is ca&o x3, able to make her needs known, and uses bedside commode with standby assist. Pt has 20G IV in LFA and RFA and has been medicated per sep. EKG- NSR LABS- VBG ph- 7.31 VBG HCO3- 28 potassium- 4.4 --> 5.5 BUN- 24 --> 23 Creatinine- 1.49 --> 1.47 troponin- 32.6 --> 29.7 BNP- 3772.4
[2025-05-24] MEDS: 0.9 % Sodium Chloride Flush 3 ML SYRINGE IVFLUSH ×3 (08:43→20:41)
--- NOTE | 2025-05-24 08:45 | PHA.MEDREC ---
Pharmacy Consult ? Medication Reconciliation Pharmacy has completed the medication reconciliation. Spoke to patient at bedside, she was a good historian and confirmed all her meds. Took Alendronate and Cabergoline last week. Hydralazine caused a bad rash and hydrocortisone and benadryll were from that time.
--- NOTE | 2025-05-24 09:09 | MHC.CM.PN ---
CM met with Patient at bedside and addressed IMM with her, providing Patient with the original and a copy has been placed on the chart. Patient lives in a house with her Son and Ex-, who has Alzheimer's. Patient was recently dc'd from [facility]; another referral has been sent to them. CM has initiated and will follow for dc planning. PCP is Dr. Preeti Brothers and Niece/HCP/Kathy will transport at dc.
[2025-05-24] MEDS: Aspirin Enteric Coated 81 MG TABLET.DR PO (10:20)
[2025-05-24] MEDS: Furosemide 20 MG/2 ML VIAL IV (11:04)
--- NOTE | 2025-05-24 15:23 | PM.CNNEP ---
History of Present Illness Reason for Consult Consult date: 05/24/25 Chief Complaint Chief complaint: Acute Hypoxic Respiratory Failure History of Present Illness Narrative: 80-year-old pleasant lady with past medical history of hypertension, atherosclerotic vascular disease, chronic kidney disease stage 3, COPD, seizure disorder, pituitary adenoma presents to the ED yesterday with shortness of breath. States she has a longstanding history of kidney disease has been evaluated in the past for the same at [facility]. She does not see outpatient internet application developer. Her baseline creatinine is around 1.3, she presented with a creatinine of 1.49 yesterday and is down to 1.47 this morning. Review of Systems Review of Systems Const : no body aches, no chills, no excessive sweating and no fatigue Eyes: no blurry vision and no change in vision ENT: no bleeding gums and no change in voice, no dizziness Card: no chest pain, no shortness of breath, no orthopnea, no PND Resp: no cough, no excessive phlegm production, +SOB GI: no abdominal pain and no nausea, no vomiting : no hematuria, no urinary frequency and no difficulty voiding Musc: no abnormal gait, no bone pain Neuro: no abnormal movements, no weakness, no dizziness, no abnormal gait and no behavioral changes Psych: no behavioral changes and no change in appetite Endo: no change in body appearance, no cold intolerance, no excessive sweating and no fatigue PMFSH Past Medical History Medical History High cholesterol Epilepsy Seizure disorder Pituitary adenoma Social History Social History Household Members: Family and Children Household Members Other:: son and ex Housing: House Do you presently have visiting nurse or other home services: No (Did in the past for 2 months.) Alcohol intake: never Patient Tobacco Use Status: Current someday Tobacco user Tobacco use type: Cigarette Cigarette Packs Per Day: 0.5 Cigarettes Per Day: 1 Years Smoked: 60 e-Cigarette/Vaping Use: Never Used Second Hand Smoke Exposure: No Advance Directives Date on File: 05/24/25 service: No Meds Allergies Allergy/AdvReac Type Severity Reaction Status Date / Time hydralazine Allergy Intermediate Rash Verified 05/23/25 18:45 carbamazepine (From Tegretol) Allergy Unknown Verified 05/23/25 18:45 Active Medications: Current Medications Acetaminophen (Acetaminophen 325 Mg Tablet) 975 mg PO Q6H PRN PRN Reason: Pain, Mild 1-3,fever,headache Albuterol/Ipratropium (Albuterol/Iprat 2.5/0.5mg 3 Ml Ampul.Neb) 3 ml INHALE Q4H PRN PRN Reason: shortness of breath/wheezing Aspirin (Aspirin Enteric Coated 81 Mg Tablet.Dr) 81 mg PO DAILY [facility] Last Admin: 05/24/25 10:20 Dose: 81 mg Calcium Carbonate (Calcium Carbonate 750 Mg Tab.Chew) 750 mg PO Q4H PRN PRN Reason: Heartburn Furosemide (Furosemide 20 Mg/2 Ml Vial) 20 mg IV DAILY [facility]; Protocol Last Admin: 05/24/25 11:04 Dose: 20 mg Heparin Sodium (Porcine) (Heparin Sodium,Porcine 5,000 Unit/Ml Vial) 5,000 unit SUBCUT Q12H [facility] Last Admin: 05/24/25 11:04 Dose: 5,000 unit Ceftriaxone Sodium 1 gm/ (Sodium Chloride) 50 mls @ 100 mls/hr IV Q24H [facility] Azithromycin 500 mg/ Sodium (Chloride) 250 mls @ 125 mls/hr IV Q24H [facility] Isosorbide Mononitrate (Isosorbide Mononitrate 30 Mg Tab.Er.24h) 30 mg PO DAILY [facility]; Protocol Last Admin: 05/24/25 10:20 Dose: 30 mg Lamotrigine (Lamotrigine 25 Mg Tablet) 50 mg PO BID [facility] Last Admin: 05/24/25 08:42 Dose: 50 mg Magnesium Hydroxide (Milk Of Magnesia 30 Ml Oral.Susp) 30 ml PO DAILY PRN PRN Reason: Constipation Melatonin (Melatonin 3 Mg Tablet) 6 mg PO BEDTIME PRN PRN Reason: Insomnia Methylprednisolone Sodium Succinate (Methylprednisolone Sod Succ 125 Mg/2 Ml Vial) 40 mg IVPUSH Q12H [facility] Non-Formulary Medication (Cabergoline) 0.25 mg PO WE [facility] Ondansetron HCl (Ondansetron Hcl 4 Mg/2 Ml Vial) 4 mg IVPUSH Q8H PRN PRN Reason: Nausea and Vomiting Oxycodone HCl (Oxycodone Hcl Immed Release 5 Mg Tablet) 5 mg PO Q6H PRN PRN Reason: Pain, Severe (Pain Scale 7-10) Pravastatin Sodium (Pravastatin Sodium 80 Mg Tablet) 80 mg PO BEDTIME [facility] Sodium Chloride (0.9 % Sodium Chloride Flush 3 Ml Syringe) 3 ml IVFLUSH QSHIFT [facility] Last Admin: 05/24/25 08:43 Dose: 3 ml Tramadol HCl (Tramadol Hcl 50 Mg Tablet) 50 mg PO Q6H PRN PRN Reason: Pain, Moderate(Pain Scale 4-6) Home Medications ?Medication ?Instructions ?Recorded ?Confirmed ?Last Taken ?Type alendronate 70 mg tablet 70 mg PO WE 01/29/25 05/24/25 05/16/25 History cabergoline 0.5 mg tablet 0.25 mg PO WE 01/29/25 05/24/25 05/16/25 History pravastatin 80 mg tablet 80 mg PO BEDTIME 01/29/25 05/24/25 05/23/25 09:00 History furosemide 20 mg tablet (Lasix) 20 mg PO Q48H 04/24/25 05/24/25 05/23/25 09:00 History lisinopril 40 mg tablet 40 mg PO DAILY 04/24/25 05/24/25 05/23/25 09:00 History Physical Exam Vital Signs: Last Vital Signs Temp 98.2 F 05/24/25 11:07 Pulse 89 05/24/25 11:07 Resp 18 05/24/25 11:07 BP 167/72 H 05/24/25 11:07 Pulse Ox 94 05/24/25 11:07 O2 Del Method Nasal Cannula 05/24/25 11:07 O2 Flow Rate 2 05/24/25 11:07 Oxygen Flow Rate 2 05/23/25 18:42 BMI result Body Mass Index 35.7 General: not in any acute distress, ill appearing Nutritional Appearance: well nourished and overweight Eyes: appearance normal, both eyes and all related structures; Alignment and Position: alignment normal and position normal Neck: No lymphadenopathy, no thyromegaly Resp: bilateral air entry equal, no added sounds present Cardio: Regular rate, regular rhythm; Heart sounds: S1 normal heart sound present and S2 normal heart sound present GI: soft, nontender, no guarding, no hepatosplenomegaly : bladder normal to inspection, bladder normal to palpation, no renal angle tenderness Skin: no rashes or lesions noted and elasticity normal Neuro: alert, oriented x 3, moves all extremities Results Lab Results 05/24/25 04:11 05/24/25 04:11 Lab results: Chemistry 05/23/25 05/24/25 19:01 04:11 Sodium 144 142 Potassium 4.4 5.5 H D Carbon Dioxide 26 23 BUN 24 H 23 H Creatinine 1.49 H 1.47 H Calcium 9.1 D 8.8 Hematology 05/23/25 05/24/25 19:01 04:11 WBC 6.8 6.0 Hgb 11.4 L 11.7 L Plt Count 263 255 Assessment and Plan (1) Chronic kidney disease: Status: Acute (2) Hyperkalemia: Status: Acute Plan Chronic kidney disease: Hyperkalemia: Patient has CKD at baseline possibly secondary to atherosclerotic vascular disease for several years now. Her baseline creatinine is possibly around 1.3; presented with a creatinine of 1.49, decreased to 1.47 this morning. Her echo in February 2025 showed normal LV and RV systolic and diastolic function, no evidence of pulmonary hypertension. Hyperkalemia is possibly due to poor renal tubular flow, should improve with hydration. She was treated for drug reaction due to hydralazine during the previous admission. We will get urinalysis and urine eosinophils to look for any evidence of AIN. Avoid any nephrotoxic medications including contrast, NSAIDs, BRIAN/ARB. Procedures Date of Service Date of Service: 05/24/25
--- NOTE | 2025-05-24 16:23 | HO.PM.IMPN ---
Subjective Subjective Date of Service: 05/24/25 Interval History: COPD exacerbation, CHF Review of Systems Shortness of breaths seems similar Patient gets short of breath with minimal exertion, talks with short sentences Physical Exam Exam: Exam: Appearance: Alert.? Oriented X3.? cvs: [id number], [id number] , no murmur res: air netry diminshed ,s/l exp wheezing abd: no rebound or guarding ,nt, bs present. ext pulses present , no cyanosis . neuro: axo3 , nonfocal. Vital Signs: Vital Signs: Last Vital Signs Temp 97.4 F 05/24/25 15:22 Pulse 99 05/24/25 15:22 Resp 18 05/24/25 15:22 BP 151/72 H 05/24/25 15:22 Pulse Ox 93 05/24/25 15:22 O2 Del Method Nasal Cannula 05/24/25 15:22 O2 Flow Rate 2 05/24/25 15:22 Oxygen Flow Rate 2 05/23/25 18:42 BMI result Body Mass Index 35.7 Objective Data Active Medications Acetaminophen (Acetaminophen 325 Mg Tablet) 975 mg PO Q6H PRN PRN Reason: Pain, Mild 1-3,fever,headache Albuterol/Ipratropium (Albuterol/Iprat 2.5/0.5mg 3 Ml Ampul.Neb) 3 ml INHALE Q4H PRN PRN Reason: shortness of breath/wheezing Aspirin (Aspirin Enteric Coated 81 Mg Tablet.Dr) 81 mg PO DAILY [facility] Last Admin: 05/24/25 10:20 Dose: 81 mg Documented By: OKSANA Calcium Carbonate (Calcium Carbonate 750 Mg Tab.Chew) 750 mg PO Q4H PRN PRN Reason: Heartburn Furosemide (Furosemide 20 Mg/2 Ml Vial) 20 mg IV DAILY [facility]; Protocol Last Admin: 05/24/25 11:04 Dose: 20 mg Documented By: OKSANA Heparin Sodium (Porcine) (Heparin Sodium,Porcine 5,000 Unit/Ml Vial) 5,000 unit SUBCUT Q12H [facility] Last Admin: 05/24/25 11:04 Dose: 5,000 unit Documented By: OKSANA Ceftriaxone Sodium 1 gm/ (Sodium Chloride) 50 mls @ 100 mls/hr IV Q24H [facility] Azithromycin 500 mg/ Sodium (Chloride) 250 mls @ 125 mls/hr IV Q24H [facility] Isosorbide Mononitrate (Isosorbide Mononitrate 30 Mg Tab.Er.24h) 30 mg PO DAILY [facility]; Protocol Last Admin: 05/24/25 10:20 Dose: 30 mg Documented By: OKSANA Lamotrigine (Lamotrigine 25 Mg Tablet) 50 mg PO BID [facility] Last Admin: 05/24/25 08:42 Dose: 50 mg Documented By: OKSANA Magnesium Hydroxide (Milk Of Magnesia 30 Ml Oral.Susp) 30 ml PO DAILY PRN PRN Reason: Constipation Melatonin (Melatonin 3 Mg Tablet) 6 mg PO BEDTIME PRN PRN Reason: Insomnia Methylprednisolone Sodium Succinate (Methylprednisolone Sod Succ 125 Mg/2 Ml Vial) 40 mg IVPUSH Q12H [facility] Non-Formulary Medication (Cabergoline) 0.25 mg PO [facility] Ondansetron HCl (Ondansetron Hcl 4 Mg/2 Ml Vial) 4 mg IVPUSH Q8H PRN PRN Reason: Nausea and Vomiting Oxycodone HCl (Oxycodone Hcl Immed Release 5 Mg Tablet) 5 mg PO Q6H PRN PRN Reason: Pain, Severe (Pain Scale 7-10) Pravastatin Sodium (Pravastatin Sodium 80 Mg Tablet) 80 mg PO BEDTIME [facility] Sodium Chloride (0.9 % Sodium Chloride Flush 3 Ml Syringe) 3 ml IVFLUSH QSHIFT [facility] Last Admin: 05/24/25 08:43 Dose: 3 ml Documented By: OKSANA Tramadol HCl (Tramadol Hcl 50 Mg Tablet) 50 mg PO Q6H PRN PRN Reason: Pain, Moderate(Pain Scale 4-6) Labs 05/24/25 04:11 05/24/25 04:11 Labs: Laboratory Results - last 24 hr 05/23/25 05/23/25 05/23/25 19:01 19:05 19:54 MCV 96.2 MCH 28.7 MCHC 29.8 L RDW 14.1 Plt Count 263 MPV 9.0 L Immature Gran % (Auto) 0.3 Neut % (Auto) 67.3 Lymph % (Auto) 19.3 L [place] % (Auto) 6.9 Eos % (Auto) 5.0 H Baso % (Auto) 1.2 Lymph # (Auto) 1.3 [place] # (Auto) 0.5 Eos # (Auto) 0.3 Baso # (Auto) 0.1 Abs Immat Gran (auto) 0.02 Absolute Neuts (auto) 4.6 Absolute Nucleated RBC 0.000 Nucleated RBC % (auto) 0.0 Smear Tech's Comments D-Dimer High Sensitivty 363 VBG pH 7.31 L VBG pCO2 55 VBG pO2 79 VBG HCO3 28 H VBG O2 Saturation 96.0 VBG Base Excess 1.2 Anion Gap 11 L Estim Creat Clear Calc 27.6 Estimated GFR 34 Random Glucose 151 H Lactic Acid Calcium 9.1 D Magnesium 2.0 Total Bilirubin 0.2 AST 17 ALT 14 Alkaline Phosphatase 92 Troponin I High Sens 32.6 H NT-Pro-B Natriuret Pep 3772.4 H Total Protein 6.8 Albumin 3.9 Procalcitonin 0.04 05/23/25 05/23/25 05/24/25 22:41 23:27 04:11 MCV 97.8 MCH 28.8 MCHC 29.5 L RDW 14.1 Plt Count 255 MPV 9.1 L Immature Gran % (Auto) 0.7 H Neut % (Auto) 92.7 H Lymph % (Auto) 5.8 L [place] % (Auto) 0.5 L Eos % (Auto) 0.0 Baso % (Auto) 0.3 Lymph # (Auto) 0.4 L [place] # (Auto) 0.0 L Eos # (Auto) 0.0 Baso # (Auto) 0.0 Abs Immat Gran (auto) 0.04 H Absolute Neuts (auto) 5.6 Absolute Nucleated RBC 0.000 Nucleated RBC % (auto) 0.0 Smear Tech's Comments VERIFIED D-Dimer High Sensitivty VBG pH VBG pCO2 VBG pO2 VBG HCO3 VBG O2 Saturation VBG Base Excess Anion Gap 15 Estim Creat Clear Calc 28.1 Estimated GFR 34 Random Glucose 169 H Lactic Acid 0.7 Calcium 8.8 Magnesium Total Bilirubin AST ALT Alkaline Phosphatase Troponin I High Sens 29.7 H NT-Pro-B Natriuret Pep Total Protein Albumin Procalcitonin Assessment and Plan (1) Acute exacerbation of chronic obstructive pulmonary disease: Status: Acute Assessment and Plan: 80-year-old female with a past medical history significant for grade 1 diastolic congestive heart failure (not taking her Lasix), CKD 3B, history of pituitary adenoma, seizure disorder, hypertension and CAD, who presented to the ED due to shortness of breath starting earlier today. Likely combined acute CHF and COPD exacerbation with superimposed pneumonia. Acute on chronic respiratory failure with hypoxia and hypercapnia secondary to acute exacerbation of COPD and CHF Procalcitonin level low, chest x-ray and CTA chest reviewed: No pulmonary emboli and possible mild bronchitis acute. Continue IV Lasix, IV antibiotics, cultures pending. Monitor I&O, daily weights hayes on CKD 3B - monitor cr Added nephro evaluation Seizure disorder: continue lamotrigine. Hypertension hold lisinopril CAD- isosorbide, aspirin Class 2 obesity- BMI 35.4 weight loss encouraged Full code VTE prophylaxis; heparin Patient with acute on chronic respiratory failure with hypoxia and hypercapnia secondary to acute exacerbation of COPD and CHF with superimposed bronchitis, requiring IV antibiotics, diuresis and monitoring, renal function electrolyte monitoring. Quality Stroke Does the patient have a stroke diagnosis?: No VTE Prior VTE?: No VTE Risk Level:: Medical - moderate - high VTE Device Contraindication: Treatment Not Indicated VTE Drug Contraindication: N/A - Med Ordered
[2025-05-24 18:28] LABS: Potassium 4.8 mmol/L (3.3-5.1)
[2025-05-24 20:47] LABS: Appearance Urine Clear; Glucose Urine UA Negative (Negative); PH 5.5 (5.0-9.0); Specific Gravity - Urine 1.025 (1.005-1.025); UMIC TRIGGER UA YES
[2025-05-24 21:11] LABS: Protein/Creatinine Ratio, Ur 1.31 (<0.2); Total Protein Urine Random 128 mg/dL (<12)
[2025-05-24 21:25] LABS: Microalbum/Creatinine Ratio Ur 844.3 ug/mg cr (<30)
[2025-05-25] VITALS (9 sets, daily range): BP systolic 129–150; BP diastolic 60–78; PULSE 80–94; RESP 17–20; TEMP 36.4–37; O2SAT 85–96
[2025-05-25 06:52] LABS: MANUAL DIFF FLAG NO
[2025-05-25 06:54] LABS: Hematocrit 36.5 % (37.0-47.0); Hemoglobin 10.9 g/dl (12.0-16.0); Imm Gran Abs Auto 0.04 X10*3/uL (0.00-0.03); Imm Gran Pct Auto 0.4 % (0.0-0.4); Lymphocytes Absolute Auto 0.7 X10*3/uL (1.2-4.9); Mean Corpuscular HGB Conc 29.9 g/dl (31.0-35.0); Mean Corpuscular Hemoglobin 29.1 pg (27.0-33.0); Mean Corpuscular Volume 97.3 fL (80.0-98.0); NRBC Abs Auto 0.000 X10*3/uL (0.0-0.012); NRBC Pct Auto 0.0 /100WBC (0.0-0.2); Platelet Count 282 X10*3/uL (160-400); Red Blood Count 3.75 X10*6/uL (4.20-5.50); White Blood Count 10.8 X10*3/uL (4.8-10.8)
--- NOTE | 2025-05-25 07:00 | CA_ITS ---
Transthoracic Echocardiogram Patient (Last, First, Middle): Yahir Astorga, Gender: F Date of : 1945 Age: 80 Procedure Date: 05/25/2025 Procedure Type: Transthoracic [place] [facility] [place]: 152.4 cm Weight: 82.56 kg BSA: 1.79 m2 Heart Rate: 89 bpm BP: 115 / 88 mmHg Stamp Analyst: Referring MD: Paul Ferguson MD Waterworks Operator: Carlos Manuel Wisdom MD Symptoms: Chf Study Quality: Adequate/limited for LVEF ECG Rhythm: Sinus Conclusions: - 1. Normal LV ejection fraction of 65-70% with mild LVH with elevated filling pressures 2. Normal RV size and systolic function Findings Left Ventricle Normal left ventricular size and systolic function. There is mildly increased left ventricular wall thickness. The visually estimated ejection fraction is between 65-70%. Spectral Doppler is indicative of an impaired relaxation filling pattern. Elevated filling pressures. E/E prime ratio is >15, consistent with elevated filling pressures. Right Ventricle Normal right ventricular cavity size and systolic function. Measurements 2D Linear Measurements IVSd: 1.32 0.6-0.9/0.6-1.0 cm LVIDd: 3.82 3.9-5.3/4.2-5.9 cm LVIDd Index: 2.13 2.4-3.2/2.2-3.1 cm/m2 LVIDs: 2.47 2.0-3.6 cm LVPWd: 1.31 0.7-1.1 cm LV Mass: 221.10 67-162/88-224 g LV Mass Index: 123.52 43-95/49-115 g/m2 2D Systolic Function EF 4C: 70.60 >55% EF 2C: 66.10 >55% EF BiP: 69.70 >55% Mitral Valve MV Pk E: 1.05 MV PK A: 1.33 MV Decel Time: 139.00 E/A: 0.80 E'Lateral: 4.79 E'Medial: 3.59 E/E' Med: 29.20 E/E' Lat: 21.90 PHT: 41.00 MVA PHT: 5.37 Decel [place]: 7.53 Diastolic Function MV Pk E: 1.05 MV Pk A: 1.33 E/A: 0.80 E'Medial: 3.59 E/E' Med: 29.20 E' Laterial: 4.79 E/E' Lat: 21.90 Tricuspid Valve RA Press: 8.00 Updated in Other Vendor System with Status of Final Carlos Manuel Wisdom MD electronically signed on 05/25/2025 1:27:03 PM with status of Final
[2025-05-25 07:09] LABS: Anion Gap 12 (12-20); Blood Urea Nitrogen 31 mg/dL (9-16); Calcium 8.7 mg/dL (8.4-10.2); Carbon Dioxide 28 mmol/L (22-29); Chloride 107 mmol/L (96-108); Creatinine Clr Calc Pharmacy 29.6; Estimated Glomerular Filt Rate 36; Potassium 5.3 mmol/L (3.3-5.1); Sodium 142 mmol/L (135-145)
[2025-05-25 09:10] LABS: WBC, Counted 1 CELLS
[2025-05-25 09:11] LABS: EOS Counted 0 CELLS; EOS QC POS YES; EOS Stain Quality OK YES
[2025-05-25] MEDS: Aspirin Enteric Coated 81 MG TABLET.DR PO (09:28)
[2025-05-25] MEDS: 0.9 % Sodium Chloride Flush 3 ML SYRINGE IVFLUSH ×2 (09:28→23:21)
--- NOTE | 2025-05-25 10:26 | MHC.CM.PN ---
Per ROUNDS discussion, Patient is not yet medically cleared for dc (still SOB); home with services is the goal and CM will continue to follow.
--- NOTE | 2025-05-25 11:31 | PM.PNNEP ---
Subjective Subjective Date of Service: 05/25/25 Interval history: No new events overnight, doing well Creatinine trending down, down to 1.4 Physical Exam Vital Signs: Vital Signs: Last Vital Signs Temp 97.9 F 05/25/25 07:20 Pulse 84 05/25/25 07:20 Resp 20 05/25/25 07:20 BP 145/66 H 05/25/25 07:20 Pulse Ox 92 05/25/25 07:20 O2 Del Method Nasal Cannula 05/25/25 07:20 O2 Flow Rate 2 05/25/25 07:20 Oxygen Flow Rate 2 05/23/25 18:42 BMI result Body Mass Index 35.7 General: not in any acute distress, minimally ill appearing Nutritional Appearance: well nourished and overweight Eyes: appearance normal, both eyes and all related structures; Alignment and Position: alignment normal and position normal Neck: No lymphadenopathy, no thyromegaly Resp: bilateral air entry equal, no added sounds present Cardio: Regular rate, regular rhythm; Heart sounds: S1 normal heart sound present and S2 normal heart sound present GI: soft, nontender, no guarding, no hepatosplenomegaly : bladder normal to inspection, bladder normal to palpation, no renal angle tenderness Skin: no rashes or lesions noted and elasticity normal Neuro: alert, oriented x 3, moves all extremities Objective Data Labs 05/25/25 06:30 05/25/25 06:30 Labs: Laboratory Results - last 24 hr 05/24/25 05/24/25 05/25/25 18:09 20:28 06:30 WBC 10.8 RBC 3.75 L Hgb 10.9 L Hct 36.5 L MCV 97.3 MCH 29.1 MCHC 29.9 L RDW 13.9 Plt Count 282 MPV 9.5 Immature Gran % (Auto) 0.4 Neut % (Auto) 88.7 H Lymph % (Auto) 6.4 L [place] % (Auto) 4.4 Eos % (Auto) 0.0 Baso % (Auto) 0.1 Lymph # (Auto) 0.7 L [place] # (Auto) 0.5 Eos # (Auto) 0.0 Baso # (Auto) 0.0 Abs Immat Gran (auto) 0.04 H Absolute Neuts (auto) 9.6 H Absolute Nucleated RBC 0.000 Nucleated RBC % (auto) 0.0 Sodium 142 Potassium 4.8 Chloride Carbon Dioxide Anion Gap BUN Creatinine Estim Creat Clear Calc Estimated GFR Random Glucose Calcium Urine Color Yellow Urine Appearance Clear Urine pH 5.5 Ur Specific [place] 1.025 Urine Protein 300 (3+) H Urine Glucose (UA) Negative Urine Ketones Negative Urine Blood Negative Urine Nitrite Negative Ur Leukocyte Esterase Negative Urine RBC 0-2 Urine WBC 0-5 Ur Squamous Epith Cells 0-2 Urine Bacteria None Seen Hyaline Casts 3-5 Urine Eosinophils % 0.0 U Random Total Protein 128 H Urine Creatinine 97.94 Urine Microalbumin 827.0 Microalb/Creat Ratio 844.3 H Protein/Creatinin Ratio 1.31 H 05/25/25 05/25/25 05/25/25 06:30 06:30 06:30 WBC RBC Hgb Hct MCV MCH MCHC RDW Plt Count MPV Immature Gran % (Auto) Neut % (Auto) Lymph % (Auto) [place] % (Auto) Eos % (Auto) Baso % (Auto) Lymph # (Auto) [place] # (Auto) Eos # (Auto) Baso # (Auto) Abs Immat Gran (auto) Absolute Neuts (auto) Absolute Nucleated RBC Nucleated RBC % (auto) Sodium Cancelled Potassium 5.3 H Cancelled Chloride 107 Cancelled Carbon Dioxide 28 Anion Gap BUN Creatinine Estim Creat Clear Calc Estimated GFR Random Glucose Calcium Urine Color Urine Appearance Urine pH Ur Specific [place] Urine Protein Urine Glucose (UA) Urine Ketones Urine Blood Urine Nitrite Ur Leukocyte Esterase Urine RBC Urine WBC Ur Squamous Epith Cells Urine Bacteria Hyaline Casts Urine Eosinophils % U Random Total Protein Urine Creatinine Urine Microalbumin Microalb/Creat Ratio Protein/Creatinin Ratio 05/25/25 05/25/25 05/25/25 06:30 06:30 06:30 WBC RBC Hgb Hct MCV MCH MCHC RDW Plt Count MPV Immature Gran % (Auto) Neut % (Auto) Lymph % (Auto) [place] % (Auto) Eos % (Auto) Baso % (Auto) Lymph # (Auto) [place] # (Auto) Eos # (Auto) Baso # (Auto) Abs Immat Gran (auto) Absolute Neuts (auto) Absolute Nucleated RBC Nucleated RBC % (auto) Sodium Potassium Chloride Carbon Dioxide Cancelled Anion Gap 12 Cancelled BUN 31 H Cancelled Creatinine 1.40 Estim Creat Clear Calc Estimated GFR Random Glucose Calcium Urine Color Urine Appearance Urine pH Ur Specific [place] Urine Protein Urine Glucose (UA) Urine Ketones Urine Blood Urine Nitrite Ur Leukocyte Esterase Urine RBC Urine WBC Ur Squamous Epith Cells Urine Bacteria Hyaline Casts Urine Eosinophils % U Random Total Protein Urine Creatinine Urine Microalbumin Microalb/Creat Ratio Protein/Creatinin Ratio 05/25/25 05/25/25 05/25/25 06:30 06:30 06:30 WBC RBC Hgb Hct MCV MCH MCHC RDW Plt Count MPV Immature Gran % (Auto) Neut % (Auto) Lymph % (Auto) [place] % (Auto) Eos % (Auto) Baso % (Auto) Lymph # (Auto) [place] # (Auto) Eos # (Auto) Baso # (Auto) Abs Immat Gran (auto) Absolute Neuts (auto) Absolute Nucleated RBC Nucleated RBC % (auto) Sodium Potassium Chloride Carbon Dioxide Anion Gap BUN Creatinine Cancelled Estim Creat Clear Calc 29.6 Cancelled Estimated GFR 36 Cancelled Random Glucose 119 H Calcium Urine Color Urine Appearance Urine pH Ur Specific [place] Urine Protein Urine Glucose (UA) Urine Ketones Urine Blood Urine Nitrite Ur Leukocyte Esterase Urine RBC Urine WBC Ur Squamous Epith Cells Urine Bacteria Hyaline Casts Urine Eosinophils % U Random Total Protein Urine Creatinine Urine Microalbumin Microalb/Creat Ratio Protein/Creatinin Ratio 05/25/25 05/25/25 06:30 06:30 WBC RBC Hgb Hct MCV MCH MCHC RDW Plt Count MPV Immature Gran % (Auto) Neut % (Auto) Lymph % (Auto) [place] % (Auto) Eos % (Auto) Baso % (Auto) Lymph # (Auto) [place] # (Auto) Eos # (Auto) Baso # (Auto) Abs Immat Gran (auto) Absolute Neuts (auto) Absolute Nucleated RBC Nucleated RBC % (auto) Sodium Potassium Chloride Carbon Dioxide Anion Gap BUN Creatinine Estim Creat Clear Calc Estimated GFR Random Glucose Cancelled Calcium 8.7 Cancelled Urine Color Urine Appearance Urine pH Ur Specific [place] Urine Protein Urine Glucose (UA) Urine Ketones Urine Blood Urine Nitrite Ur Leukocyte Esterase Urine RBC Urine WBC Ur Squamous Epith Cells Urine Bacteria Hyaline Casts Urine Eosinophils % U Random Total Protein Urine Creatinine Urine Microalbumin Microalb/Creat Ratio Protein/Creatinin Ratio Microbiology Microbiology Results: Microbiology 05/23/25 22:41 Blood - Venous Blood Culture - Preliminary No growth after 24 hours. 05/23/25 22:41 Blood - Venous Blood Culture - Preliminary No growth after 24 hours. Procedures Date of Service Date of Service: 05/25/25 Assessment & Plan Assessment and plan (1) Chronic kidney disease: Status: Acute (2) Hyperkalemia: Status: Acute Plan Chronic kidney disease: Hyperkalemia: Patient has CKD at baseline possibly secondary to atherosclerotic vascular disease for several years now. Her baseline creatinine is possibly around 1.3; presented with a creatinine of 1.49, decreased to 1.40 and is around the baseline Her echo in February 2025 showed normal LV and RV systolic and diastolic function, no evidence of pulmonary hypertension. Hyperkalemia is possibly due to poor renal tubular flow, should improve with hydration. She was treated for drug reaction due to hydralazine during the previous admission. Urine eosinophils negative. Urinalysis shows 3+ protein, no cells upon quantification UPCR 1.31 gram/gram, UACR: 844mg/gm. Patient will need to be started on losartan 25 mg during discharge, we can up titrate outpatient We will get renal ultrasound to look for kidney sizes Avoid any nephrotoxic medications including contrast, NSAIDs, BRIAN/ARB. We will arrange for outpatient nephrology follow-up for the management of CKD and proteinuria. Time Spent With Patient Time: Total time managing care of this patient today ____ minutes. Progress Note: Quality Stroke Does the patient have a stroke diagnosis?: No
--- NOTE | 2025-05-25 15:19 | HO.PM.IMPN ---
Subjective Subjective Date of Service: 05/25/25 Interval History: Pneumonia Review of Systems Patient is short of breath with minimal exertion Generalized weak Review of Systems: Yes all other systems are reviewed and are negative Physical Exam Exam: Exam: Appearance: Alert.? Oriented X3.? cvs: [id number], [id number] , no murmur res: air netry diminshed ,s/l exp wheezing abd: no rebound or guarding ,nt, bs present. ext pulses present , no cyanosis . neuro: axo3 , nonfocal. Vital Signs: Vital Signs: Last Vital Signs Temp 98.6 F 05/25/25 11:50 Pulse 80 05/25/25 11:50 Resp 18 05/25/25 11:50 BP 148/71 H 05/25/25 11:50 Pulse Ox 91 L 05/25/25 11:50 O2 Del Method Nasal Cannula 05/25/25 11:50 O2 Flow Rate 2 05/25/25 11:50 Oxygen Flow Rate 2 05/23/25 18:42 BMI result Body Mass Index 35.7 Objective Data Active Medications Acetaminophen (Acetaminophen 325 Mg Tablet) 975 mg PO Q6H PRN PRN Reason: Pain, Mild 1-3,fever,headache Albuterol/Ipratropium (Albuterol/Iprat 2.5/0.5mg 3 Ml Ampul.Neb) 3 ml INHALE Q4H PRN PRN Reason: shortness of breath/wheezing Amlodipine Besylate (Amlodipine Besylate 5 Mg Tablet) 5 mg PO DAILY [facility]; Protocol Last Admin: 05/25/25 09:28 Dose: 5 mg Documented By: EVELIA Aspirin (Aspirin Enteric Coated 81 Mg Tablet.Dr) 81 mg PO DAILY [facility] Last Admin: 05/25/25 09:28 Dose: 81 mg Documented By: EVELIA Calcium Carbonate (Calcium Carbonate 750 Mg Tab.Chew) 750 mg PO Q4H PRN PRN Reason: Heartburn Furosemide (Furosemide 20 Mg Tablet) 20 mg PO DAILY [facility]; Protocol Last Admin: 05/25/25 09:28 Dose: 20 mg Documented By: EVELIA Heparin Sodium (Porcine) (Heparin Sodium,Porcine 5,000 Unit/Ml Vial) 5,000 unit SUBCUT Q12H [facility] Last Admin: 05/25/25 11:07 Dose: 5,000 unit Documented By: EVELIA Ceftriaxone Sodium 1 gm/ (Sodium Chloride) 50 mls @ 100 mls/hr IV Q24H [facility] Last Infusion: 05/24/25 23:14 Dose: Infused Documented By: DAMION Azithromycin 500 mg/ Sodium (Chloride) 250 mls @ 125 mls/hr IV Q24H [facility] Last Infusion: 05/25/25 01:24 Dose: Infused Documented By: DAMION Isosorbide Mononitrate (Isosorbide Mononitrate 30 Mg Tab.Er.24h) 30 mg PO DAILY [facility]; Protocol Last Admin: 05/25/25 09:28 Dose: 30 mg Documented By: EVELIA Lamotrigine (Lamotrigine 25 Mg Tablet) 50 mg PO BID [facility] Last Admin: 05/25/25 09:28 Dose: 50 mg Documented By: EVELIA Magnesium Hydroxide (Milk Of Magnesia 30 Ml Oral.Susp) 30 ml PO DAILY PRN PRN Reason: Constipation Melatonin (Melatonin 3 Mg Tablet) 6 mg PO BEDTIME PRN PRN Reason: Insomnia Methylprednisolone Sodium Succinate (Methylprednisolone Sod Succ 125 Mg/2 Ml Vial) 40 mg IVPUSH Q12H [facility] Last Admin: 05/25/25 09:28 Dose: 40 mg Documented By: EVELIA Non-Formulary Medication (Cabergoline) 0.25 mg PO [facility] Ondansetron HCl (Ondansetron Hcl 4 Mg/2 Ml Vial) 4 mg IVPUSH Q8H PRN PRN Reason: Nausea and Vomiting Oxycodone HCl (Oxycodone Hcl Immed Release 5 Mg Tablet) 5 mg PO Q6H PRN PRN Reason: Pain, Severe (Pain Scale 7-10) Pravastatin Sodium (Pravastatin Sodium 80 Mg Tablet) 80 mg PO BEDTIME [facility] Last Admin: 05/24/25 20:36 Dose: 80 mg Documented By: DAMION Sodium Chloride (0.9 % Sodium Chloride Flush 3 Ml Syringe) 3 ml IVFLUSH QSHIFT [facility] Last Admin: 05/25/25 09:28 Dose: 3 ml Documented By: EVELIA Tramadol HCl (Tramadol Hcl 50 Mg Tablet) 50 mg PO Q6H PRN PRN Reason: Pain, Moderate(Pain Scale 4-6) Labs 05/25/25 06:30 05/25/25 06:30 Labs: Laboratory Results - last 24 hr 05/24/25 05/25/25 05/25/25 20:28 06:30 06:30 MCV 97.3 MCH 29.1 MCHC 29.9 L RDW 13.9 Plt Count 282 MPV 9.5 Immature Gran % (Auto) 0.4 Neut % (Auto) 88.7 H Lymph % (Auto) 6.4 L [place] % (Auto) 4.4 Eos % (Auto) 0.0 Baso % (Auto) 0.1 Lymph # (Auto) 0.7 L [place] # (Auto) 0.5 Eos # (Auto) 0.0 Baso # (Auto) 0.0 Abs Immat Gran (auto) 0.04 H Absolute Neuts (auto) 9.6 H Absolute Nucleated RBC 0.000 Nucleated RBC % (auto) 0.0 Anion Gap 12 Cancelled Estim Creat Clear Calc 29.6 Estimated GFR Random Glucose Calcium Urine Color Yellow Urine Appearance Clear Urine pH 5.5 Ur Specific [place] 1.025 Urine Protein 300 (3+) H Urine Glucose (UA) Negative Urine Ketones Negative Urine Blood Negative Urine Nitrite Negative Ur Leukocyte Esterase Negative Urine RBC 0-2 Urine WBC 0-5 Ur Squamous Epith Cells 0-2 Urine Bacteria None Seen Hyaline Casts 3-5 Urine Eosinophils % 0.0 U Random Total Protein 128 H Urine Creatinine 97.94 Urine Microalbumin 827.0 Microalb/Creat Ratio 844.3 H Protein/Creatinin Ratio 1.31 H 05/25/25 05/25/25 05/25/25 06:30 06:30 06:30 MCV MCH MCHC RDW Plt Count MPV Immature Gran % (Auto) Neut % (Auto) Lymph % (Auto) [place] % (Auto) Eos % (Auto) Baso % (Auto) Lymph # (Auto) [place] # (Auto) Eos # (Auto) Baso # (Auto) Abs Immat Gran (auto) Absolute Neuts (auto) Absolute Nucleated RBC Nucleated RBC % (auto) Anion Gap Estim Creat Clear Calc Cancelled Estimated GFR 36 Cancelled Random Glucose 119 H Cancelled Calcium 8.7 Urine Color Urine Appearance Urine pH Ur Specific [place] Urine Protein Urine Glucose (UA) Urine Ketones Urine Blood Urine Nitrite Ur Leukocyte Esterase Urine RBC Urine WBC Ur Squamous Epith Cells Urine Bacteria Hyaline Casts Urine Eosinophils % U Random Total Protein Urine Creatinine Urine Microalbumin Microalb/Creat Ratio Protein/Creatinin Ratio 05/25/25 06:30 MCV MCH MCHC RDW Plt Count MPV Immature Gran % (Auto) Neut % (Auto) Lymph % (Auto) [place] % (Auto) Eos % (Auto) Baso % (Auto) Lymph # (Auto) [place] # (Auto) Eos # (Auto) Baso # (Auto) Abs Immat Gran (auto) Absolute Neuts (auto) Absolute Nucleated RBC Nucleated RBC % (auto) Anion Gap Estim Creat Clear Calc Estimated GFR Random Glucose Calcium Cancelled Urine Color Urine Appearance Urine pH Ur Specific [place] Urine Protein Urine Glucose (UA) Urine Ketones Urine Blood Urine Nitrite Ur Leukocyte Esterase Urine RBC Urine WBC Ur Squamous Epith Cells Urine Bacteria Hyaline Casts Urine Eosinophils % U Random Total Protein Urine Creatinine Urine Microalbumin Microalb/Creat Ratio Protein/Creatinin Ratio Microbiology Microbiology Results: Microbiology 05/23/25 22:41 Blood Culture - Preliminary Blood - Venous No growth after 24 hours. 05/23/25 22:41 Blood Culture - Preliminary Blood - Venous No growth after 24 hours. Assessment and Plan (1) Acute exacerbation of chronic obstructive pulmonary disease: Status: Acute Assessment and Plan: 80-year-old female with a past medical history significant for grade 1 diastolic congestive heart failure (not taking her Lasix), CKD 3B, history of pituitary adenoma, seizure disorder, hypertension and CAD, who presented to the ED due to shortness of breath starting earlier today. Likely combined acute CHF and COPD exacerbation with superimposed pneumonia. Acute on chronic respiratory failure with hypoxia and hypercapnia secondary to acute exacerbation of COPD and CHF . sob with minimal exertion, has cough. Procalcitonin level low, chest x-ray and CTA chest reviewed: No pulmonary emboli and possible mild bronchitis acute. IV antibiotics, cultures pending. Monitor I&O, daily weights hayes on CKD 3B - monitor cr will conisder switching to po lasix due to hayes Added nephro evaluation Seizure disorder: continue lamotrigine. Hypertension hold lisinopril CAD- isosorbide, aspirin Class 2 obesity- BMI 35.4 weight loss encouraged Full code VTE prophylaxis; heparin Patient with acute on chronic respiratory failure with hypoxia and hypercapnia secondary to acute exacerbation of COPD and CHF with superimposed bronchitis, requiring IV antibiotics, diuresis and monitoring, renal function electrolyte monitoring. Quality Stroke Does the patient have a stroke diagnosis?: No VTE Prior VTE?: No VTE Risk Level:: Medical - moderate - high VTE Device Contraindication: Treatment Not Indicated VTE Drug Contraindication: N/A - Med Ordered
[2025-05-26] VITALS (7 sets, daily range): BP systolic 126–189; BP diastolic 63–95; PULSE 74–81; RESP 18–20; TEMP 36.6–37; O2SAT 92–95
[2025-05-26 07:25] LABS: MANUAL DIFF FLAG NO
[2025-05-26 07:28] LABS: Hematocrit 38.4 % (37.0-47.0); Hemoglobin 11.4 g/dl (12.0-16.0); Imm Gran Abs Auto 0.08 X10*3/uL (0.00-0.03); Imm Gran Pct Auto 0.9 % (0.0-0.4); Lymphocytes Absolute Auto 0.7 X10*3/uL (1.2-4.9); Mean Corpuscular HGB Conc 29.7 g/dl (31.0-35.0); Mean Corpuscular Hemoglobin 29.1 pg (27.0-33.0); Mean Corpuscular Volume 98.0 fL (80.0-98.0); NRBC Abs Auto 0.000 X10*3/uL (0.0-0.012); NRBC Pct Auto 0.0 /100WBC (0.0-0.2); Platelet Count 267 X10*3/uL (160-400); Red Blood Count 3.92 X10*6/uL (4.20-5.50); White Blood Count 8.8 X10*3/uL (4.8-10.8)
[2025-05-26 07:43] LABS: Anion Gap 12 (12-20); Blood Urea Nitrogen 36 mg/dL (9-16); Calcium 8.8 mg/dL (8.4-10.2); Carbon Dioxide 28 mmol/L (22-29); Chloride 106 mmol/L (96-108); Creatinine Clr Calc Pharmacy 30.9; Estimated Glomerular Filt Rate 38; Potassium 5.0 mmol/L (3.3-5.1); Sodium 141 mmol/L (135-145)
[2025-05-26] MEDS: Aspirin Enteric Coated 81 MG TABLET.DR PO (09:10)
[2025-05-26] MEDS: 0.9 % Sodium Chloride Flush 3 ML SYRINGE IVFLUSH ×3 (09:10→19:58)
--- NOTE | 2025-05-26 15:30 | MHC.CM.PN ---
Addendum entered by Deonna Parish 05/27/25 11:02: PT HAS ACCEPTED A BED AT [facility] FOR STR BLS TRANSPORT BOOKED FOR 1300 HOURS WITH TY PT AND RN AWARE Original Note: CM MET WITH PT TO DISCUSS DCP PT UNDERSTANDS STR WAS RECOMMENDED AND IS AGREEABLE SHE REQUESTED A REFERRAL TO [facility] IT IS CLOSE FOR FAMILY TO VISIT, HOWEVER [facility] DECLINED REFERRAL EXPANDED TO LOCAL SNFS, AWAITING RESPONSES
--- NOTE | 2025-05-26 15:48 | P.PNIM_ITS ---
Subjective Subjective Date of Service: 05/26/25 Interval History: Pneumonia Review of Systems Patient is short of breath with minimal exertion Generalized weak Physical Exam 2 Exam: Exam: Appearance: Alert.? Oriented X3.? cvs: [id number], [id number] , no murmur res: air netry diminshed ,s/l exp wheezing abd: no rebound or guarding ,nt, bs present. ext pulses present , no cyanosis . neuro: axo3 , nonfocal. Vital Signs: Vital Signs: Last Vital Signs Temp 97.8 F 05/26/25 11:35 Pulse 78 05/26/25 11:35 Resp 18 05/26/25 11:35 BP 138/63 05/26/25 11:35 Pulse Ox 94 05/26/25 11:35 O2 Del Method Nasal Cannula 05/26/25 11:35 O2 Flow Rate 1.5 05/26/25 11:35 Oxygen Flow Rate 2 05/23/25 18:42 BMI result Body Mass Index 35.7 Objective Data Active Medications Acetaminophen (Acetaminophen 325 Mg Tablet) 975 mg PO Q6H PRN PRN Reason: Pain, Mild 1-3,fever,headache Albuterol/Ipratropium (Albuterol/Iprat 2.5/0.5mg 3 Ml Ampul.Neb) 3 ml INHALE Q4H PRN PRN Reason: shortness of breath/wheezing Amlodipine Besylate (Amlodipine Besylate 5 Mg Tablet) 5 mg PO DAILY [facility]; Protocol Last Admin: 05/26/25 09:10 Dose: 5 mg Documented By: FRED Aspirin (Aspirin Enteric Coated 81 Mg Tablet.Dr) 81 mg PO DAILY [facility] Last Admin: 05/26/25 09:10 Dose: 81 mg Documented By: FRED Calcium Carbonate (Calcium Carbonate 750 Mg Tab.Chew) 750 mg PO Q4H PRN PRN Reason: Heartburn Furosemide (Furosemide 20 Mg Tablet) 20 mg PO DAILY [facility]; Protocol Last Admin: 05/26/25 09:10 Dose: 20 mg Documented By: FRED Heparin Sodium (Porcine) (Heparin Sodium,Porcine 5,000 Unit/Ml Vial) 5,000 unit SUBCUT Q12H [facility] Last Admin: 05/26/25 14:21 Dose: 5,000 unit Documented By: FRED Ceftriaxone Sodium 1 gm/ (Sodium Chloride) 50 mls @ 100 mls/hr IV Q24H [facility] Last Infusion: 05/25/25 23:55 Dose: Infused Documented By: REGIS Azithromycin 500 mg/ Sodium (Chloride) 250 mls @ 125 mls/hr IV Q24H [facility] Last Infusion: 05/26/25 02:15 Dose: Infused Documented By: REGIS Isosorbide Mononitrate (Isosorbide Mononitrate 30 Mg Tab.Er.24h) 30 mg PO DAILY [facility]; Protocol Last Admin: 05/26/25 09:10 Dose: 30 mg Documented By: FRED Lamotrigine (Lamotrigine 25 Mg Tablet) 50 mg PO BID [facility] Last Admin: 05/26/25 09:10 Dose: 50 mg Documented By: FRED Magnesium Hydroxide (Milk Of Magnesia 30 Ml Oral.Susp) 30 ml PO DAILY PRN PRN Reason: Constipation Melatonin (Melatonin 3 Mg Tablet) 6 mg PO BEDTIME PRN PRN Reason: Insomnia Methylprednisolone Sodium Succinate (Methylprednisolone Sod Succ 125 Mg/2 Ml Vial) 40 mg IVPUSH Q12H [facility] Last Admin: 05/26/25 09:10 Dose: 40 mg Documented By: FRED Non-Formulary Medication (Cabergoline) 0.25 mg PO WE [facility] Ondansetron HCl (Ondansetron Hcl 4 Mg/2 Ml Vial) 4 mg IVPUSH Q8H PRN PRN Reason: Nausea and Vomiting Oxycodone HCl (Oxycodone Hcl Immed Release 5 Mg Tablet) 5 mg PO Q6H PRN PRN Reason: Pain, Severe (Pain Scale 7-10) Pravastatin Sodium (Pravastatin Sodium 80 Mg Tablet) 80 mg PO BEDTIME [facility] Last Admin: 05/25/25 20:57 Dose: 80 mg Documented By: REGIS Sodium Chloride (0.9 % Sodium Chloride Flush 3 Ml Syringe) 3 ml IVFLUSH QSHIFT [facility] Last Admin: 05/26/25 14:21 Dose: 3 ml Documented By: FRED Tramadol HCl (Tramadol Hcl 50 Mg Tablet) 50 mg PO Q6H PRN PRN Reason: Pain, Moderate(Pain Scale 4-6) Labs 05/26/25 07:20 05/26/25 07:20 Labs: Laboratory Results - last 24 hr 05/26/25 07:20 MCV 98.0 MCH 29.1 MCHC 29.7 L RDW 13.8 Plt Count 267 MPV 8.8 L Immature Gran % (Auto) 0.9 H Neut % (Auto) 87.7 H Lymph % (Auto) 7.4 L Norton % (Auto) 3.9 Eos % (Auto) 0.0 Baso % (Auto) 0.1 Lymph # (Auto) 0.7 L Norton # (Auto) 0.3 Eos # (Auto) 0.0 Baso # (Auto) 0.0 Abs Immat Gran (auto) 0.08 H Absolute Neuts (auto) 7.7 Absolute Nucleated RBC 0.000 Nucleated RBC % (auto) 0.0 Anion Gap 12 Estim Creat Clear Calc 30.9 Estimated GFR 38 Random Glucose 117 H Calcium 8.8 Microbiology Microbiology Results: Microbiology 05/23/25 22:41 Blood Culture - Preliminary Blood - Venous No growth after 48 hours. 05/23/25 22:41 Blood Culture - Preliminary Blood - Venous No growth after 48 hours. Assessment and Plan (1) Acute exacerbation of chronic obstructive pulmonary disease: Status: Acute Assessment and Plan: 80-year-old female with a past medical history significant for grade 1 diastolic congestive heart failure (not taking her Lasix), CKD 3B, history of pituitary adenoma, seizure disorder, hypertension and CAD, who presented to the ED due to shortness of breath starting earlier today. Likely combined acute CHF and COPD exacerbation with superimposed pneumonia. Acute on chronic respiratory failure with hypoxia and hypercapnia secondary to acute exacerbation of COPD and CHF . sob with minimal exertion, has cough. Procalcitonin level low, chest x-ray and CTA chest reviewed: No pulmonary emboli and possible mild bronchitis acute. IV antibiotics, cultures pending. Monitor I&O, daily weights hayes on CKD 3B monitor cr improving nephro evaluation noted -switched to po lasix Seizure disorder: continue lamotrigine. Hypertension hold lisinopril CAD- isosorbide, aspirin Class 2 obesity- BMI 35.4 weight loss encouraged Full code VTE prophylaxis; heparin acute on chronic respiratory failure with hypoxia and hypercapnia secondary to acute exacerbation of COPD and CHF with superimposed bronchitis, requiring IV antibiotics, diuresis and monitoring, renal function electrolyte monitoring. Quality Stroke Does the patient have a stroke diagnosis?: No VTE Prior VTE?: No VTE Risk Level:: Medical - moderate - high VTE Device Contraindication: Treatment Not Indicated VTE Drug Contraindication: N/A - Med Ordered
[2025-05-27 03:20] VITALS: BP 158/72; PULSE 81; RESP 18; TEMP 36.7; O2SAT 94
[2025-05-27 07:26] VITALS: BP 154/69; PULSE 76; RESP 18; TEMP 36.5; O2SAT 94
[2025-05-27] MEDS: Aspirin Enteric Coated 81 MG TABLET.DR PO (08:23)
[2025-05-27] MEDS: Furosemide 20 MG/2 ML VIAL IVPUSH (08:24)
[2025-05-27] MEDS: 0.9 % Sodium Chloride Flush 3 ML SYRINGE IVFLUSH (08:31)
--- NOTE | 2025-05-27 10:39 | PM.DS ---
DS: Providers Provider Date of Service: 05/27/25 Date of admission: 05/23/25 22:39 Date of discharge: 05/27/25 Primary care physician: Preeti Brothers MD Consults: 05/24/25 10:21 Consult to Nephrology Routine Consulting Provider: [facility] Reason for consultation: Sherman / chf Has provider been notified: No Attending physician on discharge: Paul Ferguson Discharging clinician: Paul Ferguson DS: Diagnosis Discharge Diagnosis (1) Acute exacerbation of chronic obstructive pulmonary disease: Status: Acute DS: Summary Hospital Course Hospital Course: HPI:80-year-old female with a past medical history significant for grade 1 diastolic congestive heart failure (not taking her Lasix), CKD 3B, history of pituitary adenoma, seizure disorder, hypertension and CAD, who presented to the ED due to shortness of breath starting earlier today. She reports significant shortness of breath when walking short distances. No orthopnea. She denies any cough, chest pain, nausea or vomiting. No fever or chills. No wheezing or chest tightness. No abdominal pain or urinary symptoms including frequency, urgency or dysuria. She does not have a diagnosis of COPD however likely given her smoking history. The patient had pulmonary function testing done yesterday, results not back yet. She just recently quit smoking but reports that she has been having an occasional cigarette. In the ED the patient received a duoneb and Solu-Medrol some improvement. She was also started on azithromycin and ceftriaxone for possible pneumonia on chest x-ray. O2 saturation is 87% on room air without exertion, currently improved with 2 L via NC. Hospital course: Acute on chronic respiratory failure with hypoxia and hypercapnia secondary to acute exacerbation of COPD and CHF : Workup with procalcitonin low, chest x-ray and CT reviewed possible has component of acute bronchitis superimposed: Patient was given oxygen, IV Lasix and IV steroids as well and antibiotics-with the above supportive care patient seems to be improved significantly-her breathing is back to the baseline , still require 1-2 L oxygen need to taper in rehab, consider home oxygen evaluation before discharge. Blood culture negative. SHERMAN on CKD 3B: Seen by Nephro: Suggested to switch to p.o. Lasix low-dose, also hyperkalemia was thought to be related to poor renal flow, improved with the hydration. Urinalysis shows 3+ protein, no cells upon quantification UPCR 1.31 gram/gram, UACR: 844mg/gm. Patient will need to be started on losartan 25 mg during discharge, we can up titrate outpatient, renal ultrasound:Atrophic right kidney with possible small nonobstructing calculi. Unremarkable left kidney. Recommended to add losartan 25 mg p.o. daily Monitor BMP closely outpatient. plan: repeat bmp in 2-3 days . Losartan 25 mg daily Lasix 20 mg daily Ceftriaxone and azithromycin as prescribed. Taper oxygen in rehab, may need home oxygen evaluation before discharge from rehab. CHF education given-if gains weight 2 lb or more in a week-will need outpatient Lasix dosing assessment with PCP. Consider Follow-up with cardiology outpatient Follow up with PCP, Nephro out patiently. Above management discussed with the patient in detail length she understand and in agreement with the above plan, time spent 50 minutes. Time Attestation Total time managing care of this patient today: 50 mintues. Discharge Coordination Time (in mins): 50 minute Quality: Safe Use of Opioids Does Pt have an Active Cancer Diagnosis on the Problem List?: No Quality: Stroke Does the patient have a stroke diagnosis?: No Physical Exam Exam: Exam: Appearance: Alert.? Oriented X3. cvs: rrr, [id number] , no murmur res: clear to auscultation ,no rhonchii or wheezing abd: no rebound or guarding ,nt, bs present. ext pulses present , no cyanosis . neuro: axo3 , nonfocal. Vital Signs: Vital Signs: Last Vital Signs Temp 97.7 F 05/27/25 07:26 Pulse 76 05/27/25 07:26 Resp 18 05/27/25 07:26 BP 154/69 H 05/27/25 07:26 Pulse Ox 94 05/27/25 07:26 O2 Del Method Nasal Cannula 05/27/25 07:26 O2 Flow Rate 2 05/27/25 07:26 Oxygen Flow Rate 2 05/23/25 18:42 BMI result Body Mass Index 35.7 DS: Data Data Completed and Pending Completed studies during hospitalization [Text1]: Procedures Excision of Right Upper Leg Subcutaneous Tissue and Fascia, Percutaneous Approach, Diagnostic (04/24/25) Labs on day of discharge: Preliminary micro results at discharge 05/23/25 22:41 Blood Culture - Preliminary Blood - Venous No growth after 48 hours. 05/23/25 22:41 Blood Culture - Preliminary Blood - Venous No growth after 48 hours. Imaging Chest x-ray: My impression: renal us:05/25/25 1. Atrophic right kidney with possible small nonobstructing calculi. 2. Unremarkable left kidney. cta:05/23/25: No pulmonary embolism to the level of the proximal segmental pulmonary arteries. Diffuse bronchial wall thickening which can be seen with reactive airway disease. Moderate emphysema in the upper lobes. echo:05/25/25: Conclusions: - 1. Normal LV ejection fraction of 65-70% with mild LVH with elevated filling pressures 2. Normal RV size and systolic function Findings Left Ventricle Normal left ventricular size and systolic function. There is mildly increased left ventricular wall thickness. The visually estimated ejection fraction is between 65-70%. Spectral Doppler is indicative of an impaired relaxation filling pattern. Elevated filling pressures. E/E prime ratio is >15, consistent with elevated filling pressures. Right Ventricle Normal right ventricular cavity size and systolic function. Discharge Plan Discharge Anticipated Discharge Date/Time: 05/27/25 10:21 Patient Disposition: [facility] Discharge Diagnosis: COPD, CHF exacerbation, acute bronchitis Referrals: Preeti Brothers MD [Primary Care Provider, Internal Medicine] - 1 Week Discharge Medications: New cefuroxime axetil 500 mg Tablet 500 mg PO Q12H Qty: 10 0RF amlodipine 5 mg Tablet 5 mg PO BID Qty: 1 0RF Protocol: Hold for SBP< HOLD for SBP < : 90 azithromycin 500 mg Tablet 500 mg PO Q24H Qty: 5 0RF Continued lamotrigine 25 mg tablet 50 mg PO BID Qty: 180 0RF isosorbide mononitrate 30 mg Tablet Extended Release 24 Hr 30 mg PO DAILY Qty: 90 0RF Protocol: Hold for SBP< HOLD for SBP < : 90 aspirin 81 mg Tablet,Delayed Release (Dr/Ec) 81 mg PO DAILY Qty: 90 0RF albuterol sulfate 90 mcg/actuation aerosol powdr breath activated 1 inh inhalation Q4-6H PRN (Reason: shortness of breath) Qty: 1 0RF alendronate 70 mg tablet 70 mg PO WE pravastatin 80 mg tablet 80 mg PO BEDTIME cabergoline 0.5 mg tablet 0.25 mg PO WE Changed furosemide [Lasix] 20 mg tablet 20 mg PO Q24H Qty: 1 0RF Held lisinopril 40 mg tablet 40 mg PO DAILY Hold Instructions: Resume on 05/31/25. Discharge Orders: Discharge Order (Routine); Ordered 05/27/25 Ordered By: Paul Ferguson Diet: Advance to usual diet Activity on Discharge: As tolerated Stand Alone Forms: Patient Portal Discharge page Print Language: Serbian Care Plan Goals: as above. Health Concerns: repeat bmp in 2-3 days Losartan 25 mg daily Lasix 20 mg daily Ceftriaxone and azithromycin as prescribed. Taper oxygen in rehab, may need home oxygen evaluation before discharge from rehab. CHF education given-if gains weight 2 lb or more in a week-will need outpatient Lasix dosing assessment with PCP. Consider Follow-up with cardiology outpatient Plan of Treatment: As above. Assessment: As above.
[2025-05-27 11:19] VITALS: PULSE 69; RESP 18; O2SAT 97
[2025-05-27] MEDS: Albuterol/Iprat 2.5/0.5MG 3 ML AMPUL.NEB INHALE (11:19)
[2025-05-27 11:21] VITALS: BP 141/71; PULSE 73; RESP 18; TEMP 36.8; O2SAT 92
== END 2025-05-27 13:01 | disposition skilled nursing facility (03) | DRG 291 ==
LOC: HO.ED 22:31 → HO.EDOVER 22:50 → HO.IMC 05-24 07:36
PROVIDERS: Emergency Medicine; Internal Medicine Critical Care Medicine; Physician Assistant; Physician Assistant Medical; Admitting Provider Internal Medicine; Emergency Provider Emergency Medicine; PCP Internal Medicine; Visit Provider Internal Medicine
DX: I13.0 Hypertensive heart and chronic kidney disease with heart failure and stage 1 through stage 4 chronic kidney disease, or unspecified chronic kidney disease (principal); I50.33 Acute on chronic diastolic (congestive) heart failure; J18.9 Pneumonia, unspecified organism; J96.21 Acute and chronic respiratory failure with hypoxia; J96.22 Acute and chronic respiratory failure with hypercapnia; J44.1 Chronic obstructive pulmonary disease with (acute) exacerbation; J44.0 Chronic obstructive pulmonary disease with (acute) lower respiratory infection; N17.9 Acute kidney failure, unspecified; E66.812 Obesity, class 2; Z71.3 Dietary counseling and surveillance; E87.5 Hyperkalemia; Z68.35 Body mass index [BMI] 35.0-35.9, adult; G40.909 Epilepsy, unspecified, not intractable, without status epilepticus; T50.1X6A Underdosing of loop [high-ceiling] diuretics, initial encounter; J20.9 Acute bronchitis, unspecified; I25.10 Atherosclerotic heart disease of native coronary artery without angina pectoris; N18.32 Chronic kidney disease, stage 3b; F17.210 Nicotine dependence, cigarettes, uncomplicated; Z71.6 Tobacco abuse counseling; Z79.82 Long term (current) use of aspirin; Z79.899 Other long term (current) drug therapy
CPT/HCPCS: 36415; 71046; 71275; 76775; 80048; 80053; 81001; 82043; 82570; 82803; 83605; 83735; 83880; 84132; 84145; 84156; 84484; 85025; 85379; 85999; 87040; 93005; 93308; 94640; 97162; 99285; J0456; J0696; J1644; J1938; J2919; Q9967

== ENCOUNTER → 2025-05-23 18:43 | Outpatient (BNV) | payer MEDICARE, BC, SELFPAY | PROVIDERS: Admitting Provider Internal Medicine; Emergency Provider Emergency Medicine; PCP Internal Medicine; Visit Provider Internal Medicine Cardiovascular Disease | DX: I44.4 Left anterior fascicular block (principal) | CPT/HCPCS: 93010 ==

== ENCOUNTER → 2025-05-23 18:44 | Outpatient (BNV) | payer MEDICARE, BC, SELFPAY | PROVIDERS: Emergency Provider Emergency Medicine; PCP Internal Medicine; Visit Provider Radiology Diagnostic Radiology | DX: R06.00 Dyspnea, unspecified (principal); Z87.09 Personal history of other diseases of the respiratory system | CPT/HCPCS: 71046 ==

== ENCOUNTER 2025-05-23 22:39 | Outpatient (BNV) | payer MEDICARE, BC, SELFPAY | END 2025-05-25 07:00 | PROVIDERS: Admitting Provider Internal Medicine; Emergency Provider Emergency Medicine; PCP Internal Medicine; Visit Provider Internal Medicine Cardiovascular Disease | DX: I50.9 Heart failure, unspecified (principal) | CPT/HCPCS: 93308; 93321 ==

== ENCOUNTER → 2025-05-23 22:39 | Outpatient (BNV) | payer MEDICARE, BC, SELFPAY | PROVIDERS: Admitting Provider Internal Medicine; Emergency Provider Emergency Medicine; PCP Internal Medicine; Visit Provider Internal Medicine Critical Care Medicine | DX: N18.9 Chronic kidney disease, unspecified (principal); E87.5 Hyperkalemia | CPT/HCPCS: 99233 ==

== ENCOUNTER → 2025-05-23 22:39 | Outpatient (BNV) | payer MEDICARE, BC, SELFPAY | PROVIDERS: Admitting Provider Internal Medicine; Emergency Provider Emergency Medicine; PCP Internal Medicine; Visit Provider Physician Assistant | DX: J44.1 Chronic obstructive pulmonary disease with (acute) exacerbation (principal); J96.21 Acute and chronic respiratory failure with hypoxia; J96.22 Acute and chronic respiratory failure with hypercapnia; I50.9 Heart failure, unspecified; N18.32 Chronic kidney disease, stage 3b; J18.9 Pneumonia, unspecified organism; E66.09 Other obesity due to excess calories; Z68.35 Body mass index [BMI] 35.0-35.9, adult | CPT/HCPCS: 99222; 99231; 99232; 99239; 99499 ==

== ENCOUNTER 2025-06-26 12:55 | Outpatient (REF) | payer MEDICARE, BC, SELFPAY ==
[2025-06-26 18:16] LABS: MANUAL DIFF FLAG NO
[2025-06-26 18:24] LABS: Hematocrit 39.9 % (37.0-47.0); Hemoglobin 12.0 g/dl (12.0-16.0); Imm Gran Abs Auto 0.02 X10*3/uL (0.00-0.03); Imm Gran Pct Auto 0.3 % (0.0-0.4); Lymphocytes Absolute Auto 1.6 X10*3/uL (1.2-4.9); Mean Corpuscular HGB Conc 30.1 g/dl (31.0-35.0); Mean Corpuscular Hemoglobin 28.2 pg (27.0-33.0); Mean Corpuscular Volume 93.7 fL (80.0-98.0); NRBC Abs Auto 0.000 X10*3/uL (0.0-0.012); NRBC Pct Auto 0.0 /100WBC (0.0-0.2); Platelet Count 307 X10*3/uL (160-400); Red Blood Count 4.26 X10*6/uL (4.20-5.50); White Blood Count 6.3 X10*3/uL (4.8-10.8)
[2025-06-26 18:47] LABS: Alanine Aminotransferase 13 U/L (0-31); Albumin Level 4.1 g/dL (3.5-5.0); Alkaline Phosphatase 77 U/L (39-117); Anion Gap 10 (12-20); Aspartate Amino Transferase 27 U/L (5-31); Blood Urea Nitrogen 26 mg/dL (9-16); Calcium 9.1 mg/dL (8.4-10.2); Carbon Dioxide 31 mmol/L (22-29); Chloride 102 mmol/L (96-108); Cholesterol 160 mg/dL (<200); Estimated Glomerular Filt Rate 34; HDL Cholesterol 61 mg/dL (>40); Magnesium 2.2 mg/dL (1.6-2.6); Potassium 4.1 mmol/L (3.3-5.1); Sodium 139 mmol/L (135-145); Total Protein 6.9 g/dL (6.5-8.0); Triglycerides 144 mg/dL (<150)
[2025-06-26 19:14] LABS: Folate 5.5 ng/mL (> or = 4.0); Vitamin B12 388 pg/mL (200-900)
[2025-06-26 19:42] LABS: Appearance Urine Clear; Glucose Urine UA Negative (Negative); PH 5.5 (5.0-9.0); Specific Gravity - Urine 1.020 (1.005-1.025); UMIC TRIGGER UACC YES
[2025-06-26 21:42] LABS: Microalbum/Creatinine Ratio Ur 479.8 ug/mg cr (<30)
[2025-06-27 04:46] LABS: Syphilis Screen Nonreactive (Nonreactive)
[2025-06-27 05:17] LABS: HBS Num1 0.44 mIU/mL (0-7.99); HIV Num 1 0.08 S/CO (0.00-0.99); ~HepC Num1 0.07 S/CO (0.00-0.79); ~Hepatitis B Surface Antibody NONREACTIVE (Nonreactive); ~Hepatitis C Antibody Nonreactive (Nonreactive)
[2025-06-28 13:21] LABS: HBsAGNum1 0.21 S/CO (0.00-0.99); Hepatitis B Surface Antigen Negative (Negative)
[2025-07-03 18:39] LABS: VITAMIN D (1,25 OH) D3 16 pg/mL; Vit D (1,25-Dihydroxy) Total 16 pg/mL (18-72); Vitamin D (1,25 OH) D2 <8 pg/mL
== END 2025-06-26 12:56 | disposition home or self-care (01) ==
LOC: HO.HKASLDS 12:55
PROVIDERS: PCP Student in an Organized Health Care Education/Training Program; Visit Provider Student in an Organized Health Care Education/Training Program
DX: I13.0 Hypertensive heart and chronic kidney disease with heart failure and stage 1 through stage 4 chronic kidney disease, or unspecified chronic kidney disease (principal); N18.9 Chronic kidney disease, unspecified; I50.9 Heart failure, unspecified; Z13.9 Encounter for screening, unspecified; R91.1 Solitary pulmonary nodule; J44.9 Chronic obstructive pulmonary disease, unspecified; G40.209 Localization-related (focal) (partial) symptomatic epilepsy and epileptic syndromes with complex partial seizures, not intractable, without status epilepticus; H61.20 Impacted cerumen, unspecified ear; M81.0 Age-related osteoporosis without current pathological fracture; D35.2 Benign neoplasm of pituitary gland; R26.9 Unspecified abnormalities of gait and mobility; E66.811 Obesity, class 1; Z87.891 Personal history of nicotine dependence; Z78.0 Asymptomatic menopausal state; Z68.34 Body mass index [BMI] 34.0-34.9, adult
CPT/HCPCS: 36415; 80053; 80061; 81001; 81003; 82043; 82570; 82607; 82652; 82746; 83036; 83735; 84443; 85025; 86706; 86780; 86803; 87340; 87389; 96127; 99202

== ENCOUNTER 2025-06-26 12:55 | Outpatient (AMB) | payer MEDICARE, BC, SELFPAY ==
--- NOTE | 2025-06-26 12:58 | A.OFFPC_ITS ---
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 Accompanied by: Health Care Proxy Allergies hydralazine Allergy (Intermediate, Verified 06/26/25 12:59) Rash carbamazepine (From Tegretol) Allergy (Verified 06/26/25 12:59) Unknown Medication List - Last Reconciled 06/26/25 by Tavo Harden MD albuterol sulfate 90 mcg/actuation 1 inh inhalation Q4-6H PRN alendronate 70 mg PO WE amlodipine 10 mg See Protocol PO ONCE ammonium lactate 5% (Lac-Hydrin Five) 1 appl topical BID aspirin 81 mg PO DAILY lckdgsegfd-jppurgrc-ksdoyvprmo 160-9-4.8 mcg/actuation (Breztri Aerosphere) 2 inhalations inhalation BID cabergoline 0.25 mg PO WE carbamide peroxide 6.5% (Debrox) 5 drps otic (ears) Q12H 4 days carvedilol 6.25 mg PO BID furosemide (Lasix) 20 mg PO Q24H ipratropium-albuterol 0.5 mg-3 mg(2.5 mg base)/3 mL mL inhalation QID PRN isosorbide mononitrate ER 30 mg See Protocol PO DAILY lamotrigine 50 mg (2 x 25 mg) PO BID losartan 50 mg See Protocol PO DAILY pravastatin 80 mg PO BEDTIME Tobacco use date assessed: 06/26/25 Fall risk assessment: No Falls in past year Last assessed Fall Risk: 06/26/25 Dental Screening Dental Screen Date: 06/26/25 Did you have a dental visit in the last 12 months?: Yes HPI HPI Comments History of Present Illness Details History of Present Illness The patient is an 80 year old female presenting to psychiatric hospital care with a new primary care physician. Hypertension: The patient has a history of high blood pressure, with a reading of 200 noted about a year and a half ago, at which point she was started on medication for the first time. Her blood pressure was controlled by a PA at [facility] but subsequently became elevated again. Hydralazine was added to her regimen, which she believes caused swollen, purple legs and a rash, leading to its discontinuation. The rash was identified as a drug-induced lupus-type reaction to hydralazine during a hospitalization. She has been hospitalized multiple times in recent months for high blood pressure, with her last discharge on June 11. Her blood pressure has been well-controlled since leaving the hospital, although it may be slightly high at night. She reports monitoring her blood pressure daily. Congestive Heart Failure: The patient was diagnosed with congestive heart failure during an emergency room visit approximately a month to a month and a half ago. An echocardiogram performed in May at the hospital revealed diastolic, or preserved, congestive heart failure, with an ejection fraction above 55%. The heart bal are noted to be thicker, likely due to a history of uncontrolled hypertension. She is awaiting an appointment with a new box maker. Chronic Obstructive Pulmonary Disease (COPD): The patient has a diagnosis of COPD with moderate emphysema. She reports having difficulty breathing, which motivated her to quit smoking. She uses a nebulizer with ipratropium-albuterol. She wishes to switch from her verifying machine operator at [facility] to one at [facility]. Pulmonary Nodule: A CT scan of the lungs revealed a pulmonary nodule. The patient was not previously aware of this finding and it has not been addressed since diagnosis. Chronic Kidney Disease: The patient has a diagnosis of stage 3B chronic kidney disease. She has an upcoming appointment with a surgical brace maker but has not seen one yet. History of Smoking: The patient has been a lifelong smoker but reports quitting one month ago. She states that she quit because she was having trouble breathing. Epilepsy: The patient has a history of seizures, which she reports started after having encephalitis as a child. She currently takes lamotrigine for seizure control. She reports she is no longer taking Keppra due to sleep allergies. She experienced a fall about three months ago which she suspects was due to a petit mal seizure. Obesity: The patient's current weight is 184 pounds, with a BMI of 34.8, classifying her as obese class 1. She reports that her weight has recently increased to 180 pounds, up from her normal weight of 155-160 pounds. She has not previously seen a signs and displays sales representative. Osteoporosis: The patient has a diagnosis of osteoporosis and is taking alendronate. She has n ot had a DEXA scan in approximately 15 years. Medications: - Albuterol: For COPD. - Alendronate: For osteoporosis. - Amlodipine : For hypertension. - Aspirin 81 mg. - Cabergoline: For pituitary adenoma. - Carvedilol. - Furosemide: Water pill. - Ipratropium-albuterol nebulizer: For C OPD. - Isosorbide mononitrate: For blood pres sure. - Lamotrigine: For seizures. - Losartan 50 mg: For hypertension. - Pravastatin 80 mg. Social History: - Employment: The patient is retired; [employer] worked until age 78. - Substance Use: She was a lifelong smok er but quit one month ago. - Diet: She was advised to follow a low- salt diet for her blood pressure. - Weight Management: Her current weight is 184 pounds with a BMI of 34.8. - Functional Status: The patient reports two falls, one three months ago possibly due to a seizure, where she broke her shoulder, and another one from tripping on a curb. Diagnostic Results: - Labs: Lab work was last completed in . - Echocardiogram: An echo in May owed diastolic congestive heart failure with an ejection fraction above 55%. - Imaging: A prior CT scan of the lungs revealed a pulmonary nodule and a hiatal hernia. Past Medical History - Hospitalizations: Patient reports [facility] at [facility] in the past few months, with the most recent stay from April to June 11 for high blood pressure. - Pneumonia: Patient had a recent episod e of pneumonia. - Encephalitis: Patient had encephalitis as a child, which is the stated cause of her seizures. - Drug Allergy: Allergic to hydralazine, which caused a drug-induced lupus-like reaction with swollen legs and a rash. - Falls: She reports two recent falls, o ne sustaining a broken shoulder. Health Maintenance - DEXA Scan: The patient has not had a b one scan in about 15 years and is due for one. - Colonoscopy: The patient has never had a colonoscopy. - Diet: The patient was counseled on a l ow-salt diet for hypertension. - Smoking Cessation: The patient quit sm oking one month ago. - Weight Management: The patient's BMI i s 34.8 (obese class 1), and weight loss was discussed in the context of improving blood pressure and heart health. - Screening Mammogram: The status of her last mammogram was discussed. [facility] Medical History (Updated 06/26/25 @ 17:05 by Tavo Harden MD) Class 1 obesity History of smoking Congestive heart failure Parkinson disease Pulmonary nodule COPD (chronic obstructive pulmonary disease) Cerumen impaction Post-menopause Osteoporosis Hypertension High cholesterol Epilepsy Seizure disorder Pituitary adenoma Family History (Updated 06/26/25 @ 13:12 by Clarisse Adair CMA) Mother Heart disease Father No problems noted. Social History Household Members: Family and Children Household Members Other:: son and ex Housing: House Do you presently have visiting nurse or other home services: No (Did in the past for 2 months.) Alcohol intake: never Patient Tobacco Use Status: Former Tobacco user Tobacco use type: Cigarette Cigarette Packs Per Day: 0.5 Cigarettes Per Day: 1 Years Smoked: 60 e-Cigarette/Vaping Use: Never Used Second Hand Smoke Exposure: No Advance Directives Date on File: 05/24/25 service: No Cognitive needs: No Hearing needs: No Vision needs: No Questionnaire PHQ-9 Over the last 2 weeks, how often have you been bothered by any of the following problems? 1. Little interest or pleasure in doing things: not at all 2. Feeling down, depressed, or hopeless: not at all 3. Trouble falling or staying asleep, or sleeping too much: not at all 4. Feeling tired or having little energy: more than half the days 5. Poor appetite or overeating: not at all 6. Feeling bad about yourself - or that you are a failure or have let yourself or your family down: not at all 7. Trouble concentrating on things, such as reading the newspaper or watching television: not at all 8. Moving or speaking so slowly that other people could have noticed. Or the opposite - being so fidgety or restless that you have been moving around a lot more than usual: not at all 9. Thoughts that you would be better off or of hurting yourself in some way: not at all Total score: 2 Depression Screening Interpretation: Negative Depression Screening Done: Yes Source: Developed by Drs. Bryson Ken, Yumi Best Whitmore and colleagues, with an educational zara from [employer]. Thrive Questionnaire Date Thrive assessed: 06/26/25 I am a: Patient What is your living situation today?: I have a steady place to live Within the past 12 months, did the food you bought not last and you didn't have the money to get more?: Never true Within the past 12 months, did you worry whether your food would run out before you got money to buy more?: Never true Do you have trouble paying for medicines?: No Do you have trouble getting transportation to medical appointments?: No Do you have trouble paying your heating and electricity bill?: No Do you have trouble taking care of your child, family member or friend?: No Do you have trouble with day-to-day activities such as bathing, preparing meals, shopping, managing finances, etc.?: No Are you currently unemployed and looking for a job?: No Are you interested in more education?: No Please select the resources that you would like help with: None Currently or been in a relationship where the following occur: No concerns reported THRIVE Score: 0 AUDIT C Alcohol Use Questionnaire (AUDIT-C) 1. How often do you have a drink containing alcohol?: Never Total Score: 0 ANDIE-7 AMB Questionnaire ANDIE-7 Date ANDIE - 7 assessed: 06/26/25 Feeling nervous, anxious, or on edge: 0 = Not at all Not being able to stop or control worryin = Not at all Worrying too much about different things: 0 = Not at all Trouble relaxin = Not at all Being so restless that it is hard to sit still: 0 = Not at all Becoming easily annoyed or irritable: 0 = Not at all Feeling afraid as if something awful might happen: 0 = Not at all Total ANDIE-7 score (0-4 normal; 5-9 mild; 10-14 moderate; 15-21 severe): 0 Source: Developed by Drs. Bryson Ken, Best Lucero and colleagues, with an educational zara from [employer]. Review of Systems Narrative Review of Systems - Respiratory: Reports dyspnea. - Extremities: Reports swollen and purple legs after starting hydralazine and still experiences some foot swelling. - Dermatologic: Reports a previous rash all over her body after starting hydral azine. - Neurological: Reports a history of seizures. - Sleep: Reports sleeping well, sometimes waking to watch TV for an hour, and taking naps. - GI: Reports normal bowel movements. Denies constipation. - General: Denies pain. 10-point ROS reviewed and negative except as noted in HPI Physical exam (Primary Care) Vital Signs: Last Vital Signs Temp 98.0 F 06/26/25 13:10 Pulse 58 06/26/25 13:10 BP 114/55 L 06/26/25 13:10 Pulse Ox 92 06/26/25 13:10 Oxygen Delivery Method Room Air 06/26/25 13:10 BMI result Body Mass Index 34.8 Tobacco/Smoking Status: Tobacco use Status Tobacco use date assessed 06/26/25 06/26/25 13:00 Patient Tobacco Use Status Former Tobacco user 06/26/25 13:13 Tobacco use type Cigarette 06/26/25 13:00 e-Cigarette/Vaping Use Never Used 06/26/25 13:00 PHQ-9: PHQ-9 Score PHQ-9: Total score 0 06/26/25 13:58 Depression Screening Interpretation: Negative Thrive Assessment: Date of Thrive Assessment Date Thrive assessed 06/26/25 06/26/25 13:00 Currently or been in a relationship where the following occur: No concerns reported Narrative Physical Exam General: Well-appearing, in no acute distress. Vital signs: Blood pressure is 114/55. HEENT: Normocephalic, atraumatic. PERRLA, EOMI. Conjunctiva clear, sclera anicteric. Oropharynx clear, mucous membranes moist. TMs not visible due to wax buildup. Neck: Supple, no lymphadenopathy, no thyromegaly, no JVD or carotid bruits. Cardiovascular: RRR, normal S1/S2, no murmurs, rubs, or gallops. Peripheral pulses 2+ and symmetric. No edema. Respiratory: Lungs clear to auscultation bilaterally, no wheezes, rales, or rhonchi. Normal effort. Abdomen: Soft, non-tender, non-distended. Normoactive bowel sounds. No hepatosplenomegaly, no masses. MSK: Full range of motion, no joint swelling or deformity. Normal gait. Skin: Warm, dry, intact. No rashes, lesions, or pallor. Skin is very dry; lotion recommended. overgrown nails Neuro: Alert and oriented x3. Cranial nerves II-XII intact. Strength 5/5 throughout. Sensation intact. Reflexes 2+ symmetric. Normal coordination and gait. Psych: Appropriate mood and affect. Normal judgment and insight. Coding Level of Care Code New Pt Level 4 (75652) Add On Problem Visit Only Diagnoses Hypertension I10 COPD (chronic obstructive pulmonary disease) J44.9 Pulmonary nodule R91.1 Partial symptomatic epilepsy with complex partial seizures, not intractable, without status epilepticus G40.209 Epilepsy type: partial symptomatic Partial seizure type: with complex partial seizures Intractability: not intractable Status epilepticus: without status epilepticus Chronic kidney disease N18.9 Cerumen impaction H61.20 Osteoporosis M81.0 Pituitary adenoma D35.2 Gait disorder R26.9 Parkinson disease G20.A1 Congestive heart failure I50.9 History of smoking Z87.891 Class 1 obesity E66.811 Post-menopause Z78.0 Assessment & Plan Assessment & Plan (1) Hypertension: Code(s): I10 - Essential (primary) hypertension Category: Medical (2) COPD (chronic obstructive pulmonary disease): Code(s): J44.9 - Chronic obstructive pulmonary disease, unspecified Category: Medical (3) Pulmonary nodule: Code(s): R91.1 - Solitary pulmonary nodule Category: Medical (4) Epilepsy: Code(s): G40.909 - Epilepsy, unspecified, not intractable, without status epilepticus Category: Medical Qualifiers: Epilepsy type: partial symptomatic Partial seizure type: with complex partial seizures Intractability: not intractable Status epilepticus: without status epilepticus Qualified Code(s): G40.209 - Localization-related (focal) (partial) symptomatic epilepsy and epileptic syndromes with complex partial seizures, not intractable, without status epilepticus (5) Chronic kidney disease: Code(s): N18.9 - Chronic kidney disease, unspecified Category: Medical (6) Cerumen impaction: Code(s): H61.20 - Impacted cerumen, unspecified ear Category: Medical (7) Osteoporosis: Code(s): M81.0 - Age-related osteoporosis without current pathological fracture Category: Medical (8) Pituitary adenoma: Comment: She is seeing a different doctor for this condition Code(s): D35.2 - Benign neoplasm of pituitary gland Category: Medical (9) Gait disorder: Code(s): R26.9 - Unspecified abnormalities of gait and mobility Category: Medical (10) Parkinson disease: Code(s): G20.A1 - Parkinson's disease without dyskinesia, without mention of fluctuations Category: Medical (11) Congestive heart failure: Code(s): I50.9 - Heart failure, unspecified Category: Medical (12) History of smoking: Code(s): Z87.891 - Personal history of nicotine dependence Category: Social Hx (13) Class 1 obesity: Code(s): E66.811 - Obesity, class 1 Category: Medical (14) Post-menopause: Code(s): Z78.0 - Asymptomatic menopausal state Category: Medical Plan Consent Patient was informed and verbally consented to the use of an ambient scribe for clinic note documentation during this visit. Plan 1. Establishing Primary Care - Will order a comprehensive panel of baseline labs, including CBC, CMP, electrolytes, protein, HbA1c, hepatitis B/C/HIV, lipid panel, magnesium, syphilis, thyroid function, urinalysis, vitamin B12/folate, vitamin D, and a check for proteinuria. - Will reconcile current medications; lisinopril, Keppra, and prednisone will be discontinued as the patient is no longer taking them. - Schedule a follow-up appointment in two weeks to review lab results and the patient's progress. 2. Chronic Obstructive Pulmonary Disease And Pulmonary Nodule - A referral will be placed to a verifying machine operator at [facility] for management of both COPD and the pulmonary nodule. - Explained that the pulmonary nodule should be monitored, typically every six months depending on size. 3. Hypertension And Congestive Heart Failure - The patient was counseled on the importance of blood pressure control to prevent further thickening of the heart bal and progression of heart failure and kidney disease. - Recommended a low-salt DASH diet, advising less than 2 grams of salt per day. 4. Chronic Kidney Disease - The patient has an upcoming appointment with a surgical brace maker, Dr. Plummer, which is appropriate for management of her stage 3B CKD. - Baseline labs ordered today will provide information for the surgical brace maker. 5. Obesity And Nutrition - A referral will be sent to a registered dietitian to discuss the DASH diet and weight management. - Encouraged the patient that modest lifestyle changes are appropriate at her age and that she can still enjoy treats in moderation. 6. Osteoporosis - A DEXA scan will be ordered as she has not had one in approximately 15 years. 7. Dry Skin And Foot Care - A prescription for Lac-Hydrin lotion will be sent to address her very dry skin. - A referral to podiatry will be placed for foot care. 8. Cerumen Impaction - A prescription for Debrox ear drops will be sent; instruct the patient to use five drops in each ear twice daily for five days before her next appointment. - If wax is still present at the two-week follow-up, an in-office ear cleaning will be performed. 9. Functional Status - Will initiate the process for a handicap placard. Discussion Notes Patient Instructions - A new medication for your dry skin (Lac-Hydrin) and earwax (Debrox) have been sent to your pharmacy. - Please use the Debrox ear drops as directed: put 5 drops in each ear, twice a day, for 5 days. Start this before your next visit. - Please get your blood drawn today at the lab here in the building. - We have referred you to a lung specialist (verifying machine operator), a foot doctor (energy advisor), and a dietitian. They will call you to schedule appointments. - An order for a bone density scan (DEXA) will be placed. - Continue to limit your salt intake to help manage your blood pressure. Aim for a low-salt diet. - We will start the paperwork for a handicap placard for you. - Please schedule a follow-up appointment to see me in two weeks. Medical Decision Making Total Time Statement 30 min Total time spent caring for the patient today includes pre-visit chart review, documentation, review of laboratory and diagnostic imaging results, medication reconciliation, medically necessary evaluation, counseling on diagnoses, care coordination, ordering appropriate tests and medications, review of tests performed by other providers, reporting test results to the patient, and communication with other healthcare providers. Orders: Orders Influenza [id number] Immunization Today Tavo Harden MD Z23 - Encounter for immunization Comprehensive Met. Panel Today Tavo Harden MD Z13.9 - Encounter for screening, unspecified TSH reflex Free T4 Today Tavo Harden MD Z13.9 - Encounter for screening, unspecified HIV Ab/Ag Today Tavo Harden MD Z13.9 - Encounter for screening, unspecified UA CC w/rflx Micro + Cult Today Tavo Harden MD Z13.9 - Encounter for screening, unspecified Hepatitis B Surface Antibody Today Tavo Harden MD Z13.9 - Encounter for screening, unspecified Complete Blood Count Auto Diff Today Tavo Harden MD Z13.9 - Encounter for screening, unspecified Hepatitis B Surface Antigen Today Tavo Harden MD Z13.9 - Encounter for screening, unspecified Syphilis Screen Today Tavo Harden MD Z13.9 - Encounter for screening, unspecified Hepatitis C Antibody Today Tavo Harden MD Z13.9 - Encounter for screening, unspecified Lipid Panel Today Tavo Harden MD Z13.9 - Encounter for screening, unspecified Vitamin B12 and Folate Today Tavo Harden MD Z13.9 - Encounter for screening, unspecified Hemoglobin A1c Today Tavo Harden MD Z13.9 - Encounter for screening, unspecified Magnesium Today Tavo Harden MD Z13.9 - Encounter for screening, unspecified Vitamin D 1,25 dihydroxy Today Tavo Harden MD Z13.9 - Encounter for screening, unspecified Microalbumin, Random (w Creat) Today Tavo Harden MD Z13.9 - Encounter for screening, unspecified XR DEXA axial skeleton Today Tavo Harden MD M81.0 - Age-related osteoporosis without current pathological fracture, Z78.0 - Asymptomatic menopausal state Referrals Pulmonology Referral Tavo Harden MD J44.9 - Chronic obstructive pulmonary disease, unspecified, R91.1 - Solitary pulmonary nodule Nurse Navigator Referral Tavo Harden MD I10 - Essential (primary) hypertension Podiatry Referral Tavo Harden MD H61.20 - Impacted cerumen, unspecified ear Medications: New Fluarix [id number] (PF) (flu vac ts 2024-(6mos up)-PF) 0.5 mL IM ONCE 0.5 mL 0RF NS Tavo Harden MD Z23 - Encounter for immunization ammonium lactate 5% (Lac-Hydrin Five) 1 appl topical BID 226 grams 2RF Tavo Harden MD carbamide peroxide 6.5% (Debrox) 5 drps otic (ears) Q12H 15 mL 0RF 4 days Tavo Harden MD Changed From amlodipine 5 mg See Protocol PO BID 90 tabs 0RF To amlodipine 10 mg See Protocol PO ONCE Tavo Harden MD From losartan 25 mg See Protocol PO DAILY 1 tab 0RF To losartan 50 mg See Protocol PO DAILY Paul Ferguson MD Discontinued levetiracetam Discontinued Reason: Doctor's Order 250 mg PO BID 180 tabs 0RF
[2025-06-26 13:10] VITALS: BP 114/55; PULSE 58; TEMP 36.7; O2SAT 92; BMI 34.8
--- OUTSIDE RECORDS SUMMARY | 2025-06-26 16:48 | XMS_ITS | Encounter Summary ---
Author Organization [facility] Address [address] [place] [address] Care Team Providers Care Server Programmer Name Role Phone Tavo Harden MD Primary Care Provider [phone] Encounter Details Date Type Department Care Team (Late st Contact Info) Description 04/16/2025 Billing Patient Not Present Adult Medicine [facility] [address] [place], [place] [phone] Preeti Brothers MD [address] [place], [place] Social History Tobacco Use Types Packs/Day [...] care for your loved ones. For example, home child care provider or elderly care for [...] Care Team (Late st Contact Info) Description 09/13/2025 10:30 AM EST Office Visit Pulmonology - [address] [place] [address] Leana Jimenez MD [address] [place] [address] documented as of this encounter Visit Diagnoses Not on filedocumented in this encounter Additional Health Concerns Assessment Noted Time PHQ-9 Depression Total Score: 0 03/16/20 8:29 PM EDT A fall risk assessment has been complete d for the patient 01/04/2025 8:50 AM EDT documented as of this encounter Care Teams Server Programmer Relationship Specialty Start Date End Date Tavo Harden MD [address] [place] [address] PCP - General Family Medicine 05/03/25 documented as of this encounter
--- OUTSIDE RECORDS SUMMARY | 2025-06-26 16:48 | XMS_ITS | Clinical Summary ---
Author Organization [facility] [address] [place] [address] [place] [phone] Phone Care Team Providers Care Third Steel Pourer Name Role Phone Tavo Harden MD Primary Care Provider [phone] Allergies Active Allergy Reactions Criticality Noted Date Comments Carbamazepine 08/18/2005 hepatitis Medications cyanocobalamin, vitamin B-12, 1,000 mcg capsule Take 1,000 mcg by mouth. Active pravastatin (PRAVACHOL) 80 mg tablet Take [...] not crush or chew. 90 tablet 1 025 Active hydrALAZINE (APRESOLINE) 25 mg tablet Take [...] day at the same time. 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 2 each 1 025 2024 Discontinued(R eorder) Active Problems Problem Noted Date Diagnosed Date Stage 3b chronic kidney disease 04/07/2025 Assessment & Plan (04/13/2025 3:37 PM EDT): Has repeat BMP scheduled by colleague which she will complete today. 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 Assessment & Plan (01/04/2025 9:03 AM EDT): Resolved Problems Problem Noted Date Diagnosed Date Resolved Date Current every day smoker 05/17/2023 Encounters Date Type Department Care Team Description 06/18/[address] [phone] Shyanne Alcantar MD 06/14/2025 10:15 AM EST Office Visit Pulmonology [address] [phone] Leana Jimenez MD Emphysema of lung (CMS/HCC V24, CMS/HCC V28) (Primary Dx); Obesity (BMI 30.0-34.9) 05/22/2025 8:30 AM EST Ancillary Procedure Pulmonology [address] [phone] Dyspnea on exertion 05/16/2025 Telephone Adult Medicine [address] [phone] Rl Dueñas LPN 05/14/2025 Telephone Adult Medicine [address] [phone] Rl Dueñas LPN 05/04/2025 Telephone Adult Medicine [address] [phone] Preeti Brothers MD 05/03/[address] [phone] Addie Heck, JOHN 05/03/[address] [phone] Addie Heck, RN 05/02/[address] [phone] Preeti Brothers MD 05/01/[address] [phone] Preeti Brothers MD 04/30/[address] [phone] Preeti Brothers MD 04/24/2025 Nurse Triage [address] [phone] Preeti Brothers MD 04/23/2025 9:50 AM EDT - 04/23/2025 11:59 PM EDT Hospital Encounter CT Scan [address] [phone] Dyspnea on exertion; Seizure (CMS/HCC V24, CMS/HCC V28); Localized osteoporosis without current pathological fracture Discharge Disposition: Home or Self Care 04/23/2025 Results Follow-Up [address] [phone] Figueroa Chris MD 04/19/2025 Results Follow-Up [address] [phone] Figueroa Chris MD 04/17/2025 10:30 AM EDT Consult Pulmonology - [place] [address] [phone] Leana Jimenez MD Pulmonary nodule (Primary Dx); Dyspnea on exertion; Seizure ([facility] V24, [facility] V28); Cigarette nicotine dependence with other nicotine-induced disorder; Localized osteoporosis without current pathological fracture 04/16/2025 Billing Patient Not Present [address] [phone] Preeti Brothers MD 04/13/2025 2:00 PM EDT Office Visit [address] [phone] Figueroa Chris MD Primary hypertension (Primary Dx); Stage 3b chronic kidney disease ([facility] V24, [facility] V28); Leg swelling; Chronic heart failure with preserved ejection fraction (HFpEF) ([facility] V24, [facility] V28); Chronic obstructive pulmonary disease, unspecified COPD type ([facility] V24, [facility] V28); Tobacco use disorder 04/13/2025 Results Follow-Up [address] [phone] Figueroa Chris MD 04/13/2025 Billing Patient Not Present [address] [phone] Preeti Brothers MD 04/12/2025 Nurse Triage [address] [phone] Preeti Brothers MD 04/06/2025 11:15 AM EDT Office Visit [address] [phone] Josee Santos PA Primary hypertension (Primary Dx); Blood glucose elevated; Stage 3b chronic kidney disease ([facility] V24, [facility] V28) 04/02/2025 2:45 PM EDT Office Visit Adult [address] [phone] Josee Santos PA Primary hypertension (Primary Dx) from Last 3 Months Immunizations Immunization Administration [...] djd Hypertension 04/22/2022 Kidney stone 06/02/2006 Convulsions ([facility]/HCC V24, [facility] V28) 6 Central nervous system viral infection 6 age 10 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CMS/HCC V24, [facility]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 Family History Medical History Relation Name Comments CABG Brother Heart attack Father CABG Mother after bypa ss; Valve replacement Glaucoma Sister Hypertension Son 1 hypercholestero lemia Hyperlipidemia Son 2 Breast cancer Neg Hx Relation Name Status Comments Brother Father Mother Sister Son 1 Son 2 Social History Tobacco Use Types Packs/Day Years Used Date Smoking Tobacco: Former Cigarettes Smokeless Tobacco: Never Tobacco Cessation:Counseling Given: Not Answered Alcohol Use Standard Drinks/Week [...] care for your loved ones. For example, teacher early childhood development or elderly care for an older adult? [...] on file Sexual Orientation Not on file Last Filed Vital Signs Vital Sign Reading Time Taken Comments Blood Pressure 139/53 06/14/2025 10:19 AM EST Pulse 59 06/14/2025 10:19 AM EST Temperature 36.1 C (97 F) 06/14/2025 10:19 AM EST Respiratory Rate 20 06/14/2025 10:19 AM EST Oxygen Saturation 91% 06/14/2025 10:19 AM EST Inhaled Oxygen Concentration - - Weight 81.6 kg (180 lb) 06/14/2025 10:19 AM EST Height 152.4 cm (5') 06/14/2025 10:19 AM EST Body Mass Index 35.15 06/14/2025 10:19 AM EST Plan of Treatment Upcoming Encounters Date Type Department Care Team (Late st Contact Info) Description 09/13/2025 10:30 AM EST Office Visit Pulmonology - [address] [place] [address] Leana Jimenez MD [address] [place] [phone] Health Maintenance Due Date Last Done Comments [...] 10:08 AM EDT MANJULA (acute kidney injury) (CMS/HCC V24) CT CHEST WO CONTRAST Routine 04/23/2025 9:51 AM EDT Dyspnea on exertion Seizure (CMS/HCC V24, CMS/HCC V28) Localized osteoporosis without current pathological fracture B-TYPE NATRIURETIC PEPTIDE Routine 04/19/2025 8:35 AM EDT Elevated brain natriuretic peptide (BNP) level BASIC METABOLIC PANEL Routine 04/19/2025 8:35 AM EDT Stage 3b chronic kidney disease (CMS/HCC V24, CMS/HCC V28) B-TYPE NATRIURETIC PEPTIDE Routine 04/13/2025 2:56 [...] moderate to severe COPD with emphysematous component. Leana Jimenez MD PFT ORDERABLES Final Result * (ABNORMAL) Basic metabolic panel (04/23/2025 10:08 AM EDT) Only the most recent of3 resultswithin the time period is included. Sodium 141 133 - 145 mmol/L LAB CHEMISTRY METHOD 04/23/2025 1:56 PM EDT [facility] Potassium 4.5 3.5 - 5.5 mmol/L LAB CHEMISTRY METHOD 04/23/2025 1:56 PM EDT [facility] Chloride 109 96 - 110 mmol/L LAB CHEMISTRY METHOD 04/23/2025 1:56 PM EDT [facility] CO2 24 21 - 32 mmol/L LAB CHEMISTRY METHOD 04/23/2025 1:56 PM EDT [facility] Anion Gap 8 3 - 11 LAB CHEMISTRY METHOD 04/23/2025 1:56 PM EDT [facility] Glucose 118(H) 70 - 100 mg/dL LAB CHEMISTRY METHOD 04/23/2025 1:56 PM EDT [facility] BUN 19 5 - 25 mg/dL LAB CHEMISTRY METHOD 04/23/2025 1:56 PM EDT [facility] Creatinine 1.55(H) 0.50 - 1.10 mg/dL LAB CHEMISTRY METHOD 04/23/2025 1:56 PM EDT [facility] eGFR 33(L) >=60 mL/min/1. 73m2 LAB CHEMISTRY METHOD 04/23/2025 1:56 PM EDT [facility] Comment:Calculation based on the Chronic Kidney Disease Epidemiology Collaboration (CKD-EPI) equation refit without adjustment for race. BUN/Creatinine Ratio 12.3 LAB CHEMISTRY METHOD 04/23/2025 1:56 PM EDT [facility] Calcium 8.8 8.5 - 10.5 mg/dL LAB CHEMISTRY METHOD 04/23/2025 1:56 PM EDT [facility] Blood Venous blood specimen / Unknown Venipuncture / Unknown 04/23/2025 10:08 AM EDT 04/23/2025 10:08 AM EDT Figueroa Chris MD LAB BLOOD ORDERA BLES Final Result [facility] [address] [place] [address], [place] [phone] * CT Chest wo Contrast (04/23/2025 9:51 [...] Signed Date: 04/23/2025 18:08 ET Workstation ID: [id number] Transcribed By: Self Edit Transcribed Date: 04/23/2025 [...] Signed Date: 04/23/2025 18:08 ET Workstation ID: [id number] Transcribed By: Self Edit Transcribed Date: 04/23/2025 17:37 ET us Leana Jimenez MD IMG CT PROCEDURES Final Resu lt * B-type natriuretic peptide (04/19/2025 8:35 AM EDT) Only the most recent of2 resultswithin the time period is included. Pathologist [facility] [place] BNP 53 <=100 pcg/mL LAB CHEMISTRY METHOD 04/19/2025 11:17 AM EDT [facility] Blood Venous blood specimen / Unknown Venipuncture / Unknown 04/19/2025 8:35 AM EDT 04/19/2025 8:35 AM EDT Figueroa Chris MD LAB BLOOD ORDERA BLES Final Result Performing Organization Address City/[facility]/ZIP Co de Phone Number [facility] [address] [place] [address], [place] [phone] * Hemoglobin A1c (04/06/2025 11:44 AM EDT) [facility] Hemoglobin A1C 5.6 <6.5 % LAB CHEMISTRY METHOD 04/06/2025 5:38 PM EDT [facility] Mean Bld Glu Estim. 114 mg/dL LAB CHEMISTRY METHOD 04/06/2025 5:38 PM EDT [facility] Blood Venous blood specimen / Unknown Venipuncture / Unknown 04/06/2025 11:44 AM EDT 04/06/2025 11:44 AM EDT us Josee GUNN LAB BLOOD ORDERABLES Final Re sult [facility] [address] [place] [address], [place] [phone] * Lipid panel with reflex to direct LDL (01/04/2025 9:22 AM EDT) [facility] Cholesterol 189 0 - 200 mg/dL LAB CHEMISTRY METHOD 01/04/2025 1:36 PM EDT [facility] Triglycerides 142 0 - 150 mg/dL LAB CHEMISTRY METHOD 01/04/2025 1:36 PM EDT [facility] HDL 67 >=40 mg/dL LAB CHEMISTRY METHOD 01/04/2025 1:36 PM EDT [facility] LDL Calculated 94 0 - 100 mg/dL LAB CHEMISTRY METHOD 01/04/2025 1:36 PM EDT [facility] VLDL Cholesterol Anuj 28.4 mg/dL LAB CHEMISTRY METHOD 01/04/2025 1:36 PM EDT [facility] Non HDL Chol. (LDL+VLDL) 122 <145 mg/dL LAB CHEMISTRY METHOD 01/04/2025 1:36 PM EDT [facility] Chol/HDL Ratio 2.8 0.0 - 4.4 LAB CHEMISTRY METHOD 01/04/2025 1:36 PM EDT [facility] Blood Venous blood specimen / Unknown Venipuncture / Unknown 01/04/2025 9:22 AM EDT 01/04/2025 9:22 AM EDT Josee GUNN LAB BLOOD ORDERABLES Final Re sult [facility] [address] [place] [address], * DXA BONE DENSITY STUDY 1+ SITS [...] IMPRESSION: IMPRESSION: Osteoporosis by WHO criteria. The [facility] recommends using [...] IMPRESSION: IMPRESSION: Osteoporosis by WHO criteria. The [facility] of Internal Medicine recommendsusing National [...] alternative screening schedule based on moise Castro., [place]January 2011 for patients with osteopenia (based on [...] Most Recently Relevant to Health Maintenance Insurance [facility] MEDICARE Care Teams Third Steel Pourer Relationship Specialty Start Date End Date Tavo Harden MD [address] [place] [id number] PCP - General Family Medicine 05/03/25
--- OUTSIDE RECORDS SUMMARY | 2025-06-26 16:48 | XMS_ITS | Encounter Summary ---
Author Organization [facility] Address [address] [place] [address] Care Team Providers Care Protective Clothing Issuer Name Role Phone Tavo Harden MD Primary Care Provider Encounter Details Date Type Department Care Team (Late st Contact Info) Description 04/13/2025 Billing Patient Not Present Adult Medicine [facility] [address] [place], [place] [phone] Preeti Brothers MD [address] [place], [place] Social History Tobacco Use Types Packs/Day [...] loved ones. For example, child care centre manager or elderly care for an older [...] 10:30 AM EST Office Visit Pulmonology - [address] [place] [address] Leana Jimenez MD [address] [place] [phone] documented as of this encounter Visit Diagnoses Not on filedocumented in this encounter Additional Health Concerns Assessment Noted Time PHQ-9 Depression Total Score: 0 03/16/20 8:29 PM EDT A fall risk assessment has been complete d for the patient 01/04/2025 8:50 AM EDT documented as of this encounter Care Teams Protective Clothing Issuer Relationship Specialty Start Date End Date Tavo Harden MD [address] [place] [address] PCP - General Family Medicine 05/03/25 documented as of this encounter
--- OUTSIDE RECORDS SUMMARY | 2025-06-26 16:48 | XMS_ITS | Encounter Summary ---
Author Organization [facility] Address [address] [place] [address] Care Team Providers Care Farm Marketer Name Role Phone Tavo Harden MD Primary Care Provider [phone] Reason for Visit * Reason Onset Date Comments new rx 06/18/2025 Encounter Details Date Type Department Care Team ([facility] st Contact Info) Description 06/18/2025 Telephone Endocrinology - [place] [address] [place] [phone] Shyanne Alcantar MD [address] [place] [address] Social History Tobacco Use Types Packs/Day Years Used Date Smoking Tobacco: Former Cigarettes Smokeless Tobacco: Never Alcohol Use Standard [...] 10:30 AM EST Office Visit Pulmonology - [address] [place] [address] Leana Jimenez MD [address] [place] [address] documented as of this encounter Visit Diagnoses Not on filedocumented in this encounter Additional Health Concerns Assessment Noted Time PHQ-9 Depression Total Score: 0 03/16/20 8:29 PM EDT A fall risk assessment has been complete d for the patient 01/04/2025 8:50 AM EDT documented as of this encounter Care Teams Farm Marketer Relationship Specialty Start Date End Date Tavo Harden MD [address] [place] [address] PCP - General Family Medicine 05/03/25 documented as of this encounter
--- OUTSIDE RECORDS SUMMARY | 2025-06-26 16:48 | XMS_ITS | Encounter Summary ---
Author Organization [facility] Address [address] [place] [address] Care Team Providers Care Fire Protection Designer Name Role Phone Tavo Harden MD Primary Care Provider [phone] Encounter Details Date Type Department Care Team (Late st Contact Info) Description 04/23/2025 Results Follow-Up Adult Medicine [facility] [address] [place] [address] Figueroa Chris MD [address] [place], [place] Social History Tobacco Use Types Packs/Day [...] ed Within the last 3 months, christie w many times did you visit the [...] for your loved ones. For example, children's zoo caretaker or elderly care for an older adult? [...] 10:30 AM EST Office Visit Pulmonology - [place] [address] [facility] [address] [place] [address] Leana Jimenez MD [address] [place] [phone] documented as of this encounter Visit Diagnoses Not on filedocumented in this encounter Additional Health Concerns Assessment Noted Time PHQ-9 Depression Total Score: 0 03/16/20 8:29 PM EDT A fall risk assessment has been complete d for the patient 01/04/2025 8:50 AM EDT documented as of this encounter Care Teams Fire Protection Designer Relationship Specialty Start Date End Date Tavo Harden MD [address] [place] [address] PCP - General Family Medicine 05/03/25 documented as of this encounter
== END 2025-06-26 14:02 | disposition home or self-care (01) ==
LOC: HO.HMCFMS 12:55
PROVIDERS: PCP Internal Medicine; Visit Provider Student in an Organized Health Care Education/Training Program
DX: I12.9 Hypertensive chronic kidney disease with stage 1 through stage 4 chronic kidney disease, or unspecified chronic kidney disease (principal); J44.9 Chronic obstructive pulmonary disease, unspecified; R91.1 Solitary pulmonary nodule; G40.209 Localization-related (focal) (partial) symptomatic epilepsy and epileptic syndromes with complex partial seizures, not intractable, without status epilepticus; N18.9 Chronic kidney disease, unspecified; H61.20 Impacted cerumen, unspecified ear; M81.0 Age-related osteoporosis without current pathological fracture; D35.2 Benign neoplasm of pituitary gland; R26.9 Unspecified abnormalities of gait and mobility; G20.A1 Parkinson's disease without dyskinesia, without mention of fluctuations; I50.9 Heart failure, unspecified; Z87.891 Personal history of nicotine dependence; E66.811 Obesity, class 1; Z78.0 Asymptomatic menopausal state